=== PATIENT | male | born 1960 | race Caucasian/White ===

== ENCOUNTER 2016-05-09 17:58 | Inpatient (IN) | payer OTHER ==
[~2016-05-09] VITALS: Ht 172.7 cm; Wt 122.4 kg
[~2016-05-09 17:58] MED LIST: FIORIC PO
[2016-05-09 18:05] VITALS: BP 194/116; PULSE 105; RESP 16; TEMP 98.5; O2SAT 96
[2016-05-09 18:20] VITALS: BP 154/96; PULSE 106; RESP 18; O2SAT 96
--- NOTE | 2016-05-09 18:42 | PD ---
HPI Chief Complaint: Chest Pain Time Seen by Provider: 18:27 Travel History International Travel<30 days: No Contact w/Intl Traveler<30days: No Traveled to known affect area: No History of Present Illness HPI This 55-year-old male has multiple complaints. He says that recently he has been falling 3 or 4 times a day. He thinks he is passing out and then falling. He wakes up and is somewhat confused. He has no history of seizures. He has no history of heart disease. He does have a history of migraine headaches and tension headaches. He says the last couple of months he has had periods where he seems like he is confused. He will forget what he is doing. Concerned that he is losing his mind. he had some chest pain last night. He is not having pain now. He stopped smoking 3 weeks ago. He believes he has a history of sleep apnea. He says he been urinating every hour. The patient does have a laceration of his tongue which he said occurred during one of these episodes a few weeks ago PFSH Past Medical History Arthritis: Yes Blood Disorders: No Cancer: No Cardiac Catheterization: No Cardiovascular Problems: Yes High Cholesterol: Yes Congestive Heart Failure: No Diabetes: No Endocrine: No Genitourinary: No Hypertension: Yes Immune Disorder: No Musculoskeletal: Yes Neurologic: Yes Psychiatric: No Reproductive: No Respiratory: No Migraines: Yes (WITH TMJ) Influenza Vaccination: Yes Past Surgical History Abdominal Surgery: Yes AICD: No Appendectomy: Yes (UNKNOWN YEAR) Arteriovenous Shunt: No Cardiac Surgery: No Coronary Artery Bypass Graft: No Ear Surgery: No Endocrine Surgery: No Eye Surgery: No Genitourinary Surgery: No Gynecologic Surgery: No Insulin Pump: No Joint Replacement: No Oral Surgery: Yes Pacemaker: No Thoracic Surgery: No Tonsillectomy: Yes ( CHILD) Social History Alcohol Use: No Tobacco Use: Yes (QUIT 06/2013) Substance Use: No Allergies-Medications (Allergen,Severity, Reaction): Coded Allergies: No Known Allergies (Verified , 05/09/16) Reported Meds & Prescriptions Reported Meds & Active Scripts Active No Active Prescriptions or Reported Medications Review of Systems General / Constitutional: No: Fever, Chills Eyes: Positive: Blurred Vision, No: Diploplia HENT: Positive: Headaches, No: Vertigo, Lightheadedness Cardiovascular: Positive: Chest Pain or Discomfort, Syncope, No: Palpitations Respiratory: No: Cough, Shortness of Breath Gastrointestinal: No: Nausea, Vomiting Genitourinary: Positive: Frequency, No: Urgency Musculoskeletal: No: Myalgias, Arthralgias Skin: No Rash Neurologic: No: Weakness, Dizziness Psychiatric: No: Anxiety Endocrine: No: Heat Intolerance Hematologic/Lymphatic: No: Easy Bruising Physical Exam Narrative GENERAL: Well-developed male SKIN: Warm and dry. HEAD: Atraumatic. Normocephalic. EYES: Pupils equal and round. No scleral icterus. No injection or drainage. ENT: No nasal bleeding or discharge. Mucous membranes pink and moist. There is a healing laceration on the right side of the tongue NECK: Trachea midline. No JVD. CARDIOVASCULAR: Regular rate and rhythm. No murmur appreciated. RESPIRATORY: No accessory muscle use. Clear to auscultation. Breath sounds equal bilaterally. GASTROINTESTINAL: Abdomen soft, non-tender, nondistended. Hepatic and splenic margins not palpable. MUSCULOSKELETAL: No obvious deformities. No clubbing. No cyanosis. No edema. NEUROLOGICAL: Awake and alert. No obvious cranial nerve deficits. Motor grossly within normal limits. Normal speech. PSYCHIATRIC: Appropriate mood and affect; insight and judgment normal. He is oriented Data Data Last Documented VS Vital Signs Date Time Temp Pulse Resp B/P Pulse Ox O2 Delivery O2 Flow Rate FiO2 05/09/16 18:20 106 18 154/96 96 Room Air 05/09/16 18:05 98.5 Orders Electrocardiogram (05/09/16 18:39) Complete Blood Count With Diff (05/09/16 18:39) Comprehensive Metabolic Panel (05/09/16 18:39) Troponin I (05/09/16 18:39) Urinalysis - C+S If Indicated (05/09/16 18:39) Magnesium (Mg) (05/09/16 18:39) Thyroid Stimulating Hormone (05/09/16 18:39) Ct Brain W/O Iv Contrast(Rout) (05/09/16 18:39) Labs Laboratory Tests Test 05/09/16 05/09/16 18:55 19:10 White Blood Count 15.8 TH/MM3 Red Blood Count 5.64 MIL/MM3 Hemoglobin 15.9 GM/DL Hematocrit 49.2 % Mean Corpuscular Volume 87.2 FL Mean Corpuscular Hemoglobin 28.2 PG Mean Corpuscular Hemoglobin 32.3 % Concent Red Cell Distribution Width 17.5 % Platelet Count 366 TH/MM3 Mean Platelet Volume 8.1 FL Neutrophils (%) (Auto) 76.4 % Lymphocytes (%) (Auto) 15.5 % Monocytes (%) (Auto) 4.7 % Eosinophils (%) (Auto) 3.0 % Basophils (%) (Auto) 0.4 % Neutrophils # (Auto) 12.1 TH/MM3 Lymphocytes # (Auto) 2.4 TH/MM3 Monocytes # (Auto) 0.7 TH/MM3 Eosinophils # (Auto) 0.5 TH/MM3 Basophils # (Auto) 0.1 TH/MM3 CBC Comment AUTO DIFF Differential Comment AUTO DIFF CONFIRMED Platelet Estimate NORMAL Platelet Morphology Comment NORMAL Sodium Level 140 MEQ/L Potassium Level 3.7 MEQ/L Chloride Level 102 MEQ/L Carbon Dioxide Level 31.6 MEQ/L Anion Gap 6 MEQ/L Blood Urea Nitrogen 18 MG/DL Creatinine 0.83 MG/DL Estimat Glomerular Filtration 97 ML/MIN Rate Random Glucose 129 MG/DL Calcium Level 8.4 MG/DL Magnesium Level 2.0 MG/DL Total Bilirubin 0.1 MG/DL Aspartate Amino Transf 12 U/L (AST/SGOT) Alanine Aminotransferase 23 U/L (ALT/SGPT) Alkaline Phosphatase 91 U/L Troponin I LESS THAN 0.02 NG/ML Total Protein 6.7 GM/DL Albumin 3.2 GM/DL Thyroid Stimulating Hormone 1.840 uIU/ML 3rd Gen Urine Collection Type VOIDED Urine Color STRAW Urine Turbidity CLEAR Urine pH 6.0 Urine Specific [place] 1.019 Urine Protein 30 mg/dL Urine Glucose (UA) NEG mg/dL Urine Ketones NEG mg/dL Urine Occult Blood LARGE Urine Nitrite NEG Urine Bilirubin NEG Urine Leukocyte Esterase NEG Urine RBC 4-9 /hpf Urine WBC 0-2 /hpf Microscopic Urinalysis Comment CULT NOT INDICATED MDM Medical Decision Making Medical Screen Exam Complete: Yes Emergency Medical Condition: Yes Medical Record Reviewed: Yes Differential Diagnosis Differential includes syncope, seizure disorder, fainting Narrative Course EKG shows normal sinus rhythm. CT scan has been read as negative. History is concerning for either syncope or seizure. The laceration of the tongue is concerning for seizures though it is only happen on one occasion. Diagnosis Primary Impression: Syncopal episodes Qualified Code: R55 - Syncope, unspecified syncope type Admitting Information Admitting Physician Requests: Admit Scripts No Active Prescriptions or Reported Meds Lenny Coker MD May 09, 2016 18:42
[2016-05-09 19:04] LABS: AUTOMATED NEUTROPHIL # 12.1 TH/MM3 (1.8-7.7); BASOPHIL # 0.1 TH/MM3 (0-0.2); BASOPHIL % 0.4 % (0.0-2.0); EOSINOPHIL # 0.5 TH/MM3 (0-0.4); HEMATOCRIT 49.2 % (39.0-51.0); LYMPH % 15.5 % (9.0-44.0); LYMPHOCYTE # 2.4 TH/MM3 (1.0-4.8); MEAN CELL VOLUME 87.2 FL (80.0-100.0); MEAN CORPUSCULAR HEMOGLOBIN 28.2 PG (27.0-34.0); MEAN CORPUSCULAR HGB CONC 32.3 % (32.0-36.0); MONO % 4.7 % (0.0-8.0); NEUT % 76.4 % (16.0-70.0); PLATELET COUNT 366 TH/MM3 (150-450); RED BLOOD COUNT 5.64 MIL/MM3 (4.50-5.90); RED CELL DISTRIBUTION WIDTH 17.5 % (11.6-17.2); WHITE BLOOD COUNT 15.8 TH/MM3 (4.0-11.0)
[2016-05-09 19:07] LABS: HEMO FLAGS AUTO DIFF
[2016-05-09 19:13] LABS: CHLORIDE 102 MEQ/L (98-107); POTASSIUM 3.7 MEQ/L (3.5-5.1); SODIUM (NA) 140 MEQ/L (136-145)
[2016-05-09 19:15] VITALS: BP 140/89; PULSE 97; RESP 20; O2SAT 96
[2016-05-09 19:17] LABS: ANION GAP 6 MEQ/L (5-15); BICARBONATE 31.6 MEQ/L (21.0-32.0); BLOOD UREA NITROGEN 18 MG/DL (7-18)
[2016-05-09 19:20] LABS: ALT (GPT) 23 U/L (12-78); AST (GOT) 12 U/L (15-37); GLOMERULAR FILTRATION RATE 97 ML/MIN (>89)
[2016-05-09 19:22] LABS: TOTAL BILIRUBIN ADULT 0.1 MG/DL (0.2-1.0)
[2016-05-09 19:23] LABS: ALKALINE PHOSPHATASE 91 U/L (45-117)
[2016-05-09 19:35] LABS: BLOOD, URINE LARGE (NEG); GLUCOSE,URINE NEG (NEG); KETONE, URINE NEG (NEG); NITRITE,URINE NEG (NEG)
[2016-05-09 19:37] LABS: PLATELET ESTIMATE SMEAR NORMAL (NORMAL); PLATELET MORPHOLOGY NORMAL (NORMAL); SCAN/DIFF AUTO DIFF CONFIRMED
[2016-05-09 19:46] LABS: METHOD OF COLLECTION VOIDED; URINE COLOR STRAW (YELLW/STRAW)
[2016-05-09 19:47] LABS: COMMENT (UR) CULT NOT INDICATED; CULTURE IF INDICATED CULT NOT INDICATED; WBC, URINE 0-2 /hpf (0-5)
--- NOTE | 2016-05-09 20:04 | RADHPO ---
EXAM DATE/TIME: 05/09/2016 19:01 [facility] COMPARISON: CT BRAIN W/O CONTRAST, September 27, 2012, 20:03. INDICATIONS : Cephalgia RADIATION DOSE: 64.75 CTDIvol (mGy) MEDICAL HISTORY : Hypertension. SURGICAL HISTORY : None. ENCOUNTER: Initial ACUITY: 1 day PAIN SCALE: 5/10 LOCATION: cranial TECHNIQUE: Multiple contiguous axial images were obtained of the head. Using automated exposure control and adj ustment of the mA and/or kV according to patient size, radiation dose was kept as low as reasonably a chievable to obtain optimal diagnostic quality images. FINDINGS: CEREBRUM: The ventricles are normal for age. No evidence of midline shift, mass lesion, hemorrhage or acute in farction. No extra-axial fluid collections are seen. POSTERIOR FOSSA: The cerebellum and brainstem are intact. The 4th ventricle is midline. The cerebellopontine angle i s unremarkable. EXTRACRANIAL: The visualized portion of the orbits is intact. SKULL: The calvaria is intact. No evidence of skull fracture. CONCLUSION: Normal examination for a patient of this age. No significant change has occurred. Luiz Magana MD on May 09, 2016 at 20:02 Board Certified Radiologist. This report was verified electronically.
[2016-05-09] MEDS ORDERED: SODIUM CHLORIDE 0.9% FLUSH 5 ML FLUSH FLUSH PRN (20:30)
[2016-05-09] MEDS ORDERED: NALOXONE HCL 0.4 MG/ML AMP IV PRN (20:30)
[2016-05-09 21:00] VITALS: BP 176/93; PULSE 93; RESP 18; O2SAT 95
[2016-05-09] MEDS ORDERED: ACETAMINOPHEN 500 MG CPLT PO ONE (21:30)
[2016-05-09] MEDS: SODIUM CHLORIDE 0.9% FLUSH 5 ML FLUSH FLUSH SCH (22:43)
[2016-05-09 23:59] VITALS: BP 160/92; PULSE 103; RESP 18; O2SAT 99
[2016-05-10] VITALS (10 sets, daily range): BP systolic 133–197; BP diastolic 79–116; PULSE 81–98; RESP 17–20; TEMP 96.1–98.8; O2SAT 95–98
[2016-05-10] MEDS ORDERED: ACETAMIN 325 MG/BUTALBITAL 50 MG/CAFFEINE 40 MG TAB PO ONE (06:00)
[2016-05-10 06:59] LABS: AUTOMATED NEUTROPHIL # 11.8 TH/MM3 (1.8-7.7); BASOPHIL # 0.1 TH/MM3 (0-0.2); BASOPHIL % 0.4 % (0.0-2.0); EOSINOPHIL # 0.3 TH/MM3 (0-0.4); EOSINOPHIL % 1.8 % (0.0-4.0); HEMATOCRIT 50.6 % (39.0-51.0); HEMO FLAGS DIFF FINAL; LYMPH % 15.7 % (9.0-44.0); LYMPHOCYTE # 2.5 TH/MM3 (1.0-4.8); MEAN CELL VOLUME 88.8 FL (80.0-100.0); MEAN CORPUSCULAR HEMOGLOBIN 28.4 PG (27.0-34.0); MONO % 6.6 % (0.0-8.0); NEUT % 75.5 % (16.0-70.0); PLATELET COUNT 358 TH/MM3 (150-450); RED BLOOD COUNT 5.71 MIL/MM3 (4.50-5.90); WHITE BLOOD COUNT 15.7 TH/MM3 (4.0-11.0)
[2016-05-10 07:10] LABS: POTASSIUM 4.1 MEQ/L (3.5-5.1)
[2016-05-10 07:16] LABS: BICARBONATE 33.4 MEQ/L (21.0-32.0)
[2016-05-10] MEDS ORDERED: ENALAPRILAT 1.25 MG/ML VIAL IV PUSH PRN (07:45)
[2016-05-10] MEDS: cloNIDine HCL 0.1 MG TAB PO PRN ×2 (08:34→20:44)
[2016-05-10] MEDS: ENOXAPARIN SODIUM 40 MG/0.4 ML SYRINGE SQ SCH (08:35)
[2016-05-10] MEDS: SODIUM CHLORIDE 0.9% FLUSH 5 ML FLUSH FLUSH SCH ×2 (08:45→20:45)
[2016-05-10] MEDS ORDERED: LORazepam 2 MG/ML VIAL IV PUSH PRN (09:30)
[2016-05-10 10:28] LABS: BARBITURATES, URINE NEG (NEG)
[2016-05-10 10:29] LABS: AMPHETAMINE, URINE NEG (NEG); COCAINE, URINE NEG (NEG)
--- NOTE | 2016-05-10 16:35 | HHI.HP ---
[facility] No Primary Care Physician Admission Diagnosis SYNCOPE VS SEIZURES Diagnoses: (1) Transient loss of consciousness Travel History International Travel<30 Days: No Contact w/Intl Traveler <30 Da: No Traveled to Known Affected Are: No History of Present Illness This is a 55-year-old male with past medical history of hypertension and tension headaches/migraines who presents with a history of of what he calls "falling." The patient is somewhat of a poor historian. He is quite anxious and tearful at first. At first she tells me that he's had episodes of falling where he blacks out. He states this happened at the kitchen in front of the refrigerator several days ago he fell and hit his forehead and was bleeding. Several weeks ago he had an episode where he fell and almost bit his tongue off he says. He does have a healing tongue laceration that he shows me. When further questioned the patient denies any prodromal symptoms. However he then states that "sometimes I can tell when I'm about to pass out when I stop myself from falling." The patient states that these episodes started about 6 or 7 months ago. However upon further questioning he states that he has had these episodes going back as far as 4 years ago. He states at that time he saw Dr. Rivero and had many tests including what sounds like an nerve conduction study. The patient states that Dr. Rivero put him on furosemide at that time for the headaches and another medication which helped with these episodes but he cannot remember the name of the medicine. The patient denies any loss of bowel or bladder continence. He does admit to feeling somewhat confused when he wakes up. He does have a family history of seizures and his mother and maternal aunts. He denies ever being diagnosed with a seizure disorder. The patient does not drink alcohol or use any illegal substances. His urine drug screen is negative. The patient takes only a baby aspirin a day and over-the- counter ibuprofen and Tylenol. The patient does get swelling in his legs was elevated today. He denies any chest pain, chest pressure or history of cardiac conditions. Other than high blood pressure. The patient also states that he has been getting some floaters in his right eye recently. Review of Systems ROS Limitations: Poor Historian Constitutional: DENIES: Fever, Chills Eyes: DENIES: Blurred vision, Diplopia Ears, nose, mouth, throat: DENIES: Throat pain, Running Nose Respiratory: DENIES: Cough, Shortness of breath Cardiovascular: DENIES: Chest pain, Palpitations Gastrointestinal: DENIES: Nausea, Vomiting Genitourinary: DENIES: Hematuria, Dysuria Musculoskeletal: COMPLAINS OF: Back pain, DENIES: Neck pain Integumentary: DENIES: Pruritus, Rash Hematologic/lymphatic: DENIES: Lymphadenopathy Neurologic: COMPLAINS OF: Headache, DENIES: Abnormal gait, Localized weakness , Paresthesias Psychiatric: COMPLAINS OF: Anxiety, DENIES: Confusion Past Family Social History Past Medical History Hypertension History of episodes of loss of consciousness going back for years apparently Tension versus migraine headaches Reported Medications Allergies Coded Allergies Type Severity Reaction Last Updated Verified No Known Allergies 05/09/16 Yes Active Scripts Medications Dose Route/Sig Days Date Category No Active Prescriptions or Reported Medications Rx Allergies: Coded Allergies: No Known Allergies (Verified , 05/09/16) Family History Seizures in his mother Social History The patient has achieved a 10th grade education. He was fired from [employer] 3 weeks ago for mixing up the spicy and regular chicken and is quite upset about that. He quit smoking tobacco about 3 weeks ago. No alcohol or drug use. Physical Exam Vital Signs Vital Signs Date Time Temp Pulse Resp B/P Pulse Ox O2 Delivery O2 Flow Rate FiO2 05/10/16 11:47 142/81 05/10/16 11:46 97.4 95 17 142/79 98 133/79 05/10/16 09:21 96.9 98 17 197/114 96 05/10/16 04:00 96.1 89 20 141/94 95 05/10/16 03:30 90 18 156/90 95 Room Air 05/09/16 23:59 103 18 160/92 99 Nasal Cannula 2 05/09/16 23:43 18 05/09/16 21:00 93 18 176/93 95 Room Air 05/09/16 19:15 97 20 140/89 96 Room Air 05/09/16 19:15 97 20 05/09/16 18:20 106 18 154/96 96 Room Air 05/09/16 18:05 98.5 105 16 194/116 96 Physical Exam GENERAL: Well-nourished, well-developed obese middle-age male patient who is somewhat anxious and tearful. SKIN: Warm and dry. HEAD: Normocephalic. EYES: No scleral icterus. No injection or drainage. NECK: Supple, trachea midline. No JVD or lymphadenopathy. CARDIOVASCULAR: Regular rate and rhythm without murmurs, gallops, or rubs. RESPIRATORY: Breath sounds equal bilaterally. No accessory muscle use. GASTROINTESTINAL: Abdomen soft, non-tender, nondistended. EXTREMITIES: Trace pedal edema. NEUROLOGICAL: Awake, alert, and oriented x 3. Cranial nerves II through XII intact. 5 out of 5 muscle strength all 4 extremities. Normal speech. Non- focal. Laboratory Laboratory Tests Test 05/09/16 05/09/16 05/10/16 18:55 19:10 05:45 White Blood Count 15.8 15.7 Red Blood Count 5.64 5.71 Hemoglobin 15.9 16.2 Hematocrit 49.2 50.6 Mean Corpuscular Volume 87.2 88.8 Mean Corpuscular Hemoglobin 28.2 28.4 Mean Corpuscular Hemoglobin 32.3 32.0 Concent Red Cell Distribution Width 17.5 18.0 Platelet Count 366 358 Mean Platelet Volume 8.1 8.7 Neutrophils (%) (Auto) 76.4 75.5 Lymphocytes (%) (Auto) 15.5 15.7 Monocytes (%) (Auto) 4.7 6.6 Eosinophils (%) (Auto) 3.0 1.8 Basophils (%) (Auto) 0.4 0.4 Neutrophils # (Auto) 12.1 11.8 Lymphocytes # (Auto) 2.4 2.5 Monocytes # (Auto) 0.7 1.0 Eosinophils # (Auto) 0.5 0.3 Basophils # (Auto) 0.1 0.1 CBC Comment AUTO DIFF DIFF FINAL Differential Comment AUTO DIFF CONFIRMED Platelet Estimate NORMAL Platelet Morphology Comment NORMAL Sodium Level 140 141 Potassium Level 3.7 4.1 Chloride Level 102 101 Carbon Dioxide Level 31.6 33.4 Anion Gap 6 7 Blood Urea Nitrogen 18 18 Creatinine 0.83 0.72 Estimat Glomerular Filtration 97 114 Rate Random Glucose 129 100 Calcium Level 8.4 8.0 Magnesium Level 2.0 Total Bilirubin 0.1 Aspartate Amino Transf 12 (AST/SGOT) Alanine Aminotransferase 23 (ALT/SGPT) Alkaline Phosphatase 91 Troponin I LESS THAN 0.02 Total Protein 6.7 Albumin 3.2 Thyroid Stimulating Hormone 1.840 3rd Gen Urine Collection Type VOIDED Urine Color STRAW Urine Turbidity CLEAR Urine pH 6.0 Urine Specific [place] 1.019 Urine Protein 30 Urine Glucose (UA) NEG Urine Ketones NEG Urine Occult Blood LARGE Urine Nitrite NEG Urine Bilirubin NEG Urine Leukocyte Esterase NEG Urine RBC 4-9 Urine WBC 0-2 Microscopic Urinalysis Comment CULT NOT INDICATED Urine Opiates Screen NEG Urine Barbiturates Screen NEG Urine Amphetamines Screen NEG Urine Benzodiazepines Screen NEG Urine Cocaine Screen NEG Urine Cannabinoids Screen NEG Result Diagram: 05/10/16 0545 05/10/16 0545 Imaging Last Impressions Head CT 05/09/16 1839 Signed Impressions: Service Date/Time: Monday, May 09, 2016 19:01 - CONCLUSION: Normal examination for a patient of this age. No significant change has occurred. Luiz Magana MD Assessment and Plan Assessment and Plan -Episodes of loss of consciousness. Syncope versus seizures versus sleep disorder? It is difficult to get an accurate history of the patient. He states that he had these episodes dating back as far as 4 years ago and was prescribed something from Dr. Rivero which helped but he is unable to tell me the medication. Lately these episodes of it happening more and more and he is having loss of consciousness where he falls and has suffered a tongue laceration and hitting his forehead. We'll continue with workup. Head CT is negative. Will continue on telemetry, obtain a 2-D echocardiogram, get a brain MRI, Doppler carotid ultrasound and an EEG. Use Ativan when necessary. Orthostatics are negative and we will continue those twice a day. I will request neurology to come and see him and opine on whether these could be seizures. I will order a Holter monitor as well. He likely needs a sleep study test as an outpatient as his CO2 is elevated. I would likely benefit from a cardiac event monitor. -Tension-type migraines. Request neurology opinion. Tylenol when necessary. -Hypertension. Uncontrolled and untreated. We'll start him on HCTZ daily. Will use clonidine when necessary. -DVT prophylaxis with SCDs. Jami Pederson MD May 10, 2016 16:35
--- NOTE | 2016-05-10 17:44 | EKG ---
Date Performed: 05/09/2016 Time Performed: 18:16:08 PTAGE: 55 years EKG: Sinus rhythm Indeterminate axis Since previous tracing, no significant change noted Borderline ECG PREVIOUS TRACING : 09/28/2012 01.23 DOCTOR: Anatoliy Robledo Interpretating Date/Time 05/10/2016 17:43:54
[2016-05-10] MEDS ORDERED: ATROPINE SULFATE 0.4 MG/ML VIAL IV PUSH PRN (18:45)
[2016-05-10] MEDS ORDERED: ATROPINE SULFATE 1 MG/ML VIAL IV PUSH PRN (18:46)
--- NOTE | 2016-05-10 22:38 | RADHPO ---
EXAM DATE/TIME: 05/10/2016 21:03 [facility] COMPARISON: No previous studies available for comparison. INDICATIONS : Transient ischemic attack. MEDICAL HISTORY : Hypercholesterolemia. Hypertension. Migraines. Arthritis. Anxiety. SURGICAL HISTORY : Tonsillectomy. Appendectomy. ENCOUNTER: Initial ACUITY: 1 day PAIN SCORE: 0/10 LOCATION: Bilateral neck PEAK SYSTOLIC VELOCITIES (cm/sec): ICA/CCA RATIO: Right: 2.3 Left: 1.3 ICA: Right: 208 Left: 122 CCA: Right: 90 Left: 94 ECA: Right: 91 Left: 95 VERTEBRAL: Right: 76 antegrade Left: 74 antegrade Elevated flow velocities and ICA/CCA ratios have been found to correlate with increased degrees of vessel stenosis, calculated as percentage of diameter relative to a normal segment of distal ICA/CCA FINDINGS: There is moderate to severe noncalcified plaque at the right carotid bifurcation. Mild noncalcified p laque seen in both common carotid and internal carotid arteries. PSV ratio of the right is elevated t o 2.3. Exam technically difficult due to patient's size. CONCLUSION: 1. Sonographic findings are most characteristic of at least a moderate stenosis of the right carotid bifurcation. This would be better evaluated with CTA carotids. Luiz Magana MD on May 10, 2016 at 22:34 Board Certified Radiologist. This report was verified electronically.
[2016-05-11] VITALS (28 sets, daily range): BP systolic 135–169; BP diastolic 79–96; PULSE 80–97; RESP 14–24; TEMP 97.6–98.4; O2SAT 93–99
[2016-05-11] MEDS ORDERED: ACETAMIN 325 MG/BUTALBITAL 50 MG/CAFFEINE 40 MG TAB PO ONE (04:30)
--- NOTE | 2016-05-11 08:23 | MG ---
cc: ALANIS MARCANO Lab No: [id number] Date: Age: Sex: M Hyperventilation not performed. Falling several times. Migraines. Catapres. Tylenol. DESCRIPTION An 8 Hz, 40 microvolt symmetric posterior rhythm is seen. The recording generally has a bit of a lower amplitude but synchronous and symmetric and within normal. No hemisphere asymmetries are noted. Some mild diffuse theta slowing is seen in the middle of the recording. Photic stimulation was performed without significant posterior driving. The patient is noted to be snoring but does not reach stage II sleep. A lot of heavy snoring is noted. Hyperventilation is not performed. IMPRESSION Normal awake and sleep EEG. There is a lot of snoring going on and investigation for sleep apnea could be considered if clinically indicated. MD SAMY DelgadoM/BOO 7:57 AM 8:11 AM
[2016-05-11] MEDS: ENOXAPARIN SODIUM 40 MG/0.4 ML SYRINGE SQ SCH (08:24)
[2016-05-11] MEDS: SODIUM CHLORIDE 0.9% FLUSH 5 ML FLUSH FLUSH SCH ×2 (08:24→22:10)
[2016-05-11] MEDS: HYDROCHLOROTHIAZIDE 25 MG TAB PO SCH (09:00)
--- NOTE | 2016-05-11 11:30 | MB ---
cc: LUIS DEJESUS DATE OF CONSULTATION 05/11/2016 DATE OF 1960 REASON FOR CONSULTATION Syncope, sinus arrest HISTORY OF PRESENT ILLNESS 55-year-old male with past medical history significant for hypertension, obesity , migraines and untreated obstructive sleep apnea who presented to [facility] emergency department for evaluation of falling episodes and blackouts. He reports that for the last couple of weeks, he has been having these blackouts that can happen anywhere without any pre or postdrome symptoms. The patient was admitted to telemetry and he was admitted for observation. Telemetry monitoring was observed and the patient had a 3-second pause. The patient does not remember the pause or remember any symptoms from that episode. The patient was then transferred to [facility] for further management and evaluation. REVIEW OF SYSTEMS Negative except for what is mentioned in the HPI. PAST MEDICAL HISTORY 1. Hypertension 2. Obesity 3. Untreated obstructive sleep apnea 4. Migraine headaches Home Medications: NONE ALLERGIES NO KNOWN DRUG ALLERGIES. FAMILY HISTORY Seizures SOCIAL HISTORY He is a former smoker, quit three weeks ago. He denies alcohol or illicit drug use. PHYSICAL EXAM VITAL SIGNS: Temperature 98, pulse 93, respiratory rate 18, blood pressure 152/ 82, O2 sat 95% on room air. GENERAL: He is awake, alert, and oriented x3 in no acute distress seated in the bed, at bedside. NECK: No JVD, no carotid bruits. HEART: Regular rate and rhythm. No murmurs, rubs or gallops appreciated. LUNGS: Clear to auscultation bilaterally. No wheezes, rhonchi or rales. ABDOMEN: Obese. Positive bowel sounds, soft, nontender, nondistended. EXTREMITIES: No cyanosis or edema. Pulses throughout. DATA CBC white count 15.7, hemoglobin of 16, hematocrit of 50, white count of 358. Chemistries, sodium 141, potassium 4.1 and BUN 18, creatinine of 0.72, calcium of 8. His magnesium 2, troponin less than 0.02. TSH 1.8. Urinalysis shows large amount of occult blood, as well as protein. IMAGING STUDIES Head CT, normal examination for the patient's age. Carotid artery ultrasound shows a moderate stenosis of the right carotid bifurcation. EKG shows sinus rhythm, otherwise normal. In the chart, there is a strip with 3 -second pause ASSESSMENT/PLAN This is a 55-year-old male admitted with syncope, found to have a sinus arrest, 3-second pause on the telemetry monitoring. He remains fairly hemodynamically stable and had no episode of syncope since admission. Cardiac risk factors include hypertension, smoking, and obesity. He already had a stress test on records, however, that was unremarkable in 2012. He denies home medications or AV blocking agents at home. At this point, I think it would be reasonable to evaluate the patient for coronary artery disease with a Lexiscan stress test. I will consult Dr. Jaxson Tripp for permanent pacemaker placement after ischemic evaluation is complete. Consider a Head and Neck CTA to better evaluate the right carotid stenosis and a sleep study/C-PAP trial for obstructive sleep apnea. Thank you for the opportunity to take part in the care of this patient. We will follow with you. MD MIGUEL Fragoso/CARLINE /10:52 AM /11:09 AM ANN
[2016-05-11] MEDS ORDERED: REGADENOSON INJ 0.4 MG/5 ML SYR ONE (13:00)
--- NOTE | 2016-05-11 13:00 | MB ---
cc: BRITNEY PRADHAN DATE OF CONSULTATION 05/11/2016 REASON FOR CONSULTATION Permanent pacemaker implantation. HISTORY OF PRESENT ILLNESS The patient is a 55-year-old white male with a history of migraine headaches, hypertension, sleep apnea, obesity who presented to the emergency department with complaints of recurrent syncope. The patient states he has had at least a several year history of intermittent syncope, the last time about a week ago. The patient believes he is never unconscious for more than a few seconds. When he regained consciousness, there is no disorientation. He also denies any history of bowel or urinary incontinence, seizure activity. For the most part, he has minimal to no warning before syncopal episodes. Here in the hospital, monitoring revealed a prolonged pause, and he is now referred for permanent pacemaker implantation. He denies chest pain, palpitations, pedal edema, paroxysmal nocturnal dyspnea, change in chronic dyspnea on exertion. PAST MEDICAL HISTORY 1. Hypertension 2. Migraine headaches 3. Obesity 4. Sleep apnea CARDIAC MEDICATIONS AT HOME None ALLERGIES NO KNOWN DRUG ALLERGIES. FAMILY HISTORY The patient's father from myocardial infarction or possibly a stroke at age 65. SOCIAL HISTORY The patient quit smoking three weeks ago. He denies drug or alcohol abuse. REVIEW OF SYSTEMS As in the history of present illness otherwise negative or noncontributory. He denies visual changes, unilateral weakness or numbness, abdominal pain, melena, dyspepsia, bright red blood per rectum. Often he does experience mild to moderate headaches. PHYSICAL EXAM On physical examination, his blood pressure is 144/92 with a pulse of 89, respirations 18. GENERAL: He is a well-developed, well-nourished white male in no acute distress HEENT: On examination, jugular venous pressure is normal. Carotid pulses are 2+ bilaterally and without bruits. CHEST: Examination of the chest reveals clear lung camacho. CARDIAC: On cardiac examination, he has a regular rhythm and rate without S3, S4 or murmur. ABDOMEN: On abdominal examination, he has a soft, obese, nontender abdomen. Bowel sounds are present. There is no definite hepatosplenomegaly. EXTREMITIES: Examination of extremities reveals no clubbing, cyanosis or edema. LABORATORY DATA Includes WBC 15.7, hemoglobin 16.2, platelets 358, potassium 4.1, BUN 18, creatinine 0.72, troponin less in 0.02. EKG shows normal sinus rhythm, poor R-wave progression, indeterminate axis. IMPRESSION Chronic recurrent syncopal episodes, sick sinus syndrome with prolonged pauses seen on monitoring here in the hospital in this 55-year-old white male with a history of hypertension, obesity, sleep apnea, migraine headaches. I have been asked to see the patient for permanent pacemaker implantation. I do suspect overall that his recurrent syncopal episode are due to sick sinus syndrome/asystole. Monitoring here in the hospital has demonstrated a long pause. The patient is on no A-V zhen suppressing agents. At this point, there is probably at least a class II indication for pacemaker implantation. The nature of this operation, potential risks including but not limited to pneumothorax, cardiac perforation, bleeding, infection have been outlined to the patient. He agrees to proceed. RECOMMENDATIONS 1. Permanent pacemaker implantation tomorrow. 2. Strongly recommend a formal sleep study and treatment of his sleep apnea. MD TRISTEN Omalley/CARLINE /12:29 PM /12:49 PM ANN
--- NOTE | 2016-05-11 13:59 | HHI.PR ---
Subjective Remarks No further dizziness. No complaints of active chest pain or palpitations at this time. Reports he would like to pursue with the procedure tomorrow. Objective Vitals Vital Signs Date Time Temp Pulse Resp B/P Pulse Ox O2 Delivery O2 Flow Rate FiO2 05/11/16 13:00 84 05/11/16 12:00 89 05/11/16 11:00 89 05/11/16 11:00 98.1 87 18 144/92 98 05/11/16 10:00 93 05/11/16 09:00 88 05/11/16 08:00 92 05/11/16 07:59 95 05/11/16 07:00 98.4 81 18 152/82 97 05/11/16 07:00 97 05/11/16 07:00 93 05/11/16 06:00 97 05/11/16 05:00 91 05/11/16 04:00 84 05/11/16 03:44 94 5.00 05/11/16 03:00 84 20 150/79 95 05/11/16 03:00 82 05/11/16 02:00 95 5.00 05/11/16 02:00 90 05/11/16 01:50 94 5.00 05/11/16 01:00 84 05/11/16 00:00 85 05/10/16 23:00 97 Nasal Cannula 2.00 05/10/16 23:00 97 Nasal Cannula 2.00 05/10/16 23:00 98.8 81 18 153/95 97 05/10/16 23:00 91 05/10/16 21:54 86 163/109 05/10/16 21:00 93 05/10/16 20:00 96 164/113 05/10/16 20:00 97.4 93 20 174/108 98 05/10/16 20:00 97 178/116 05/10/16 16:40 97.9 95 17 149/80 98 I/O 05/10/16 05/10/16 05/10/16 05/11/16 05/11/16 05/11/16 07:00 15:00 23:00 07:00 15:00 23:00 Intake Total 180 ml 520 ml 240 ml 120 ml Output Total 825 ml 250 ml Balance 180 ml 520 ml -585 ml -130 ml Intake Oral 180 ml 520 ml 240 ml 120 ml Output Urine Total 825 ml 250 ml # Voids 0 3 4 # Bowel Movements 0 1 0 0 Result Diagram: 05/10/1645 05/10/1645 Objective Remarks GENERAL: This is a well-nourished, obese, well-developed patient, in no apparent distress. CARDIOVASCULAR: Regular rate and rhythm RESPIRATORY: Clear to auscultation. Breath sounds equal bilaterally. No wheezes , rales, or rhonchi. GASTROINTESTINAL: Abdomen soft, non-tender, nondistended. Normal active bowel sounds MUSCULOSKELETAL: Extremities without clubbing, cyanosis, trace edema NEURO: Alert & Oriented x4 to person, place, time, situation. Moves all ext x4 A/P Problem List: (1) Syncopal episodes ICD Code: R55 Status: Acute (2) Sick sinus syndrome ICD Code: I49.5 Status: Acute Assessment and Plan Acute with recurrent syncope episode with findings of sick sinus syndrome with significant pausespatient has had cardiac evaluation and recommendations are for a pacemaker placement. Continue to monitor closely on telemetry, patient is not any AV zhen richard, atropine as needed. Cardiology also recommended nuclear thallium stress test prior to pacemaker. Carotid ultrasound showed moderate stenosis on the right outpatient CTA for further follow-up and workup. -Hypertension. Uncontrolled and untreated. Started on HCTZ daily. IV Vasotec when necessary for any uncontrolled blood pressure. -DVT prophylaxis with SCDs. Discharge Planning Home when cleared by cardiology and completion of pacemaker placement Problem Qualifiers (1) Syncopal episodes: Qualified Code: R55 - Syncope, unspecified syncope type Prachi Winston MD May 11, 2016 13:59
--- NOTE | 2016-05-11 15:25 | EC ---
Study Study Date:05/11/2016 STUDY CONCLUSIONS SUMMARY LEFT VENTRICLE: The cavity size was normal. Wall thickness was normal. Systolic function was normal. The estimated ejection fraction was in the range of 55% to 60%. Wall motion was normal; there were no regional wall motion abnormalities. If LV function is below 40, please consider prescribing an ACEI or ARB or document rationale for non-use. PROCEDURE DATA STUDY STATUS: Elective. Procedure: Transthoracic echocardiography. Image quality was poor. Scanning was performed from the parasternal, apical, and subcostal acoustic windows. Study completion: The patient tolerated the procedure well. Transthoracic echocardiography. M-mode, complete 2D, complete spectral Doppler, and color Doppler. Patient status: Inpatient. CARDIAC ANATOMY LEFT VENTRICLE: The cavity size was normal. Wall thickness was normal. Systolic function was normal. The estimated ejection fraction was in the range of 55% to 60%. Wall motion was normal; there were no regional wall motion abnormalities. AORTIC VALVE: Trileaflet; normal thickness leaflets. Doppler: Transvalvular velocity was within the normal range. There was no stenosis. No regurgitation. Mean gradient: 6mm Hg (S). Peak gradient: 11mm Hg (S). AORTA: Aortic root: The aortic root was normal in size. MITRAL VALVE: Structurally normal valve. Doppler: Transvalvular velocity was within the normal range. There was no evidence for stenosis. No regurgitation. Peak gradient: 2mm Hg (D). LEFT ATRIUM: The atrium was normal in size. RIGHT VENTRICLE: The cavity size was normal. Wall thickness was normal. PULMONIC VALVE: Doppler: Transvalvular velocity was within the normal range. There was no evidence for stenosis. No regurgitation. TRICUSPID VALVE: Structurally normal valve. Doppler: Transvalvular velocity was within the normal range. No regurgitation. PULMONARY ARTERY: The main pulmonary artery was normal-sized. Systolic pressure was within the normal range. RIGHT ATRIUM: The atrium was normal in size. PERICARDIUM: There was no pericardial effusion. SYSTEMIC VEINS: Inferior vena cava: The vessel was normal in size. BASIC MEASUREMENTS ADULT Normal Left ventricle LV internal dimension, ED, chordal level, 47.1 mm 43-52 PLAX LV internal dimension, ES, chordal level, *38.4 mm 23-38 PLAX Fractional shortening, chordal level, PLAX *18 % >29 LV posterior wall thickness, ED 7.79 mm IVS/LVPW ratio, ED *1.49 <1.3 Ventricular septum Septal thickness, ED 11.6 mm Aortic valve Leaflet separation 18 mm 15-26 Left atrium Anterior-posterior dimension 38 mm Right ventricle RV internal dimension, ED, PLAX 20.6 mm 19-38 BASIC MEASUREMENTS ADULT Normal Aortic valve Leaflet separation 18 mm 15-26 Aorta Root diameter, ED 33 mm 20-37 DOPPLER MEASUREMENTS ADULT Normal Main pulmonary artery Pressure, S 30 mm Hg =30 Aortic valve Peak velocity, S 165 cm/s Mean velocity, S 116 cm/s VTI, S 33.4 cm Mean gradient, S 6 mm Hg Peak gradient, S 11 mm Hg Mitral valve Peak E-wave velocity 73.1 cm/s Peak A-wave velocity 79 cm/s Peak gradient, D 2 mm Hg Peak E/A ratio 0.9 Tricuspid valve Regurgitant peak velocity 220 cm/s Peak RV-RA gradient, S 19 mm Hg Maximal regurgitant velocity 220 cm/s Systemic veins Estimated CVP 10 mm Hg Right ventricle RV pressure, S *30 mm Hg <30 LEGEND: Mean values are shown as u=mean value. Asterisk (*) martinez values outside specified normal range. Prepared and signed by Terry Maguire [id number]
[2016-05-11] MEDS: CHLORHEXIDINE GLUCONATE 2 % 1 PACK (2 CLOTHS) TOPICAL SCH (21:00)
[2016-05-11] MEDS: POVIDONE IODINE 5% (ANTISEPSIS KIT) 4 APPLICATIONS TOPICAL SCH (21:00)
[2016-05-11] MEDS: MUPIROCIN 2% OINT 1 APPLIC/GM SYR EACH NARE SCH (22:10)
[2016-05-12] VITALS (28 sets, daily range): BP systolic 119–166; BP diastolic 62–97; PULSE 78–98; RESP 16–18; TEMP 97.9–98.6; O2SAT 92–99
[2016-05-12] MEDS ORDERED: ACETAMINOPHEN 325 MG TAB PO ONE (03:15)
[2016-05-12] MEDS ORDERED: SUMAtriptan INJ 6 MG/0.5 ML VIAL SQ ONE (05:15)
[2016-05-12] MEDS ORDERED: SODIUM CHLORID 0.9% 500 ML INJ 500 ML IV ONE ×2 (05:15→08:30)
[2016-05-12] MEDS ORDERED: MORPHINE SULFATE 4 MG/ML INJ IV PUSH ONE (05:15)
[2016-05-12] MEDS: SODIUM CHLORIDE 0.9% FLUSH 5 ML FLUSH FLUSH SCH ×2 (07:16→20:50)
[2016-05-12] MEDS: ENOXAPARIN SODIUM 40 MG/0.4 ML SYRINGE SQ SCH (08:19)
[2016-05-12] MEDS: HYDROCHLOROTHIAZIDE 25 MG TAB PO SCH (08:19)
--- NOTE | 2016-05-12 10:55 | RADRPT ---
EXAM DATE/TIME: 05/11/2016 13:05 [facility] COMPARISON: CHEST SINGLE AP, September 27, 2012, 19:28. INDICATIONS : Chest tightness and shortness of breath for one day. Coronary atherosclerosis. DOSE: 30.2 mCi Tc99m Myoview at stress. 30.1 mCi Tc99m Myoview at rest. 0.4 mg Lexiscan STRESS SYMPTOMS: Asymptomatic. EJECTION FRACTION: 63% MEDICAL HISTORY : Hypertension. Smoking history. SURGICAL HISTORY : Appendectomy. ENCOUNTER: Initial ACUITY: 1 day PAIN SCALE: 4/10 LOCATION: Midsternal chest TECHNIQUE: The patient underwent pharmacologic stress with infusion of prescribed dose. Continuous ECG tracing was monitored during stress. Gated SPECT imaging was performed after stress and conventional SPECT i maging was performed at rest. The examination was performed on a SPECT/CT scanner, both attenuation and non-corrected datasets were reviewed. FINDINGS: DISTRIBUTION: The maximum perfused segment at stress is in the anterior wall. PERFUSION STUDY: The pattern of perfusion at stress is within normal limits. GATED STUDY: There is intact wall motion and thickening without hypokinetic or dyskinetic segments. CONCLUSION: 1. No fixed or reversible defects to suggest ischemia or infarction. 2. Normal wall motion and calculated ejection fraction. RISK CATEGORY: Low (<1% Annual Mortality Rate) Martín Lyons MD on May 12, 2016 at 10:50 Board Certified Radiologist. This report was verified electronically.
--- NOTE | 2016-05-12 13:03 | PD.CARD.PN ---
Subjective Subjective Remarks no overnight events no complaints MPI results noted; no signs of ischemia Objective Medications Current Medications Medications (Trade) Dose Ordered Sig/Lashae Route Start Time Stop Time Status Last Admin (NS Flush) 2 ml UNSCH PRN FLUSH 05/09/16 20:30 (NS Flush) 2 ml BID FLUSH 05/09/16 21:00 05/11/16 22:10 (Lovenox Inj) 40 mg Q24H SQ 05/10/16 09:00 05/11/16 08:24 (Narcan Inj) 0.4 mg UNSCH PRN IV 05/09/16 20:30 (Vasotec Inj) 1.25 mg Q6H PRN IV PUSH 05/10/16 07:45 (Ativan Inj) 1 mg Q15M PRN IV PUSH 05/10/16 09:30 (Hydrodiuril) 25 mg DAILY PO 05/11/16 09:00 05/12/16 08:19 Atropine Sulfate 0.5 mg 0.5 mg Q6H PRN IV PUSH 05/10/16 18:46 Cefazolin Sodium 1000 mg/Sodium Chloride 100 ml @ 0 mls/hr ONCE IV 05/12/16 13:30 05/12/16 13:31 (Vancomycin Inj/ NS 250 ml Inj) 250 ml @ 0 mls/hr ONCE IV 05/12/16 13:30 05/12/16 13:31 (Betadine 5% Antisepsis Kit) 1 applic HS TOPICAL 05/11/16 21:00 05/11/16 21:00 Vital Signs / I&O Vital Signs Date Time Temp Pulse Resp B/P Pulse Ox O2 Delivery O2 Flow Rate FiO2 05/12/16 12:00 86 05/12/16 11:00 81 05/12/16 11:00 98.3 86 16 153/97 98 05/12/16 10:00 87 05/12/16 09:00 86 05/12/16 08:00 88 05/12/16 07:00 98.0 88 18 151/79 99 05/12/16 07:00 85 05/12/16 07:00 94 Room Air 05/12/16 06:00 89 05/12/16 05:00 83 05/12/16 04:14 Full Face Mask 05/12/16 04:00 87 05/12/16 03:00 98.6 84 17 163/94 92 05/12/16 03:00 86 05/12/16 02:00 91 05/12/16 01:05 Full Face Mask 05/12/16 01:00 96 05/12/16 00:00 78 05/11/16 23:00 90 05/11/16 23:00 98.2 93 24 169/96 99 05/11/16 22:31 94 BiPAP 2.00 05/11/16 22:31 Full Face Mask 05/11/16 22:00 81 05/11/16 21:00 88 05/11/16 20:00 96 05/11/16 19:00 93 Room Air 05/11/16 19:00 85 05/11/16 19:00 97.6 93 14 168/93 93 05/11/16 18:00 89 05/11/16 17:00 80 05/11/16 16:00 82 05/11/16 15:00 98.0 82 16 135/94 95 05/11/16 15:00 82 05/11/16 14:00 81 I/O 05/11/16 05/11/16 05/11/16 05/12/16 05/12/16 05/12/16 07:00 15:00 23:00 07:00 15:00 23:00 Intake Total 120 ml 240 ml 240 ml Output Total 250 ml 1400 ml 950 ml Balance -130 ml -1160 ml -710 ml Intake Oral 120 ml 240 ml 240 ml Output Urine Total 250 ml 1400 ml 950 ml # Bowel Movements 0 0 Physical Exam GENERAL: Well-nourished, well-developed patient. SKIN: Warm and dry. HEAD: Normocephalic. EYES: No scleral icterus. No injection or drainage. NECK: Supple, trachea midline. No JVD or lymphadenopathy. CARDIOVASCULAR: Regular rate and rhythm without murmurs, gallops, or rubs. RESPIRATORY: Breath sounds equal bilaterally. No accessory muscle use. GASTROINTESTINAL: Abdomen soft, non-tender, nondistended. EXTREMITIES: No cyanosis, or edema. NEUROLOGICAL: Awake, alert, and oriented x 3. Non-focal. Assessment and Plan Problem List: (1) Sick sinus syndrome Assessment and Plan: Negative MPI Schedule for PPM with Dr. Tripp today Sign off (2) Essential hypertension (3) Obesity Terry Maguire MD May 12, 2016 13:03
[2016-05-12] MEDS ORDERED: VANCOMYCIN INJ 1,000 MG in SODIUM CHLOR 0.9% 250 ML INJ 250 ML IV SCH (13:30)
[2016-05-12] MEDS ORDERED: LIDOCAINE HCL 2% 50 ML VIAL ONE ×2 (14:03→14:38)
[2016-05-12] MEDS ORDERED: fentaNYL CITRATE 250 MCG/5 ML AMP ONE (14:08)
[2016-05-12] MEDS ORDERED: MIDAZOLAM HCL 5 MG/5 ML VIAL ONE (14:08)
[2016-05-12] MEDS ORDERED: ONDANSETRON HCL 4 MG/2 ML VIAL IV PUSH ONE (15:23)
[2016-05-12] MEDS ORDERED: PROPOFOL 200 MG/20 ML AMP IV ONE (15:23)
[2016-05-12] MEDS ORDERED: ZOLPIDEM TARTRATE 5 MG TAB PO PRN (15:30)
--- NOTE | 2016-05-12 16:25 | RADRPT ---
EXAM DATE/TIME: 05/12/2016 16:00 CORRECTION Corrected on: May 12, 2016; [facility] COMPARISON: CHEST SINGLE AP, September 27, 2012, 19:28. INDICATIONS : Evaluate for pneumonia post pacemaker insertion MEDICAL HISTORY : None. SURGICAL HISTORY : None. ENCOUNTER: Initial ACUITY: 1 day PAIN SCORE: 3/10 LOCATION: Bilateral chest FINDINGS: A single view of the chest demonstrates the lungs to be symmetrically aerated without evidence of mas s, infiltrate or effusion. There has been interval placement of a left subclavian AV sequential trans venous pacer. There are multiple overlying electrocardiogram leads. The heart size is mildly prominen t. The superior mediastinum is mildly prominent as well. Osseous structures are intact. There is no p neumothorax.CONCLUSION: 1. Interval placement of left subclavian AV sequential transvenous pacer . There is no evidence of pn eumothorax. 2. Apparent mild cardiomegaly. Martín Lyons MD on May 12, 2016 at 16:22 Board Certified Radiologist. This report was verified electronically. Martín Lyons MD on May 12, 2016 at 16:26 Board Certified Radiologist. This report was verified electronically.
--- NOTE | 2016-05-12 16:57 | HHI.PR ---
Subjective Remarks Patient states that he is doing okay with no problems. Pain control. Objective Vitals Vital Signs Date Time Temp Pulse Resp B/P Pulse Ox O2 Delivery O2 Flow Rate FiO2 05/12/16 16:00 86 05/12/16 16:00 98.0 90 18 166/97 98 05/12/16 15:00 80 05/12/16 14:00 84 05/12/16 13:00 90 05/12/16 12:00 86 05/12/16 11:00 81 05/12/16 11:00 98.3 86 16 153/97 98 05/12/16 10:00 87 05/12/16 09:00 86 05/12/16 08:00 88 05/12/16 07:00 98.0 88 18 151/79 99 05/12/16 07:00 85 05/12/16 07:00 94 Room Air 05/12/16 06:00 89 05/12/16 05:00 83 05/12/16 04:14 Full Face Mask 05/12/16 04:00 87 05/12/16 03:00 98.6 84 17 163/94 92 05/12/16 03:00 86 05/12/16 02:00 91 05/12/16 01:05 Full Face Mask 05/12/16 01:00 96 05/12/16 00:00 78 05/11/16 23:00 90 05/11/16 23:00 98.2 93 24 169/96 99 05/11/16 22:31 94 BiPAP 2.00 05/11/16 22:31 Full Face Mask 05/11/16 22:00 81 05/11/16 21:00 88 05/11/16 20:00 96 05/11/16 19:00 93 Room Air 05/11/16 19:00 85 05/11/16 19:00 97.6 93 14 168/93 93 05/11/16 18:00 89 05/11/16 17:00 80 I/O 05/11/16 05/11/16 05/11/16 05/12/16 05/12/16 05/12/16 07:00 15:00 23:00 07:00 15:00 23:00 Intake Total 120 ml 240 ml 240 ml Output Total 250 ml 1400 ml 950 ml Balance -130 ml -1160 ml -710 ml Intake Oral 120 ml 240 ml 240 ml Output Urine Total 250 ml 1400 ml 950 ml # Bowel Movements 0 0 Result Diagram: 05/10/16 0545 05/10/16 0545 Imaging Last 48 hours Impressions Chest X-Ray 05/12/16 0000 Signed Impressions: Service Date/Time: May 16:00 - CONCLUSION: 1. Interval placement of left subclavian AV sequential transvenous pacer . There is no evidence of pneumothorax. 2. Apparent mild cardiomegaly. Martín Lyons MD Myocardial Perfusion Scan Nuc Med 05/11/16 0000 Signed Impressions: Service Date/Time: Wednesday, May 11, 2016 13:05 - CONCLUSION: 1. No fixed or reversible defects to suggest ischemia or infarction. 2. Normal wall motion and calculated ejection fraction. RISK CATEGORY: Low (<1%% Annual Mortality Rate) Martín Lyons MD Objective Remarks GENERAL: This is a well-nourished, obese, well-developed patient, in no apparent distress. CARDIOVASCULAR: Regular rate and rhythm Chest wall- bandage clean dry intact, left arm sling in place RESPIRATORY: Clear to auscultation. Breath sounds equal bilaterally. No wheezes , rales, or rhonchi. GASTROINTESTINAL: Abdomen soft, non-tender, nondistended. Normal active bowel sounds MUSCULOSKELETAL: Extremities without clubbing, cyanosis, trace edema NEURO: Alert & Oriented x4 to person, place, time, situation. Moves all ext x4 Procedures 05/12 pacemaker placement A/P Problem List: (1) Syncopal episodes ICD Code: R55 Status: Acute (2) Sick sinus syndrome ICD Code: I49.5 Status: Acute Assessment and Plan Acute with recurrent syncope episode with findings of sick sinus syndrome with significant pauses now status post pacemaker placement. Continue postprocedure care. His nuclear thallium stress test was negative for any ischemia. Appreciate cardiology recommendations. Carotid ultrasound showed moderate stenosis on the right outpatient CTA for further follow-up and workup. -Hypertension, essential. Uncontrolled and untreated. Started on HCTZ daily. Add lisinopril today for better blood pressure control. IV Vasotec when necessary for any uncontrolled blood pressure. -DVT prophylaxis with SCDs. Discharge Planning Likely discharge to home in the morning Home when cleared by cardiology Problem Qualifiers (1) Syncopal episodes: Qualified Code: R55 - Syncope, unspecified syncope type Prachi Winston MD May 12, 2016 16:57
[2016-05-12] MEDS: traMADol HCL 50 MG TAB PO PRN ×2 (17:57→20:50)
[2016-05-12] MEDS ORDERED: LISINOPRIL 10 MG TAB PO ONE (18:00)
[2016-05-12] MEDS: MUPIROCIN 2% OINT 1 APPLIC/GM SYR EACH NARE SCH (20:51)
[2016-05-12] MEDS: POVIDONE IODINE 5% (ANTISEPSIS KIT) 4 APPLICATIONS TOPICAL SCH (20:51)
[2016-05-12] MEDS: CHLORHEXIDINE GLUCONATE 2 % 1 PACK (2 CLOTHS) TOPICAL SCH (20:51)
[2016-05-13] VITALS (20 sets, daily range): BP systolic 112–155; BP diastolic 55–78; PULSE 76–101; RESP 19–22; TEMP 97.3–97.8; O2SAT 91–98
[2016-05-13 02:58] LABS: BICARBONATE 32.6 MEQ/L (21.0-32.0); POTASSIUM 4.2 MEQ/L (3.5-5.1)
[2016-05-13] MEDS ORDERED: VANCOMYCIN INJ 1,000 MG in SODIUM CHLOR 0.9% 250 ML INJ 250 ML IV ONE (03:00)
[2016-05-13] MEDS: traMADol HCL 50 MG TAB PO PRN ×2 (03:11→09:34)
[2016-05-13] MEDS ORDERED: LISINOPRIL 10 MG TAB PO SCH (09:00)
[2016-05-13] MEDS: HYDROCHLOROTHIAZIDE 25 MG TAB PO SCH (09:34)
[2016-05-13] MEDS: SODIUM CHLORIDE 0.9% FLUSH 5 ML FLUSH FLUSH SCH (09:34)
[2016-05-13] MEDS: ENOXAPARIN SODIUM 40 MG/0.4 ML SYRINGE SQ SCH (09:34)
[2016-05-13] MEDS ORDERED: PILL SPLITTER OTHER PRN (11:30)
[2016-05-13] MEDS ORDERED: METOPROLOL TARTRATE 25 MG TAB PO SCH (12:00)
[2016-05-13] MEDS ORDERED: ULTR50TA5 PO (15:16)
[2016-05-13] MEDS ORDERED: METO25TA3 PO (15:16)
[2016-05-13] MEDS ORDERED: LISI10TA3 PO (15:16)
[2016-05-13] MEDS ORDERED: HYDR25TA5 PO (15:16)
--- NOTE | 2016-05-13 15:16 | HHI.DCPOC ---
Discharge Care Plan Diagnosis: (1) Syncopal episodes (2) Sick sinus syndrome Your Health Problems Are: Difficulty with ADL Exercise Tolerance Goals to Promote Your Health * To prevent worsening of your condition and complications * To maintain your health at the optimal level Directions to Meet Your Goals Take your medications as prescribed Follow your dietary instruction Follow activity as directed Keep your appointments as scheduled Take your immunizations and boosters as scheduled If your symptoms worsen call your PCP, if no PCP go to Urgent Care Center or Emergency Room Smoking is Dangerous to Your Health. Avoid second hand smoke Call the 24-hour hour crisis hotline for domestic abuse at Maged Murray MD May 13, 2016 15:16
--- NOTE | 2016-05-13 15:21 | HHI.DS ---
Discharge Summary Admission Date May 10, 2016 at 18:35 Discharge Date: May 13, 2016 Admitting Diagnosis SYNCOPE VS SEIZURES (1) Syncopal episodes ICD Code: R55 (2) Sick sinus syndrome ICD Code: I49.5 Diagnosis: Principal Procedures 2 pacemaker placement Brief History - From Admission This is a 55-year-old male with past medical history of hypertension and tension headaches/migraines who presents with a history of of what he calls "falling." The patient is somewhat of a poor historian. He is quite anxious and tearful at first. At first she tells me that he's had episodes of falling where he blacks out. He states this happened at the kitchen in front of the refrigerator several days ago he fell and hit his forehead and was bleeding. Several weeks ago he had an episode where he fell and almost bit his tongue off he says. He does have a healing tongue laceration that he shows me. When further questioned the patient denies any prodromal symptoms. However he then states that "sometimes I can tell when I'm about to pass out when I stop myself from falling." The patient states that these episodes started about 6 or 7 months ago. However upon further questioning he states that he has had these episodes going back as far as 4 years ago. He states at that time he saw Dr. Rivero and had many tests including what sounds like an nerve conduction study. The patient states that Dr. Rivero put him on furosemide at that time for the headaches and another medication which helped with these episodes but he cannot remember the name of the medicine. The patient denies any loss of bowel or bladder continence. He does admit to feeling somewhat confused when he wakes up. He does have a family history of seizures and his mother and maternal aunts. He denies ever being diagnosed with a seizure disorder. The patient does not drink alcohol or use any illegal substances. His urine drug screen is negative. The patient takes only a baby aspirin a day and over-the- counter ibuprofen and Tylenol. The patient does get swelling in his legs was elevated today. He denies any chest pain, chest pressure or history of cardiac conditions. Other than high blood pressure. The patient also states that he has been getting some floaters in his right eye recently. CBC/BMP: 05/10/16 0545 05/13/16 0206 Significant Findings Laboratory Tests Test 05/13/16 02:06 Carbon Dioxide Level 32.6 MEQ/L (21.0-32.0) Blood Urea Nitrogen 25 MG/DL (7-18) Estimat Glomerular Filtration 70 ML/MIN (>89) Rate Random Glucose 115 MG/DL (74-106) Calcium Level 8.3 MG/DL (8.5-10.1) Phosphorus Level 5.5 MG/DL (2.5-4.9) Imaging Last Impressions Chest X-Ray 05/12/16 0000 Signed Impressions: Service Date/Time: May 16:00 - CONCLUSION: 1. Interval placement of left subclavian AV sequential transvenous pacer . There is no evidence of pneumothorax. 2. Apparent mild cardiomegaly. Martín Lyons MD Myocardial Perfusion Scan Nuc Med 05/11/16 0000 Signed Impressions: Service Date/Time: Wednesday, May 11, 2016 13:05 - CONCLUSION: 1. No fixed or reversible defects to suggest ischemia or infarction. 2. Normal wall motion and calculated ejection fraction. RISK CATEGORY: Low (<1%% Annual Mortality Rate) Martín Lyons MD Carotid Artery Ultrasound 05/10/16 0000 Signed Impressions: Service Date/Time: Tuesday, May 10, 2016 21:03 - CONCLUSION: 1. Sonographic findings are most characteristic of at least a moderate stenosis of the right carotid bifurcation. This would be better evaluated with CTA carotids. Luiz Magana MD Head CT 05/09/16 0529 Signed Impressions: Service Date/Time: Monday, May 09, 2016 19:01 - CONCLUSION: Normal examination for a patient of this age. No significant change has occurred. Luiz Magana MD PE at Discharge GENERAL: This is a well-nourished, obese, well-developed patient, in no apparent distress. CARDIOVASCULAR: Regular rate and rhythm Chest wall- bandage clean dry intact, left arm sling in place RESPIRATORY: Clear to auscultation. Breath sounds equal bilaterally. No wheezes , rales, or rhonchi. GASTROINTESTINAL: Abdomen soft, non-tender, nondistended. Normal active bowel sounds MUSCULOSKELETAL: Extremities without clubbing, cyanosis, trace edema NEURO: Alert & Oriented x4 to person, place, time, situation. Moves all ext x4 Hospital Course Acute with recurrent syncope episode with findings of sick sinus syndrome with significant pauses now status post pacemaker placement. Stable. Continue postprocedure care. His nuclear thallium stress test was negative for any ischemia. Appreciate cardiology recommendations. Carotid ultrasound showed moderate stenosis on the right outpatient CTA for further follow-up and workup. -Hypertension, essential. Uncontrolled and untreated. Started on HCTZ daily. Added lisinopril. Today metoprolol was added. IV Vasotec when necessary for any uncontrolled blood pressure. -Possible sleep apnea. Patient advised to follow-up for sleep studies. No driving -Leukocytosis likely reactive. Outpatient follow-up -Hyperglycemia. Outpatient follow-up -DVT prophylaxis with SCDs. Pt Condition on Discharge: Stable Discharge Disposition: Discharge Home Discharge Time: <= 30 minutes Discharge Instructions DIET: Follow Instructions for: Heart Healthy Diet Activities you can perform: Regular-No Restrictions Activities to Avoid: Driving Other Activity Instructions: DINORA MUNOZ Follow up Referrals: Cardiology - 1 Week PCP Follow-up - 1 Week Pulmonology - 1 Week New Orders: BASIC METABOLIC PROF - 1 Week New Medications: Hydrochlorothiazide (Hydrochlorothiazide) 25 Mg Tab 25 MG PO DAILY Blood Pressure Management #30 TAB Lisinopril (Lisinopril) 10 Mg Tab 10 MG PO DAILY Blood Pressure Management #30 TAB Metoprolol Tartrate (Metoprolol Tartrate) 25 Mg Tab 12.5 MG PO BID Blood Pressure Management #60 TAB Tramadol (Ultram) 50 Mg Tab 50 MG PO Q6H PRN PAIN SCALE 1 TO 10 #28 TAB Maged uMrray MD May 13, 2016 15:21
--- NOTE | 2016-05-13 15:21 | HHI.PR ---
Subjective Remarks Follow-up Hypertension. Improved blood pressure after having a bowel movement. He has no complaints. Aware of precautions secondary to pacemaker placement. Discussed with RN Objective Vitals Vital Signs Date Time Temp Pulse Resp B/P Pulse Ox O2 Delivery O2 Flow Rate FiO2 05/13/16 14:00 76 05/13/16 13:49 155/78 05/13/16 13:00 87 05/13/16 12:00 90 05/13/16 11:00 87 05/13/16 11:00 97.8 96 19 117/56 91 05/13/16 10:00 89 05/13/16 09:00 84 05/13/16 08:05 96 Nasal Cannula 2.00 05/13/16 08:00 98 Room Air 05/13/16 08:00 84 05/13/16 07:30 97.8 80 19 121/59 98 05/13/16 07:00 80 05/13/16 06:00 85 05/13/16 05:00 83 05/13/16 04:00 87 05/13/16 03:00 97.3 84 22 112/55 96 05/13/16 03:00 84 05/13/16 02:00 79 05/13/16 01:00 82 05/13/16 00:33 101 05/13/16 00:00 81 05/12/16 23:28 98 7.00 05/12/16 23:00 78 05/12/16 23:00 98.3 98 18 123/62 98 05/12/16 22:00 88 05/12/16 21:50 94 Nasal Cannula 2.00 05/12/16 21:00 96 05/12/16 20:00 96 05/12/16 19:00 97.9 96 17 119/74 95 05/12/16 19:00 95 05/12/16 19:00 95 Nasal Cannula 3.00 05/12/16 18:00 98 05/12/16 17:00 92 05/12/16 16:00 86 05/12/16 16:00 98.0 90 18 166/97 98 I/O 05/12/16 05/12/16 05/12/16 05/13/16 05/13/16 05/13/16 07:00 15:00 23:00 07:00 15:00 23:00 Intake Total 240 ml 500 ml 1392 ml Output Total 950 ml 850 ml 650 ml Balance -710 ml -350 ml 742 ml Intake Oral 240 ml 500 ml 1142 ml IV Total 250 ml Output Urine Total 950 ml 850 ml 650 ml # Voids 3 # Bowel Movements 0 0 Result Diagram: 05/10/16 0545 05/13/16 0206 Imaging Last Impressions Chest X-Ray 05/12/16 0000 Signed Impressions: Service Date/Time: May 16:00 - CONCLUSION: 1. Interval placement of left subclavian AV sequential transvenous pacer . There is no evidence of pneumothorax. 2. Apparent mild cardiomegaly. Martín Lyons MD Myocardial Perfusion Scan Nuc Med 05/11/16 0000 Signed Impressions: Service Date/Time: Wednesday, May 11, 2016 13:05 - CONCLUSION: 1. No fixed or reversible defects to suggest ischemia or infarction. 2. Normal wall motion and calculated ejection fraction. RISK CATEGORY: Low (<1%% Annual Mortality Rate) Martín Lyons MD Carotid Artery Ultrasound 05/10/16 0000 Signed Impressions: Service Date/Time: Tuesday, May 10, 2016 21:03 - CONCLUSION: 1. Sonographic findings are most characteristic of at least a moderate stenosis of the right carotid bifurcation. This would be better evaluated with CTA carotids. Luiz Magana MD Head CT 05/09/16 5449 Signed Impressions: Service Date/Time: Monday, May 09, 2016 19:01 - CONCLUSION: Normal examination for a patient of this age. No significant change has occurred. Luiz Magana MD Objective Remarks GENERAL: This is a well-nourished, obese, well-developed patient, in no apparent distress. CARDIOVASCULAR: Regular rate and rhythm Chest wall- bandage clean dry intact, left arm sling in place RESPIRATORY: Clear to auscultation. Breath sounds equal bilaterally. No wheezes , rales, or rhonchi. GASTROINTESTINAL: Abdomen soft, non-tender, nondistended. Normal active bowel sounds MUSCULOSKELETAL: Extremities without clubbing, cyanosis, trace edema NEURO: Alert & Oriented x4 to person, place, time, situation. Moves all ext x4 Procedures 05/12 pacemaker placement A/P Problem List: (1) Syncopal episodes ICD Code: R55 Status: Acute (2) Sick sinus syndrome ICD Code: I49.5 Status: Acute Assessment and Plan Acute with recurrent syncope episode with findings of sick sinus syndrome with significant pauses now status post pacemaker placement. Stable. Continue postprocedure care. His nuclear thallium stress test was negative for any ischemia. Appreciate cardiology recommendations. Carotid ultrasound showed moderate stenosis on the right outpatient CTA for further follow-up and workup. -Hypertension, essential. Uncontrolled and untreated. Started on HCTZ daily. Added lisinopril. Today metoprolol was added. IV Vasotec when necessary for any uncontrolled blood pressure. -Possible sleep apnea. Patient advised to follow-up for sleep studies. No driving -Leukocytosis likely reactive. Outpatient follow-up -Hyperglycemia. Outpatient follow-up -DVT prophylaxis with SCDs. Discharge Planning Stable for discharge Problem Qualifiers (1) Syncopal episodes: Qualified Code: R55 - Syncope, unspecified syncope type Maged Murray MD May 13, 2016 15:21
--- NOTE | 2016-05-13 18:13 | EKG ---
Date Performed: 05/13/2016 Time Performed: 01:57:12 PTAGE: 55 years EKG: Sinus rhythm Indeterminate axis When compared to previous tracing, no significant change. Borderline ECG PREVIOUS TRACING : 05/09/2016 18.16 DOCTOR: Iftikhar German Interpretating Date/Time 05/13/2016 18:11:46
--- NOTE | 2016-05-13 20:37 | MP ---
cc: LUIS DEJESUS GLENN H. M.D. DATE OF SURGERY: 05/13/2016. PROCEDURE: Dual-chamber permanent pacemaker implantation via the left subclavian vein. INDICATIONS: Symptomatic sick sinus sick sinus syndrome. DESCRIPTION OF THE PROCEDURE IN DETAIL: The patient was brought to the operating suite in a fasting state after having signed informed consent. The left upper chest was prepped and draped as per policy and anesthetized with 1% lidocaine. Central venous access was obtained via the left subclavian vein twice using modified Seldinger technique after administration of IV contrast through a left arm peripheral IV. A transverse incision was made inferior to the left clavicle and using blunt dissection a subcutaneous pocket was formed down to the pectoralis fascia. Over the more lateral guidewire, a 7-Egyptian sheath was placed. As the pocket was deep, the tip of the sheath was barely in the vein so it was exchanged for a long sheath. Through this sheath, a ventricular active fixation lead was introduced and its tip positioned in the right ventricular apex where good current of injury, stimulation threshold (0.6 volts) and sensitivity (10.3 mV) were verified. This lead was secured into place using 2-0 silk ties down to the pectoralis fascia. Over the remaining guidewire, another 7-Egyptian long sheath was placed and through this sheath an atrial active fixation lead was introduced and its tip positioned in the right atrial appendage where good current of injury, stimulation threshold (1.0 volts) and sensitivity (3.0 mV) were verified. This lead was secured into place using 2-0 silk ties down to the pectoralis fascia. The leads were then connected to the pacemaker generator which is a Biotronik Eluna device. The leads and the generator were placed back into the subcutaneous pocket which was closed using 3-0 Vicryl interrupted stitches in two to three layers to close the subcutaneous tissue and then 4-0 Monocryl running stitch to close the subcuticular tissue. Overlapping Steri-Strips and a dressing were applied. There were no apparent immediate complications. CONCLUSIONS: Successful dual-chamber permanent pacemaker implantation via the left subclavian vein using a Biotronik Eluna pacemaker generator. MD TRISTEN Omalley/MYNOR /3:28 PM /8:34 PM MTDDary
== END 2016-05-13 16:58 | disposition home or self-care (01) | DRG 243 ==
LOC: PHED 17:58 → PHEDA 20:25 → PHEDH 05-10 00:25 → PH3A 05-10 04:35 → OBSVTOIN 05-10 18:35 → HCPC 05-10 22:50
PROVIDERS: ADMIT Internal Medicine; ATTEND Internal Medicine
PROC: 02H63JZ Insertion of Pacemaker Lead into Right Atrium, Percutaneous Approach (ICD-10-PCS; 2016-05-12)
PROC: 02HK3JZ Insertion of Pacemaker Lead into Right Ventricle, Percutaneous Approach (ICD-10-PCS; 2016-05-12)
PROC: 0JH606Z Insertion of Pacemaker, Dual Chamber into Chest Subcutaneous Tissue and Fascia, Open Approach (ICD-10-PCS; principal; 2016-05-12 14:00)
DX: I49.5 Sick sinus syndrome (principal); Z68.41 Body mass index [BMI] 40.0-44.9, adult; I10 Essential (primary) hypertension; I65.21 Occlusion and stenosis of right carotid artery; R55 Syncope and collapse; R73.9 Hyperglycemia, unspecified; D72.829 Elevated white blood cell count, unspecified; G47.33 Obstructive sleep apnea (adult) (pediatric); E66.9 Obesity, unspecified; G43.909 Migraine, unspecified, not intractable, without status migrainosus; G44.209 Tension-type headache, unspecified, not intractable; Z87.891 Personal history of nicotine dependence
CPT/HCPCS: 33208; 70450; 71010; 78452; 80048; 80053; 80307; 81001; 83735; 84100; 84443; 84484; 85025; 93005; 93017; 93306; 93880; 94002; 95819; A9502; C1785; C1898; G0378; J0690; J1650; J2250; J2270; J2405; J2785; J3010; J3370; J7040; J7050

== ENCOUNTER 2016-05-18 03:38 | Emergency (ER) | payer OTHER ==
[~2016-05-18] VITALS: Ht 172.7 cm; Wt 122.8 kg
[~2016-05-18 03:38] MED LIST changes: -FIORIC PO; +HYDR25TA5 PO; +LISI10TA3 PO; +METO25TA3 PO; +ULTR50TA5 PO
[2016-05-18 03:42] VITALS: BP 151/96; PULSE 95; RESP 28; TEMP 98.5; O2SAT 93
[2016-05-18] MEDS ORDERED: ASPI1TAB69 PO (03:48)
--- NOTE | 2016-05-18 04:48 | PD ---
HPI Chief Complaint: Cardiac Complaint Time Seen by Provider: 03:44 Travel History International Travel<30 days: No Contact w/Intl Traveler<30days: No Traveled to known affect area: No History of Present Illness HPI The patient is 55 years old. He has a past medical history including sick sinus syndrome, migraine headaches and asthma, hypertension, hyperlipidemia and he had a pacemaker placed within the last week sinus syndrome. He arrives today because he, after falling asleep, evidently walked into the kitchen and then fell to the ground. He woke up on the ground unclothed. He had no recollection of how he got there. He notes these events have been occurring for several years at least. Apparently the patient has a history of recurrent syncope episodes as well. These occur during the daytime. He was admitted to the [facility] about a week ago for recurrent syncopal episodes. Sick sinus syndrome was diagnosed that time the patient had a pacing device placed by Dr. Tripp. The ER now he has no specific complaints of pain or shortness of breath dizziness. He states he is quite scared. In fact he states "only reason here is because scares me." The patient continues to explain how he might require CPAP at night secondary to sleep apnea and he goes on to explain how he cannot afford outpatient testing. Additionally he complains that patient assistance program did not prescribe medications of his preference including analgesics of choice. Evidently he is loud snorer as reported to him by his family. PFSH Past Medical History Hx Anticoagulant Therapy: Yes (81mg aspirin ) Arthritis: Yes Blood Disorders: No Cancer: No Cardiac Catheterization: No Cardiovascular Problems: Yes (pacemaker placed last week , htn ) High Cholesterol: Yes Congestive Heart Failure: No Diabetes: No Endocrine: No Genitourinary: No Hypertension: Yes Immune Disorder: No Musculoskeletal: Yes Neurologic: Yes Psychiatric: No Reproductive: No Respiratory: Yes (asthma ) Migraines: Yes (WITH TMJ) Tetanus Vaccination: Unknown Influenza Vaccination: Yes Past Surgical History Abdominal Surgery: Yes AICD: No Appendectomy: Yes (UNKNOWN YEAR) Arteriovenous Shunt: No Cardiac Surgery: Yes (pacemaker last week ) Coronary Artery Bypass Graft: No Ear Surgery: No Endocrine Surgery: No Eye Surgery: No Genitourinary Surgery: No Gynecologic Surgery: No Insulin Pump: No Joint Replacement: No Oral Surgery: Yes Pacemaker: No Thoracic Surgery: No Tonsillectomy: Yes ( CHILD) Social History Alcohol Use: No Tobacco Use: No (QUIT 06/2013) Substance Use: No Allergies-Medications (Allergen,Severity, Reaction): Coded Allergies: No Known Allergies (Verified , 05/18/16) Reported Meds & Prescriptions Reported Meds & Active Scripts Active Ultram (Tramadol HCl) 50 Mg Tab 50 Mg PO Q6H PRN Metoprolol Tartrate 25 Mg Tab 12.5 Mg PO BID Lisinopril 10 Mg Tab 10 Mg PO DAILY Hydrochlorothiazide 25 Mg Tab 25 Mg PO DAILY Reported Aspirin 81 Mg Tabdr 81 Mg PO DAILY Review of Systems Except as stated in HPI: all other systems reviewed are Neg Physical Exam Narrative GENERAL: 55 yo male no acute distress SKIN: Warm and dry. HEAD: Atraumatic. Normocephalic. EYES: Pupils equal and round. No scleral icterus. No injection or drainage. ENT: No nasal bleeding or discharge. Mucous membranes pink and moist. Large neck habitus present. NECK: Trachea midline. No JVD. CARDIOVASCULAR: Regular rate and rhythm. No murmur appreciated. Left anterior chest wall with a recently placed pacing device no area of ecchymosis or sign of cellulitis. Steri-Strips overlying the surgical incision site and appear clean and intact. RESPIRATORY: No accessory muscle use. Clear to auscultation. Breath sounds equal bilaterally. GASTROINTESTINAL: Abdomen soft, non-tender, nondistended. Hepatic and splenic margins not palpable. MUSCULOSKELETAL: No obvious deformities. No clubbing. No cyanosis. No edema. NEUROLOGICAL: Awake and alert. No obvious cranial nerve deficits. Motor grossly within normal limits. Normal speech. PSYCHIATRIC: Appropriate mood and affect; insight and judgment normal. Data Data Last Documented VS Vital Signs Date Time Temp Pulse Resp B/P Pulse Ox O2 Delivery O2 Flow Rate FiO2 05/18/16 03:42 98.5 95 28 151/96 93 Orders Mandatory Outpatient Referral (05/18/16 04:58) MDM Medical Decision Making Medical Screen Exam Complete: Yes Emergency Medical Condition: Yes Medical Record Reviewed: Yes Differential Diagnosis Sleep walking, night terrors, fall syncope Narrative Course This morning the patient arrives to the ER due to fall he had a while sleep walking. He has been sleep walking and has had falls for years. He also has a syncopal type episodes in the day time for which a pacing device was placed last week. It's unlikely that arrhythmogenic events, especially asystole, prompt the patient to get out of bed and walk around at night while asleep and typically into the kitchen. In this scenario it is unlikely that given her resources in the ER we can uncover this chronic condition and treated. While the patient may benefit from sleep apnea study this will be done as an outpatient. Patient reassured. Spent a fair amount of time discussing the role of the pacing device. He seems to demonstrate insight at this point. We discussed return precautions as well as follow-up with pulmonology. Mandatory outpatient referral provided. Patient ready for discharge. The patient weighs 270 pounds and has a BMI of 41. Diet and lifestyle modification discussed with patient. EKG: Sinus rate 94, normal axis/intervals Diagnosis Primary Impression: Sleep walking disorder Additional Impressions: Anxiety Obese Qualified Code: E66.01 - Morbid obesity, unspecified obesity type Referrals: Tom Almaguer MD call for appointment Eating Disorder Psychologist call for appointment Additional Instructions: You have a choice when it comes to health care, and we are glad that you chose [facility]. Hopefully, we have met your expectations on today's visit. You are welcome to return to [facility] at any time, as we are committed to meeting the health care needs of our community. Med/Other Pt SpecificInfo: No Change to Meds Disposition: 01 DISCHARGE HOME Condition: Basilio Hylton MD May 18, 2016 04:48
--- NOTE | 2016-05-18 22:50 | EKG ---
Date Performed: 05/18/2016 Time Performed: 03:44:37 PTAGE: 55 years EKG: Sinus rhythm INDETERMINATE AXIS ATYPICAL ECG PREVIOUS TRACING : 05/13/2016 01.57 DOCTOR: Donovan Moss Interpretating Date/Time 05/18/2016 22:50:20
== END 2016-05-18 05:01 | disposition home or self-care (01) ==
LOC: NEPC 03:38
DX: F51.3 Sleepwalking [somnambulism] (principal); F41.9 Anxiety disorder, unspecified; E66.01 Morbid (severe) obesity due to excess calories; I49.5 Sick sinus syndrome; E78.5 Hyperlipidemia, unspecified; G47.30 Sleep apnea, unspecified; I10 Essential (primary) hypertension; E78.00 Pure hypercholesterolemia, unspecified; Z79.82 Long term (current) use of aspirin; Z95.0 Presence of cardiac pacemaker
CPT/HCPCS: 93005

== ENCOUNTER 2016-09-18 22:54 | Emergency (ER) | payer SELFPAY ==
[~2016-09-18] VITALS: Ht 172.7 cm; Wt 123.0 kg
[~2016-09-18 22:54] MED LIST changes: +ASPI1TAB69 PO
[2016-09-18 23:01] VITALS: BP 103/70; PULSE 81; RESP 12; TEMP 98; O2SAT 95
[2016-09-18 23:26] VITALS: BP 131/84; PULSE 85
[2016-09-18] MEDS ORDERED: SODIUM CHLORIDE 0.9% FLUSH 10 ML FLUSH IVF PRN (23:45)
--- NOTE | 2016-09-18 23:49 | PD ---
HPI Chief Complaint: Respiratory Symptoms Time Seen by Provider: 23:33 Travel History International Travel<30 days: No Contact w/Intl Traveler<30days: No Traveled to known affect area: No History of Present Illness HPI 55-year-old male presents to the emergency department for complaint of 3 weeks of upper respiratory infection type symptoms after exposure to family member with similar symptoms. Patient complains of nonproductive cough congestion and sinus drainage earache and has noted some painful lesions to the tongue and mucous membrane of the mouth. Patient reportedly one of several family members with similar symptoms of various intensity. Patient does not report fever or chills. Patient has used [id number] cough medicine and NyQuil without symptom relief. Patient is been seen by his photographic aide Dr. Tripp within the past 2 weeks. Patient has pacemaker placed due to sick sinus syndrome diagnosed this past May 2016. Patient also has history of hypertension, sleep apnea, morbid obesity, dyslipidemia and prior tobacco use. Patient states that his symptoms of fact his sinuses his ear cyst throat is mouth his tongue his chest and his abdomen. Patient states that symptoms make him feel very weak. Patient reports that his grandchild eventually had to be treated with antibiotic for resolution of all of his similar symptoms. No report of vomiting or diarrhea. No report of urinary symptoms. Patient has experienced some nausea but denies any weight loss or change in appetite. PFSH Past Medical History Narrative Medical Arthritis hypertension dyslipidemia and morbid obesity sleep apnea TMJ migraine appendectomy pacemaker insertion prior tobacco use nursing notes reviewed Hx Anticoagulant Therapy: Yes (81mg aspirin ) Arthritis: Yes Blood Disorders: No Cancer: No Cardiac Catheterization: No Cardiovascular Problems: Yes High Cholesterol: Yes Congestive Heart Failure: No Diabetes: No Endocrine: No Genitourinary: No Hypertension: Yes Immune Disorder: No Musculoskeletal: Yes Neurologic: Yes Psychiatric: No Reproductive: No Respiratory: Yes (asthma ) Migraines: Yes (WITH TMJ) Tetanus Vaccination: < 5 Years Influenza Vaccination: Yes Past Surgical History Abdominal Surgery: Yes AICD: No Appendectomy: Yes (UNKNOWN YEAR) Arteriovenous Shunt: No Cardiac Surgery: Yes (PACEMAKER INSERTED: 05/12/16) Coronary Artery Bypass Graft: No Ear Surgery: No Endocrine Surgery: No Eye Surgery: No Genitourinary Surgery: No Gynecologic Surgery: No Insulin Pump: No Joint Replacement: No Oral Surgery: Yes Pacemaker: No Thoracic Surgery: No Tonsillectomy: Yes ( CHILD) Social History Alcohol Use: No Tobacco Use: No (QUIT 06/2013) Substance Use: No Allergies-Medications (Allergen,Severity, Reaction): Coded Allergies: No Known Allergies (Verified , 09/18/16) Reported Meds & Prescriptions Reported Meds & Active Scripts Active E-Z Spacer-Aerosol Holding Chamber 1 Mis Mis 1 Ea .ROUTE DIRECTED Zithromax Z-Rl (Azithromycin) 250 Mg Dspk 250 Mg PO DIRECTED 500 MG (2 tabs) day 1, then 1 tab days 2-5. Proair Hfa 8.5 GM Inh (Albuterol Sulfate) 90 Mcg/Act Aer 2 Puff INH Q4-6H PRN 108 mcg/actuation Metoprolol Tartrate 25 Mg Tab 12.5 Mg PO BID Lisinopril 10 Mg Tab 10 Mg PO DAILY Hydrochlorothiazide 25 Mg Tab 25 Mg PO DAILY Reported Aspirin Children's (Aspirin) 81 Mg Chew 81 Mg CHEW DAILY Review of Systems Except as stated in HPI: all other systems reviewed are Neg General / Constitutional: No: Fever, Chills HENT: Positive: Rhinitis, Congestion, Earache Cardiovascular: No: Chest Pain or Discomfort, Diaphoresis, Edema Respiratory: Positive: Cough, Shortness of Breath, No: Orthopnea, Hemoptysis, Pleuritic Pain Gastrointestinal: Positive: Nausea, Abdominal Pain, No: Vomiting, Diarrhea Genitourinary: No: Dysuria, Flank Pain Musculoskeletal: Positive: Myalgias, Arthralgias Skin: No Rash Neurologic: Positive: Weakness Psychiatric: Positive: Anxiety Hematologic/Lymphatic: No: Easy Bruising Physical Exam Narrative GENERAL: Well-developed well-nourished morbidly obese male in no acute distress no respiratory distress SKIN: Warm and dry. HEAD: Normocephalic. EYES: No scleral icterus. No injection or drainage. ENT: Mucous membranes moist airway is patent lateral aspect of left-sided tongue reveals an oval ulceration half centimeter by quarter centimeter; no mass or gross is identified. NECK: Supple, trachea midline. No JVD or lymphadenopathy. CARDIOVASCULAR: Regular rate and rhythm without murmurs, gallops, or rubs. RESPIRATORY: Breath sounds equal bilaterally. No accessory muscle use. GASTROINTESTINAL: Abdomen soft, non-tender, nondistended. MUSCULOSKELETAL: No cyanosis, or edema. BACK: Nontender without obvious deformity. No CVA tenderness. Data Data Last Documented VS Vital Signs Date Time Temp Pulse Resp B/P Pulse Ox O2 Delivery O2 Flow Rate FiO2 09/19/16 01:04 80 121/67 97 Room Air 09/18/16 23:01 98.0 12 Orders Complete Blood Count With Diff (09/18/16 23:34) Comprehensive Metabolic Panel (09/18/16 23:34) Magnesium (Mg) (09/18/16 23:34) Ckmb (Isoenzyme) Profile (09/18/16 23:34) Troponin I (09/18/16 23:34) Iv Access Insert/Monitor (09/18/16 23:34) Electrocardiogram (09/18/16 23:34) Ecg Monitoring (09/18/16 23:34) Oximetry (09/18/16 23:34) Oxygen Administration (09/18/16 23:34) Chest, Single Ap (09/18/16 23:34) Sodium Chloride 0.9% Flush (Ns Flush) (09/18/16 23:45) Urinalysis - C+S If Indicated (09/19/16 00:24) Blood Culture (09/19/16 00:24) Ceftriaxone Inj (Rocephin Inj) (09/19/16 00:30) Azithromycin Inj (Zithromax Inj) (09/19/16 00:30) Labs Laboratory Tests Test 09/18/16 09/19/16 23:35 00:40 White Blood Count 19.1 TH/MM3 Red Blood Count 5.21 MIL/MM3 Hemoglobin 15.8 GM/DL Hematocrit 47.0 % Mean Corpuscular Volume 90.1 FL Mean Corpuscular Hemoglobin 30.4 PG Mean Corpuscular Hemoglobin 33.7 % Concent Red Cell Distribution Width 14.5 % Platelet Count 491 TH/MM3 Mean Platelet Volume 7.7 FL Neutrophils (%) (Auto) 61.8 % Lymphocytes (%) (Auto) 24.6 % Monocytes (%) (Auto) 7.2 % Eosinophils (%) (Auto) 3.1 % Basophils (%) (Auto) 3.3 % Neutrophils # (Auto) 11.8 TH/MM3 Lymphocytes # (Auto) 4.7 TH/MM3 Monocytes # (Auto) 1.4 TH/MM3 Eosinophils # (Auto) 0.6 TH/MM3 Basophils # (Auto) 0.6 TH/MM3 CBC Comment DIFF FINAL Differential Comment Sodium Level 138 MEQ/L Potassium Level 4.0 MEQ/L Chloride Level 101 MEQ/L Carbon Dioxide Level 28.9 MEQ/L Anion Gap 8 MEQ/L Blood Urea Nitrogen 23 MG/DL Creatinine 0.87 MG/DL Estimat Glomerular Filtration 91 ML/MIN Rate Random Glucose 100 MG/DL Calcium Level 8.3 MG/DL Magnesium Level 2.0 MG/DL Total Bilirubin 0.3 MG/DL Aspartate Amino Transf 14 U/L (AST/SGOT) Alanine Aminotransferase 23 U/L (ALT/SGPT) Alkaline Phosphatase 92 U/L Total Creatine Kinase 47 U/L Troponin I LESS THAN 0.02 NG/ML Total Protein 7.1 GM/DL Albumin 3.3 GM/DL Urine Color AGUSTIN Urine Turbidity SLIGHT Urine pH 5.0 Urine Specific [place] 1.033 Urine Protein 30 mg/dL Urine Glucose (UA) NEG mg/dL Urine Ketones NEG mg/dL Urine Occult Blood TRACE Urine Nitrite NEG Urine Bilirubin NEG Urine Leukocyte Esterase NEG Urine RBC 0-3 /hpf Urine WBC 0-2 /hpf Urine Squamous Epithelial 0-5 /hpf Cells Urine Hyaline Casts 15-19 /lpf Urine Mucus MOD /lpf Microscopic Urinalysis Comment CULT NOT INDICATED MDM Medical Decision Making Medical Screen Exam Complete: Yes Emergency Medical Condition: Yes Medical Record Reviewed: Yes Interpretation(s) EKG: Normal sinus rhythm rate [address] elevation or injury pattern or ectopy noted CBC & BMP Diagram 09/18/16 23:35 Vital Signs Date Time Temp Pulse Resp B/P Pulse Ox O2 Delivery O2 Flow Rate FiO2 09/18/16 23:30 94 Room Air 09/18/16 23:26 85 131/84 Room Air 09/18/16 23:01 98.0 81 12 103/70 95 ck: 47, not elevated; troponin I: less than 0.02, not elevated Last Impressions Chest X-Ray 09/18/16 [id number] Signed Impressions: Service Date/Time: Sunday, September 18, 2016 23:49 - CONCLUSION: No evidence of acute cardiopulmonary disease. Elmer Camargo MD UA: small amount of protein o/w grossly wnl Differential Diagnosis Viral syndrome, sinusitis, bronchitis, pneumonia, CHF, ACS, stomatitis/ gingivostomatitis Narrative Course Patient placed on business strategist IV access obtained specimens questions for resulting EKG performed which reveals no acute injury pattern CBC with automated differential leukocytosis of 19,000 with elevated neutrophil number; patient does not meet SIRS criteria no fever, no increased heart rate, no increased respiratory rate. Sepsis Criteria SIRS Criteria (2 or more): WBC > 56327, < 4000 or > 10% bands Diagnosis Primary Impression: Bronchitis Referrals: [facility] call for appointment [facility] as needed Patient Instructions: General Instructions Additional Instructions: Continue current medications as per the prescribed Follow-up with your primary care provider/his [facility] or [facility] Return to the emergency department for any concerns or change in condition Complete course of antibiotic as prescribed Use albuterol inhaler for wheezing or shortness of breath with use of spacer as often as every 4-6 hours as needed Take acetaminophen/Tylenol as needed for fever 100.4 use Fahrenheit or greater Med/Other Pt SpecificInfo: Prescription(s) given Scripts Promethazine (Phenergan)25 Mg [id number] Mg PO Q6H PRN (NAUSEA OR VOMITING) #7 TAB Ref 0 Prov:Vicki Sierra MD 09/19/16 E-Z Spacer-Aerosol Holding Chamber 1 Mis Mis #1 EA .ROUTE DIRECTED Ref 0 Prov:Vicki Sierra MD 09/19/16 Azithromycin (Zithromax Z-Rl)250 Mg [id number] Mg PO DIRECTED #1 DSPK Ref 0 500 MG (2 tabs) day 1, then 1 tab days 2-5. Prov:Vicki Sierra MD 09/19/16 Albuterol 8.5 GM Inh (Proair Hfa 8.5 GM Inh)90 Mcg/Act Aer2 Puff INH Q4-6H PRN ( SHORTNESS OF BREATH) #1 INHALER Ref 0 108 mcg/actuation Prov:Vicki Sierra MD 09/19/16 Disposition: 01 DISCHARGE HOME Condition: Stable Vicki Sierra MD Sep 18, 2016 23:49
[2016-09-18 23:54] LABS: AUTOMATED NEUTROPHIL # 11.8 TH/MM3 (1.8-7.7); BASOPHIL # 0.6 TH/MM3 (0-0.2); BASOPHIL % 3.3 % (0.0-2.0); EOSINOPHIL # 0.6 TH/MM3 (0-0.4); EOSINOPHIL % 3.1 % (0.0-4.0); LYMPH % 24.6 % (9.0-44.0); LYMPHOCYTE # 4.7 TH/MM3 (1.0-4.8); MEAN CELL VOLUME 90.1 FL (80.0-100.0); MEAN CORPUSCULAR HEMOGLOBIN 30.4 PG (27.0-34.0); MEAN CORPUSCULAR HGB CONC 33.7 % (32.0-36.0); MONO % 7.2 % (0.0-8.0); NEUT % 61.8 % (16.0-70.0); PLATELET COUNT 491 TH/MM3 (150-450); RED BLOOD COUNT 5.21 MIL/MM3 (4.50-5.90); RED CELL DISTRIBUTION WIDTH 14.5 % (11.6-17.2); WHITE BLOOD COUNT 19.1 TH/MM3 (4.0-11.0)
[2016-09-19 00:12] LABS: HEMO FLAGS DIFF FINAL
[2016-09-19] MEDS ORDERED: ASPI81CH7 CHEW (00:18)
[2016-09-19 00:19] LABS: CHLORIDE 101 MEQ/L (98-107); SODIUM (NA) 138 MEQ/L (136-145)
[2016-09-19 00:22] LABS: ANION GAP 8 MEQ/L (5-15); BICARBONATE 28.9 MEQ/L (21.0-32.0); BLOOD UREA NITROGEN 23 MG/DL (7-18)
--- NOTE | 2016-09-19 00:23 | RADHPO ---
EXAM DATE/TIME: 09/18/2016 23:49 [facility] COMPARISON: CHEST SINGLE AP, May 12, 2016, 16:00. INDICATIONS : Short of breath. MEDICAL HISTORY : Chronic obstructive pulmonary disease. SURGICAL HISTORY : Pacemaker. ENCOUNTER: Initial ACUITY: 1 week PAIN SCORE: 7/10 LOCATION: Bilateral chest FINDINGS: No infiltrate, effusion or pneumothorax demonstrated. Heart size stable, upper limits of normal. Cardiac pacer again noted. CONCLUSION: No evidence of acute cardiopulmonary disease. Elmer Camargo MD on September 19, 2016 at 0:21 Board Certified Radiologist. This report was verified electronically.
[2016-09-19 00:25] LABS: ALT (GPT) 23 U/L (12-78); AST (GOT) 14 U/L (15-37); GLOMERULAR FILTRATION RATE 91 ML/MIN (>89)
[2016-09-19 00:27] LABS: TOTAL BILIRUBIN ADULT 0.3 MG/DL (0.2-1.0)
[2016-09-19 00:28] LABS: ALKALINE PHOSPHATASE 92 U/L (45-117)
[2016-09-19] MEDS ORDERED: AZITHROMYCIN INJ 500 MG in SODIUM CHLOR 0.9% 250 ML INJ 250 ML IV ONE (00:30)
[2016-09-19] MEDS ORDERED: cefTRIAXone INJ 1,000 MG in SODIUM CHLORIDE 0.9% INJ 100 ML IV ONE (00:30)
[2016-09-19 00:35] VITALS: BP 114/68; PULSE 81; O2SAT 96
[2016-09-19 00:44] LABS: CREATINE KINASE 47 U/L (39-308)
[2016-09-19 00:52] LABS: BLOOD, URINE TRACE (NEG); GLUCOSE,URINE NEG (NEG); KETONE, URINE NEG (NEG); NITRITE,URINE NEG (NEG)
[2016-09-19 01:04] VITALS: BP 121/67; PULSE 80; O2SAT 97
[2016-09-19 01:05] LABS: URINE COLOR AMBER (YELLW/STRAW)
[2016-09-19 01:06] LABS: HYALINE CAST, URINE 15-19 /lpf (RARE); MUCUS URINE MOD /lpf (OCC)
[2016-09-19 01:07] LABS: COMMENT (UR) CULT NOT INDICATED; CULTURE IF INDICATED CULT NOT INDICATED; RBC, URINE 0-3 /hpf (0-3); SQUAMOUS EPITHELIAL CELL URINE 0-5 /hpf (0-5); WBC, URINE 0-2 /hpf (0-5)
[2016-09-19] MEDS ORDERED: ZITHTAB PO (01:12)
[2016-09-19] MEDS ORDERED: E-ZMIS3 (01:12)
[2016-09-19] MEDS ORDERED: ALBUAER3 INH (01:12)
[2016-09-19] MEDS ORDERED: PROM25TA10 PO (01:30)
[2016-09-19] MEDS ORDERED: METOCLOPRAMIDE HCL 10 MG/2 ML VIAL IV PUSH ONE (02:00)
[2016-09-19 02:07] VITALS: BP 115/66; PULSE 80; RESP 20; O2SAT 96
--- NOTE | 2016-09-19 14:24 | EKG ---
Date Performed: 09/18/2016 Time Performed: 23:45:06 PTAGE: 55 years EKG: Sinus rhythm MARKED LEFT AXIS DEVIATION Since previous tracing, no significant change noted ABNORMAL ECG PREVIOUS TRACING : 05/18/2016 03.44 DOCTOR: Evaristo Christie Interpretating Date/Time 09/19/2016 14:20:10
== END 2016-09-19 02:36 | disposition home or self-care (01) ==
LOC: PHED 22:54
DX: J40 Bronchitis, not specified as acute or chronic (principal); I10 Essential (primary) hypertension; R94.31 Abnormal electrocardiogram [ECG] [EKG]; Z79.899 Other long term (current) drug therapy; Z87.891 Personal history of nicotine dependence
CPT/HCPCS: 71010; 80053; 81001; 82550; 83735; 84484; 85025; 87040; 93005; 96365; 96366; 96375; 99285; J0456; J0696; J2765; J7050

== ENCOUNTER 2016-10-30 22:49 | Emergency (ER) | payer SELFPAY ==
[~2016-10-30] VITALS: Ht 172.7 cm; Wt 119.5 kg
[~2016-10-30 22:49] MED LIST changes: +ALBUAER3 INH; -ASPI1TAB69 PO; +ASPI81CH7 CHEW; +E-ZMIS3; +PROM25TA10 PO; -ULTR50TA5 PO; +ZITHTAB PO
[2016-10-30 22:55] VITALS: BP 106/70; PULSE 93; RESP 18; TEMP 98.4; O2SAT 97
[2016-10-30 23:03] VITALS: BP 108/65; PULSE 92; RESP 20; O2SAT 98
[2016-10-30] MEDS ORDERED: SODIUM CHLORIDE 0.9% FLUSH 10 ML FLUSH IV FLUSH PRN (23:15)
[2016-10-30 23:19] VITALS: O2SAT 97
--- NOTE | 2016-10-30 23:25 | PD ---
HPI Chief Complaint: Abdominal Pain Time Seen by Provider: 23:20 Travel History International Travel<30 days: No Contact w/Intl Traveler<30days: No Traveled to known affect area: No History of Present Illness HPI 55-year-old male with history of migraine headaches, bronchitis, presents to the ER today because of ongoing problems with cough for several months, and over last few weeks he has noticed abdominal pains with intermittent nausea and vomiting although he has not vomited in the past few days. He denies any diarrhea, fevers, or any other symptoms. He states that there is something going on with his guts. He currently is complaining of 8 out of 10 pains. Modifying Factors: None Associated Signs & Symptoms: Nausea, abdominal pain Risk Factors: None PFSH Past Medical History Hx Anticoagulant Therapy: Yes (81mg aspirin ) Arthritis: Yes Blood Disorders: No Cancer: No Cardiac Catheterization: No Cardiovascular Problems: Yes High Cholesterol: Yes Congestive Heart Failure: No Diabetes: No Endocrine: No Genitourinary: No Hypertension: Yes Immune Disorder: No Musculoskeletal: Yes Neurologic: Yes Psychiatric: No Reproductive: No Respiratory: Yes (asthma ) Migraines: Yes (WITH TMJ) Tetanus Vaccination: < 5 Years Past Surgical History Abdominal Surgery: Yes AICD: No Appendectomy: Yes (UNKNOWN YEAR) Arteriovenous Shunt: No Cardiac Surgery: Yes (PACEMAKER INSERTED: 05/12/16) Coronary Artery Bypass Graft: No Ear Surgery: No Endocrine Surgery: No Eye Surgery: No Genitourinary Surgery: No Gynecologic Surgery: No Insulin Pump: No Joint Replacement: No Oral Surgery: Yes Pacemaker: No Thoracic Surgery: No Tonsillectomy: Yes ( CHILD) Social History Alcohol Use: No Tobacco Use: No (QUIT 06/2013) Substance Use: No Allergies-Medications (Allergen,Severity, Reaction): Coded Allergies: No Known Allergies (Verified , 10/30/16) Reported Meds & Prescriptions Reported Meds & Active Scripts Active E-Z Spacer-Aerosol Holding Chamber 1 Mis Mis 1 Ea .ROUTE DIRECTED Proair Hfa 8.5 GM Inh (Albuterol Sulfate) 90 Mcg/Act Aer 2 Puff INH Q4-6H PRN 108 mcg/actuation Metoprolol Tartrate 25 Mg Tab 12.5 Mg PO BID Lisinopril 10 Mg Tab 10 Mg PO DAILY Hydrochlorothiazide 25 Mg Tab 25 Mg PO DAILY Reported Aspirin Children's (Aspirin) 81 Mg Chew 81 Mg CHEW DAILY Review of Systems Except as stated in HPI: all other systems reviewed are Neg Physical Exam Narrative GENERAL: Well-developed obese middle age white male patient and moderate distress. Awake and oriented 3. SKIN: Focused skin assessment warm/dry. HEAD: Atraumatic. Normocephalic. EYES: Pupils equal and round. No scleral icterus. No injection or drainage. ENT: No nasal bleeding or discharge. Mucous membranes pink and moist. NECK: Trachea midline. No JVD. CARDIOVASCULAR: Regular rate and rhythm. No murmur appreciated. RESPIRATORY: No accessory muscle use. Clear to auscultation. Breath sounds equal bilaterally. GASTROINTESTINAL: Abdomen soft, diffuse abdominal tenderness more pronounced in the periumbilical region and left lower quadrant without guarding or rebound, nondistended. Hepatic and splenic margins not palpable. MUSCULOSKELETAL: No obvious deformities. No clubbing. No cyanosis. No edema. NEUROLOGICAL: Awake and alert. No obvious cranial nerve deficits. Motor grossly within normal limits. Normal speech. PSYCHIATRIC: Appropriate mood and affect; insight and judgment normal. Data Data Last Documented VS Vital Signs Date Time Temp Pulse Resp B/P Pulse Ox O2 Delivery O2 Flow Rate FiO2 10/31/16 00:43 79 15 101/61 96 10/30/16 23:19 Room Air 10/30/16 22:55 98.4 Orders Complete Blood Count With Diff (10/30/16 23:15) Comprehensive Metabolic Panel (10/30/16 23:15) Lipase (10/30/16 23:15) Iv Access Insert/Monitor (10/30/16 23:15) Ecg Monitoring (10/30/16 23:15) Oximetry (10/30/16 23:15) Sodium Chloride 0.9% Flush (Ns Flush) (10/30/16 23:15) Ondansetron Inj (Zofran Inj) (10/30/16 23:30) Chest, Single Ap (10/30/16 23:20) Hydromorphone Pf Inj (Dilaudid Pf Inj) (10/30/16 23:30) Ct Abd/Pel W Iv Contrast(Rout) (10/31/16 00:01) Iohexol 350 Inj (Omnipaque 350 Inj) (10/31/16 00:40) Labs Laboratory Tests Test 10/30/16 23:28 White Blood Count 15.1 TH/MM3 Red Blood Count 5.44 MIL/MM3 Hemoglobin 16.6 GM/DL Hematocrit 49.1 % Mean Corpuscular Volume 90.3 FL Mean Corpuscular Hemoglobin 30.6 PG Mean Corpuscular Hemoglobin 33.9 % Concent Red Cell Distribution Width 13.7 % Platelet Count 354 TH/MM3 Mean Platelet Volume 8.1 FL Neutrophils (%) (Auto) 54.6 % Lymphocytes (%) (Auto) 32.4 % Monocytes (%) (Auto) 8.1 % Eosinophils (%) (Auto) 4.1 % Basophils (%) (Auto) 0.8 % Neutrophils # (Auto) 8.3 TH/MM3 Lymphocytes # (Auto) 4.9 TH/MM3 Monocytes # (Auto) 1.2 TH/MM3 Eosinophils # (Auto) 0.6 TH/MM3 Basophils # (Auto) 0.1 TH/MM3 CBC Comment DIFF FINAL Differential Comment Sodium Level 136 MEQ/L Potassium Level 3.9 MEQ/L Chloride Level 98 MEQ/L Carbon Dioxide Level 28.7 MEQ/L Anion Gap 9 MEQ/L Blood Urea Nitrogen 24 MG/DL Creatinine 1.00 MG/DL Estimat Glomerular Filtration 78 ML/MIN Rate Random Glucose 102 MG/DL Calcium Level 9.6 MG/DL Total Bilirubin 0.2 MG/DL Aspartate Amino Transf 18 U/L (AST/SGOT) Alanine Aminotransferase 28 U/L (ALT/SGPT) Alkaline Phosphatase 94 U/L Total Protein 7.3 GM/DL Albumin 3.6 GM/DL Lipase 426 U/L MDM Medical Decision Making Medical Screen Exam Complete: Yes Emergency Medical Condition: Yes Medical Record Reviewed: Yes Interpretation(s) Laboratory Tests Test 10/30/16 23:28 White Blood Count 15.1 TH/MM3 (4.0-11.0) Monocytes (%) (Auto) 8.1 % (0.0-8.0) Eosinophils (%) (Auto) 4.1 % (0.0-4.0) Neutrophils # (Auto) 8.3 TH/MM3 (1.8-7.7) Lymphocytes # (Auto) 4.9 TH/MM3 (1.0-4.8) Monocytes # (Auto) 1.2 TH/MM3 (0-0.9) Eosinophils # (Auto) 0.6 TH/MM3 (0-0.4) Blood Urea Nitrogen 24 MG/DL (7-18) Estimat Glomerular Filtration 78 ML/MIN (>89) Rate Lipase 426 U/L (73-393) Last 24 hours Impressions Chest X-Ray 10/30/16 [id number] Signed Impressions: Service Date/Time: Sunday, October 30, 2016 23:57 - CONCLUSION: Midinspiratory study with crowding of the lung vasculature. There is no definite acute cardiopulmonary disease. Martín Lyons MD Differential Diagnosis Nausea, abdominal pain, coughingabdominal wall strain versus gastroenteritis versus diverticulitis versus acute intra-abdominal processes Narrative Course Lab work shows mild pancreatitis. Chest x-ray did not show any signs of acute pulmonary processes. CAT scan was done and was unremarkable. At this point, I do not see any signs of other acute processes and vital signs are stable in the ER. My plan would be to release him with symptomatic relief or pain and nausea and have him follow-up with primary care physician. Return for any worsening in symptoms as needed. The plan has been discussed with him and he states understanding. Diagnosis Primary Impression: Abdominal pain Additional Impression: Pancreatitis Med/Other Pt SpecificInfo: Prescription(s) given Scripts Ondansetron Odt (Zofran Odt)4 Mg Tab4 Mg SL Q6HR PRN (Nausea/Vomiting) #7 TAB Ref 0 Prov:Rosaura Cisneros MD 10/31/16 Hydrocodone-Acetaminophen (Lortab)5-325 Mg Tab1 Tab PO Q6H PRN (PAIN) #15 TAB Ref 0 Prov:Rosaura Cisneros MD 10/31/16 Disposition: 01 DISCHARGE HOME Condition: Stable Rosaura Cisneros MD Oct 30, 2016 23:25
[2016-10-30] MEDS ORDERED: HYDROmorphone HCL PF 1 MG/ML VIAL IVS ONE (23:30)
[2016-10-30] MEDS ORDERED: ONDANSETRON HCL 4 MG/2 ML VIAL IVP ONE (23:30)
[2016-10-30 23:34] LABS: AUTOMATED NEUTROPHIL # 8.3 TH/MM3 (1.8-7.7); BASOPHIL # 0.1 TH/MM3 (0-0.2); BASOPHIL % 0.8 % (0.0-2.0); EOSINOPHIL # 0.6 TH/MM3 (0-0.4); EOSINOPHIL % 4.1 % (0.0-4.0); HEMATOCRIT 49.1 % (39.0-51.0); HEMO FLAGS DIFF FINAL; LYMPH % 32.4 % (9.0-44.0); LYMPHOCYTE # 4.9 TH/MM3 (1.0-4.8); MEAN CELL VOLUME 90.3 FL (80.0-100.0); MEAN CORPUSCULAR HEMOGLOBIN 30.6 PG (27.0-34.0); MEAN CORPUSCULAR HGB CONC 33.9 % (32.0-36.0); MONO % 8.1 % (0.0-8.0); NEUT % 54.6 % (16.0-70.0); PLATELET COUNT 354 TH/MM3 (150-450); RED BLOOD COUNT 5.44 MIL/MM3 (4.50-5.90); RED CELL DISTRIBUTION WIDTH 13.7 % (11.6-17.2); WHITE BLOOD COUNT 15.1 TH/MM3 (4.0-11.0)
[2016-10-31 00:04] LABS: CHLORIDE 98 MEQ/L (98-107); POTASSIUM 3.9 MEQ/L (3.5-5.1); SODIUM (NA) 136 MEQ/L (136-145)
[2016-10-31 00:08] LABS: ANION GAP 9 MEQ/L (5-15); BICARBONATE 28.7 MEQ/L (21.0-32.0); BLOOD UREA NITROGEN 24 MG/DL (7-18)
--- NOTE | 2016-10-31 00:09 | RADRPT ---
EXAM DATE/TIME: 10/30/2016 23:57 [facility] COMPARISON: CHEST SINGLE AP, September 18, 2016, 23:49. INDICATIONS : Lower chest pain. MEDICAL HISTORY : None. SURGICAL HISTORY : Pacemaker. ENCOUNTER: Initial ACUITY: 1 day PAIN SCORE: 7/10 LOCATION: Bilateral chest FINDINGS: A single AP erect portable view of the chest was obtained. The study is more Midinspiratory with pilot point ding of the lung vasculature. There are no definite infiltrates or effusions. The heart size appears more prominent. A left subclavian transvenous pacer remains in place. There are multiple overlying el ectrocardiogram leads. The bony thorax is intact. CONCLUSION: Midinspiratory study with crowding of the lung vasculature. There is no definite acut e cardiopulmonary disease. Martín Lyons MD on October 31, 2016 at 0:07 Board Certified Radiologist. This report was verified electronically.
[2016-10-31 00:11] LABS: ALT (GPT) 28 U/L (12-78); AST (GOT) 18 U/L (15-37); GLOMERULAR FILTRATION RATE 78 ML/MIN (>89)
[2016-10-31 00:12] LABS: TOTAL BILIRUBIN ADULT 0.2 MG/DL (0.2-1.0)
[2016-10-31 00:13] LABS: ALKALINE PHOSPHATASE 94 U/L (45-117)
[2016-10-31] MEDS ORDERED: IOHEXOL 350 MG/ML 10 ML VIAL (for RAD DIAG) IV ONE (00:40)
[2016-10-31 00:43] VITALS: BP 101/61; PULSE 79; RESP 15; O2SAT 96
--- NOTE | 2016-10-31 01:09 | RADRPT ---
EXAM DATE/TIME: 10/31/2016 00:18 [facility] COMPARISON: No previous studies available for comparison. INDICATIONS : Abdominal pain. IV CONTRAST: 100 cc Omnipaque 350 (iohexol) IV ORAL CONTRAST: No oral contrast ingested. RADIATION DOSE: 22.34 CTDIvol (mGy) MEDICAL HISTORY : Hypertension. SURGICAL HISTORY : Appendectomy. Pacemaker. ENCOUNTER: Initial ACUITY: 2 months PAIN SCALE: 8/10 LOCATION: Bilateral upper quadrant lower quadrant TECHNIQUE: Volumetric scanning of the abdomen and pelvis was performed. Using automated exposure control and ad justment of the mA and/or kV according to patient size, radiation dose was kept as low as reasonably achievable to obtain optimal diagnostic quality images. DICOM format image data is available electro nically for review and comparison. FINDINGS: LOWER LUNGS: The visualized lower lungs are clear. LIVER: Homogeneous density without lesion. There is no dilation of the biliary tree. No calcified gallston es. There is mild hepatic steatosis. SPLEEN: Normal size without lesion. PANCREAS: Within normal limits. KIDNEYS: Normal in size and shape. There is no solid mass, stone or hydronephrosis. There are simple cysts in the left kidney. ADRENAL GLANDS: Within normal limits. VASCULAR: There is no aortic aneurysm. BOWEL/MESENTERY: The stomach, small bowel, and colon demonstrate no acute abnormality. There is no free intraperitone al air or fluid. ABDOMINAL WALL: Within normal limits. RETROPERITONEUM: There is no lymphadenopathy. BLADDER: No wall thickening or mass. REPRODUCTIVE: Within normal limits. INGUINAL: There is no lymphadenopathy or hernia. MUSCULOSKELETAL: Within normal limits for patient age. CONCLUSION: 1. Mild hepatic steatosis. 2. Unremarkable bowel gas pattern. 3. The gallbladder is within normal limits. 4. Simple cysts in the left kidney. Martín Lyons MD on October 31, 2016 at 1:05 Board Certified Radiologist. This report was verified electronically.
[2016-10-31] MEDS ORDERED: HYDR-3533 PO (01:24)
[2016-10-31] MEDS ORDERED: ZOFR4TAB3 SL (01:24)
[2016-10-31 01:30] VITALS: BP 105/75
== END 2016-10-31 01:44 | disposition home or self-care (01) ==
LOC: PHED 22:49
DX: K85.90 Acute pancreatitis without necrosis or infection, unspecified (principal); I10 Essential (primary) hypertension; Z87.891 Personal history of nicotine dependence
CPT/HCPCS: 71010; 74177; 80053; 83690; 85025; 96374; 96375; 99285; J1170; J2405; Q9967

== ENCOUNTER 2016-12-20 15:37 | Emergency (ER) | payer MEDICAID ==
[2016-12-20] VITALS (10 sets, daily range): BP systolic 72–125; BP diastolic 53–74; PULSE 74–102; RESP 16–18; TEMP 97.2; O2SAT 96–100
[~2016-12-20] VITALS: Ht 172.7 cm; Wt 116.6 kg
[~2016-12-20 15:37] MED LIST changes: +HYDR-3533 PO; -PROM25TA10 PO; -ZITHTAB PO; +ZOFR4TAB3 SL
[2016-12-20] MEDS ORDERED: ONDANSETRON HCL 4 MG/2 ML VIAL ONE (16:07)
[2016-12-20] MEDS ORDERED: SODIUM CHLOR 0.9% 1000 ML INJ 1,000 ML IV STA (16:13)
[2016-12-20] MEDS ORDERED: ONDANSETRON HCL 4 MG/2 ML VIAL IVP ONE (16:15)
[2016-12-20] MEDS ORDERED: HYDROmorphone HCL PF 2 MG/ML VIAL IVS ONE (16:15)
[2016-12-20] MEDS ORDERED: SODIUM CHLORIDE 0.9% FLUSH 10 ML FLUSH IV FLUSH PRN (16:15)
--- NOTE | 2016-12-20 16:19 | PD ---
HPI Chief Complaint: Abdominal Pain Time Seen by Provider: 16:06 Travel History International Travel<30 days: No Contact w/Intl Traveler<30days: No Traveled to known affect area: No History of Present Illness HPI This 56-year-old male is complaining of abdominal pain. He says he been having abdominal pain since October. The pain is located in the right side the left side on the back. He has had some vomiting and diarrhea. He believes he has lost 10 pounds. He was told that he had some mild pancreatitis. He was seen here. His lipase was 426. His white count was 15,000. He had a CT scan of the abdomen and pelvis which showed mild hepatic steatosis, normal bowel gas pattern normal gallbladder and some simple cysts on the left kidney. He has intermittent vomiting and diarrhea PFSH Past Medical History Hx Anticoagulant Therapy: Yes (81mg aspirin ) Arthritis: Yes Blood Disorders: No Cancer: No Cardiac Catheterization: No Cardiovascular Problems: Yes High Cholesterol: Yes Congestive Heart Failure: No Diabetes: No Diminished Hearing: No Endocrine: No Gastrointestinal Disorders: No Genitourinary: No Hypertension: Yes Immune Disorder: No Musculoskeletal: Yes Neurologic: Yes Psychiatric: No Reproductive: No Respiratory: Yes (asthma ) Migraines: Yes (WITH TMJ) Pancreatitis: Yes Tetanus Vaccination: < 5 Years Influenza Vaccination: Yes Past Surgical History Abdominal Surgery: Yes AICD: No Appendectomy: Yes (UNKNOWN YEAR) Arteriovenous Shunt: No Cardiac Surgery: Yes (PACEMAKER INSERTED: 05/12/16) Coronary Artery Bypass Graft: No Ear Surgery: No Endocrine Surgery: No Eye Surgery: No Genitourinary Surgery: No Gynecologic Surgery: No Insulin Pump: No Joint Replacement: No Oral Surgery: Yes Pacemaker: No Thoracic Surgery: No Tonsillectomy: Yes ( CHILD) Social History Alcohol Use: No Tobacco Use: No (QUIT 06/2013) Substance Use: No Allergies-Medications (Allergen,Severity, Reaction): Coded Allergies: No Known Allergies (Verified , 12/20/16) Reported Meds & Prescriptions Reported Meds & Active Scripts Active Metoprolol Tartrate 25 Mg Tab 12.5 Mg PO BID Lisinopril 10 Mg Tab 10 Mg PO DAILY Hydrochlorothiazide 25 Mg Tab 25 Mg PO DAILY Reported Aspirin Children's (Aspirin) 81 Mg Chew 81 Mg CHEW DAILY Review of Systems General / Constitutional: No: Fever, Chills Eyes: No: Diploplia, Blurred Vision HENT: No: Headaches, Vertigo Cardiovascular: No: Chest Pain or Discomfort, Palpitations Respiratory: No: Cough Gastrointestinal: Positive: Nausea, Vomiting, Diarrhea, Abdominal Pain Genitourinary: No: Dysuria Musculoskeletal: No: Myalgias Skin: No Rash, No Itching Physical Exam Narrative GENERAL: Well-developed male SKIN: Focused skin assessment warm/dry. HEAD: Atraumatic. Normocephalic. EYES: Pupils equal and round. No scleral icterus. No injection or drainage. ENT: No nasal bleeding or discharge. Mucous membranes pink and moist. NECK: Trachea midline. No JVD. CARDIOVASCULAR: Regular rate and rhythm. No murmur appreciated. RESPIRATORY: No accessory muscle use. Clear to auscultation. Breath sounds equal bilaterally. GASTROINTESTINAL: Abdomen obese, non-tender, no guarding or rigidity. Hepatic and splenic margins not palpable. MUSCULOSKELETAL: No obvious deformities. No clubbing. No cyanosis. No edema. NEUROLOGICAL: Awake and alert. No obvious cranial nerve deficits. Motor grossly within normal limits. Normal speech. PSYCHIATRIC: Appropriate mood and affect; insight and judgment normal. Data Data Last Documented VS Vital Signs Date Time Temp Pulse Resp B/P (MAP) Pulse Ox O2 Delivery O2 Flow Rate FiO2 12/20/16 18:11 85 16 107/65 (79) 98 Room Air 12/20/16 15:54 97.2 Orders Orders Ondansetron Inj (Zofran Inj) (12/20/16 16:07) Complete Blood Count With Diff (12/20/16 16:13) Comprehensive Metabolic Panel (12/20/16 16:13) Lipase (12/20/16 16:13) Urinalysis - C+S If Indicated (12/20/16 16:13) Ct Abd/Pel W Iv Contrast(Rout) (12/20/16 16:13) Iv Access Insert/Monitor (12/20/16 16:13) Ecg Monitoring (12/20/16 16:13) Oximetry (12/20/16 16:13) Hydromorphone Pf Inj (Dilaudid Pf Inj) (12/20/16 16:15) Ondansetron Inj (Zofran Inj) (12/20/16 16:15) Sodium Chlor 0.9% 1000 Ml Inj (Ns 1000 M (12/20/16 16:13) Sodium Chloride 0.9% Flush (Ns Flush) (12/20/16 16:15) Diatrizoate Liq (Md Fink Liq) (12/20/16 16:23) Sodium Chlor 0.9% 1000 Ml Inj (Ns 1000 M (12/20/16 16:30) Oral Contrast - Adult (12/20/16 16:37) Iohexol 350 Inj (Omnipaque 350 Inj) (12/20/16 17:47) Mandatory Outpatient Referral (12/20/16 18:33) Labs Laboratory Tests Test 12/20/16 16:15 White Blood Count 17.0 TH/MM3 Red Blood Count 5.65 MIL/MM3 Hemoglobin 17.3 GM/DL Hematocrit 50.4 % Mean Corpuscular Volume 89.2 FL Mean Corpuscular Hemoglobin 30.6 PG Mean Corpuscular Hemoglobin Concent 34.3 % Red Cell Distribution Width 13.7 % Platelet Count 470 TH/MM3 Mean Platelet Volume 7.8 FL Neutrophils (%) (Auto) 66.1 % Lymphocytes (%) (Auto) 21.8 % Monocytes (%) (Auto) 8.6 % Eosinophils (%) (Auto) 2.5 % Basophils (%) (Auto) 1.0 % Neutrophils # (Auto) 11.2 TH/MM3 Lymphocytes # (Auto) 3.7 TH/MM3 Monocytes # (Auto) 1.5 TH/MM3 Eosinophils # (Auto) 0.4 TH/MM3 Basophils # (Auto) 0.2 TH/MM3 CBC Comment DIFF FINAL Differential Comment Blood Urea Nitrogen 27 MG/DL Creatinine 1.30 MG/DL Random Glucose 93 MG/DL Total Protein 7.6 GM/DL Albumin 3.6 GM/DL Calcium Level 9.3 MG/DL Alkaline Phosphatase 101 U/L Aspartate Amino Transf (AST/SGOT) 15 U/L Alanine Aminotransferase (ALT/SGPT) 22 U/L Total Bilirubin 0.3 MG/DL Sodium Level 132 MEQ/L Potassium Level 3.5 MEQ/L Chloride Level 96 MEQ/L Carbon Dioxide Level 26.9 MEQ/L Anion Gap 9 MEQ/L Estimat Glomerular Filtration Rate 57 ML/MIN Lipase 281 U/L MDM Medical Decision Making Medical Screen Exam Complete: Yes Emergency Medical Condition: Yes Medical Record Reviewed: Yes Differential Diagnosis Differential includes cholelithiasis, pancreatitis, gastritis Narrative Course White count is elevated at 17,000. Review of previous chart shows that she tends to run a white count about this level. CT scan was ordered and does not reveal an etiology for the pain. He will be given a trial of Prilosec and Bentyl. I have requested GI follow-up Diagnosis Primary Impression: Abdominal pain Scripts Dicyclomine (Dicyclomine) 20 Mg Tab 20 MG PO QID for Pain, #30 TAB 0 Refills Prov: Lenny Coker MD 12/20/16 Omeprazole Magnesium (Prilosec) 20 Mg Tab 1 TAB PO DAILY for 30 Days Prov: Lenny Coker MD 12/20/16 Disposition: 01 DISCHARGE HOME Condition: Stable Lenny Coker MD Dec 20, 2016 16:19
[2016-12-20] MEDS ORDERED: DIATRIZOATE MEGLUM/DIATRIZOATE SOD 9 ML CUP ONE (16:23)
[2016-12-20 16:25] LABS: AUTOMATED NEUTROPHIL # 11.2 TH/MM3 (1.8-7.7); BASOPHIL # 0.2 TH/MM3 (0-0.2); EOSINOPHIL # 0.4 TH/MM3 (0-0.4); EOSINOPHIL % 2.5 % (0.0-4.0); HEMATOCRIT 50.4 % (39.0-51.0); HEMO FLAGS DIFF FINAL; LYMPH % 21.8 % (9.0-44.0); LYMPHOCYTE # 3.7 TH/MM3 (1.0-4.8); MEAN CELL VOLUME 89.2 FL (80.0-100.0); MEAN CORPUSCULAR HEMOGLOBIN 30.6 PG (27.0-34.0); MEAN CORPUSCULAR HGB CONC 34.3 % (32.0-36.0); MONO % 8.6 % (0.0-8.0); NEUT % 66.1 % (16.0-70.0); PLATELET COUNT 470 TH/MM3 (150-450); RED BLOOD COUNT 5.65 MIL/MM3 (4.50-5.90); RED CELL DISTRIBUTION WIDTH 13.7 % (11.6-17.2)
[2016-12-20] MEDS ORDERED: SODIUM CHLOR 0.9% 1000 ML INJ 1,000 ML IV ONE (16:30)
[2016-12-20 16:35] LABS: CHLORIDE 96 MEQ/L (98-107); POTASSIUM 3.5 MEQ/L (3.5-5.1); SODIUM (NA) 132 MEQ/L (136-145)
[2016-12-20 16:39] LABS: ANION GAP 9 MEQ/L (5-15); BICARBONATE 26.9 MEQ/L (21.0-32.0); BLOOD UREA NITROGEN 27 MG/DL (7-18)
[2016-12-20 16:42] LABS: ALT (GPT) 22 U/L (12-78); AST (GOT) 15 U/L (15-37); GLOMERULAR FILTRATION RATE 57 ML/MIN (>89)
[2016-12-20 16:44] LABS: TOTAL BILIRUBIN ADULT 0.3 MG/DL (0.2-1.0)
[2016-12-20 16:45] LABS: ALKALINE PHOSPHATASE 101 U/L (45-117)
[2016-12-20] MEDS ORDERED: IOHEXOL 350 MG/ML 10 ML VIAL (for RAD DIAG) IVCONTRAST ONE (17:47)
--- NOTE | 2016-12-20 17:59 | RADRPT ---
EXAM DATE/TIME: 12/20/2016 17:42 [facility] COMPARISON: CT ABDOMEN & PELVIS W CONTRAST, October 31, 2016, 0:18. INDICATIONS : Diffuse abdominal pain. IV CONTRAST: 95 cc Omnipaque 350 (iohexol) IV ORAL CONTRAST: Prescribed oral contrast ingested. RADIATION DOSE: 26.63 CTDIvol (mGy) ; Patient body habitus MEDICAL HISTORY : Cardiovascular disease. Pancreatitis. Hypertension. SURGICAL HISTORY : Pacemaker. Appendectomy. ENCOUNTER: Initial ACUITY: 2 months PAIN SCALE: 4/10 LOCATION: Bilateral abdomen TECHNIQUE: Volumetric scanning of the abdomen and pelvis was performed. Using automated exposure control and ad justment of the mA and/or kV according to patient size, radiation dose was kept as low as reasonably achievable to obtain optimal diagnostic quality images. DICOM format image data is available electro nically for review and comparison. FINDINGS: Lung bases are clear. Pacer leads overlie right atrium and right ventricle. Mild fatty liver. Spleen, adrenals and pancreas unremarkable. Small left renal cyst. Right kidney unr emarkable. No free fluid. No bowel obstruction. No adenopathy. No acute bony abnormalities. CONCLUSION: 1. No acute findings. Mild fatty liver. No significant change from October 31. Luiz Magana MD on December 20, 2016 at 17:53 Board Certified Radiologist. This report was verified electronically.
[2016-12-20] MEDS ORDERED: PRIL20TA2 PO (18:41)
[2016-12-20] MEDS ORDERED: DICY20TA10 PO (18:41)
[2016-12-20 18:47] LABS: BLOOD, URINE SMALL (NEG); GLUCOSE,URINE NEG (NEG); KETONE, URINE TRACE mg/dL (NEG); NITRITE,URINE NEG (NEG)
[2016-12-20 18:55] LABS: URINE COLOR YELLOW (YELLW/STRAW)
[2016-12-20 18:57] LABS: RBC, URINE 0-3 /hpf (0-3); WBC, URINE 0-2 /hpf (0-5)
[2016-12-20 18:58] LABS: COMMENT (UR) CULT NOT INDICATED; CULTURE IF INDICATED CULT NOT INDICATED
--- NOTE | 2016-12-21 20:59 | EKG ---
Date Performed: 12/20/2016 Time Performed: 16:04:36 PTAGE: 56 years EKG: Sinus rhythm INDETERMINATE AXIS POSSIBLE RIGHT VENTRICULAR HYPERTROPHY ABNORMAL ECG PREVIOUS TRACING : 09/18/2016 23.45 Compared to prior tracing no significant change DOCTOR: Bc Gay Interpretating Date/Time 12/21/2016 20:50:48
== END 2016-12-20 18:55 | disposition home or self-care (01) ==
LOC: PHED 15:37
DX: R10.9 Unspecified abdominal pain (principal); E78.00 Pure hypercholesterolemia, unspecified; J45.909 Unspecified asthma, uncomplicated; I10 Essential (primary) hypertension; Z79.82 Long term (current) use of aspirin; Z95.0 Presence of cardiac pacemaker; Z87.891 Personal history of nicotine dependence
CPT/HCPCS: 74177; 80053; 81001; 83690; 85025; 93005; 96361; 96374; 99285; J1170; J2405; J7030; Q9963; Q9967

== ENCOUNTER 2017-01-02 17:23 | Emergency (ER) | payer SELFPAY ==
[~2017-01-02] VITALS: Ht 172.7 cm; Wt 117.6 kg
[~2017-01-02 17:23] MED LIST changes: -ALBUAER3 INH; +DICY20TA10 PO; -E-ZMIS3; -HYDR-3533 PO; +PRIL20TA2 PO; -ZOFR4TAB3 SL
[2017-01-02 17:51] VITALS: BP 125/58; PULSE 94; RESP 16; TEMP 98.9; O2SAT 97
[2017-01-02] MEDS ORDERED: SODIUM CHLOR 0.9% 1000 ML INJ 1,000 ML IV SCH (19:13)
[2017-01-02] MEDS ORDERED: ALUMINUM/MAGNESIUM/SIMETH 30 ML CUP PO ONE (19:15)
[2017-01-02] MEDS ORDERED: SODIUM CHLORIDE 0.9% FLUSH 10 ML FLUSH IV FLUSH PRN (19:15)
[2017-01-02] MEDS ORDERED: ONDANSETRON HCL 4 MG/2 ML VIAL IVP ONE (19:15)
[2017-01-02] MEDS ORDERED: LIDOCAINE VISCOUS 2% SOLN 15 ML UDC PO ONE (19:15)
--- NOTE | 2017-01-02 19:20 | PD ---
HPI Chief Complaint: Abdominal Pain Time Seen by Provider: 19:04 Travel History International Travel<30 days: No Contact w/Intl Traveler<30days: No Traveled to known affect area: No History of Present Illness HPI Patient 56-year-old male with multiple presentations emergency department for similar complaints presents emergency department for evaluation of epigastric pain nausea vomiting. Patient states she's been evaluated multiple times and was told "nothing was wrong with him". He's been taking his PPI, states it is almost run out of it, he states she's not been able to follow up with nozzle and sleeve worker because he does not have any insurance. States the pain is sharp, nonradiating, states severe. States been going on for greater than 6 months. No diarrhea no blood in the stool, no hematemesis, no chest pain or shortness of breath. PFSH Past Medical History Hx Anticoagulant Therapy: Yes (81mg aspirin ) Arthritis: Yes Blood Disorders: No Cancer: No Cardiac Catheterization: No Cardiovascular Problems: Yes High Cholesterol: Yes Congestive Heart Failure: No Diabetes: No Diminished Hearing: No Endocrine: No Gastrointestinal Disorders: No Genitourinary: No Hypertension: Yes Immune Disorder: No Musculoskeletal: Yes Neurologic: Yes Psychiatric: No Reproductive: No Respiratory: Yes (asthma ) Migraines: Yes (WITH TMJ) Pancreatitis: Yes Past Surgical History Abdominal Surgery: Yes AICD: No Appendectomy: Yes (UNKNOWN YEAR) Arteriovenous Shunt: No Cardiac Surgery: Yes (PACEMAKER INSERTED: 05/12/16) Coronary Artery Bypass Graft: No Ear Surgery: No Endocrine Surgery: No Eye Surgery: No Genitourinary Surgery: No Gynecologic Surgery: No Insulin Pump: No Joint Replacement: No Oral Surgery: Yes Pacemaker: No Thoracic Surgery: No Tonsillectomy: Yes ( CHILD) Social History Alcohol Use: No Tobacco Use: No (QUIT 06/2013) Substance Use: No Allergies-Medications (Allergen,Severity, Reaction): Coded Allergies: No Known Allergies (Verified , 01/02/17) Reported Meds & Prescriptions Reported Meds & Active Scripts Active Zofran (Ondansetron HCl) 4 Mg Tab 4 Mg PO Q6HR PRN Prilosec (Omeprazole Magnesium) 20 Mg Tab 1 Tab PO DAILY 30 Days Metoprolol Tartrate 25 Mg Tab 12.5 Mg PO BID Lisinopril 10 Mg Tab 10 Mg PO DAILY Reported Aspirin Children's (Aspirin) 81 Mg Chew 81 Mg CHEW DAILY Review of Systems Except as stated in HPI: all other systems reviewed are Neg Physical Exam Narrative GENERAL: Well-developed, well-nourished, dry heaving, obese. SKIN: Focused skin assessment warm/dry. HEAD: Atraumatic. Normocephalic. EYES: Pupils equal and round. No scleral icterus. No injection or drainage. ENT: No nasal bleeding or discharge. Mucous membranes pink and moist. NECK: Trachea midline. No JVD. CARDIOVASCULAR: Regular rate and rhythm. No murmur appreciated. RESPIRATORY: No accessory muscle use. Clear to auscultation. Breath sounds equal bilaterally. GASTROINTESTINAL: Abdomen soft, non-tender, nondistended. Hepatic and splenic margins not palpable. MUSCULOSKELETAL: No obvious deformities. No clubbing. No cyanosis. No edema. NEUROLOGICAL: Awake and alert. No obvious cranial nerve deficits. Motor grossly within normal limits. Normal speech. PSYCHIATRIC: Appropriate mood and affect; insight and judgment normal. Data Data Last Documented VS Vital Signs Date Time Temp Pulse Resp B/P (MAP) Pulse Ox O2 Delivery O2 Flow Rate FiO2 01/02/17 21:01 97.5 82 20 138/67 (90) 94 Room Air Orders Orders Complete Blood Count With Diff (01/02/17 19:13) Comprehensive Metabolic Panel (01/02/17 19:13) Lipase (01/02/17 19:13) Urinalysis - C+S If Indicated (01/02/17 19:13) Iv Access Insert/Monitor (01/02/17 19:13) Ecg Monitoring (01/02/17 19:13) Oximetry (01/02/17 19:13) Ondansetron Inj (Zofran Inj) (01/02/17 19:15) Sodium Chlor 0.9% 1000 Ml Inj (Ns 1000 M (01/02/17 19:13) Sodium Chloride 0.9% Flush (Ns Flush) (01/02/17 19:15) Electrocardiogram (01/02/17 19:13) Al-Mag Hy-Si 40-40-4 Mg/Ml Liq (Mag-Al P (01/02/17 19:15) Lidocaine 2% Viscous (Xylocaine 2% Visco (01/02/17 19:15) Troponin I (01/02/17 19:13) Mandatory Outpatient Referral (01/02/17 20:35) Labs Laboratory Tests Test 01/02/17 19:20 White Blood Count 17.0 TH/MM3 Red Blood Count 5.31 MIL/MM3 Hemoglobin 16.0 GM/DL Hematocrit 47.7 % Mean Corpuscular Volume 89.7 FL Mean Corpuscular Hemoglobin 30.0 PG Mean Corpuscular Hemoglobin Concent 33.5 % Red Cell Distribution Width 13.8 % Platelet Count 432 TH/MM3 Mean Platelet Volume 7.8 FL Neutrophils (%) (Auto) 70.1 % Lymphocytes (%) (Auto) 20.8 % Monocytes (%) (Auto) 6.1 % Eosinophils (%) (Auto) 2.0 % Basophils (%) (Auto) 1.0 % Neutrophils # (Auto) 12.0 TH/MM3 Lymphocytes # (Auto) 3.5 TH/MM3 Monocytes # (Auto) 1.0 TH/MM3 Eosinophils # (Auto) 0.3 TH/MM3 Basophils # (Auto) 0.2 TH/MM3 CBC Comment DIFF FINAL Differential Comment Urine Color YELLOW Urine Turbidity CLEAR Urine pH 6.0 Urine Specific [place] 1.025 Urine Protein NEG mg/dL Urine Glucose (UA) NEG mg/dL Urine Ketones NEG mg/dL Urine Occult Blood SMALL Urine Nitrite NEG Urine Bilirubin NEG Urine Leukocyte Esterase NEG Urine RBC 4-9 /hpf Urine WBC 0-2 /hpf Urine Squamous Epithelial Cells 0-5 /hpf Urine Mucus MOD /lpf Microscopic Urinalysis Comment CULT NOT INDICATED Blood Urea Nitrogen 16 MG/DL Creatinine 0.93 MG/DL Random Glucose 110 MG/DL Total Protein 7.2 GM/DL Albumin 3.5 GM/DL Calcium Level 8.9 MG/DL Alkaline Phosphatase 91 U/L Aspartate Amino Transf (AST/SGOT) 12 U/L Alanine Aminotransferase (ALT/SGPT) 23 U/L Total Bilirubin 0.2 MG/DL Sodium Level 135 MEQ/L Potassium Level 3.7 MEQ/L Chloride Level 98 MEQ/L Carbon Dioxide Level 30.9 MEQ/L Anion Gap 6 MEQ/L Estimat Glomerular Filtration Rate 84 ML/MIN Troponin I LESS THAN 0.02 NG/ML Lipase 260 U/L MDM Medical Decision Making Medical Screen Exam Complete: Yes Emergency Medical Condition: Yes Differential Diagnosis Gastritis, peptic ulcer disease, pancreatitis, cholecystitis. Narrative Course Patient 56-year-old male with nausea and vomiting with a benign abdominal exam currently. Was given GI cocktail, Zofran, fluids. Sleeping soundly on reassessment. States he feels much better. Blood work shows reassuring CMP, white blood cell count elevated to 17,000 which appears to be where he has been running this past few visits. He has had a CAT scan this summer, was completely within normal limits. With a benign abdomen today think the risks of radiation exposure outweigh in a pretest probability. Discussed with the patient that he needs to avoid acidic foods including tomato sauce, when I discussed tomato sauce he was actually taken aback. Discussed he needs to follow-up with a nozzle and sleeve worker for consideration of endoscopy and I placed mandatory referral for him. At this point he is stable for discharge. Diagnosis Primary Impression: Epigastric abdominal pain Referrals: Arelis Phillips MD [facility] Patient Assistance Program Med/Other Pt SpecificInfo: Prescription(s) given Scripts Ondansetron (Zofran) 4 Mg Tab 4 MG PO Q6HR Y for NAUSEA OR VOMITING, #20 TAB 0 Refills Prov: Rio Barber MD 01/02/17 Omeprazole Magnesium (Prilosec) 20 Mg Tab 1 TAB PO DAILY for 30 Days Prov: iRo Barber MD 01/02/17 Disposition: 01 DISCHARGE HOME Condition: Stable Rio Barber MD Jan 02, 2017 19:20
[2017-01-02 19:28] LABS: BASOPHIL # 0.2 TH/MM3 (0-0.2); EOSINOPHIL # 0.3 TH/MM3 (0-0.4); HEMATOCRIT 47.7 % (39.0-51.0); LYMPH % 20.8 % (9.0-44.0); LYMPHOCYTE # 3.5 TH/MM3 (1.0-4.8); MEAN CELL VOLUME 89.7 FL (80.0-100.0); MEAN CORPUSCULAR HGB CONC 33.5 % (32.0-36.0); MONO % 6.1 % (0.0-8.0); NEUT % 70.1 % (16.0-70.0); PLATELET COUNT 432 TH/MM3 (150-450); RED BLOOD COUNT 5.31 MIL/MM3 (4.50-5.90); RED CELL DISTRIBUTION WIDTH 13.8 % (11.6-17.2)
[2017-01-02 19:30] VITALS: O2SAT 94
[2017-01-02 19:33] LABS: BLOOD, URINE SMALL (NEG); GLUCOSE,URINE NEG (NEG); KETONE, URINE NEG (NEG); NITRITE,URINE NEG (NEG)
[2017-01-02 19:40] LABS: HEMO FLAGS DIFF FINAL
[2017-01-02 19:45] LABS: CHLORIDE 98 MEQ/L (98-107); POTASSIUM 3.7 MEQ/L (3.5-5.1); SODIUM (NA) 135 MEQ/L (136-145)
[2017-01-02 19:49] LABS: ANION GAP 6 MEQ/L (5-15); BICARBONATE 30.9 MEQ/L (21.0-32.0); BLOOD UREA NITROGEN 16 MG/DL (7-18)
[2017-01-02 19:52] LABS: ALT (GPT) 23 U/L (12-78); AST (GOT) 12 U/L (15-37); GLOMERULAR FILTRATION RATE 84 ML/MIN (>89); MUCUS URINE MOD /lpf (OCC); URINE COLOR YELLOW (YELLW/STRAW)
[2017-01-02 19:53] LABS: COMMENT (UR) CULT NOT INDICATED; CULTURE IF INDICATED CULT NOT INDICATED; SQUAMOUS EPITHELIAL CELL URINE 0-5 /hpf (0-5); WBC, URINE 0-2 /hpf (0-5)
[2017-01-02 19:54] LABS: TOTAL BILIRUBIN ADULT 0.2 MG/DL (0.2-1.0)
[2017-01-02 19:55] LABS: ALKALINE PHOSPHATASE 91 U/L (45-117)
[2017-01-02] MEDS ORDERED: PRIL20TA2 PO (20:35)
[2017-01-02] MEDS ORDERED: ZOFR4TAB PO (20:35)
[2017-01-02 21:01] VITALS: BP 138/67; PULSE 82; RESP 20; TEMP 97.5; O2SAT 94
--- NOTE | 2017-01-03 08:14 | EKG ---
Date Performed: 01/02/2017 Time Performed: 19:21:14 PTAGE: 56 years EKG: Sinus rhythm INDETERMINATE AXIS ABNORMAL ECG Compared to prior tracing no significant change PREVIOUS TRACING : 12/20/2016 16.04 DOCTOR: Julia Jay Interpretating Date/Time 01/03/2017 08:11:50
== END 2017-01-02 21:15 | disposition home or self-care (01) ==
LOC: PHED 17:23
DX: R10.13 Epigastric pain (principal); I10 Essential (primary) hypertension; E78.00 Pure hypercholesterolemia, unspecified; Z95.0 Presence of cardiac pacemaker; Z87.891 Personal history of nicotine dependence
CPT/HCPCS: 80053; 81001; 83690; 84484; 85025; 93005; 96361; 96374; 99284; J2405; J7030

== ENCOUNTER 2017-01-07 19:15 | Emergency (ER) | payer SELFPAY ==
[~2017-01-07] VITALS: Ht 172.7 cm; Wt 72.0 kg
[~2017-01-07 19:15] MED LIST changes: -DICY20TA10 PO; -HYDR25TA5 PO; +ZOFR4TAB PO
[2017-01-07 19:16] VITALS: BP 105/59; PULSE 96; RESP 18; TEMP 98.6; O2SAT 95
[2017-01-07] MEDS ORDERED: SODIUM CHLOR 0.9% 1000 ML INJ 1,000 ML IV SCH (20:43)
[2017-01-07] MEDS ORDERED: PANTOPRAZOLE SODIUM 40 MG VIAL IVP ONE (20:45)
[2017-01-07] MEDS ORDERED: ONDANSETRON HCL 4 MG/2 ML VIAL IVP ONE (20:45)
[2017-01-07] MEDS ORDERED: SODIUM CHLORIDE 0.9% FLUSH 10 ML FLUSH IV FLUSH PRN (20:45)
[2017-01-07] MEDS ORDERED: DICYCLOMINE HCL 20 MG/2 ML VIAL IM ONE (20:45)
[2017-01-07 20:50] VITALS: O2SAT 99
--- NOTE | 2017-01-07 21:24 | RADRPT ---
EXAM DATE/TIME: 01/07/2017 20:44 [facility] COMPARISON: CT ABDOMEN & PELVIS W CONTRAST, December 20, 2016, 17:42. INDICATIONS : Right upper quadrant pain. MEDICAL HISTORY : Hypercholesterolemia. Hypertension. Glasses. Migraine. Anticoagulant therapy. Asthma. Pancreatitis. Arthritis. SURGICAL HISTORY : Tonsillectomy. Pacemaker. Appendectomy. Tooth extraction. ENCOUNTER: Initial ACUITY: 3 months PAIN SCORE: 8/10 LOCATION: Right upper quadrant MEASUREMENTS: LIVER: 17.9 cm length COMMON DUCT: 6 mm RIGHT KIDNEY: 10.0 x 4.4 x 5.7 cm FINDINGS: LIVER: Increased echotexture without focal lesion or ductal dilatation. COMMON DUCT: No intraluminal mass or stone visualized. GALLBLADDER: Cholelithiasis. Mild gallbladder wall thickening up to 4.1 mm. Negative sonographic Harris's sign. PANCREAS: The visualized portions are within normal limits. RIGHT KIDNEY: No evidence of hydronephrosis, stone, or mass. CONCLUSION: 1. 5 mm gallstone at the neck of the gallbladder and a few additional tiny stone seen. 2. There is mild gallbladder wall thickening. In the appropriate clinical setting cholecystitis can h ave this appearance. 3. Hepatomegaly and hepatic steatosis. Boo Carrera MD on January 07, 2017 at 21:20 Board Certified Radiologist. This report was verified electronically.
[2017-01-07 21:27] LABS: AUTOMATED NEUTROPHIL # 9.7 TH/MM3 (1.8-7.7); BASOPHIL # 0.1 TH/MM3 (0-0.2); BASOPHIL % 0.5 % (0.0-2.0); EOSINOPHIL # 0.3 TH/MM3 (0-0.4); EOSINOPHIL % 1.9 % (0.0-4.0); HEMATOCRIT 48.5 % (39.0-51.0); HEMO FLAGS DIFF FINAL; LYMPH % 23.2 % (9.0-44.0); LYMPHOCYTE # 3.5 TH/MM3 (1.0-4.8); MEAN CELL VOLUME 92.3 FL (80.0-100.0); MEAN CORPUSCULAR HEMOGLOBIN 30.3 PG (27.0-34.0); MEAN CORPUSCULAR HGB CONC 32.8 % (32.0-36.0); NEUT % 65.4 % (16.0-70.0); PLATELET COUNT 398 TH/MM3 (150-450); RED BLOOD COUNT 5.26 MIL/MM3 (4.50-5.90); RED CELL DISTRIBUTION WIDTH 14.7 % (11.6-17.2); WHITE BLOOD COUNT 14.9 TH/MM3 (4.0-11.0)
[2017-01-07 21:35] LABS: ALT (GPT) 21 U/L (12-78)
[2017-01-07 21:37] LABS: ALKALINE PHOSPHATASE 92 U/L (45-117); ANION GAP 6 MEQ/L (5-15); AST (GOT) 20 U/L (15-37); BICARBONATE 30.5 MEQ/L (21.0-32.0); BLOOD UREA NITROGEN 17 MG/DL (7-18); CHLORIDE 99 MEQ/L (98-107); GLOMERULAR FILTRATION RATE 69 ML/MIN (>89); SODIUM (NA) 135 MEQ/L (136-145); TOTAL BILIRUBIN ADULT 0.4 MG/DL (0.2-1.0)
[2017-01-07 21:38] LABS: POTASSIUM 4.4 MEQ/L (3.5-5.1)
--- NOTE | 2017-01-07 21:53 | PD ---
Physical Exam Date Seen by Provider: Jan 07, 2017 Narrative Patient presents for abdominal pain. He has been seen here numerous times for same. Data Data Last Documented VS Vital Signs Date Time Temp Pulse Resp B/P (MAP) Pulse Ox O2 Delivery O2 Flow Rate FiO2 01/07/17 20:50 99 Room Air 01/07/17 19:16 98.6 96 18 Orders Orders Complete Blood Count With Diff (01/07/17 20:43) Comprehensive Metabolic Panel (01/07/17 20:43) Lipase (01/07/17 20:43) Us Abdomen Gallbladder (01/07/17 ) Iv Access Insert/Monitor (01/07/17 20:43) Ecg Monitoring (01/07/17 20:43) Oximetry (01/07/17 20:43) Ondansetron Inj (Zofran Inj) (01/07/17 20:45) Pantoprazole Inj (Protonix Inj) (01/07/17 20:45) Sodium Chlor 0.9% 1000 Ml Inj (Ns 1000 M (01/07/17 20:43) Sodium Chloride 0.9% Flush (Ns Flush) (01/07/17 20:45) Dicyclomine Inj (Bentyl Inj) (01/07/17 20:45) Labs Laboratory Tests Test 01/07/17 20:50 White Blood Count 14.9 TH/MM3 Red Blood Count 5.26 MIL/MM3 Hemoglobin 15.9 GM/DL Hematocrit 48.5 % Mean Corpuscular Volume 92.3 FL Mean Corpuscular Hemoglobin 30.3 PG Mean Corpuscular Hemoglobin Concent 32.8 % Red Cell Distribution Width 14.7 % Platelet Count 398 TH/MM3 Mean Platelet Volume 7.6 FL Neutrophils (%) (Auto) 65.4 % Lymphocytes (%) (Auto) 23.2 % Monocytes (%) (Auto) 9.0 % Eosinophils (%) (Auto) 1.9 % Basophils (%) (Auto) 0.5 % Neutrophils # (Auto) 9.7 TH/MM3 Lymphocytes # (Auto) 3.5 TH/MM3 Monocytes # (Auto) 1.3 TH/MM3 Eosinophils # (Auto) 0.3 TH/MM3 Basophils # (Auto) 0.1 TH/MM3 CBC Comment DIFF FINAL Differential Comment Blood Urea Nitrogen 17 MG/DL Creatinine 1.11 MG/DL Random Glucose 86 MG/DL Total Protein 7.1 GM/DL Albumin 3.5 GM/DL Calcium Level 8.9 MG/DL Alkaline Phosphatase 92 U/L Aspartate Amino Transf (AST/SGOT) 20 U/L Alanine Aminotransferase (ALT/SGPT) 21 U/L Total Bilirubin 0.4 MG/DL Sodium Level 135 MEQ/L Potassium Level 4.4 MEQ/L Chloride Level 99 MEQ/L Carbon Dioxide Level 30.5 MEQ/L Anion Gap 6 MEQ/L Estimat Glomerular Filtration Rate 69 ML/MIN Lipase 148 U/L MDM Supervised Visit with [facility]: Yes Narrative Course I, Dr. Quan, have reviewed the advance practice practitioner's documentation and am in agreement, met with the patient face to face, made the diagnosis, and the medical decision making was done by me. *My assessment and Findings: The patient's abdomen is soft throughout. He complains of diffuse tenderness but there is no guarding or rebound. Please see Candy Vanegas NP's note for results of laboratory and radiographic evaluation, ED course, final diagnosis and disposition , Catherine Quan MD Jan 07, 2017 21:53
--- NOTE | 2017-01-07 22:12 | PD ---
HPI Chief Complaint: Abdominal Pain Time Seen by Provider: 20:44 Travel History International Travel<30 days: No Contact w/Intl Traveler<30days: No Traveled to known affect area: No History of Present Illness HPI Patient is a 56-year-old male that presented to emergency department evaluation of abdominal pain. Patient states it's been ongoing for several months. Patient states the pain in his abdomen hurts his back. He states it's hard to describe the pain but it's all over. He reports Light colored stools, he states when he eats it exacerbates the pain. He states she's felt nauseated and vomited. He went to the [facility] yesterday and was told to maintain a liquid diet. He reports compliance with previously prescribed medications but states they're not working. Patient did not quantify how bad his pain was but he states it just hurts. PFSH Past Medical History Hx Anticoagulant Therapy: Yes (81mg aspirin ) Arthritis: Yes Asthma: Yes Blood Disorders: No Cancer: Yes (POSSIBLE PANCREATIC CANCER) Cardiac Catheterization: No Cardiovascular Problems: Yes High Cholesterol: Yes Congestive Heart Failure: No Diabetes: No Diminished Hearing: No Endocrine: No Gastrointestinal Disorders: No Genitourinary: No Hypertension: Yes Immune Disorder: No Musculoskeletal: Yes Neurologic: Yes Psychiatric: No Reproductive: No Respiratory: Yes (asthma ) Migraines: Yes (WITH TMJ) Pancreatitis: Yes Past Surgical History Abdominal Surgery: Yes AICD: No Appendectomy: Yes (UNKNOWN YEAR) Arteriovenous Shunt: No Cardiac Surgery: Yes (PACEMAKER INSERTED: 05/12/16) Coronary Artery Bypass Graft: No Ear Surgery: No Endocrine Surgery: No Eye Surgery: No Genitourinary Surgery: No Gynecologic Surgery: No Insulin Pump: No Joint Replacement: No Oral Surgery: Yes (TOOTH REMOVED) Pacemaker: Yes Thoracic Surgery: No Tonsillectomy: Yes ( CHILD) Social History Alcohol Use: No Tobacco Use: No (QUIT 06/2013) Substance Use: No Allergies-Medications (Allergen,Severity, Reaction): Coded Allergies: No Known Allergies (Verified , 01/07/17) Reported Meds & Prescriptions Reported Meds & Active Scripts Active Zofran (Ondansetron HCl) 4 Mg Tab 4 Mg PO Q6HR PRN Prilosec (Omeprazole Magnesium) 20 Mg Tab 1 Tab PO DAILY 30 Days Metoprolol Tartrate 25 Mg Tab 12.5 Mg PO BID Lisinopril 10 Mg Tab 10 Mg PO DAILY Reported Aspirin Children's (Aspirin) 81 Mg Chew 81 Mg CHEW DAILY Review of Systems Except as stated in HPI: all other systems reviewed are Neg Gastrointestinal: Positive: Nausea, Vomiting, Abdominal Pain, Other Physical Exam Narrative GENERAL: Obese, well-developed, alert male. Appears uncomfortable, no acute distress. SKIN: Warm and dry. HEAD: Atraumatic. Normocephalic. EYES: Pupils equal and round. No scleral icterus. No injection or drainage. ENT: No nasal bleeding or discharge. Mucous membranes pink and moist. NECK: Trachea midline. No JVD. CARDIOVASCULAR: Regular rate and rhythm. RESPIRATORY: No accessory muscle use. Clear to auscultation. Breath sounds equal bilaterally. GASTROINTESTINAL: Abdomen soft, mildly tender in RUQ, nondistended. Hepatic and splenic margins not palpable. Positive bowel sounds, no rebound, no guarding. MUSCULOSKELETAL: Extremities without clubbing, cyanosis, or edema. No obvious deformities. NEUROLOGICAL: Awake and alert. No obvious cranial nerve deficits. Motor grossly within normal limits. Five out of 5 muscle strength in the arms and legs. Normal speech. PSYCHIATRIC: Appropriate mood and affect; insight and judgment normal. Data Data Last Documented VS Vital Signs Date Time Temp Pulse Resp B/P (MAP) Pulse Ox O2 Delivery O2 Flow Rate FiO2 01/07/17 20:50 99 Room Air 01/07/17 19:16 98.6 96 18 Orders Orders Complete Blood Count With Diff (01/07/17 20:43) Comprehensive Metabolic Panel (01/07/17 20:43) Lipase (01/07/17 20:43) Us Abdomen Gallbladder (01/07/17 ) Iv Access Insert/Monitor (01/07/17 20:43) Ecg Monitoring (01/07/17 20:43) Oximetry (01/07/17 20:43) Ondansetron Inj (Zofran Inj) (01/07/17 20:45) Pantoprazole Inj (Protonix Inj) (01/07/17 20:45) Sodium Chlor 0.9% 1000 Ml Inj (Ns 1000 M (01/07/17 20:43) Sodium Chloride 0.9% Flush (Ns Flush) (01/07/17 20:45) Dicyclomine Inj (Bentyl Inj) (01/07/17 20:45) Mandatory Outpatient Referral (01/07/17 21:56) Labs Laboratory Tests Test 01/07/17 20:50 White Blood Count 14.9 TH/MM3 Red Blood Count 5.26 MIL/MM3 Hemoglobin 15.9 GM/DL Hematocrit 48.5 % Mean Corpuscular Volume 92.3 FL Mean Corpuscular Hemoglobin 30.3 PG Mean Corpuscular Hemoglobin Concent 32.8 % Red Cell Distribution Width 14.7 % Platelet Count 398 TH/MM3 Mean Platelet Volume 7.6 FL Neutrophils (%) (Auto) 65.4 % Lymphocytes (%) (Auto) 23.2 % Monocytes (%) (Auto) 9.0 % Eosinophils (%) (Auto) 1.9 % Basophils (%) (Auto) 0.5 % Neutrophils # (Auto) 9.7 TH/MM3 Lymphocytes # (Auto) 3.5 TH/MM3 Monocytes # (Auto) 1.3 TH/MM3 Eosinophils # (Auto) 0.3 TH/MM3 Basophils # (Auto) 0.1 TH/MM3 CBC Comment DIFF FINAL Differential Comment Blood Urea Nitrogen 17 MG/DL Creatinine 1.11 MG/DL Random Glucose 86 MG/DL Total Protein 7.1 GM/DL Albumin 3.5 GM/DL Calcium Level 8.9 MG/DL Alkaline Phosphatase 92 U/L Aspartate Amino Transf (AST/SGOT) 20 U/L Alanine Aminotransferase (ALT/SGPT) 21 U/L Total Bilirubin 0.4 MG/DL Sodium Level 135 MEQ/L Potassium Level 4.4 MEQ/L Chloride Level 99 MEQ/L Carbon Dioxide Level 30.5 MEQ/L Anion Gap 6 MEQ/L Estimat Glomerular Filtration Rate 69 ML/MIN Lipase 148 U/L [facility] Medical Decision Making Medical Screen Exam Complete: Yes Emergency Medical Condition: Yes Medical Record Reviewed: Yes Interpretation(s) Last Impressions Gall Bladder Ultrasound 01/07/17 0000 Signed Impressions: Service Date/Time: Saturday, January 07, 2017 20:44 - CONCLUSION: 1. 5 mm gallstone at the neck of the gallbladder and a few additional tiny stone seen. 2. There is mild gallbladder wall thickening. In the appropriate clinical setting cholecystitis can have this appearance. 3. Hepatomegaly and hepatic steatosis. Boo Carrera MD Laboratory Tests Test 01/07/17 20:50 White Blood Count 14.9 TH/MM3 Red Blood Count 5.26 MIL/MM3 Hemoglobin 15.9 GM/DL Hematocrit 48.5 % Mean Corpuscular Volume 92.3 FL Mean Corpuscular Hemoglobin 30.3 PG Mean Corpuscular Hemoglobin Concent 32.8 % Red Cell Distribution Width 14.7 % Platelet Count 398 TH/MM3 Mean Platelet Volume 7.6 FL Neutrophils (%) (Auto) 65.4 % Lymphocytes (%) (Auto) 23.2 % Monocytes (%) (Auto) 9.0 % Eosinophils (%) (Auto) 1.9 % Basophils (%) (Auto) 0.5 % Neutrophils # (Auto) 9.7 TH/MM3 Lymphocytes # (Auto) 3.5 TH/MM3 Monocytes # (Auto) 1.3 TH/MM3 Eosinophils # (Auto) 0.3 TH/MM3 Basophils # (Auto) 0.1 TH/MM3 CBC Comment DIFF FINAL Differential Comment Blood Urea Nitrogen 17 MG/DL Creatinine 1.11 MG/DL Random Glucose 86 MG/DL Total Protein 7.1 GM/DL Albumin 3.5 GM/DL Calcium Level 8.9 MG/DL Alkaline Phosphatase 92 U/L Aspartate Amino Transf (AST/SGOT) 20 U/L Alanine Aminotransferase (ALT/SGPT) 21 U/L Total Bilirubin 0.4 MG/DL Sodium Level 135 MEQ/L Potassium Level 4.4 MEQ/L Chloride Level 99 MEQ/L Carbon Dioxide Level 30.5 MEQ/L Anion Gap 6 MEQ/L Estimat Glomerular Filtration Rate 69 ML/MIN Lipase 148 U/L Vital Signs Date Time Temp Pulse Resp B/P (MAP) Pulse Ox O2 Delivery O2 Flow Rate FiO2 01/07/17 20:50 99 Room Air 01/07/17 19:16 98.6 96 18 105/59 (74) 95 Room Air Differential Diagnosis Cholecystitis vs pancreatitis vs gerd vs gastritis vs other Narrative Course Patient is a 56-year-old male that presented to emergency evaluation of abdominal pain. Patient seen and evaluated in the emergency department several times same complaint. He [facility] and was in the process of being referred to a GI doctor. He has not been able to see a specialist due to insurance issues. Patient is mildly tender in the right upper quadrant, and when he reportedly color stools an ultrasound of gallbladder was ordered. We'll recheck labs although patient was here 5 days ago with an essentially negative workup. CBC shows a white count of 14.9 however this is improved from the prior result which was 17. Chemistry with no acute abnormalities noted Lipase is normal Ultrasound of the gallbladder which was read by the radiologist shows a 5 mm gallstone at the neck of the gallbladder and a few additional tiny stones. There is mild gallbladder wall thickening. In the appropriate clinical setting cholecystitis can have the same appearance. Hepatomegaly and hepatic steatosis noted as well. Mandatory referral to general surgery was made. Patient is encouraged to continue to follow up with [facility]. Encouraged to maintain a bland, low residue diet. He was encouraged return to emergency department for any new or worsening symptoms. Patient verbalized understanding of instructions. Patient is stable for discharge. Diagnosis Primary Impression: Cholelithiases Qualified Codes: K80.70 - Calculus of gallbladder and bile duct without cholecystitis without obstruction Referrals: General Surgeon 1 week Patient Instructions: Gallstones (ED), General Instructions Additional Instructions: Follow-up with a general surgeon, a mandatory referral has been made for you Follow-up with your primary doctor at the [facility] Medications as directed Return to emergency department for any new or worsening symptoms a bland, low residue diet. Maintain a bland low residue diet Med/Other Pt SpecificInfo: No Change to Meds Disposition: 01 DISCHARGE HOME Condition: Stable Cadny Handy Jan 07, 2017 22:12
== END 2017-01-07 22:58 | disposition home or self-care (01) ==
LOC: NEPD 19:15
DX: K80.70 Calculus of gallbladder and bile duct without cholecystitis without obstruction (principal); R16.0 Hepatomegaly, not elsewhere classified; K76.0 Fatty (change of) liver, not elsewhere classified; I10 Essential (primary) hypertension; Z87.891 Personal history of nicotine dependence
CPT/HCPCS: 76705; 80053; 83690; 85025; 96372; 96374; 96375; 99285; C9113; J0500; J2405; J7030

== ENCOUNTER 2017-01-22 18:46 | Emergency (ER) | payer SELFPAY ==
[~2017-01-22] VITALS: Ht 172.7 cm; Wt 114.0 kg
[2017-01-22 18:48] VITALS: BP 104/70; PULSE 92; RESP 18; TEMP 97.7; O2SAT 97
--- NOTE | 2017-01-22 19:40 | PD ---
HPI Chief Complaint: Abdominal Pain Time Seen by Provider: 19:29 Travel History International Travel<30 days: No Contact w/Intl Traveler<30days: No Traveled to known affect area: No History of Present Illness HPI This 56-year-old male is complaining of abdominal pain. He says he been having abdominal pain off and on for 3 months. The pain is having bilateral. The sometimes avid throughout the day he had a sonogram which showed that he did have gallstones and some gallbladder thickening. This has not been eating. He has no history of diabetes. He is having is not related to eating. It is somewhat intermittent. It can be on the right side on the left side. He has had a seat [address] scans which were essentially unremarkable. He has a history of bradycardia and syncope PFSH Past Medical History Hx Anticoagulant Therapy: Yes (81mg aspirin ) Arthritis: Yes Asthma: Yes Blood Disorders: No Anxiety: Yes Depression: Yes Cancer: Yes (POSSIBLE PANCREATIC CANCER) Cardiac Catheterization: No Cardiovascular Problems: Yes High Cholesterol: Yes Congestive Heart Failure: No Diabetes: No Diminished Hearing: No Endocrine: No Gastrointestinal Disorders: No GERD: Yes Genitourinary: No Hypertension: Yes Immune Disorder: No Musculoskeletal: Yes Neurologic: Yes Psychiatric: No Reproductive: No Respiratory: Yes (asthma ) Migraines: Yes (WITH TMJ) Pancreatitis: Yes Sleep Apnea: Yes (WEARS CPAP) Tetanus Vaccination: < 5 Years Influenza Vaccination: Yes Past Surgical History Abdominal Surgery: Yes AICD: No Appendectomy: Yes (UNKNOWN YEAR) Arteriovenous Shunt: No Cardiac Surgery: Yes (PACEMAKER INSERTED: 05/12/16) Coronary Artery Bypass Graft: No Ear Surgery: No Endocrine Surgery: No Eye Surgery: No Genitourinary Surgery: No Gynecologic Surgery: No Insulin Pump: No Joint Replacement: No Oral Surgery: Yes (TOOTH REMOVED) Pacemaker: Yes Thoracic Surgery: No Tonsillectomy: Yes ( CHILD) Social History Alcohol Use: No Tobacco Use: No (QUIT 06/2013) Substance Use: No Allergies-Medications (Allergen,Severity, Reaction): Coded Allergies: No Known Allergies (Verified , 01/22/17) Reported Meds & Prescriptions Reported Meds & Active Scripts Active Zofran (Ondansetron HCl) 4 Mg Tab 4 Mg PO Q6HR PRN Prilosec (Omeprazole Magnesium) 20 Mg Tab 1 Tab PO DAILY 30 Days Metoprolol Tartrate 25 Mg Tab 12.5 Mg PO BID Lisinopril 10 Mg Tab 10 Mg PO DAILY Reported Aspirin Children's (Aspirin) 81 Mg Chew 81 Mg CHEW DAILY Review of Systems General / Constitutional: No: Fever, Chills Eyes: No: Diploplia HENT: No: Headaches, Vertigo Cardiovascular: No: Chest Pain or Discomfort Gastrointestinal: Positive: Abdominal Pain, No: Nausea, Vomiting, Constipation , Dysphagia Genitourinary: No: Urgency, Frequency Musculoskeletal: No: Myalgias, Arthralgias Skin: No Rash Neurologic: No: Weakness Physical Exam Narrative GENERAL: Well-developed male SKIN: Focused skin assessment warm/dry. HEAD: Atraumatic. Normocephalic. EYES: Pupils equal and round. No scleral icterus. No injection or drainage. ENT: No nasal bleeding or discharge. Mucous membranes pink and moist. NECK: Trachea midline. No JVD. CARDIOVASCULAR: Regular rate and rhythm. No murmur appreciated. RESPIRATORY: No accessory muscle use. Clear to auscultation. Breath sounds equal bilaterally. GASTROINTESTINAL: Abdomen soft, non-tender, nondistended. Hepatic and splenic margins not palpable. He is somewhat diffuse tenderness without guarding or an lower quadrants both the right and left side MUSCULOSKELETAL: No obvious deformities. No clubbing. No cyanosis. No edema. NEUROLOGICAL: Awake and alert. No obvious cranial nerve deficits. Motor grossly within normal limits. Normal speech. PSYCHIATRIC: Appropriate mood and affect; insight and judgment normal. Data Data Last Documented VS Vital Signs Date Time Temp Pulse Resp B/P (MAP) Pulse Ox O2 Delivery O2 Flow Rate FiO2 01/22/17 20:43 83 16 133/80 (97) 97 Nasal Cannula 2.00 01/22/17 18:48 97.7 Orders Orders Complete Blood Count With Diff (01/22/17 19:33) Comprehensive Metabolic Panel (01/22/17 19:33) Lipase (01/22/17 19:33) Urinalysis - C+S If Indicated (01/22/17 19:33) Sodium Chlor 0.9% 1000 Ml Inj (Ns 1000 M (01/22/17 19:45) Ondansetron Inj (Zofran Inj) (01/22/17 19:45) Hydromorphone Pf Inj (Dilaudid Pf Inj) (01/22/17 19:45) Labs Laboratory Tests Test 01/22/17 19:50 01/22/17 19:55 White Blood Count 13.1 TH/MM3 Red Blood Count 5.31 MIL/MM3 Hemoglobin 16.1 GM/DL Hematocrit 48.7 % Mean Corpuscular Volume 91.8 FL Mean Corpuscular Hemoglobin 30.4 PG Mean Corpuscular Hemoglobin Concent 33.1 % Red Cell Distribution Width 14.5 % Platelet Count 380 TH/MM3 Mean Platelet Volume 8.1 FL Neutrophils (%) (Auto) 66.6 % Lymphocytes (%) (Auto) 23.8 % Monocytes (%) (Auto) 5.5 % Eosinophils (%) (Auto) 3.6 % Basophils (%) (Auto) 0.5 % Neutrophils # (Auto) 8.7 TH/MM3 Lymphocytes # (Auto) 3.1 TH/MM3 Monocytes # (Auto) 0.7 TH/MM3 Eosinophils # (Auto) 0.5 TH/MM3 Basophils # (Auto) 0.1 TH/MM3 CBC Comment DIFF FINAL Differential Comment Blood Urea Nitrogen 21 MG/DL Creatinine 0.99 MG/DL Random Glucose 115 MG/DL Total Protein 7.2 GM/DL Albumin 3.5 GM/DL Calcium Level 8.6 MG/DL Alkaline Phosphatase 86 U/L Aspartate Amino Transf (AST/SGOT) 15 U/L Alanine Aminotransferase (ALT/SGPT) 21 U/L Total Bilirubin 0.3 MG/DL Sodium Level 134 MEQ/L Potassium Level 3.5 MEQ/L Chloride Level 100 MEQ/L Carbon Dioxide Level 26.9 MEQ/L Anion Gap 7 MEQ/L Estimat Glomerular Filtration Rate 78 ML/MIN Lipase 262 U/L Urine Color YELLOW Urine Turbidity SLIGHT Urine pH 6.5 Urine Specific [place] 1.028 Urine Protein 30 mg/dL Urine Glucose (UA) NEG mg/dL Urine Ketones NEG mg/dL Urine Occult Blood SMALL Urine Nitrite NEG Urine Bilirubin NEG Urine Leukocyte Esterase NEG Urine RBC 4-9 /hpf Urine WBC 0-2 /hpf Urine Squamous Epithelial Cells 0-5 /hpf Urine Hyaline Casts 10-14 /lpf Urine Mucus FEW /lpf Microscopic Urinalysis Comment CULT NOT INDICATED MDM Medical Decision Making Medical Screen Exam Complete: Yes Emergency Medical Condition: Yes Medical Record Reviewed: Yes Differential Diagnosis His white count is 13,000. His liver function tests are normal. Etiology for the pain has not been determined I don't think an additional CT is warranted at this time. I don't believe the symptoms are due to biliary disease as the pain has bilateral upper and lower I will request a gastroenterology evaluation Narrative Course Patient has been given some IV fluids and pain meds. He reports improvement in his pain. He is stable for discharge and I will request a mandatory follow-up with GI Diagnosis Primary Impression: Abdominal pain Qualified Codes: R10.84 - Generalized abdominal pain Disposition: 01 DISCHARGE HOME Condition: Stable Lenny Coker MD Jan 22, 2017 19:40
[2017-01-22] MEDS ORDERED: ONDANSETRON HCL 4 MG/2 ML VIAL IV PUSH ONE (19:45)
[2017-01-22] MEDS ORDERED: SODIUM CHLOR 0.9% 1000 ML INJ 1,000 ML IV ONE (19:45)
[2017-01-22] MEDS ORDERED: HYDROmorphone HCL PF 1 MG/ML VIAL IV PUSH ONE (19:45)
[2017-01-22 20:05] LABS: AUTOMATED NEUTROPHIL # 8.7 TH/MM3 (1.8-7.7); BASOPHIL # 0.1 TH/MM3 (0-0.2); BASOPHIL % 0.5 % (0.0-2.0); EOSINOPHIL # 0.5 TH/MM3 (0-0.4); EOSINOPHIL % 3.6 % (0.0-4.0); HEMATOCRIT 48.7 % (39.0-51.0); LYMPH % 23.8 % (9.0-44.0); LYMPHOCYTE # 3.1 TH/MM3 (1.0-4.8); MEAN CELL VOLUME 91.8 FL (80.0-100.0); MEAN CORPUSCULAR HEMOGLOBIN 30.4 PG (27.0-34.0); MEAN CORPUSCULAR HGB CONC 33.1 % (32.0-36.0); MONO % 5.5 % (0.0-8.0); NEUT % 66.6 % (16.0-70.0); PLATELET COUNT 380 TH/MM3 (150-450); RED BLOOD COUNT 5.31 MIL/MM3 (4.50-5.90); RED CELL DISTRIBUTION WIDTH 14.5 % (11.6-17.2); WHITE BLOOD COUNT 13.1 TH/MM3 (4.0-11.0)
[2017-01-22 20:13] LABS: CHLORIDE 100 MEQ/L (98-107); POTASSIUM 3.5 MEQ/L (3.5-5.1); SODIUM (NA) 134 MEQ/L (136-145)
[2017-01-22 20:18] LABS: ANION GAP 7 MEQ/L (5-15); BICARBONATE 26.9 MEQ/L (21.0-32.0); BLOOD UREA NITROGEN 21 MG/DL (7-18); HEMO FLAGS DIFF FINAL
[2017-01-22 20:21] LABS: ALT (GPT) 21 U/L (12-78); AST (GOT) 15 U/L (15-37); GLOMERULAR FILTRATION RATE 78 ML/MIN (>89)
[2017-01-22 20:22] LABS: TOTAL BILIRUBIN ADULT 0.3 MG/DL (0.2-1.0)
[2017-01-22 20:23] VITALS: PULSE 89; O2SAT 94
[2017-01-22 20:24] LABS: ALKALINE PHOSPHATASE 86 U/L (45-117)
[2017-01-22 20:29] LABS: BLOOD, URINE SMALL (NEG); GLUCOSE,URINE NEG (NEG); KETONE, URINE NEG (NEG); NITRITE,URINE NEG (NEG); PH, URINE 6.5 (5.0-8.5)
[2017-01-22 20:43] VITALS: BP 133/80; PULSE 83; RESP 16; O2SAT 97
[2017-01-22 20:51] LABS: URINE COLOR YELLOW (YELLW/STRAW)
[2017-01-22 20:52] LABS: MUCUS URINE FEW /lpf (OCC)
[2017-01-22 20:53] LABS: COMMENT (UR) CULT NOT INDICATED; CULTURE IF INDICATED CULT NOT INDICATED; SQUAMOUS EPITHELIAL CELL URINE 0-5 /hpf (0-5); WBC, URINE 0-2 /hpf (0-5)
[2017-01-22 21:53] VITALS: BP 121/74; PULSE 76; RESP 16; O2SAT 96
[2017-01-22] MEDS ORDERED: DICY20TA10 PO (22:02)
[2017-01-22] MEDS ORDERED: HYDR-3533 PO (22:02)
== END 2017-01-22 22:09 | disposition home or self-care (01) ==
LOC: PHED 18:46
DX: R10.84 Generalized abdominal pain (principal)
CPT/HCPCS: 80053; 81001; 83690; 85025; 96361; 96374; 96375; 99284; J1170; J2405; J7030

== ENCOUNTER 2017-02-15 17:26 | Emergency (ER) | payer SELFPAY ==
[~2017-02-15] VITALS: Ht 172.7 cm; Wt 113.0 kg
[~2017-02-15 17:26] MED LIST changes: +DICY20TA10 PO; +HYDR-3533 PO
[2017-02-15 17:32] VITALS: BP 141/78; PULSE 92; RESP 16; TEMP 97.9; O2SAT 97
[2017-02-15] MEDS ORDERED: MORPHINE SULFATE 4 MG/ML INJ IV PUSH ONE (17:45)
[2017-02-15] MEDS ORDERED: SODIUM CHLOR 0.9% 1000 ML INJ 1,000 ML IV SCH (17:45)
[2017-02-15] MEDS ORDERED: SODIUM CHLORIDE 0.9% FLUSH 10 ML FLUSH IV FLUSH PRN (17:45)
[2017-02-15] MEDS ORDERED: FAMOTIDINE 20 MG/2 ML VIAL IV PUSH ONE (17:45)
[2017-02-15] MEDS ORDERED: ONDANSETRON HCL 4 MG/2 ML VIAL IVP ONE (17:45)
[2017-02-15 17:50] VITALS: O2SAT 97
--- NOTE | 2017-02-15 17:53 | PD ---
HPI Chief Complaint: GI Complaint Time Seen by Provider: 17:38 Travel History International Travel<30 days: No Contact w/Intl Traveler<30days: No Traveled to known affect area: No History of Present Illness HPI Patient 66-year-old male who presents to emergency room with complaints of acute on chronic abdominal pain. Patient reports that he has had right upper quadrant abdominal pain for years, reports that he knows that he has gallstones but cannot find a surgeon to operate on him due to lack of insurance. Patient reports that he is currently being treated with lortab for his chronic abdominal pain, patient reports that he only has a few pills left and needs a refill on his script. Patient also reports that there is another symptomatic medications that he has run out of, patient cannot remember the name of this medication. Patient reports that he did follow-up with the [facility] clinic and he was sent for follow up but reports that "no one can help me." Patient reports that his abdominal pain is a little worse than baseline and he would like his gallbladder re-evaluated. Patient with no fever or chills, reports nausea with no vomiting. Denies constipation or diarrhea. PFSH Past Medical History Hx Anticoagulant Therapy: Yes (81mg aspirin ) Arthritis: Yes Asthma: Yes Blood Disorders: No Anxiety: Yes Depression: Yes Cancer: Yes (POSSIBLE PANCREATIC CANCER) Cardiac Catheterization: No Cardiovascular Problems: Yes High Cholesterol: Yes Congestive Heart Failure: No Diabetes: No Diminished Hearing: No Endocrine: No Gastrointestinal Disorders: No GERD: Yes Genitourinary: No Hypertension: Yes Immune Disorder: No Musculoskeletal: Yes Neurologic: Yes Psychiatric: No Reproductive: No Respiratory: Yes (asthma ) Migraines: Yes (WITH TMJ) Pancreatitis: Yes Sleep Apnea: Yes (WEARS CPAP) Past Surgical History Abdominal Surgery: Yes AICD: No Appendectomy: Yes (UNKNOWN YEAR) Arteriovenous Shunt: No Cardiac Surgery: Yes (PACEMAKER INSERTED: 05/12/16) Coronary Artery Bypass Graft: No Ear Surgery: No Endocrine Surgery: No Eye Surgery: No Genitourinary Surgery: No Gynecologic Surgery: No Insulin Pump: No Joint Replacement: No Oral Surgery: Yes (TOOTH REMOVED) Pacemaker: Yes Thoracic Surgery: No Tonsillectomy: Yes ( CHILD) Social History Alcohol Use: No Tobacco Use: No (QUIT 06/2013) Substance Use: No Allergies-Medications (Allergen,Severity, Reaction): Coded Allergies: No Known Allergies (Verified Adverse Reaction, Unknown, 02/15/17) Reported Meds & Prescriptions Reported Meds & Active Scripts Active Lortab (Hydrocodone-Acetaminophen) 5-325 Mg Tab 1 Tab PO Q4H PRN 20 Days Prilosec (Omeprazole Magnesium) 20 Mg Tab 1 Tab PO DAILY 30 Days Metoprolol Tartrate 25 Mg Tab 12.5 Mg PO BID Lisinopril 10 Mg Tab 10 Mg PO DAILY Reported Aspirin Children's (Aspirin) 81 Mg Chew 81 Mg CHEW DAILY Review of Systems Gastrointestinal: Positive: Nausea, Vomiting, Abdominal Pain, No: Constipation Physical Exam Narrative GENERAL: Mild distress SKIN: Focused skin assessment warm/dry. HEAD: Atraumatic. Normocephalic. EYES: Pupils equal and round. No scleral icterus. No injection or drainage. ENT: No nasal bleeding or discharge. Mucous membranes pink and moist. NECK: Trachea midline. No JVD. CARDIOVASCULAR: Regular rate and rhythm. No murmur appreciated. RESPIRATORY: No accessory muscle use. Clear to auscultation. Breath sounds equal bilaterally. GASTROINTESTINAL: Abdomen soft, increased tenderness to right upper quadrant, nondistended. Hepatic and splenic margins not palpable. MUSCULOSKELETAL: No obvious deformities. No clubbing. No cyanosis. No edema. NEUROLOGICAL: Awake and alert. No obvious cranial nerve deficits. Motor grossly within normal limits. Normal speech. PSYCHIATRIC: Appropriate mood and affect; insight and judgment normal. Data Data Last Documented VS Vital Signs Date Time Temp Pulse Resp B/P (MAP) Pulse Ox O2 Delivery O2 Flow Rate FiO2 02/15/17 20:01 69 16 102/68 (79) 93 Room Air 02/15/17 17:32 97.9 Orders Orders Complete Blood Count With Diff (02/15/17 17:45) Comprehensive Metabolic Panel (02/15/17 17:45) Lipase (02/15/17 17:45) Prothrombin Time / Inr (Pt) (02/15/17 17:45) Act Partial Throm Time (Ptt) (02/15/17 17:45) Us Abdomen Gallbladder (02/15/17 ) Iv Access Insert/Monitor (02/15/17 17:45) Ecg Monitoring (02/15/17 17:45) Oximetry (02/15/17 17:45) NPO (02/15/17 17:45) Morphine Inj (Morphine Inj) (02/15/17 17:45) Ondansetron Inj (Zofran Inj) (02/15/17 17:45) Sodium Chlor 0.9% 1000 Ml Inj (Ns 1000 M (02/15/17 17:45) Sodium Chloride 0.9% Flush (Ns Flush) (02/15/17 17:45) Electrocardiogram (02/15/17 17:45) Famotidine Inj (Pepcid Inj) (02/15/17 17:45) Labs Laboratory Tests Test 02/15/17 18:05 White Blood Count 13.4 TH/MM3 Red Blood Count 5.22 MIL/MM3 Hemoglobin 15.5 GM/DL Hematocrit 47.0 % Mean Corpuscular Volume 90.0 FL Mean Corpuscular Hemoglobin 29.8 PG Mean Corpuscular Hemoglobin Concent 33.1 % Red Cell Distribution Width 14.3 % Platelet Count 416 TH/MM3 Mean Platelet Volume 8.3 FL Neutrophils (%) (Auto) 61.6 % Lymphocytes (%) (Auto) 24.9 % Monocytes (%) (Auto) 9.5 % Eosinophils (%) (Auto) 3.9 % Basophils (%) (Auto) 0.1 % Neutrophils # (Auto) 8.3 TH/MM3 Lymphocytes # (Auto) 3.3 TH/MM3 Monocytes # (Auto) 1.3 TH/MM3 Eosinophils # (Auto) 0.5 TH/MM3 Basophils # (Auto) 0.0 TH/MM3 CBC Comment DIFF FINAL Differential Comment Prothrombin Time 10.7 SEC Prothromb Time International Ratio 1.0 RATIO Activated Partial Thromboplast Time 31.7 SEC Blood Urea Nitrogen 14 MG/DL Creatinine 0.77 MG/DL Random Glucose 111 MG/DL Total Protein 7.1 GM/DL Albumin 3.4 GM/DL Calcium Level 8.8 MG/DL Alkaline Phosphatase 93 U/L Aspartate Amino Transf (AST/SGOT) 9 U/L Alanine Aminotransferase (ALT/SGPT) 20 U/L Total Bilirubin 0.2 MG/DL Sodium Level 136 MEQ/L Potassium Level 3.6 MEQ/L Chloride Level 98 MEQ/L Carbon Dioxide Level 29.6 MEQ/L Anion Gap 8 MEQ/L Estimat Glomerular Filtration Rate 105 ML/MIN Lipase 91 U/L MDM Medical Decision Making Medical Screen Exam Complete: Yes Emergency Medical Condition: Yes Medical Record Reviewed: Yes Interpretation(s) EKG at 1749: paced at 80bpm Vital Signs Date Time Temp Pulse Resp B/P (MAP) Pulse Ox O2 Delivery O2 Flow Rate FiO2 02/15/17 17:32 97.9 92 16 141/78 (99) 97 Differential Diagnosis Acute cholecystitis, cholelithiasis, hepatitis, acute pancreatitis, opiate dependency Narrative Course 56-year-old male who presents to emergency room with complaints of acute on chronic right upper quadrant abdominal pain which has been going ongoing for the past year. During the course of the patients emergency department visit, the patients history, examination, and differential diagnosis were reviewed with the patient. The patient was placed on a cardiac technician with oximetry and frequent blood pressure monitoring. The patient had [-] IV access obtained and blood work sent for analysis. The patient was initially provided IV fluids, IV Pepcid as well as IV morphine The patients laboratory studies were reviewed and remarkable for Laboratory Tests Test 02/15/17 18:05 White Blood Count 13.4 TH/MM3 (4.0-11.0) Red Blood Count 5.22 MIL/MM3 (4.50-5.90) Hemoglobin 15.5 GM/DL (13.0-17.0) Hematocrit 47.0 % (39.0-51.0) Mean Corpuscular Volume 90.0 FL (80.0-100.0) Mean Corpuscular Hemoglobin 29.8 PG (27.0-34.0) Mean Corpuscular Hemoglobin Concent 33.1 % (32.0-36.0) Red Cell Distribution Width 14.3 % (11.6-17.2) Platelet Count 416 TH/MM3 (150-450) Mean Platelet Volume 8.3 FL (7.0-11.0) Neutrophils (%) (Auto) 61.6 % (16.0-70.0) Lymphocytes (%) (Auto) 24.9 % (9.0-44.0) Monocytes (%) (Auto) 9.5 % (0.0-8.0) Eosinophils (%) (Auto) 3.9 % (0.0-4.0) Basophils (%) (Auto) 0.1 % (0.0-2.0) Neutrophils # (Auto) 8.3 TH/MM3 (1.8-7.7) Lymphocytes # (Auto) 3.3 TH/MM3 (1.0-4.8) Monocytes # (Auto) 1.3 TH/MM3 (0-0.9) Eosinophils # (Auto) 0.5 TH/MM3 (0-0.4) Basophils # (Auto) 0.0 TH/MM3 (0-0.2) CBC Comment DIFF FINAL Differential Comment Prothrombin Time 10.7 SEC (9.8-11.6) Prothromb Time International Ratio 1.0 RATIO Activated Partial Thromboplast Time 31.7 SEC (24.3-30.1) Blood Urea Nitrogen 14 MG/DL (7-18) Creatinine 0.77 MG/DL (0.60-1.30) Random Glucose 111 MG/DL (74-106) Total Protein 7.1 GM/DL (6.4-8.2) Albumin 3.4 GM/DL (3.4-5.0) Calcium Level 8.8 MG/DL (8.5-10.1) Alkaline Phosphatase 93 U/L (45-117) Aspartate Amino Transf (AST/SGOT) 9 U/L (15-37) Alanine Aminotransferase (ALT/SGPT) 20 U/L (12-78) Total Bilirubin 0.2 MG/DL (0.2-1.0) Sodium Level 136 MEQ/L (136-145) Potassium Level 3.6 MEQ/L (3.5-5.1) Chloride Level 98 MEQ/L (98-107) Carbon Dioxide Level 29.6 MEQ/L (21.0-32.0) Anion Gap 8 MEQ/L (5-15) Estimat Glomerular Filtration Rate 105 ML/MIN (>89) Lipase 91 U/L (73-393) Radiology studies were reviewed and remarkable for: Last Impressions Gall Bladder Ultrasound 02/15/17 0000 Signed Impressions: Service Date/Time: Wednesday, February 15, 2017 18:26 - CONCLUSION: 1. Heterogeneous echogenic liver likely related to hepatic steatosis. 2. Small gallstone. Elmer Gambino MD LFTs within normal limits, US with small gallstones and gallbladder, no cholecystitis. Discussed need for him to follow-up with his primary care doctor as well as general surgery for elective cholecystectomy. Patient will return to the emergency room as needed. Diagnosis Primary Impression: Abdominal pain Additional Impression: Cholelithiasis Patient Instructions: Narcotic given in the ED, General Instructions Additional Instructions: Please provide patient with a copy of their lab work and studies at discharge* * Please follow up with your primary care doctor in 2-3 days Return to the ER if symptoms worsen or progress Return to the ER as needed Please follow up with a general surgeon for elective cholecystomy Med/Other Pt SpecificInfo: Prescription(s) given Scripts Ondansetron (Zofran) 4 Mg Tab 4 MG PO Q6HR Y for NAUSEA OR VOMITING, #30 TAB 0 Refills Prov: Rama Larkin DO 02/15/17 Dicyclomine (Bentyl) 10 Mg Cap 10 MG PO TID Y for Bowel Management, #30 CAP 0 Refills Prov: Rama Larkin DO 02/15/17 Disposition: 01 DISCHARGE HOME Condition: Stable Rama Larkin DO Feb 15, 2017 17:53
[2017-02-15 18:20] VITALS: BP 105/61; PULSE 80; RESP 20; O2SAT 94
[2017-02-15 18:43] LABS: CHLORIDE 98 MEQ/L (98-107); POTASSIUM 3.6 MEQ/L (3.5-5.1); SODIUM (NA) 136 MEQ/L (136-145)
[2017-02-15 18:48] LABS: ANION GAP 8 MEQ/L (5-15); BICARBONATE 29.6 MEQ/L (21.0-32.0); BLOOD UREA NITROGEN 14 MG/DL (7-18)
[2017-02-15 18:49] LABS: APTT (PATIENT) 31.7 SEC (24.3-30.1); PROTHROMBIN TIME - PATIENT 10.7 SEC (9.8-11.6)
[2017-02-15 18:51] LABS: ALT (GPT) 20 U/L (12-78); AST (GOT) 9 U/L (15-37); GLOMERULAR FILTRATION RATE 105 ML/MIN (>89)
[2017-02-15 18:52] LABS: TOTAL BILIRUBIN ADULT 0.2 MG/DL (0.2-1.0)
[2017-02-15 18:54] LABS: ALKALINE PHOSPHATASE 93 U/L (45-117)
[2017-02-15 18:59] LABS: AUTOMATED NEUTROPHIL # 8.3 TH/MM3 (1.8-7.7); BASOPHIL % 0.1 % (0.0-2.0); EOSINOPHIL # 0.5 TH/MM3 (0-0.4); EOSINOPHIL % 3.9 % (0.0-4.0); HEMO FLAGS DIFF FINAL; LYMPH % 24.9 % (9.0-44.0); LYMPHOCYTE # 3.3 TH/MM3 (1.0-4.8); MEAN CORPUSCULAR HEMOGLOBIN 29.8 PG (27.0-34.0); MEAN CORPUSCULAR HGB CONC 33.1 % (32.0-36.0); MONO % 9.5 % (0.0-8.0); NEUT % 61.6 % (16.0-70.0); PLATELET COUNT 416 TH/MM3 (150-450); RED BLOOD COUNT 5.22 MIL/MM3 (4.50-5.90); RED CELL DISTRIBUTION WIDTH 14.3 % (11.6-17.2); WHITE BLOOD COUNT 13.4 TH/MM3 (4.0-11.0)
[2017-02-15 20:01] VITALS: BP 102/68; PULSE 69; RESP 16; O2SAT 93
--- NOTE | 2017-02-15 20:15 | RADRPT ---
EXAM DATE/TIME: 02/15/2017 18:26 [facility] COMPARISON: CT ABDOMEN & PELVIS W CONTRAST, December 20, 2016, 17:42. US ABDOMEN - GALLBLADDER, January 07 7, 20:44. INDICATIONS : Right upper quadrant pain. MEDICAL HISTORY : Hypercholesterolemia. Arthritis. Pancreatitis. Migraines. Asthma. Sleep apnea. HTN. Depression. Anxie ty. Tobacco use. Possible pancreatic cancer. Anticoagulant therapy, Aspirin 81mg. SURGICAL HISTORY : Tonsillectomy. Pacemaker. Appendectomy. ENCOUNTER: Subsequent ACUITY: 1 month PAIN SCORE: 10/10 LOCATION: Right upper quadrant MEASUREMENTS: LIVER: 18.9 cm length COMMON DUCT: 6 mm RIGHT KIDNEY: 10.2 x 5.0 x 6.2 cm FINDINGS: LIVER: The liver is heterogeneous and mildly echogenic. Definite focal hepatic masses are not fully seen. COMMON DUCT: No intraluminal mass or stone visualized. GALLBLADDER: There is a 4 mm gallstone seen the gallbladder neck. The gallbladder is only mildly distended. The ga llbladder wall is upper limits of normal for thickness. The technologist reports a negative sonograph ic Harris's. PANCREAS: The visualized portions are within normal limits. RIGHT KIDNEY: No evidence of hydronephrosis, stone, or mass. CONCLUSION: 1. Heterogeneous echogenic liver likely related to hepatic steatosis. 2. Small gallstone. Elmer Gambino MD on February 15, 2017 at 20:11 Board Certified Radiologist. This report was verified electronically.
[2017-02-15] MEDS ORDERED: DICY10 PO (20:30)
[2017-02-15] MEDS ORDERED: ZOFR4TAB PO (20:30)
--- NOTE | 2017-02-16 17:52 | EKG ---
Date Performed: 02/15/2017 Time Performed: 17:49:44 PTAGE: 56 years EKG: ELECTRONIC ATRIAL PACEMAKER INDETERMINATE AXIS ABNORMAL RHYTHM ECG PREVIOUS TRACING : 01/02/2017 19.21 Since the prior tracing, the atrial rhythm is now paced, bu t there is otherwise no significant serial change. DOCTOR: Joanna Carrillo Interpretating Date/Time 02/16/2017 17:50:50
== END 2017-02-15 20:52 | disposition home or self-care (01) ==
LOC: PHED 17:26
DX: K80.20 Calculus of gallbladder without cholecystitis without obstruction (principal); K21.9 Gastro-esophageal reflux disease without esophagitis; G89.29 Other chronic pain; I10 Essential (primary) hypertension; Z87.891 Personal history of nicotine dependence
CPT/HCPCS: 76705; 80053; 83690; 85025; 85610; 85730; 93005; 96361; 96374; 96375; 99285; J2270; J2405; J7030

== ENCOUNTER 2017-02-23 16:23 | Inpatient (IN) | payer SELFPAY ==
[~2017-02-23] VITALS: Ht 172.7 cm; Wt 110.5 kg
[~2017-02-23 16:23] MED LIST changes: +DICY10 PO
[2017-02-23 16:29] VITALS: BP 148/62; PULSE 99; RESP 16; TEMP 99; O2SAT 99
[2017-02-23] MEDS ORDERED: SODIUM CHLOR 0.9% 1000 ML INJ 1,000 ML IV SCH (16:35)
--- NOTE | 2017-02-23 16:42 | PD ---
HPI Chief Complaint: Abdominal Pain Time Seen by Provider: 16:32 Travel History International Travel<30 days: No Contact w/Intl Traveler<30days: No Traveled to known affect area: No History of Present Illness HPI patient was very short with his responses stating "is all in the computer" ....networking specialist tried to get patient to calm down...per pt ruq pain, sharp, intermittent since 3 months ago, this is his 7th visit and he states that we are not doing anything about it.....denies n/v/d/fever/cp/gabriel/back pain.....per patient and networking specialist, ruq pain returned today since about noon and not improving at all even with pain medications prescribed, some nausea but without vomiting, 8/10, nonradiating, starts hours after eating. all:none pmhx: pacemaker recently for sick sinus syndrome, gallstone, pancreatitis PFSH Past Medical History Hx Anticoagulant Therapy: Yes (81mg aspirin ) Arthritis: Yes Asthma: Yes Blood Disorders: No Anxiety: Yes Depression: Yes Cancer: Yes (POSSIBLE PANCREATIC CANCER) Cardiac Catheterization: No Cardiovascular Problems: Yes High Cholesterol: Yes Congestive Heart Failure: No Diabetes: No Diminished Hearing: No Endocrine: No Gastrointestinal Disorders: No GERD: Yes Genitourinary: No Hypertension: Yes Immune Disorder: No Musculoskeletal: Yes Neurologic: Yes Psychiatric: No Reproductive: No Respiratory: Yes (asthma ) Migraines: Yes (WITH TMJ) Pancreatitis: Yes Sleep Apnea: Yes (WEARS CPAP) Past Surgical History Abdominal Surgery: Yes AICD: No Appendectomy: Yes (UNKNOWN YEAR) Arteriovenous Shunt: No Cardiac Surgery: Yes (PACEMAKER INSERTED: 05/12/16) Coronary Artery Bypass Graft: No Ear Surgery: No Endocrine Surgery: No Eye Surgery: No Genitourinary Surgery: No Gynecologic Surgery: No Insulin Pump: No Joint Replacement: No Oral Surgery: Yes (TOOTH REMOVED) Pacemaker: Yes Thoracic Surgery: No Tonsillectomy: Yes ( CHILD) Social History Alcohol Use: No Tobacco Use: Yes Substance Use: No Allergies-Medications (Allergen,Severity, Reaction): Coded Allergies: No Known Allergies (Verified Adverse Reaction, Unknown, 02/23/17) Reported Meds & Prescriptions Reported Meds & Active Scripts Active Zofran (Ondansetron HCl) 4 Mg Tab 4 Mg PO Q6HR PRN Prilosec (Omeprazole Magnesium) 20 Mg Tab 1 Tab PO DAILY 30 Days Lisinopril 10 Mg Tab 10 Mg PO DAILY Reported Hydrochlorothiazide 25 Mg Tab 25 Mg PO DAILY Aspirin Children's (Aspirin) 81 Mg Chew 81 Mg CHEW DAILY Review of Systems Except as stated in HPI: all other systems reviewed are Neg General / Constitutional: No: Fever Eyes: No: Visual changes HENT: No: Headaches Cardiovascular: No: Chest Pain or Discomfort Respiratory: No: Shortness of Breath Gastrointestinal: Positive: Abdominal Pain Genitourinary: No: Dysuria Musculoskeletal: No: Pain Skin: No Rash Neurologic: No: Weakness Psychiatric: No: Depression Endocrine: No: Polydipsia Hematologic/Lymphatic: No: Easy Bruising Physical Exam Narrative GENERAL: SKIN: Warm and dry. HEAD: Atraumatic. Normocephalic. EYES: Pupils equal and round. No scleral icterus. No injection or drainage. ENT: No nasal bleeding or discharge. Mucous membranes pink and moist. NECK: Trachea midline. No JVD. CARDIOVASCULAR: Regular rate and rhythm. RESPIRATORY: No accessory muscle use. Clear to auscultation. Breath sounds equal bilaterally. GASTROINTESTINAL: Abdomen soft, non-tender, nondistended. ruq tt percussion, no rebound/guarding/rigidity MUSCULOSKELETAL: Extremities without clubbing, cyanosis, or edema. No obvious deformities. NEUROLOGICAL: Awake and alert. No obvious cranial nerve deficits. Motor grossly within normal limits. Five out of 5 muscle strength in the arms and legs. Normal speech. PSYCHIATRIC: Appropriate mood and affect; insight and judgment normal. Data Data Last Documented VS Vital Signs Date Time Temp Pulse Resp B/P (MAP) Pulse Ox O2 Delivery O2 Flow Rate FiO2 02/23/17 17:02 96 18 114/73 (87) 98 Room Air 02/23/17 16:29 99.0 Orders Orders Basic Metabolic Panel (Bmp) (02/23/17 16:35) Complete Blood Count With Diff (02/23/17 16:35) Lipase (02/23/17 16:35) Iv Access Insert/Monitor (02/23/17 16:35) Ecg Monitoring (02/23/17 16:35) Oximetry (02/23/17 16:35) NPO (02/23/17 16:35) Morphine Inj (Morphine Inj) (02/23/17 16:45) Ondansetron Inj (Zofran Inj) (02/23/17 16:45) Sodium Chlor 0.9% 1000 Ml Inj (Ns 1000 M (02/23/17 16:35) Us Abdomen Gallbladder (02/23/17 17:28) Morphine Inj (Morphine Inj) (02/23/17 17:30) Ondansetron Inj (Zofran Inj) (02/23/17 17:30) Levofloxacin 500 Mg Premix Inj (Levaquin (02/23/17 17:30) Admit Order (Ed Use Only) (02/23/17 17:58) Consult General Surgery (02/23/17 ) Labs Laboratory Tests Test 02/23/17 16:20 02/23/17 16:50 Total Bilirubin 0.2 MG/DL Direct Bilirubin 0.1 MG/DL Aspartate Amino Transf (AST/SGOT) 15 U/L Alanine Aminotransferase (ALT/SGPT) 25 U/L Alkaline Phosphatase 96 U/L White Blood Count 16.9 TH/MM3 Red Blood Count 5.61 MIL/MM3 Hemoglobin 16.8 GM/DL Hematocrit 50.8 % Mean Corpuscular Volume 90.7 FL Mean Corpuscular Hemoglobin 29.9 PG Mean Corpuscular Hemoglobin Concent 33.0 % Red Cell Distribution Width 14.3 % Platelet Count 424 TH/MM3 Mean Platelet Volume 8.0 FL Neutrophils (%) (Auto) 63.2 % Lymphocytes (%) (Auto) 22.8 % Monocytes (%) (Auto) 8.6 % Eosinophils (%) (Auto) 2.1 % Basophils (%) (Auto) 3.3 % Neutrophils # (Auto) 10.5 TH/MM3 Lymphocytes # (Auto) 3.9 TH/MM3 Monocytes # (Auto) 1.5 TH/MM3 Eosinophils # (Auto) 0.4 TH/MM3 Basophils # (Auto) 0.6 TH/MM3 CBC Comment DIFF FINAL Differential Comment Blood Urea Nitrogen 20 MG/DL Creatinine 1.10 MG/DL Random Glucose 140 MG/DL Calcium Level 9.2 MG/DL Sodium Level 134 MEQ/L Potassium Level 3.5 MEQ/L Chloride Level 97 MEQ/L Carbon Dioxide Level 28.6 MEQ/L Anion Gap 8 MEQ/L Estimat Glomerular Filtration Rate 69 ML/MIN Lipase 92 U/L MDM Medical Decision Making Medical Screen Exam Complete: Yes Emergency Medical Condition: Yes Medical Record Reviewed: Yes Differential Diagnosis cholecystitis v pancreatitis v biliary colic Narrative Course patient c/o ruq pain, had positive rodriguez's sign, white count elevation of nearly 17k, and bedside ultrasound showing thickened gb wall all these findings c/w acute cholecystitis Procedures Procedure Narrative ruq poc ultrasound: performed by me at bedside, revealiing thickened gb wall circumferentially, gallstones noted within gb but not on cystic duct, no pericholecystic fluid noted. sludge within gb noted as well. Physician Communication Physician Communication D/W DR BEYER WHO WILL SEE PATIENT PERSONALLY AND ADVISE AT THIS TIME OK TO STAY IN [place]. Diagnosis Primary Impression: Acute cholecystitis Admitting Information Admitting Physician Requests: Admit Patient Instructions: General Instructions Pawel Borja MD Feb 23, 2017 16:41
[2017-02-23] MEDS ORDERED: HYDR25TA5 PO ×2 (16:44)
[2017-02-23] MEDS ORDERED: MORPHINE SULFATE 4 MG/ML INJ IV PUSH ONE ×2 (16:45→17:30)
[2017-02-23] MEDS ORDERED: ONDANSETRON HCL 4 MG/2 ML VIAL IVP ONE ×2 (16:45→17:30)
[2017-02-23 16:59] LABS: AUTOMATED NEUTROPHIL # 10.5 TH/MM3 (1.8-7.7); BASOPHIL # 0.6 TH/MM3 (0-0.2); BASOPHIL % 3.3 % (0.0-2.0); EOSINOPHIL # 0.4 TH/MM3 (0-0.4); EOSINOPHIL % 2.1 % (0.0-4.0); HEMATOCRIT 50.8 % (39.0-51.0); LYMPH % 22.8 % (9.0-44.0); LYMPHOCYTE # 3.9 TH/MM3 (1.0-4.8); MEAN CELL VOLUME 90.7 FL (80.0-100.0); MEAN CORPUSCULAR HEMOGLOBIN 29.9 PG (27.0-34.0); MONO % 8.6 % (0.0-8.0); NEUT % 63.2 % (16.0-70.0); PLATELET COUNT 424 TH/MM3 (150-450); RED BLOOD COUNT 5.61 MIL/MM3 (4.50-5.90); RED CELL DISTRIBUTION WIDTH 14.3 % (11.6-17.2); WHITE BLOOD COUNT 16.9 TH/MM3 (4.0-11.0)
[2017-02-23 17:02] VITALS: BP 114/73; PULSE 96; RESP 18; O2SAT 98
[2017-02-23 17:04] LABS: HEMO FLAGS DIFF FINAL
[2017-02-23 17:07] LABS: POTASSIUM 3.5 MEQ/L (3.5-5.1)
[2017-02-23 17:10] LABS: BICARBONATE 28.6 MEQ/L (21.0-32.0)
[2017-02-23] MEDS ORDERED: LEVOFLOXACIN 500 MG PREMIX INJ 100 ML IV ONE (17:30)
[2017-02-23 18:04] VITALS: BP 129/67; PULSE 82; RESP 18; O2SAT 95
[2017-02-23] MEDS ORDERED: SODIUM CHLORIDE 0.9% FLUSH 10 ML FLUSH IV FLUSH PRN (18:30)
[2017-02-23] MEDS ORDERED: MAGNESIUM HYDROXIDE SUSP 30 ML CUP PO PRN (18:30)
[2017-02-23] MEDS ORDERED: TEMAZEPAM 15 MG CAP PO PRN (18:30)
[2017-02-23] MEDS ORDERED: ACETAMINOPHEN/HYDROcodone 325 MG/7.5 MG TAB PO PRN (18:30)
[2017-02-23] MEDS ORDERED: ACETAMINOPHEN/HYDROcodone 325 MG/5 MG TAB PO PRN (18:30)
[2017-02-23] MEDS ORDERED: SENNOSIDES 8.6 MG TAB PO PRN (18:30)
[2017-02-23] MEDS ORDERED: RESP: ALBUTEROL 2.5 MG/IPRATROPIUM 0.5 MG NEB (PRN) NEB (18:30)
[2017-02-23] MEDS ORDERED: LACTULOSE SYRUP 20 GM/30 ML CUP PO PRN (18:30)
[2017-02-23] MEDS ORDERED: MORPHINE SULFATE 4 MG/ML INJ IV PUSH PRN (18:30)
[2017-02-23] MEDS ORDERED: ACETAMINOPHEN 325 MG TAB PO PRN ×2 (18:30)
[2017-02-23] MEDS ORDERED: BISACODYL 10 MG SUPP RECTAL PRN (18:30)
[2017-02-23] MEDS ORDERED: NALOXONE HCL 0.4 MG/ML AMP IV PUSH PRN (18:30)
[2017-02-23] MEDS ORDERED: BUPIVACAINE/EPINEPHRINE 0.5% PF 30 ML VIAL ONE (19:09)
[2017-02-23 19:19] LABS: TOTAL BILIRUBIN ADULT 0.2 MG/DL (0.2-1.0)
--- NOTE | 2017-02-23 19:55 | RADRPT ---
EXAM DATE/TIME: 02/23/2017 19:10 [facility] COMPARISON: No previous studies available for comparison. INDICATIONS : Right upper quadrant pain. MEDICAL HISTORY : Gastroesophageal reflux disease. Chronic obstructive pulmonary disease. Hypercholesterolemia. Migrain es. Anticoagulant therapy. Hypertension. Sleep apnea. Pancreatitis. Arthritis. TMJ. Depression. Anxie ty. SURGICAL HISTORY : Tonsillectomy. Pacemaker. Appendectomy. ENCOUNTER: [facility] ACUITY: 3 months PAIN SCORE: 6/10 LOCATION: Right upper quadrant MEASUREMENTS: LIVER: 17.3 cm length COMMON DUCT: 4 mm RIGHT KIDNEY: 10.7 x 5.4 x 5.4 cm FINDINGS: LIVER: Increased echotexture without focal lesion or ductal dilatation. COMMON DUCT: No intraluminal mass or stone visualized. GALLBLADDER: Multiple gallstones trace sludge. PANCREAS: The visualized portions are within normal limits. RIGHT KIDNEY: No evidence of hydronephrosis, stone, or mass. CONCLUSION: 1. Multiple gallstones with small amount gallbladder sludge. No biliary ductal dilatation. 2. Fatty infiltration of the liver. Luiz Magana MD on February 23, 2017 at 19:53 Board Certified Radiologist. This report was verified electronically.
[2017-02-23 20:00] VITALS: BP 111/55; PULSE 82; RESP 16; TEMP 98.7; O2SAT 95
[2017-02-23] MEDS: DOCUSATE SODIUM 50 MG/SENNA 8.6 MG TAB PO SCH (21:19)
[2017-02-23] MEDS: SODIUM CHLORIDE 0.9% FLUSH 10 ML FLUSH IV FLUSH SCH (21:20)
[2017-02-23] MEDS: metroNIDAZOLE 500 MG INJ 100 ML IV SCH (21:20)
--- NOTE | 2017-02-24 01:44 | RADRPT ---
EXAM DATE/TIME: 02/22/2017 12:14 [facility] COMPARISON: US ABDOMEN - GALLBLADDER, February 23, 2017, 19:10. INDICATIONS : Right upper quadrant pain for 3 months. Abnormal ultrasound with known gallstones.. DOSE: 4.3 mCi Tc99m Mebrofenin IV MEDICAL HISTORY : Sleep apnea. Cardiovascular disease Smoker. SURGICAL HISTORY : Pacemaker. Appendectomy. ENCOUNTER: [facility] ACUITY: 3 months PAIN SCALE: 5/10 LOCATION: Right upper quadrant TECHNIQUE: Following the intravenous administration of radiotracer, dynamic sequential images were performed wit h continuous acquisition. FINDINGS: HEPATIC KINETICS: There is prompt uptake of radiotracer in the liver. No focal defects are seen. There is normal rate of washout from the hepatic parenchyma. BILIARY CLEARANCE: Activity is first seen in the extrahepatic biliary system at 5 minutes. There is normal excretion in to the small bowel. GALLBLADDER: Activity is first seen in the gallbladder at 5 minutes. Common bile duct kinetics are normal and the re is no evidence of biliary obstruction. BILIARY ENTRIC REFLUX: None observed. CONCLUSION: Unremarkable exam. Normal gallbladder visualization and no evidence of biliary obstru ction. Martín Lyons MD on February 24, 2017 at 1:41 Board Certified Radiologist. This report was verified electronically.
[2017-02-24] MEDS: metroNIDAZOLE 500 MG INJ 100 ML IV SCH ×3 (03:10→20:01)
[2017-02-24 04:00] VITALS: BP 103/58; PULSE 75; RESP 16; TEMP 97.9; O2SAT 95
--- NOTE | 2017-02-24 06:45 | MB ---
cc: MARIPOSA BEYER MD DATE OF CONSULTATION 02/24/2017 REASON FOR CONSULTATION Rule out acute cholecystitis. HISTORY OF PRESENT ILLNESS The patient is a 56-year-old male with several medical issues who presents with acute on chronic onset of abdominal pain. The patient states the pain has been going on for somewhat of a long time now. It increased in the left three months. It is intermittent and sharp. The patient states pain is in the right upper quadrant and right lower quadrant, and sometimes on the left. He notes it comes and goes. It is 8/10 at its worse and 2/10 when it improves. He does note some response to pain medication and says it is better with lying still worse with movement. He has had several workups including CT scans and gallbladder ultrasounds which showed small gallstones. The patient looks like he had some issue with pancreatitis in the past as well, but labs had been well relatively normal. The patient does have leukocytosis currently of 16,000. He denies any fevers or chills, but states the pain is then pretty significant and severe. He was recommended to be worked up by gastroenterology but states he was unable to do so due to insurance issues. He also had some recommendations to undergo evaluation by a surgical team, but again has failed to do so due to insurance issues. The patient states within the last 24 hours, his pain became unbearable prompted him to come to the emergency department. PAST MEDICAL HISTORY 1. Arthritis 2. Asthma 3. Anxiety 4. Questionable pancreatic cancer 5. Sick sinus syndrome status post pacer 6. Hypercholesteremia 7. Reflux 8. TMJ 9. Obstructive sleep apnea 10. Pancreatitis PAST SURGICAL HISTORY 1. Appendectomy 2. Pacer 05/12/2016 3. Tooth extraction 4. Tonsillectomy SOCIAL HISTORY Denies ETOH, positive for smoking. Denies IVDA. ALLERGIES The patient has no known drug allergies. MEDICATIONS See EMR. FAMILY HISTORY Denies diabetes or coronary artery disease. REVIEW OF SYSTEMS GENERAL: Denies fevers and chills. HEENT: Denies vision changes or headaches. NECK: Denies swelling or pain. RESPIRATORY: Denies cough or wheeze. CARDIAC: Pacer, sick sinus syndrome denies palpitations. ABDOMEN: Complained of abdominal pain. Denies vomiting. : Denies dysuria or hematuria. MUSCULOSKELETAL: Denies arthralgia, myalgias. SKIN: Denies rashes or lesions. NEUROLOGIC: Denies numbness or tingling. PSYCHIATRIC: Denies depression or change in mood. PHYSICAL EXAMINATION GENERAL: The patient is in no acute distress. VITAL SIGNS: Temperature 99, pulse 96, respiratory rate 18, blood pressure 114/73, saturation 98%. HEENT: Pupils equal round reactive. NECK: Supple. Trachea midline. LUNGS: Bilateral expansion. Clear. HEART: S1-S2 regular. Pacer in place. ABDOMEN: Obese, soft, positive tenderness to palpation right upper quadrant, right lower quadrant, left quadrant. No rebound. No guarding. EXTREMITIES: Warm, well-perfused. NEUROLOGIC: 5/5 motor all extremities. GCS 15. SKIN: No obvious masses or lesions. LABORATORY AND DIAGNOSTIC DATA WBC 16.9, hemoglobin 16.8, hematocrit 50.8, platelets 242. Sodium 134, potassium 3.5, CO2 97, BUN 28, creatinine 1.1, calcium 9.2, bilirubin 0.2, AST 15, ALT 25, alkaline phos was 96, lipase 92. Ultrasound reviewed by myself showing several gallstones, small sludge. No gallbladder wall thickening. No common bile duct dilatation. Mild fatty liver infiltration. HIDA scan obtained by me and reviewed showing a normal gallbladder filling, normal visualization of the gallbladder. No evidence of biliary obstruction. ASSESSMENT The patient is a 56-year-old male with abdominal pain chronic and acute in nature. Rule out cholecystitis, currently a low suspicion of acute cholecystitis. PLAN After a full clinical radiologic and laboratory workup, the patient with above named issues including abdominal pain. The patient does have leukocytosis. I am not sure exactly what the etiology of this. However, given the somewhat normal ultrasound, HIDA that is unremarkable and LFTs and T-bili and alk phos are all within normal range, my suspicion for acute cholecystitis is relatively low. Currently I recommend pain control. Could attempt to try a clear liquid diet. Further workup for leukocytosis and abdominal pain. The patient has had CT scans in the past that are not very remarkable and may benefit from a GI consultation for possible EGD or colonoscopy. Thank you for this consultation. MD ZOE Arrieta/CARLINE /6:04 AM /6:34 AM
[2017-02-24 07:00] LABS: AUTOMATED NEUTROPHIL # 5.8 TH/MM3 (1.8-7.7); BASOPHIL % 0.3 % (0.0-2.0); EOSINOPHIL # 0.3 TH/MM3 (0-0.4); EOSINOPHIL % 3.5 % (0.0-4.0); HEMO FLAGS DIFF FINAL; LYMPH % 32.6 % (9.0-44.0); LYMPHOCYTE # 3.1 TH/MM3 (1.0-4.8); MEAN CELL VOLUME 92.1 FL (80.0-100.0); MEAN CORPUSCULAR HEMOGLOBIN 29.8 PG (27.0-34.0); MEAN CORPUSCULAR HGB CONC 32.4 % (32.0-36.0); MONO % 3.7 % (0.0-8.0); NEUT % 59.9 % (16.0-70.0); PLATELET COUNT 367 TH/MM3 (150-450); RED BLOOD COUNT 5.21 MIL/MM3 (4.50-5.90); RED CELL DISTRIBUTION WIDTH 14.3 % (11.6-17.2); WHITE BLOOD COUNT 9.6 TH/MM3 (4.0-11.0)
[2017-02-24 07:20] LABS: BICARBONATE 31.9 MEQ/L (21.0-32.0)
[2017-02-24 08:00] VITALS: BP 117/66; PULSE 83; RESP 16; TEMP 96.5; O2SAT 98
[2017-02-24] MEDS: HYDROCHLOROTHIAZIDE 25 MG TAB PO SCH (08:17)
[2017-02-24] MEDS: PANTOPRAZOLE SODIUM 40 MG VIAL IV PUSH SCH (08:18)
[2017-02-24] MEDS: DOCUSATE SODIUM 50 MG/SENNA 8.6 MG TAB PO SCH ×2 (08:18→19:55)
[2017-02-24] MEDS: LISINOPRIL 10 MG TAB PO SCH (08:18)
[2017-02-24] MEDS: SODIUM CHLORIDE 0.9% FLUSH 10 ML FLUSH IV FLUSH SCH ×2 (08:19→19:56)
--- NOTE | 2017-02-24 08:58 | HHI.HP ---
[facility] Unknown Admission Diagnosis ACUTE CHOLECYSTITIS Diagnoses: (1) Abdominal pain Diagnosis: Principal Chief Complaint: Abdominal pain Travel History International Travel<30 Days: No Contact w/Intl Traveler <30 Da: No Traveled to Known Affected Are: No Sepsis Criteria SIRS Criteria (2 or more): Heart rate over 90, WBC > 05814, < 4000 or > 10% bands Criteria Outcome: Meets SIRS criteria History of Present Illness Written by Oli Soares, acting as scribe for Dr. Bernardo on 02/24/17 at 08 :57. 56-year-old male with known history of sick sinus syndrome status post pacemaker placement who presented to hospital again because of abdominal pain. This is his seventh visit to the emergency department since October for same symptoms. She indicates that his condition started approximately 6 months ago when he started developing right back pain that has remained gradually persistent. Then 3 months ago he started developing right upper quadrant abdominal pain in which she has been to the ER multiple times for evaluation. He has had multiple ultrasounds of the gallbladder that had varied interpretations of gallstone in the neck of the bladder. Mild gallbladder wall thickening which was on January 07, 2017. He has had 2 follow-up ultrasounds of the gallbladder on 02/15/17 and 02/23/17 which indicated multiple gallstones, small amount of sludge without any biliary dilatation. Patient has had multiple CT scans of the abdomen which indicates some steatohepatitis without any acute abnormalities. Patient had HIDA scan performed which was unremarkable. Showed normal bladder visualization with no evidence of biliary obstruction. All laboratory studies have remained normal without any indication of any obstructive process. After speaking with the patient and reviewing medical records it would appear as if the patient is quite disgruntled about his current clinical condition. He states that he is in significant pain that is why resolved with pain medication. He states that his pain is 10/10 on a pain scale. Patient indicates that he has persistent pain in his abdomen. He does have an appetite, however when he goes to eat he can only eat 2 bites and then he has worsened pain with nausea. He does get episodic vomiting. Over the last 6 months it would appear as if the patient has lost approximately 18 pounds per weights taking in the emergency department. Patient indicates that he has had normal bowel movements, however he noticed some blood in his stool yesterday. He states that he was told that he needs to have his gallbladder taken out. ER physician did discuss the case with general surgery who recommended admission with surgical consultation. Review of Systems Gastrointestinal: COMPLAINS OF: Abdominal pain, Bloody stools Except as stated in HPI: all other systems reviewed are Neg Past Family Social History Past Medical History Sick sinus syndrome status post pacemaker placement Past Surgical History Pacemaker placement Appendectomy Tonsillectomy Reported Medications Reported Meds & Active Scripts Active Zofran (Ondansetron HCl) 4 Mg Tab 4 Mg PO Q6HR PRN Prilosec (Omeprazole Magnesium) 20 Mg Tab 1 Tab PO DAILY 30 Days Lisinopril 10 Mg Tab 10 Mg PO DAILY Reported Hydrochlorothiazide 25 Mg Tab 25 Mg PO DAILY Aspirin Children's (Aspirin) 81 Mg Chew 81 Mg CHEW DAILY Allergies: Coded Allergies: No Known Allergies (Verified Adverse Reaction, Unknown, 02/23/17) Family History Reviewed and significant for family history with heart disease, diabetes, seizures Social History Patient continues to smoke cigarettes, he is down to 1 cigarette every other day. He denies any alcohol or illicit drugs Physical Exam Vital Signs Vital Signs Date Time Temp Pulse Resp B/P (MAP) Pulse Ox O2 Delivery O2 Flow Rate FiO2 02/24/17 08:00 96.5 83 16 117/66 (83) 98 02/24/17 04:00 97.9 75 16 103/58 (73) 95 02/24/17 03:26 18 02/24/17 00:00 02/23/17 20:00 98.7 82 16 111/55 (73) 95 02/23/17 18:44 02/23/17 18:04 82 18 129/67 (87) 95 Room Air 02/23/17 17:02 96 18 114/73 (87) 98 Room Air 02/23/17 17:02 98 Room Air 02/23/17 16:29 99.0 99 16 148/62 (90) 99 Physical Exam GENERAL: Well-developed, well-nourished, in no acute distress. alert and orientated HEENT: Head is normocephalic without any lesions or masses noted. Facial features are symmetric. Eyes: Pupils equal round reactive to light. Extraocular muscles are intact. Conjunctivae were clear. Oropharyngeal: Pharynx without any erythema edema. Tongue is midline without deviation. Buccal mucosa is moist without any masses or lesions NECK: Supple without any masses. Trachea midline no deviation. No JVD, no bruits are appreciated CARDIAC: Regular rhythm, regular rate. S1/S2 are heard. No murmurs gallops or rubs. LUNGS: Clear to auscultation bilaterally. No wheeze, rhonchi or rales. No use of accessory muscles on inspiration or expiration. ABDOMEN: Soft, patient indicates that there is tenderness on palpation throughout entire abdomen. Nondistended. Bowel sounds heard in all 4 quadrants. No organomegaly or masses. Negative rebound, negative guarding EXTREMITIES: No edema, pulses are equal bilaterally. No cyanosis or clubbing NEUROLOGY: Mood and affect appear appropriate. Cranial nerves II through XII grossly intact. Muscle strength 5/5 in upper and lower extremities bilaterally. Deep tendon reflexes are 2+ in upper and lower extremities bilaterally. Laboratory Laboratory Tests Test 02/23/17 16:20 02/23/17 16:50 02/24/17 06:53 Total Bilirubin 0.2 Direct Bilirubin 0.1 Aspartate Amino Transf (AST/SGOT) 15 Alanine Aminotransferase (ALT/SGPT) 25 Alkaline Phosphatase 96 White Blood Count 16.9 9.6 Red Blood Count 5.61 5.21 Hemoglobin 16.8 15.6 Hematocrit 50.8 48.0 Mean Corpuscular Volume 90.7 92.1 Mean Corpuscular Hemoglobin 29.9 29.8 Mean Corpuscular Hemoglobin Concent 33.0 32.4 Red Cell Distribution Width 14.3 14.3 Platelet Count 424 367 Mean Platelet Volume 8.0 7.6 Neutrophils (%) (Auto) 63.2 59.9 Lymphocytes (%) (Auto) 22.8 32.6 Monocytes (%) (Auto) 8.6 3.7 Eosinophils (%) (Auto) 2.1 3.5 Basophils (%) (Auto) 3.3 0.3 Neutrophils # (Auto) 10.5 5.8 Lymphocytes # (Auto) 3.9 3.1 Monocytes # (Auto) 1.5 0.4 Eosinophils # (Auto) 0.4 0.3 Basophils # (Auto) 0.6 0.0 CBC Comment DIFF FINAL DIFF FINAL Differential Comment Blood Urea Nitrogen 20 17 Creatinine 1.10 0.87 Random Glucose 140 103 Calcium Level 9.2 8.5 Sodium Level 134 137 Potassium Level 3.5 4.0 Chloride Level 97 101 Carbon Dioxide Level 28.6 31.9 Anion Gap 8 4 Estimat Glomerular Filtration Rate 69 91 Lipase 92 Result Diagram: 02/24/17 0653 02/24/17 0653 Imaging Last Impressions Gall Bladder Ultrasound 02/23/17 1728 Signed Impressions: Service Date/Time: February 19:10 - CONCLUSION: 1. Multiple gallstones with small amount gallbladder sludge. No biliary ductal dilatation. 2. Fatty infiltration of the liver. Luiz Magana MD Hepatobiliary Scan Nuclear Medicine 02/23/17 0000 Signed Impressions: Service Date/Time: Wednesday, February 22, 2017 12:14 - CONCLUSION: Unremarkable exam. Normal gallbladder visualization and no evidence of biliary obstruction. MD Haroon Rivera VTE Risk Assessment Caprini VTE Risk Assessment: Mod/High Risk (score >= 2) Caprini Risk Assessment Model Point Value = 1 Point Value = 2 Point Value = 3 Point Value = 5 Age 41-60 Minor surgery BMI > 25 kg/m2 Swollen legs Varicose veins or History of unexplained or recurrent spontaneous Oral contraceptives or hormone replacement Sepsis (< 1 month) Serious lung disease, including pneumonia (< 1 month) Abnormal pulmonary function Acute myocardial infarction Congestive heart failure (< 1 month) History of inflammatory bowel disease Medical patient at bed rest Age 61-74 Arthroscopic surgery Major open surgery (> 45 min) Laparoscopic surgery (> 45 min) Malignancy Confined to bed (> 72 hours) Immobilizing plaster cast Central venous access Age >= 75 History of VTE Family history of VTE Factor V Leiden Prothrombin [id number] Lupus anticoagulant Anticardiolipin antibodies Elevated serum homocysteine Heparin-induced thrombocytopenia Other congenital or acquired thrombophilia Stroke (< 1 month) Elective arthroplasty Hip, pelvis, or leg fracture Acute spinal cord injury (< 1 month) Prophylaxis Regimen Total Risk Factor Score Risk Level Prophylaxis Regimen 0-1 Low Early ambulation 2 Moderate Order ONE of the following: *Sequential Compression Device (SCD) *Heparin 5000 units SQ BID 3-4 Higher Order ONE of the following medications: *Heparin 5000 units SQ TID *Enoxaparin/Lovenox 40 mg SQ daily (WT < 150 kg, CrCl > 30 mL/min) *Enoxaparin/Lovenox 30 mg SQ daily (WT < 150 kg, CrCl > 10-29 mL/min) *Enoxaparin/Lovenox 30 mg SQ BID (WT < 150 kg, CrCl > 30 mL/min) AND/OR *Sequential Compression Device (SCD) 5 or more Highest Order ONE of the following medications: *Heparin 5000 units SQ TID (Preferred with Epidurals) *Enoxaparin/Lovenox 40 mg SQ daily (WT < 150 kg, CrCl > 30 mL/min) *Enoxaparin/Lovenox 30 mg SQ daily (WT < 150 kg, CrCl > 10-29 mL/min) *Enoxaparin/Lovenox 30 mg SQ BID (WT < 150 kg, CrCl > 30 mL/min) AND *Sequential Compression Device (SCD) Assessment and Plan Problem List: (1) Abdominal pain ICD Code: R10.9 - Unspecified abdominal pain Status: Acute Assessment and Plan Abdominal pain, unknown etiology Patient presented with 6 month history of abdominal pain, 18 pound weight loss, blood in his stool Surgical consultation has been performed which it was indicated that patient is not a surgical candidate at this time Gallbladder ultrasound was unremarkable, HIDA scan shows multiple stones without any obstruction Laboratory studies are unremarkable GI consultation has been requested, will likely need EGD/colonoscopy Continue IV fluids, pain control Start clear liquid diet Leukocytosis, resolved Could be secondary to concentration, no signs of infection Hyperglycemia Obtain hemoglobin A1c start Accu-Cheks with sliding scale insulin if needed DVT prevention Sequential compression devices This note was transcribed by sabrina Soares. I, Dr. Fidel Bernardo personally performed the history, physical exam, and medical decision making; and confirmed the accuracy of the information in the transcribed note. Authenticated by Dr. Fidel Bernardo on 02/24/17 at 08:57. Code Status Full code Discussed Condition With Patient, ED physician Physician Certification 2 Midnight Certification Type: Admission for Inpatient Services Order for Inpatient Services The services are ordered in accordance with Medicare regulations or non- Medicare payer requirements, as applicable. In the case of services not specified as inpatient-only, they are appropriately provided as inpatient services in accordance with the 2-midnight benchmark. Estimated LOS (days): 2 days is the estimated time the patient will need to remain in the hospital, assuming treatment plan goals are met and no additional complications. Post-Hospital Plan: Not yet determined Oli Soares Feb 24, 2017 08:57 Fidel Bernardo MD Feb 24, 2017 08:58
[2017-02-24 12:00] VITALS: BP 117/90; PULSE 79; RESP 18; TEMP 97; O2SAT 96
[2017-02-24] MEDS: ONDANSETRON HCL 4 MG/2 ML VIAL IVP PRN (13:05)
[2017-02-24] MEDS ORDERED: PEG (High)/E-LYTE SOLN 4000 ML BTL PO ONE (15:15)
[2017-02-24 15:52] VITALS: BP 122/79; PULSE 77; RESP 16; TEMP 97.2; O2SAT 98
--- NOTE | 2017-02-24 17:03 | MB ---
cc: NIKHIL ESPINOZA M.D. DATE OF CONSULTATION: 02/24/2017 REASON FOR CONSULTATION: Abdominal pain and rectal bleeding and diarrhea with weight loss. HISTORY OF PRESENT ILLNESS: Mr. Kay is a 56-year-old gentleman apparently having problems with his bowels for some time, he says that due to lack of insurance he has been unable to get any assistance or workup done. On this admission ultrasound showed some gallstones, but the HIDA scan was normal. He was evaluated by general surgery and was recommended to have a esophagogastroduodenoscopy and colonoscopy done with GI. This has prompted GI consultation. He says he has never previously had the endoscopies done. REVIEW OF SYSTEMS Abdominal pain, bloody stools aching, weight loss PAST MEDICAL HISTORY Sick sinus syndrome. PAST SURGICAL HISTORY Pacemaker placement Appendectomy tonsillectomy. MEDICATIONS 1. Zofran. 2. Prilosec. 3. Lisinopril. 4. Hydrochlorothiazide. 5. Aspirin. ALLERGIES None documented FAMILY HISTORY: family history is noncontributory. SOCIAL HISTORY The patient is a smoker. No alcohol reported physical examination reveals a well-nourished patient in no apparent distress. VITAL SIGNS: Stable. HEAD, EYES, EARS, NOSE, AND THROAT: Head and neck examination anicteric sclerae. CHEST: Bilateral air entry with rales. ABDOMEN: Abdomen is soft, some tenderness in the right upper quadrant. MANUFACTURING ASSOCIATE: Exam is nonfocal. Rectal: Exam deferred at this time. LABORATORY FINDINGS: The labs reveal normal liver function tests, hemoglobin 15.6, a gallbladder ultrasound shows multiple gallstones with small amount of gallbladder sludge no ductal dilatation, HIDA scan is unremarkable. The patient has had previous CT scans which are also normal. IMPRESSION Abdominal pain, diarrhea, weight loss and rectal bleeding. RECOMMENDATIONS 1. Esophagogastroduodenoscopy, colonoscopy planned for tomorrow. 2. Golytely prep will be used 3. n.p.o. after midnight this has been discussed with Dr. Bernardo. 4. Further recommendations will follow. 5. Thank you for this referral. Nikhil Espinoza MD /uyen /3:16 PM /5:02 PM
[2017-02-24] MEDS ORDERED: LEVOFLOXACIN 250 MG PREMIX INJ 50 ML IV SCH (18:00)
[2017-02-24 20:00] VITALS: BP 132/57; PULSE 80; RESP 20; TEMP 97.9; O2SAT 94
[2017-02-24 21:48] LABS: HEMOGLOBIN A1a 1.3 %; HEMOGLOBIN A1b 1.1 %; HEMOGLOBIN Ao 83.1 %; HEMOGLOBIN F 1.1 %; HEMOGLOBIN LA1C 2.2 %; HEMOGLOBIN P3 4.4 %
[2017-02-25] MEDS: metroNIDAZOLE 500 MG INJ 100 ML IV SCH ×2 (03:57→11:51)
[2017-02-25 04:00] VITALS: BP 122/82; PULSE 94; RESP 20; TEMP 97.8; O2SAT 96
[2017-02-25] MEDS: ONDANSETRON HCL 4 MG/2 ML VIAL IVP PRN ×2 (06:34→13:48)
[2017-02-25] MEDS: PANTOPRAZOLE SODIUM 40 MG VIAL IV PUSH SCH (08:28)
[2017-02-25] MEDS: HYDROCHLOROTHIAZIDE 25 MG TAB PO SCH (08:29)
[2017-02-25] MEDS: LISINOPRIL 10 MG TAB PO SCH (08:29)
[2017-02-25] MEDS: SODIUM CHLORIDE 0.9% FLUSH 10 ML FLUSH IV FLUSH SCH (08:29)
[2017-02-25] MEDS: DOCUSATE SODIUM 50 MG/SENNA 8.6 MG TAB PO SCH (08:31)
[2017-02-25 08:55] VITALS: BP 124/82; PULSE 101; RESP 18; TEMP 98.3; O2SAT 97
--- NOTE | 2017-02-25 11:08 | HHI.PR ---
Subjective Remarks Follow-up abdominal pain-RUQ 02/25/17-patient seen and examined, reports some improvement of right upper quadrant abdominal pain now. Did had some component early this morning. Currently nothing by mouth pending panendoscopy Objective Vitals Vital Signs Date Time Temp Pulse Resp B/P (MAP) Pulse Ox O2 Delivery O2 Flow Rate FiO2 02/25/17 08:55 98.3 101 18 124/82 (96) 97 02/25/17 04:00 97.8 94 20 122/82 (95) 96 02/24/17 20:00 97.9 80 20 132/57 (82) 94 02/24/17 15:52 97.2 77 16 122/79 (93) 98 02/24/17 12:00 97.0 79 18 117/90 (99) 96 I/O 02/24/17 02/24/17 02/24/17 02/25/17 02/25/17 02/25/17 07:00 15:00 23:00 07:00 15:00 23:00 Intake Total 100 ml 850 ml Output Total 1100 ml 300 ml Balance -1000 ml 550 ml Intake Oral 600 ml IV Total 100 ml 250 ml Output Urine Total 1100 ml 300 ml # Voids 1 6 # Bowel Movements 2 5 Result Diagram: 02/24/17 0653 02/24/17 0653 Imaging Last Impressions Gall Bladder Ultrasound 02/23/17 1728 Signed Impressions: Service Date/Time: February 19:10 - CONCLUSION: 1. Multiple gallstones with small amount gallbladder sludge. No biliary ductal dilatation. 2. Fatty infiltration of the liver. Luiz Magana MD Hepatobiliary Scan Nuclear Medicine 02/23/17 0000 Signed Impressions: Service Date/Time: Wednesday, February 22, 2017 12:14 - CONCLUSION: Unremarkable exam. Normal gallbladder visualization and no evidence of biliary obstruction. Martín Lyons MD Objective Remarks GENERAL: NAD SKIN: Warm and dry. HEAD: Normocephalic. EYES: No scleral icterus. No injection or drainage. NECK: Supple, trachea midline. No JVD or lymphadenopathy. CARDIOVASCULAR: Regular rate and rhythm without murmurs, gallops, or rubs. RESPIRATORY: Breath sounds equal bilaterally. No accessory muscle use. GASTROINTESTINAL: Abdomen soft, non-tender, nondistended. MUSCULOSKELETAL: No cyanosis, or edema. BACK: Nontender without obvious deformity. No CVA tenderness. A/P Problem List: (1) Abdominal pain ICD Code: R10.9 - Unspecified abdominal pain Status: Acute Assessment and Plan 56-year-old man with Abdominal pain, unknown etiology Patient presented with 6 month history of abdominal pain, 18 pound weight loss, blood in his stool Surgical consultation has been performed which it was indicated that patient is not a surgical candidate at this time Gallbladder ultrasound was unremarkable, HIDA scan shows multiple stones without any obstruction Laboratory studies are unremarkable Appreciate input from GI who plan for EGD/colonoscopy today 02/25/17 Continue IV fluids, pain control Leukocytosis, resolved Could be secondary to concentration, no signs of infection Hyperglycemia Hemoglobin A1c of 6.2-Will advise on lifestyle modification and repeat A1c in 3 months Currently on Accu-Cheks with sliding scale insulin if needed DVT prevention Sequential compression devices Discharge Planning Discharge patient to home Condition on discharge: Improved Regular Diet as tolerated Ad Janelle activity Rx written: see EMR Follow-up with primary care physician 1 week Follow with gastroenterology Fidel Bernardo MD Feb 25, 2017 11:08
[2017-02-25] MEDS ORDERED: PROPOFOL 200 MG/20 ML AMP ONE (12:13)
[2017-02-25] MEDS ORDERED: LIDOCAINE HCL 1% PF 5 ML AMPULE ONE (12:13)
[2017-02-25 12:14] VITALS: BP 123/77; PULSE 92; RESP 18; TEMP 97.8; O2SAT 99
--- NOTE | 2017-02-25 13:34 | GIPROC ---
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 TOPICAL ANESTHETIC: CONSENT: The patient understands the risks and benefits of the procedure and understands that these risks include, but are not limited to: sedation, allergic reaction, infection, perforation and/or bleeding. Alternative means of evaluation and treatment include, among others: physical exam, x-rays, and/or surgical intervention. The patient elects to proceed with this endoscopic procedure. medical equipment was checked for proper function. Hand hygiene and appropriate measures for infection prevention was taken. After the risks, benefits and alternatives of the procedure were thoroughly explained, Informed consent was verified, confirmed and timeout was successfully executed by the treatment team. The patient was anesthetized with topical anesthesia and the [id number] (Pedi C) endoscope was introduced through the mouth and advanced to the second portion of the duodenum. Retroflexed views revealed no abnormalities The gastroscope was then slowly withdrawn and removed. ESOPHAGUS: There was LA Class A esophagitis noted. STOMACH: There was erythematous moderate gastritis in the gastric antrum. DUODENUM: The duodenal mucosa appeared normal in the bulb and second portion of the duodenum. ADVERSE EVENTS: There were no complications. IMPRESSIONS: 1. There was LA Class A esophagitis noted 2. There was erythematous gastritis in the gastric antrum 3. Normal duodenal mucosa in the bulb and second portion of the duodenum 4. Retroflexed views revealed no abnormalities RECOMMENDATIONS: 1. Await biopsy results. Biopsy results will not be ready for 7-10 days. If you don't hear from us in two weeks, call our office for biopsy results. 2. Anti-reflux regimen 3. Continue PPI PATIENT CONDITION: stable DISPOSITION: Inpatient REPEAT EXAM: Return 1 year EGD pending biopsy results Cecilio Espinoza MD eSigned: Cecilio Espinoza MD 02/25/2017 1:33 PM cc: PATIENT NAME: Jose Manuel Kay MR#: [id number]
--- NOTE | 2017-02-25 13:36 | GIPROC ---
[facility] [address] [place] [address], [id number] COLONOSCOPY PROCEDURE REPORT EXAM DATE: 02/25/2017 PATIENT NAME: Jose Manuel Kay MR #: [id number] BIRTHDATE: 1960 ENDOSCOPIST: Cecilio Espinoza MD ORDER #: [id number] SPARE FIXER: Adelita Castañeda STATUS: inpatient INDICATIONS: The patient is a 56 yr old male here for a colonoscopy due to abdominal pain PROCEDURE PERFORMED: Colonoscopy, diagnostic MEDICATIONS: None and Per Anesthesia. PREP QUALITY: poor PREP TYPE:GoLytely ESTIMATED BLOOD LOSS: None CONSENT: The patient understands the risks and benefits of the procedure and understands that these risks include, but are not limited to: sedation, allergic reaction, infection, perforation and/or bleeding. Alternative means of evaluation and treatment include, among others: physical exam, x-rays, and/or surgical intervention. The patient elects to proceed with this endoscopic procedure. medical equipment was checked for proper function. Hand hygiene and appropriate measures for infection prevention was taken. After the risks, benefits and alternatives of the procedure were thoroughly explained, Informed consent was verified, confirmed and timeout was successfully executed by the treatment team. A digital exam revealed external hemorrhoids The Pentax [id number] endoscope was introduced through the anus and advanced to the cecum, which was identified by both the appendix and ileocecal valve. The instrument was then slowly withdrawn as the colon was fully examined. COLON FINDINGS: The colonic mucosa appeared normal. Retroflexed views revealed internal hemorrhoids and Retroflexed views revealed medium internal hemorrhoids The scope was then completely withdrawn from the patient and the procedure terminated. PROCEDURE WITHDRAWAL TIME:6minutes ADVERSE EVENTS: There were no complications. IMPRESSIONS: 1. The colonic mucosa appeared normal 2. Retroflexed views revealed internal hemorrhoids 3. Retroflexed views revealed medium internal hemorrhoids 4. Revealed external hemorrhoids RECOMMENDATIONS: 1. Continue surveillance 2. Yearly hemoccult RECALL: Return 1 year Colonoscopy Cecilio Espinoza MD eSigned: Cecilio Espinoza MD 02/25/2017 1:35 PM cc: PATIENT NAME: Jose Manuel Kay MR#: [id number]
[2017-02-25] MEDS ORDERED: HYDR25TA5 PO (13:49)
[2017-02-25] MEDS ORDERED: PRIL20TA2 PO (13:49)
[2017-02-25] MEDS ORDERED: ASPI81TA23 PO (13:49)
[2017-02-25] MEDS ORDERED: LISI10TA3 PO (13:49)
[2017-02-25] MEDS ORDERED: HYDR-3516 PO (13:49)
[2017-02-25] MEDS ORDERED: LACTATED RINGER'S 1000 ML INJ 1,000 ML ONE (13:54)
[2017-02-25 14:30] VITALS: BP 106/67; PULSE 76; RESP 16; TEMP 98.3; O2SAT 96
[2017-02-25] MEDS ORDERED: DO NOT ADM ANY ANTICOAGULANT DRUGS PRN (14:45)
== END 2017-02-25 16:11 | disposition home or self-care (01) | DRG 391 ==
LOC: PHED 16:23 → PHEDA 17:59 → PH3B 18:50
PROVIDERS: ADMIT Hospitalist; ATTEND Hospitalist
PROC: 0DB68ZX Excision of Stomach, Via Natural or Artificial Opening Endoscopic, Diagnostic (ICD-10-PCS; principal; 2017-02-25 13:06)
PROC: 0DJD8ZZ Inspection of Lower Intestinal Tract, Via Natural or Artificial Opening Endoscopic (ICD-10-PCS; 2017-02-25 13:06)
DX: R10.11 Right upper quadrant pain (principal); K29.71 Gastritis, unspecified, with bleeding; K75.81 Nonalcoholic steatohepatitis (NASH); I10 Essential (primary) hypertension; M19.90 Unspecified osteoarthritis, unspecified site; E78.00 Pure hypercholesterolemia, unspecified; G47.33 Obstructive sleep apnea (adult) (pediatric); R63.4 Abnormal weight loss; R73.9 Hyperglycemia, unspecified; R19.7 Diarrhea, unspecified; K21.0 Gastro-esophageal reflux disease with esophagitis; K64.8 Other hemorrhoids; K64.4 Residual hemorrhoidal skin tags; K80.20 Calculus of gallbladder without cholecystitis without obstruction; F17.210 Nicotine dependence, cigarettes, uncomplicated; F32.9 Major depressive disorder, single episode, unspecified; F41.9 Anxiety disorder, unspecified; Z68.37 Body mass index [BMI] 37.0-37.9, adult; Z95.0 Presence of cardiac pacemaker
CPT/HCPCS: 76705; 78226; 80048; 82247; 82248; 82272; 83036; 83690; 84075; 84450; 84460; 85025; 88305; 88312; 96361; 96374; 96375; 96376; A9537; C9113; J1956; J2270; J2405; J7030; J7120

== ENCOUNTER 2017-04-06 20:12 | Observation (INO) | payer SELFPAY ==
[~2017-04-06] VITALS: Ht 172.7 cm; Wt 105.4 kg
[~2017-04-06 20:12] MED LIST changes: -ASPI81CH7 CHEW; +ASPI81TA23 PO; -DICY10 PO; -DICY20TA10 PO; +HYDR-3516 PO; -HYDR-3533 PO; +HYDR25TA5 PO; -METO25TA3 PO
[2017-04-06 20:31] VITALS: BP 112/63; PULSE 92; RESP 20; TEMP 98.9; O2SAT 96
--- NOTE | 2017-04-06 21:27 | PD ---
HPI Chief Complaint: Abdominal Pain Time Seen by Provider: 21:13 Travel History International Travel<30 days: No Contact w/Intl Traveler<30days: No Traveled to known affect area: No History of Present Illness HPI The patient is a 56-year-old male that has had abdominal pain for 6 months. He states he has a history of gallstones. He does not have enough money to have a cholecystectomy. He has no insurance and does not work. He was admitted in February and they found a gastritis. He is taking the Prilosec. He denies any fever. He states he does not smoke and does not drink alcohol. He states he ran out of his [employer] and [employer]. PFSH Past Medical History Hx Anticoagulant Therapy: Yes (81mg aspirin ) Arthritis: Yes Asthma: Yes Blood Disorders: No Anxiety: Yes Depression: Yes Cancer: Yes (POSSIBLE PANCREATIC CANCER) Cardiac Catheterization: No Cardiovascular Problems: Yes High Cholesterol: Yes Congestive Heart Failure: No COPD: Yes Diabetes: No Diminished Hearing: No Endocrine: No Gastrointestinal Disorders: No GERD: Yes Genitourinary: No Hypertension: Yes Immune Disorder: No Musculoskeletal: Yes Neurologic: Yes Psychiatric: Yes Reproductive: No Respiratory: Yes (asthma ) Immunizations Current: Yes Migraines: Yes (WITH TMJ) Pancreatitis: Yes Sleep Apnea: Yes (WEARS CPAP) Past Surgical History Abdominal Surgery: Yes AICD: No Appendectomy: Yes (UNKNOWN YEAR) Arteriovenous Shunt: No Cardiac Surgery: Yes (PACEMAKER INSERTED: 05/12/16) Coronary Artery Bypass Graft: No Ear Surgery: No Endocrine Surgery: No Eye Surgery: No Genitourinary Surgery: No Gynecologic Surgery: No Insulin Pump: No Joint Replacement: No Oral Surgery: Yes (TOOTH REMOVED) Pacemaker: Yes Thoracic Surgery: No Tonsillectomy: Yes ( CHILD) Social History Alcohol Use: No Tobacco Use: Yes (1 pk month) Substance Use: No Allergies-Medications (Allergen,Severity, Reaction): Coded Allergies: No Known Allergies (Verified Adverse Reaction, Unknown, 04/06/17) Reported Meds & Prescriptions Reported Meds & Active Scripts Active Aspirin EC (Aspirin) 81 Mg Tabdr 81 Mg PO DAILY Hydrochlorothiazide 25 Mg Tab 25 Mg PO DAILY Hydrocodone-Acetamin 5-325 mg (Hydrocodone/Acetaminophen) 5 Mg-325 Mg Tablet 1 Tab PO Q4H PRN Lisinopril 10 Mg Tab 10 Mg PO DAILY Prilosec (Omeprazole Magnesium) 20 Mg Tab 1 Tab PO DAILY 30 Days Zofran (Ondansetron HCl) 4 Mg Tab 4 Mg PO Q6HR PRN Review of Systems Except as stated in HPI: all other systems reviewed are Neg Physical Exam Narrative GENERAL: The patient is obese, alert, oriented 3 and slight apparent distress with his abdominal discomfort. SKIN: Focused skin assessment warm/dry. HEAD: Atraumatic. Normocephalic. EYES: Pupils equal and round. No scleral icterus. No injection or drainage. ENT: No nasal bleeding or discharge. Mucous membranes pink and moist. NECK: Trachea midline. No JVD. CARDIOVASCULAR: Regular rate and rhythm. No murmur appreciated. RESPIRATORY: No accessory muscle use. Clear to auscultation. Breath sounds equal bilaterally. GASTROINTESTINAL: Abdomen soft, with tenderness diffusely but mostly in the right upper quadrant. The abdomen is nondistended. Hepatic and splenic margins not palpable. No guarding or rebound is present and Harris's sign is negative. MUSCULOSKELETAL: No obvious deformities. No clubbing. No cyanosis. No edema. NEUROLOGICAL: Awake and alert. No obvious cranial nerve deficits. Motor grossly within normal limits. Normal speech. PSYCHIATRIC: Appropriate mood and affect; insight and judgment normal. Data Data Last Documented VS Vital Signs Date Time Temp Pulse Resp B/P (MAP) Pulse Ox O2 Delivery O2 Flow Rate FiO2 04/06/17 23:59 77 20 113/76 (88) 96 04/06/17 20:31 98.9 Orders Orders Complete Blood Count With Diff (04/06/17 21:27) Comprehensive Metabolic Panel (04/06/17 21:27) Lipase (04/06/17 21:27) Urinalysis - C+S If Indicated (04/06/17 21:27) Iv Access Insert/Monitor (04/06/17 21:27) Ecg Monitoring (04/06/17 21:27) Oximetry (04/06/17 21:27) Hydromorphone Pf Inj (Dilaudid Pf Inj) (04/06/17 21:30) Ondansetron Inj (Zofran Inj) (04/06/17 21:30) Sodium Chloride 0.9% Flush (Ns Flush) (04/06/17 21:30) Ct Abd/Pel W Iv Contrast(Rout) (04/06/17 22:22) Ondansetron Inj (Zofran Inj) (04/06/17 22:30) Sodium Chlor 0.9% 1000 Ml Inj (Ns 1000 M (04/06/17 22:22) Iohexol 350 Inj (Omnipaque 350 Inj) (04/06/17 23:20) Sodium Chlor 0.9% 1000 Ml Inj (Ns 1000 M (04/07/17 00:30) Chest, Pa & Lat (04/07/17 00:52) Admit Order (Ed Use Only) (04/07/17 00:53) Labs Laboratory Tests Test 04/06/17 21:45 White Blood Count 19.6 TH/MM3 Red Blood Count 5.21 MIL/MM3 Hemoglobin 15.4 GM/DL Hematocrit 46.8 % Mean Corpuscular Volume 89.9 FL Mean Corpuscular Hemoglobin 29.5 PG Mean Corpuscular Hemoglobin Concent 32.8 % Red Cell Distribution Width 14.6 % Platelet Count 408 TH/MM3 Mean Platelet Volume 8.3 FL Neutrophils (%) (Auto) 75.0 % Lymphocytes (%) (Auto) 16.4 % Monocytes (%) (Auto) 6.6 % Eosinophils (%) (Auto) 1.3 % Basophils (%) (Auto) 0.7 % Neutrophils # (Auto) 14.7 TH/MM3 Lymphocytes # (Auto) 3.2 TH/MM3 Monocytes # (Auto) 1.3 TH/MM3 Eosinophils # (Auto) 0.3 TH/MM3 Basophils # (Auto) 0.1 TH/MM3 CBC Comment DIFF FINAL Differential Comment Blood Urea Nitrogen 27 MG/DL Creatinine 1.30 MG/DL Random Glucose 101 MG/DL Total Protein 7.1 GM/DL Albumin 3.5 GM/DL Calcium Level 9.1 MG/DL Alkaline Phosphatase 99 U/L Aspartate Amino Transf (AST/SGOT) 17 U/L Alanine Aminotransferase (ALT/SGPT) 18 U/L Total Bilirubin 0.5 MG/DL Sodium Level 137 MEQ/L Potassium Level 3.9 MEQ/L Chloride Level 103 MEQ/L Carbon Dioxide Level 26.2 MEQ/L Anion Gap 8 MEQ/L Estimat Glomerular Filtration Rate 57 ML/MIN Lipase 206 U/L MDM Medical Decision Making Medical Screen Exam Complete: Yes Emergency Medical Condition: Yes Medical Record Reviewed: Yes Interpretation(s) The CBC shows a white count of 19,600 but is otherwise unremarkable. The complete metabolic profile shows a BUN of 27, GFR 57 but is otherwise normal. The lipase is normal. The CT scan shows a 2.5 cm ill-defined hypodensity in the pancreatic tail suspicious for pancreatic mass, specifically pancreatic adenocarcinoma. There is mild pancreatic ductal prominence more distally in the tail. This finding is a change from prior studies. Minimal chronic stranding opacity in the adjacent fat. No acute. Pancreatic inflammatory changes identified. Also noted is a small calcified gallstone in the gallbladder, no pericholecystic inflammatory changes. Differential Diagnosis Gastritis, cholelithiasis with colic, cholecystitis, pancreatitis, dehydration Narrative Course It is now 10:15 PM and the patient is sleeping. After he woke up he said he has pain all over his abdomen. His abdomen remained soft with diffuse tenderness. Harris's sign continues to be negative. It is now 00 19 in the morning and the patient still has primarily upper quadrant bilateral pain. The CT abdomen/pelvis is suspicious for pancreatic carcinoma. The patient has no primary care physician and no insurance and it is unlikely he will follow-up in a timely fashion for this possible pancreatic cancer. Moreover, he has intractable pain Diagnosis Primary Impression: Intractable nausea and vomiting Additional Impressions: Intractable abdominal pain Pancreatic cancer Admitting Information Admitting Physician Requests: Johan Cheatham MD Apr 06, 2017 21:27
[2017-04-06] MEDS ORDERED: HYDROmorphone HCL PF 2 MG/ML VIAL IVS ONE (21:30)
[2017-04-06] MEDS ORDERED: ONDANSETRON HCL 4 MG/2 ML VIAL IVP ONE ×2 (21:30→22:30)
[2017-04-06] MEDS ORDERED: SODIUM CHLORIDE 0.9% FLUSH 10 ML FLUSH IV FLUSH PRN (21:30)
[2017-04-06 21:51] LABS: AUTOMATED NEUTROPHIL # 14.7 TH/MM3 (1.8-7.7); BASOPHIL # 0.1 TH/MM3 (0-0.2); BASOPHIL % 0.7 % (0.0-2.0); EOSINOPHIL # 0.3 TH/MM3 (0-0.4); EOSINOPHIL % 1.3 % (0.0-4.0); HEMATOCRIT 46.8 % (39.0-51.0); HEMOGLOBIN 15.4 GM/DL (13.0-17.0); LYMPH % 16.4 % (9.0-44.0); LYMPHOCYTE # 3.2 TH/MM3 (1.0-4.8); MEAN CELL VOLUME 89.9 FL (80.0-100.0); MEAN CORPUSCULAR HEMOGLOBIN 29.5 PG (27.0-34.0); MEAN CORPUSCULAR HGB CONC 32.8 % (32.0-36.0); MEAN PLATELET VOLUME 8.3 FL (7.0-11.0); MONO % 6.6 % (0.0-8.0); MONOCYTE # 1.3 TH/MM3 (0-0.9); PLATELET COUNT 408 TH/MM3 (150-450); RED BLOOD COUNT 5.21 MIL/MM3 (4.50-5.90); RED CELL DISTRIBUTION WIDTH 14.6 % (11.6-17.2); WHITE BLOOD COUNT 19.6 TH/MM3 (4.0-11.0)
[2017-04-06 21:58] LABS: CHLORIDE 103 MEQ/L (98-107); SODIUM (NA) 137 MEQ/L (136-145)
[2017-04-06 22:02] LABS: CALCIUM 9.1 MG/DL (8.5-10.1)
[2017-04-06 22:03] LABS: ALBUMIN 3.5 GM/DL (3.4-5.0); BICARBONATE 26.2 MEQ/L (21.0-32.0); BLOOD UREA NITROGEN 27 MG/DL (7-18); GLUCOSE,RANDOM 101 MG/DL (74-106); LIPASE 206 U/L (73-393)
[2017-04-06 22:05] LABS: ALT (GPT) 18 U/L (12-78); AST (GOT) 17 U/L (15-37)
[2017-04-06 22:06] LABS: GLOMERULAR FILTRATION RATE 57 ML/MIN (>89)
[2017-04-06 22:07] LABS: TOTAL BILIRUBIN ADULT 0.5 MG/DL (0.2-1.0); TOTAL PROTEIN 7.1 GM/DL (6.4-8.2)
[2017-04-06 22:08] LABS: ALKALINE PHOSPHATASE 99 U/L (45-117)
[2017-04-06] MEDS ORDERED: SODIUM CHLOR 0.9% 1000 ML INJ 1,000 ML IV SCH (22:22)
[2017-04-06 22:36] VITALS: BP 147/71; PULSE 81; RESP 20; O2SAT 94
[2017-04-06 22:41] VITALS: BP 147/71; PULSE 76; RESP 20; O2SAT 77
[2017-04-06 22:44] VITALS: BP 124/69; PULSE 76; RESP 20; O2SAT 98
[2017-04-06] MEDS ORDERED: IOHEXOL 350 MG/ML 10 ML VIAL (for RAD DIAG) IVCONTRAST ONE (23:20)
[2017-04-06 23:59] VITALS: BP 113/76; PULSE 77; RESP 20; O2SAT 96
[2017-04-07] VITALS (8 sets, daily range): BP systolic 94–131; BP diastolic 60–89; PULSE 66–86; RESP 15–20; TEMP 95.7–97.3; O2SAT 94–98
--- NOTE | 2017-04-07 00:12 | RADRPT ---
EXAM DATE/TIME: 04/06/2017 23:04 [facility] COMPARISON: CT ABDOMEN & PELVIS W CONTRAST, October 31, 2016, 0:18. CT ABDOMEN & PELVIS W CONTRAST, December 20 017, 17:42. INDICATIONS : RUQ pain for 6 months , worse today. IV CONTRAST: 96 cc Omnipaque 350 (iohexol) IV ORAL CONTRAST: No oral contrast ingested. RADIATION DOSE: 20.92 CTDIvol (mGy) MEDICAL HISTORY : Hypertension. Chronic obstructive pulmonary disease. Cerebrovascular disease. SURGICAL HISTORY : Appendectomy. Pacemaker. ENCOUNTER: Initial ACUITY: 4 - 6 months PAIN SCALE: 10/10 LOCATION: Right upper quadrant TECHNIQUE: Volumetric scanning of the abdomen and pelvis was performed. Using automated exposure control and ad justment of the mA and/or kV according to patient size, radiation dose was kept as low as reasonably achievable to obtain optimal diagnostic quality images. DICOM format image data is available electro nically for review and comparison. FINDINGS: LOWER LUNGS: The visualized lower lungs are clear. LIVER: Punctate calcified gallstone in the dependent portion of gallbladder. No pericholecystic inflammatory changes seen. Liver within normal limits. SPLEEN: Normal size without lesion. PANCREAS: 2.5 x 2.1 cm ill-defined hypodensity in the pancreatic tail. This is a change from prior examinations . Finding is suspicious for pancreatic mass. Mild prominence of the pancreatic duct more distally in the tail measuring up to 3 mm on the coronal images. Mild adjacent stranding opacity in the mesenteri c fat is similar to prior studies but no acute inflammatory change identified. A KIDNEYS: Left-sided lower pole renal cysts measuring up to 2.3 cm in diameter. Kidneys are otherwise within no rmal limits. No evidence of hydronephrosis. ADRENAL GLANDS: Within normal limits. VASCULAR: There is no aortic aneurysm. BOWEL/MESENTERY: No evidence of bowel dilatation. No free air or free fluid. Appendix not identified. ABDOMINAL WALL: Within normal limits. RETROPERITONEUM: There is no lymphadenopathy. BLADDER: No wall thickening or mass. REPRODUCTIVE: Calcification in the prostate. INGUINAL: There is no lymphadenopathy or hernia. MUSCULOSKELETAL: Within normal limits for patient age. CONCLUSION: 1. 2.5 cm ill-defined hypodensity in the pancreatic tail suspicious for pancreatic mass, specifically pancreatic adenocarcinoma. There is mild pancreatic ductal prominence more distally in the tail. Thi s finding is a changed from prior studies. Minimal chronic stranding opacity in the adjacent fat. No acute peripancreatic inflammatory changes identified. Recommend correlation with laboratory values fo r any evidence of acute pancreatitis. 2. Small calcified gallstone in the gallbladder. No pericholecystic inflammatory changes. Murali Perez MD on April 06, 2017 at 23:55 Board Certified Radiologist. This report was verified electronically.
[2017-04-07] MEDS ORDERED: SODIUM CHLOR 0.9% 1000 ML INJ 1,000 ML IV SCH (00:30)
[2017-04-07 01:12] LABS: BILIRUBIN, URINE NEG (NEG); BLOOD, URINE TRACE (NEG); GLUCOSE,URINE NEG (NEG); KETONE, URINE TRACE mg/dL (NEG); NITRITE,URINE NEG (NEG); PH, URINE 5.5 (5.0-8.5); URINE LEUKOCYTE ESTERASE NEG (NEG)
[2017-04-07] MEDS ORDERED: BISACODYL 10 MG SUPP RECTAL PRN (01:15)
[2017-04-07] MEDS ORDERED: SODIUM CHLORIDE 0.9% FLUSH 10 ML FLUSH IV FLUSH PRN (01:15)
[2017-04-07] MEDS ORDERED: SENNOSIDES 8.6 MG TAB PO PRN (01:15)
[2017-04-07] MEDS ORDERED: LACTULOSE SYRUP 20 GM/30 ML CUP PO PRN (01:15)
[2017-04-07] MEDS ORDERED: MORPHINE SULFATE 2 MG/ML INJ IV PUSH PRN (01:15)
[2017-04-07] MEDS ORDERED: ACETAMINOPHEN 325 MG TAB PO PRN (01:15)
[2017-04-07] MEDS ORDERED: NALOXONE HCL 0.4 MG/ML AMP IV PUSH PRN (01:15)
[2017-04-07] MEDS ORDERED: MAGNESIUM HYDROXIDE SUSP 30 ML CUP PO PRN (01:15)
--- NOTE | 2017-04-07 01:26 | RADRPT ---
EXAM DATE/TIME: 04/07/2017 01:07 [facility] COMPARISON: No previous studies available for comparison. INDICATIONS : Chest discomfort, abdominal pain for 3 days MEDICAL HISTORY : None. SURGICAL HISTORY : Pacemaker. ENCOUNTER: Initial ACUITY: 3 days PAIN SCORE: 0/10 LOCATION: Bilateral chest FINDINGS: PA and lateral views of the chest. Dual-lead cardiac pacemaker in place. The lungs are clear. Cardiom ediastinal silhouette within normal limits. No evidence of pleural effusion or pneumothorax. CONCLUSION: No acute cardiopulmonary disease identified. Murali Perez MD on April 07, 2017 at 1:24 Board Certified Radiologist. This report was verified electronically.
[2017-04-07 01:32] LABS: URINE COLOR YELLOW (YELLW/STRAW)
[2017-04-07 01:33] LABS: RBC, URINE 0-3 /hpf (0-3); SQUAMOUS EPITHELIAL CELL URINE 0-5 /hpf (0-5); WBC, URINE 0-2 /hpf (0-5)
[2017-04-07] MEDS: LISINOPRIL 10 MG TAB PO SCH (09:01)
[2017-04-07] MEDS: HYDROCHLOROTHIAZIDE 25 MG TAB PO SCH (09:01)
[2017-04-07] MEDS: DOCUSATE SODIUM 50 MG/SENNA 8.6 MG TAB PO SCH ×2 (09:01→20:14)
[2017-04-07] MEDS: SODIUM CHLORIDE 0.9% FLUSH 10 ML FLUSH IV FLUSH SCH ×2 (09:02→20:14)
[2017-04-07 09:10] LABS: AUTOMATED NEUTROPHIL # 9.4 TH/MM3 (1.8-7.7); BASOPHIL % 0.3 % (0.0-2.0); EOSINOPHIL # 0.3 TH/MM3 (0-0.4); EOSINOPHIL % 2.5 % (0.0-4.0); HEMATOCRIT 47.3 % (39.0-51.0); HEMOGLOBIN 15.5 GM/DL (13.0-17.0); LYMPH % 22.2 % (9.0-44.0); LYMPHOCYTE # 3.1 TH/MM3 (1.0-4.8); MEAN CORPUSCULAR HEMOGLOBIN 29.4 PG (27.0-34.0); MEAN CORPUSCULAR HGB CONC 32.7 % (32.0-36.0); MEAN PLATELET VOLUME 8.3 FL (7.0-11.0); MONO % 7.9 % (0.0-8.0); MONOCYTE # 1.1 TH/MM3 (0-0.9); NEUT % 67.1 % (16.0-70.0); PLATELET COUNT 391 TH/MM3 (150-450); RED BLOOD COUNT 5.26 MIL/MM3 (4.50-5.90); RED CELL DISTRIBUTION WIDTH 14.6 % (11.6-17.2); WHITE BLOOD COUNT 13.9 TH/MM3 (4.0-11.0)
--- NOTE | 2017-04-07 12:30 | HHI.HP ---
[facility] Physician Unknown Admission Diagnosis intractable nausea/abdominal pain, pancreatic cancer Diagnoses: (1) Abdominal pain Diagnosis: Principal (2) Intractable nausea and vomiting Diagnosis: Principal (3) Pancreatic mass Diagnosis: Principal Chief Complaint: Abdominal pain with nausea vomiting Travel History International Travel<30 Days: No Contact w/Intl Traveler <30 Da: No Traveled to Known Affected Are: No History of Present Illness Written by Oli Soares, acting as scribe for Dr. Dangelo on 04/07/17 at 12: 23. This is a 56-year-old male with rather extensive history of abdominal pain, nausea vomiting. Patient has been a minimal times in the hospital for workup and was previously found to have gallstones without any acute cholecystitis. Patient was just recently admitted on February 24, 2017 for same scenario. At that time patient did undergo ultrasound and HIDA scan without any obstructive process of the gallbladder and was discharged home with outpatient follow-up. Patient was able to be seen at the [facility] clinic and was given a renewal of his medications Zofran and Lortab. She states that he usually does well when he continues to take the medications as prescribed. When he wakes up the morning there is about a 4 hour period where he has finished amount of pain until the medication kicks in that he is able to function relatively well. However the patient ran out of his medications yesterday so he came to the hospital today because of the continued pain. He has had persistent nausea and vomiting over the last year where he states that he can only eat a little bit and vomits back up. He has had a 17 kg weight loss since May 2016. Patient came back to the ER yesterday in order to get evaluated and had workup performed with CT scan of the abdomen which does show a new finding of a 2.5 x 2.1 pancreatic mass which is suspicious for malignancy. A CA-19-9 was performed and was 654. Is recommended by ER physician the patient being in the hospital with oncology consultation. Review of medical records it does appear as if the patient had previous studies performed to include gallbladder ultrasound in January and February both which do not indicate any abnormality with the pancreas. Patient also had CT scans of the abdomen back and October and December which did not indicate any acute abnormality of the pancreas. This appears be a new mass, highly suspicious for a pancreatic cancer. Patient states that is also been experiencing low back pain mainly whenever he is driving for prolonged period of time. The pain is located in the left lower area. Review of Systems Constitutional: COMPLAINS OF: Weight loss Gastrointestinal: COMPLAINS OF: Abdominal pain, Nausea, Vomiting Musculoskeletal: COMPLAINS OF: Back pain Except as stated in HPI: all other systems reviewed are Neg Past Family Social History Past Medical History Sick sinus syndrome status post pacemaker placement Past Surgical History Pacemaker placement Appendectomy Tonsillectomy EGD/colonoscopy Reported Medications Reported Meds & Active Scripts Active Aspirin EC (Aspirin) 81 Mg Tabdr 81 Mg PO DAILY Hydrochlorothiazide 25 Mg Tab 25 Mg PO DAILY Hydrocodone-Acetamin 5-325 mg (Hydrocodone/Acetaminophen) 5 Mg-325 Mg Tablet 1 Tab PO Q4H PRN Lisinopril 10 Mg Tab 10 Mg PO DAILY Prilosec (Omeprazole Magnesium) 20 Mg Tab 1 Tab PO DAILY 30 Days Zofran (Ondansetron HCl) 4 Mg Tab 4 Mg PO Q6HR PRN Allergies: Coded Allergies: No Known Allergies (Verified Adverse Reaction, Unknown, 04/06/17) Family History Reviewed and significant for family history with heart disease, diabetes, seizures Social History Patient continues to smoke cigarettes, he is down to 1 cigarette every other day. He denies any alcohol or illicit drugs Physical Exam Vital Signs Vital Signs Date Time Temp Pulse Resp B/P (MAP) Pulse Ox O2 Delivery O2 Flow Rate FiO2 04/07/17 08:00 96.5 83 15 128/79 (95) 95 04/07/17 04:45 96.4 78 18 114/77 (89) 94 04/07/17 02:32 66 20 115/72 (86) 96 04/07/17 02:00 66 20 117/77 (90) 98 04/07/17 01:00 74 20 118/65 (82) 95 04/06/17 23:59 77 20 113/76 (88) 96 04/06/17 22:44 76 20 124/69 (87) 98 04/06/17 22:41 76 20 147/71 (96) 77 04/06/17 22:36 81 20 147/71 (96) 94 04/06/17 20:31 98.9 92 20 112/63 (79) 96 Physical Exam GENERAL: Well-developed, well-nourished, in no acute distress. alert and orientated HEENT: Head is normocephalic without any lesions or masses noted. Facial features are symmetric. Eyes: Pupils equal round reactive to light. Extraocular muscles are intact. Conjunctivae were clear. Oropharyngeal: Pharynx without any erythema edema. Tongue is midline without deviation. Buccal mucosa is moist without any masses or lesions NECK: Supple without any masses. Trachea midline no deviation. No JVD, no bruits are appreciated CARDIAC: Regular rhythm, regular rate. S1/S2 are heard. No murmurs gallops or rubs. LUNGS: Clear to auscultation bilaterally. No wheeze, rhonchi or rales. No use of accessory muscles on inspiration or expiration. ABDOMEN: Soft, nontender. Nondistended. Bowel sounds heard in all 4 quadrants. No organomegaly or masses. Negative rebound, negative guarding EXTREMITIES: No edema, pulses are equal bilaterally. No cyanosis or clubbing NEUROLOGY: Mood and affect appear appropriate. Cranial nerves II through XII grossly intact. Muscle strength 5/5 in upper and lower extremities bilaterally. Deep tendon reflexes are 2+ in upper and lower extremities bilaterally. Laboratory Laboratory Tests Test 04/06/17 21:45 04/07/17 01:00 04/07/17 01:15 04/07/17 08:45 White Blood Count 19.6 13.9 Red Blood Count 5.21 5.26 Hemoglobin 15.4 15.5 Hematocrit 46.8 47.3 Mean Corpuscular Volume 89.9 90.0 Mean Corpuscular Hemoglobin 29.5 29.4 Mean Corpuscular Hemoglobin Concent 32.8 32.7 Red Cell Distribution Width 14.6 14.6 Platelet Count 408 391 Mean Platelet Volume 8.3 8.3 Neutrophils (%) (Auto) 75.0 67.1 Lymphocytes (%) (Auto) 16.4 22.2 Monocytes (%) (Auto) 6.6 7.9 Eosinophils (%) (Auto) 1.3 2.5 Basophils (%) (Auto) 0.7 0.3 Neutrophils # (Auto) 14.7 9.4 Lymphocytes # (Auto) 3.2 3.1 Monocytes # (Auto) 1.3 1.1 Eosinophils # (Auto) 0.3 0.3 Basophils # (Auto) 0.1 0.0 CBC Comment DIFF FINAL DIFF FINAL Differential Comment Blood Urea Nitrogen 27 Creatinine 1.30 Random Glucose 101 Total Protein 7.1 Albumin 3.5 Calcium Level 9.1 Alkaline Phosphatase 99 Aspartate Amino Transf (AST/SGOT) 17 Alanine Aminotransferase (ALT/SGPT) 18 Total Bilirubin 0.5 Sodium Level 137 Potassium Level 3.9 Chloride Level 103 Carbon Dioxide Level 26.2 Anion Gap 8 Estimat Glomerular Filtration Rate 57 Lipase 206 Urine Color YELLOW Urine Turbidity CLEAR Urine pH 5.5 Urine Specific [place] 1.034 Urine Protein NEG Urine Glucose (UA) NEG Urine Ketones TRACE Urine Occult Blood TRACE Urine Nitrite NEG Urine Bilirubin NEG Urine Leukocyte Esterase NEG Urine RBC 0-3 Urine WBC 0-2 Urine Squamous Epithelial Cells 0-5 Urine Bacteria NONE Microscopic Urinalysis Comment CULT NOT INDICATED CA 19-9 Antigen 654.7 Result Diagram: 04/07/17 0845 04/06/175 Imaging Last Impressions Chest X-Ray 04/07/17 0052 Signed Impressions: Service Date/Time: Friday, April 07, 2017 01:07 - CONCLUSION: No acute cardiopulmonary disease identified. Murali Perez MD Abdomen/Pelvis CT 04/06/17 2222 Signed Impressions: Service Date/Time: April 23:04 - CONCLUSION: 1. 2.5 cm ill-defined hypodensity in the pancreatic tail suspicious for pancreatic mass, specifically pancreatic adenocarcinoma. There is mild pancreatic ductal prominence more distally in the tail. This finding is a changed from prior studies. Minimal chronic stranding opacity in the adjacent fat. No acute peripancreatic inflammatory changes identified. Recommend correlation with laboratory values for any evidence of acute pancreatitis. 2. Small calcified gallstone in the gallbladder. No pericholecystic inflammatory changes. Murali Perez MD Caprini VTE Risk Assessment Caprini VTE Risk Assessment: Mod/High Risk (score >= 2) Caprini Risk Assessment Model Point Value = 1 Point Value = 2 Point Value = 3 Point Value = 5 Age 41-60 Minor surgery BMI > 25 kg/m2 Swollen legs Varicose veins or History of unexplained or recurrent spontaneous Oral contraceptives or hormone replacement Sepsis (< 1 month) Serious lung disease, including pneumonia (< 1 month) Abnormal pulmonary function Acute myocardial infarction Congestive heart failure (< 1 month) History of inflammatory bowel disease Medical patient at bed rest Age 61-74 Arthroscopic surgery Major open surgery (> 45 min) Laparoscopic surgery (> 45 min) Malignancy Confined to bed (> 72 hours) Immobilizing plaster cast Central venous access Age >= 75 History of VTE Family history of VTE Factor V Leiden Prothrombin [id number] Lupus anticoagulant Anticardiolipin antibodies Elevated serum homocysteine Heparin-induced thrombocytopenia Other congenital or acquired thrombophilia Stroke (< 1 month) Elective arthroplasty Hip, pelvis, or leg fracture Acute spinal cord injury (< 1 month) Prophylaxis Regimen Total Risk Factor Score Risk Level Prophylaxis Regimen 0-1 Low Early ambulation 2 Moderate Order ONE of the following: *Sequential Compression Device (SCD) *Heparin 5000 units SQ BID 3-4 Higher Order ONE of the following medications: *Heparin 5000 units SQ TID *Enoxaparin/Lovenox 40 mg SQ daily (WT < 150 kg, CrCl > 30 mL/min) *Enoxaparin/Lovenox 30 mg SQ daily (WT < 150 kg, CrCl > 10-29 mL/min) *Enoxaparin/Lovenox 30 mg SQ BID (WT < 150 kg, CrCl > 30 mL/min) AND/OR *Sequential Compression Device (SCD) 5 or more Highest Order ONE of the following medications: *Heparin 5000 units SQ TID (Preferred with Epidurals) *Enoxaparin/Lovenox 40 mg SQ daily (WT < 150 kg, CrCl > 30 mL/min) *Enoxaparin/Lovenox 30 mg SQ daily (WT < 150 kg, CrCl > 10-29 mL/min) *Enoxaparin/Lovenox 30 mg SQ BID (WT < 150 kg, CrCl > 30 mL/min) AND *Sequential Compression Device (SCD) Assessment and Plan Assessment and Plan Intractable abdominal pain with nausea vomiting Recent EGD does show class a esophagitis, gastritis Advance diet as tolerated Continue pain control and anti-emetic Continue proton pump inhibitor Pancreatic mass seen on CT This apparently is a new finding by radiology studies Ultrasound of the gallbladder in January/February does not indicate any abnormality, Previous CT scans done in October and December do not indicate any pancreatic mass CA-19-9 was 654 Oncology consulted for further recommendations Low back pain In light of the patient having possible pancreatic cancer will obtain x-ray of the lumbar spine, unable to get MRI due to pacemaker continue pain control, K thermia every 4 hours DVT prevention sequential compression devices Medical Decision Making Impression and Plan This note was transcribed by [email or web address] [[email or web address]]. I, Dr. Khadijah Dangelo personally performed the history, physical exam, and medical decision making; and confirmed the accuracy of the information in the transcribed note. As above Authenticated by Dr. Khadijah Dangelo on 04/07/17 at 12:35. Oli Soares Apr 07, 2017 12:30 Khadijah Dangelo MD Apr 07, 2017 12:36
--- NOTE | 2017-04-07 14:07 | RADRPT ---
EXAM DATE/TIME: 04/07/2017 13:39 [facility] COMPARISON: No previous studies available for comparison. INDICATIONS : Low back pain with no known injury MEDICAL HISTORY : Hypertension. Chronic obstructive pulmonary disease. Cerebrovascular disease. SURGICAL HISTORY : Appendectomy. Pacemaker. ENCOUNTER: Initial ACUITY: 7 - 11 months PAIN SCORE: 3/10 LOCATION: Lumbar spine FINDINGS: There are five non-rib bearing vertebral bodies. Moderate vascular cavitations are noted. There is good preservation of vertebral and disc space heights. Compression fractures are appreciated. Minim al facet disease L5-S1.. CONCLUSION: Minimal facet disease L5-S1. Topher Kim MD FACR on April 07, 2017 at 14:05 Board Certified Radiologist. This report was verified electronically.
[2017-04-07] MEDS: PANTOPRAZOLE SOD 40 MG DELAYED RELEASE TAB PO SCH (15:02)
[2017-04-07] MEDS: ONDANSETRON HCL 4 MG/2 ML VIAL IVP PRN (16:40)
--- NOTE | 2017-04-07 19:35 | MB ---
cc: DARLING SIMMONS M.D. DATE OF CONSULTATION: 04/07/2017. REASON FOR CONSULTATION: Dr. Dangelo requested consultation for Mr. Kay regarding a newly diagnosed pancreatic mass. REFERRING PHYSICIAN: Dr. Dangelo. HISTORY OF PRESENT ILLNESS: Mr. Kay is a 56-year-old man with a several month history of abdominal pain worsening. He has lost 35 pounds. He has associated nausea and vomiting. He presented to the hospital with the above complaints. Imaging studies including a CT scan of the abdomen was performed that showed a 2.5 cm ill-defined hypodensity in the pancreatic body / tail of the pancreas. It is suspicious for a pancreatic adenocarcinoma. There is mild pancreatic duct prominence in the tail. This was a change from prior. There are small calcified gallstones in the gallbladder. No pericholecystic inflammatory changes. Hematology/Oncology is consulted because of the pancreatic mass. The case was discussed with interventional radiology who reports that the lesion is difficult to biopsy percutaneously. There are no clear windows to the mass. He is known to Dr. Espinoza of gastroenterology. He has had a GI procedure February 25 with similar complaints. He had esophagitis, erythematous gastritis, normal duodenal bulb mucosa. Imaging study at the time from December and October did not show any pancreatic mass. He denies any previous chills or night sweats. The abdominal pain and nausea are persisting. He denies any changes in bowel habits. No urinary complaints. The rest of his review of systems is negative. PAST MEDICAL HISTORY: 1. Sick sinus syndrome. 2. Unintentional weight loss. 3. Obesity. 4. Gastritis. 5. Duodenitis. 6. Nausea and vomiting. 7. Pancreatic mass. PAST SURGICAL HISTORY: 1. Pacemaker placement. 2. Appendectomy. 3. Tonsillectomy. 4. Endoscopy. 5. Colonoscopy. FAMILY HISTORY: Father of cancer and of heart disease in his 50s. The mother is alive and well. SOCIAL HISTORY: He is to his second who has neurofibromatosis. Interestingly, his first has neurofibromatosis. He is an active smoker down to one cigarette per day. He denies any alcohol or illicit drug use. 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 He is currently unemployed. PHYSICAL EXAMINATION: VITAL SIGNS: Temperature is 97.3, heart rate 86, respiratory rate 18, blood pressure 118/63, saturation 96%. GENERAL: Mr. Kay is a 56-year-old man who looks his stated age. He is heavyset. HEAD, EYES, EARS, NOSE, THROAT: His pupils are round and reactive to light and accommodation. Oropharynx is clear. NECK: The neck is supple with no adenopathy. LUNGS: Clear. CARDIOVASCULAR: Normal rate and rhythm. ABDOMEN: Large and benign. LOWER EXTREMITIES: No edema. CHEST: Left upper chest wall pacemaker in place. Mild keloid scar. LABS: White blood cell count 13.9, hemoglobin and hematocrit and platelet count are normal. BUN at 27, creatinine 1.3. CA 19-9 is 654. Lipase is normal. Albumin is normal. ASSESSMENT AND PLAN: Mr. Kay is a 56-year-old man with several month history of worsening abdominal pain associated with nausea and vomiting and unintentional weight loss. He was found to have a body pancreatic mass measuring 2.5 cm that was not present on previous CT scan. We discussed primary body pancreatic cancer is potentially resectable. We will obtain completion of his staging evaluation and CT scan of the chest. If there is no evidence of metastatic disease, he may proceed with definitive surgery. The case was discussed with interventional radiology and gastroenterology. The lesion may be amenable to biopsy; however, if deemed potentially resectable, he should undergo resection by an oncologic surgeon. The case was discussed with Dr. Juarez. When discharged, we will refer him to a mandatory referral to Dr. Juarez and gastroenterology for further workup. We discussed the concern suspicious for pancreatic cancer in light of his symptoms. His CA 19-9 is also elevated. Definitive surgery or biopsy will confirm a diagnosis of pancreatic cancer. He is referred to our patient assistance to assist with coordination of his needed workup and care. In light of his sick sinus syndrome and potential surgery for pancreatic resection, I will consult Dr. Tripp for cardiac clearance. Darling Simmons MD RAD/JCC /5:35 PM /6:52 PM [facility]
--- NOTE | 2017-04-07 21:43 | RADRPT ---
EXAM DATE/TIME: 04/07/2017 21:14 [facility] COMPARISON: No previous studies available for comparison. INDICATIONS : Pancreatic mass, weight loss, and smoker. Evaluate for METS. RADIATION DOSE: 21.17 CTDIvol (mGy) ; Patient body habitus MEDICAL HISTORY : Chronic obstructive pulmonary disease. Pancreatitis. Gastroesophageal reflux disease. Hypertension. SURGICAL HISTORY : Pacemaker. Appendectomy. ENCOUNTER: Initial ACUITY: 1 day PAIN SCALE: 0/10 LOCATION: chest TECHNIQUE: Volumetric scanning of the chest was performed. Using automated exposure control and adjustment of t he mA and/or kV according to patient size, radiation dose was kept as low as reasonably achievable to obtain optimal diagnostic quality images. DICOM format image data is available electronically for r eview and comparison. Follow-up recommendations for detected pulmonary nodules are based at a minimum on nodule size and pa tient risk factors according to Fleischner Society Guidelines. FINDINGS: No lung consolidation. No suspicious lung nodules identified to suggest metastatic disease. There is no pleural or pericardial effusion. Patient is present in the right atrium and right ventric le. No hilar, mediastinal or axillary adenopathy. No acute bony abnormalities. CONCLUSION: 1. No acute findings. Negative for metastatic disease to the thorax. Luiz Magana MD on April 07, 2017 at 21:37 Board Certified Radiologist. This report was verified electronically.
[2017-04-08] VITALS: BP 113/66; PULSE 86; RESP 20; TEMP 95.8; O2SAT 99
[2017-04-08] MEDS: ONDANSETRON HCL 4 MG/2 ML VIAL IVP PRN (05:47)
[2017-04-08 06:43] LABS: BASOPHIL # 0.1 TH/MM3 (0-0.2); BASOPHIL % 0.4 % (0.0-2.0); EOSINOPHIL # 0.4 TH/MM3 (0-0.4); EOSINOPHIL % 2.6 % (0.0-4.0); HEMATOCRIT 48.2 % (39.0-51.0); HEMOGLOBIN 15.8 GM/DL (13.0-17.0); LYMPH % 18.8 % (9.0-44.0); LYMPHOCYTE # 2.7 TH/MM3 (1.0-4.8); MEAN CELL VOLUME 90.6 FL (80.0-100.0); MEAN CORPUSCULAR HEMOGLOBIN 29.8 PG (27.0-34.0); MEAN CORPUSCULAR HGB CONC 32.8 % (32.0-36.0); MEAN PLATELET VOLUME 8.1 FL (7.0-11.0); MONO % 7.3 % (0.0-8.0); NEUT % 70.9 % (16.0-70.0); PLATELET COUNT 372 TH/MM3 (150-450); RED BLOOD COUNT 5.32 MIL/MM3 (4.50-5.90); RED CELL DISTRIBUTION WIDTH 14.6 % (11.6-17.2); WHITE BLOOD COUNT 14.2 TH/MM3 (4.0-11.0)
[2017-04-08 06:52] LABS: CALCIUM 8.7 MG/DL (8.5-10.1)
[2017-04-08 06:56] LABS: CREATININE 0.68 MG/DL (0.60-1.30)
[2017-04-08 08:00] VITALS: BP 123/67; PULSE 96; RESP 20; TEMP 97.8; O2SAT 97
--- NOTE | 2017-04-08 08:58 | PD.CONS ---
HPI Consult Requested By Primary Care Physician Unknown History of Present Illness 56-year-old man with a several month history of abdominal pain worsening. He has lost 35 pounds. He has associated nausea and vomiting. He presented to the hospital with the above complaints. Imaging studies including a CT scan of the abdomen was performed that showed a 2.5 cm ill-defined hypodensity in the pancreatic body / tail of the pancreas. It is suspicious for a pancreatic adenocarcinoma. Cardiology consulted for Pre-Op evaluation. Review of Systems Consitutional: DENIES: Fatigue, Fever, Chills, Weight gain, Weight loss Eyes: DENIES: Amaurosis Fugax, Change in vision HEENT: DENIES: Lightheadedness, Change in hearing Respiratory: DENIES: See HPI, Cough, Snoring, Shortness of breath, Wheezing, Sputum production Cardiovascular: DENIES: See HPI, Chest pain, Palpitations, Syncope, Tachycardia Gastrointestinal: DENIES: Nausea, Vomiting, Change in bowel habits, Reflux, Bloody stools, Melena Genitourinary: DENIES: Urinary incontinence, Difficulty voiding Integumentary: DENIES: Rash Neurologic: DENIES: Tingling or numbness, Memory problems, Poor Balance, Stroke symptoms Musculoskeletal: DENIES: Joint pain, Muscle pain, Limited range of motion, Back pain Psychiatric: DENIES: Anxiety, Depression, Sleep disturbances Hematologic: DENIES: Bruising tendencies, Bleeding tendencies Endocrine: DENIES: Weight gain, Weight loss, Thyroid disease Past Family Social History Allergies: Coded Allergies: No Known Allergies (Verified Adverse Reaction, Unknown, 04/06/17) Past Medical History 1. Sick sinus syndrome. 2. Unintentional weight loss. 3. Obesity. 4. Gastritis. 5. Duodenitis. 6. Nausea and vomiting. 7. Pancreatic mass. Past Surgical History 1. Pacemaker placement. 2. Appendectomy. 3. Tonsillectomy. 4. Endoscopy. 5. Colonoscopy. Reported Medications Reported Meds & Active Scripts Active Aspirin EC (Aspirin) 81 Mg Tabdr 81 Mg PO DAILY Hydrochlorothiazide 25 Mg Tab 25 Mg PO DAILY Hydrocodone-Acetamin 5-325 mg (Hydrocodone/Acetaminophen) 5 Mg-325 Mg Tablet 1 Tab PO Q4H PRN Lisinopril 10 Mg Tab 10 Mg PO DAILY Prilosec (Omeprazole Magnesium) 20 Mg Tab 1 Tab PO DAILY 30 Days Zofran (Ondansetron HCl) 4 Mg Tab 4 Mg PO Q6HR PRN Active Ordered Medications Current Medications Medications (Trade) Dose Ordered Sig/Lashae Route Start Time Stop Time Status Last Admin (NS Flush) 2 ml UNSCH PRN IV FLUSH 04/07/17 01:15 04/08/17 05:47 (NS Flush) 2 ml BID IV FLUSH 04/07/17 09:00 04/07/17 20:14 (Tylenol) 650 mg Q4H PRN PO 04/07/17 01:15 (Zofran Inj) 4 mg Q6H PRN IVP 04/07/17 01:15 04/08/17 05:47 (Narcan Inj) 0.4 mg UNSCH PRN IV PUSH 04/07/17 01:15 (Jeannette-Colace) 1 tab BID PO 04/07/17 09:00 04/07/17 20:14 (Milk Of Magnesia Liq) 30 ml Q12H PRN PO 04/07/17 01:15 (Senokot) 17.2 mg Q12H PRN PO 04/07/17 01:15 (Dulcolax Supp) 10 mg DAILY PRN RECTAL 04/07/17 01:15 (Lactulose Liq) 30 ml DAILY PRN PO 04/07/17 01:15 (Morphine Inj) 4 mg Q3H PRN IV PUSH 04/07/17 01:15 04/07/17 20:15 (Hydrodiuril) 25 mg DAILY PO 04/07/17 09:00 04/07/17 09:01 (Prinivil) 10 mg DAILY PO 04/07/17 09:00 04/07/17 09:01 (Protonix) 40 mg DAILY PO 04/07/17 12:30 04/07/17 15:02 Family History Father of cancer and of heart disease in his 50s. The mother is alive and well. Social History He is to his second who has neurofibromatosis. Interestingly, his first has neurofibromatosis. He is an active smoker down to one cigarette per day. He denies any alcohol or illicit drug use. 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 He is currently unemployed. Physical Exam Vital Signs Vital Signs Date Time Temp Pulse Resp B/P (MAP) Pulse Ox O2 Delivery O2 Flow Rate FiO2 1/6/18 00:00 95.8 86 20 113/66 (82) 99 04/07/17 21:15 16 04/07/17 20:00 96.1 83 16 94/60 (71) 94 04/07/17 16:00 97.3 86 18 118/63 (81) 96 04/07/17 13:00 95.7 81 16 131/89 (103) 95 Physical Exam GENERAL: Well-nourished, well-developed patient. SKIN: Warm and dry. HEAD: Normocephalic. EYES: No scleral icterus. No injection or drainage. NECK: Supple, trachea midline. No JVD or lymphadenopathy. CARDIOVASCULAR: Regular rate and rhythm without murmurs, gallops, or rubs. RESPIRATORY: Breath sounds equal bilaterally. No accessory muscle use. GASTROINTESTINAL: Abdomen soft, non-tender, nondistended. EXTREMITIES: No cyanosis, or edema. NEUROLOGICAL: Awake, alert, and oriented x 3. Non-focal. Laboratory Laboratory Tests Test 04/08/17 06:14 White Blood Count 14.2 Red Blood Count 5.32 Hemoglobin 15.8 Hematocrit 48.2 Mean Corpuscular Volume 90.6 Mean Corpuscular Hemoglobin 29.8 Mean Corpuscular Hemoglobin Concent 32.8 Red Cell Distribution Width 14.6 Platelet Count 372 Mean Platelet Volume 8.1 Neutrophils (%) (Auto) 70.9 Lymphocytes (%) (Auto) 18.8 Monocytes (%) (Auto) 7.3 Eosinophils (%) (Auto) 2.6 Basophils (%) (Auto) 0.4 Neutrophils # (Auto) 10.0 Lymphocytes # (Auto) 2.7 Monocytes # (Auto) 1.0 Eosinophils # (Auto) 0.4 Basophils # (Auto) 0.1 CBC Comment DIFF FINAL Differential Comment Blood Urea Nitrogen 18 Creatinine 0.68 Random Glucose 98 Calcium Level 8.7 Sodium Level 138 Potassium Level 3.7 Chloride Level 101 Carbon Dioxide Level 30.0 Anion Gap 7 Estimat Glomerular Filtration Rate 121 Result Diagram: 04/08/17 0614 04/08/1714 Imaging Last Impressions Chest X-Ray 04/07/17 0052 Signed Impressions: Service Date/Time: Friday, April 07, 2017 01:07 - CONCLUSION: No acute cardiopulmonary disease identified. Murali Perez MD Lumbar Spine X-Ray 04/07/17 0000 Signed Impressions: Service Date/Time: Friday, April 07, 2017 13:39 - CONCLUSION: Minimal facet disease L5-S1. Topher Kim MD FACR Chest CT 04/07/17 0000 Signed Impressions: Service Date/Time: Friday, April 07, 2017 21:14 - CONCLUSION: 1. No acute findings. Negative for metastatic disease to the thorax. Luiz Magana MD Abdomen/Pelvis CT 04/06/17 2222 Signed Impressions: Service Date/Time: April 23:04 - CONCLUSION: 1. 2.5 cm ill-defined hypodensity in the pancreatic tail suspicious for pancreatic mass, specifically pancreatic adenocarcinoma. There is mild pancreatic ductal prominence more distally in the tail. This finding is a changed from prior studies. Minimal chronic stranding opacity in the adjacent fat. No acute peripancreatic inflammatory changes identified. Recommend correlation with laboratory values for any evidence of acute pancreatitis. 2. Small calcified gallstone in the gallbladder. No pericholecystic inflammatory changes. Murali Perez MD Assessment and Plan Problem List: (1) Pancreatic cancer ICD Codes: C25.9 - Malignant neoplasm of pancreas, unspecified Status: Acute Plan: 56 y/o M with Pancreatic Mass consulted for Preop Eval. No Cardiovascular complaints, undergoing intermediate risk surgery with functional capacity. PPM in the setting of SSS. No need for further cardiac work up prior surgery. Cont aggressive medical therapy for primary cardiac prevention. Thank yo for the opportunity to participate in the care of this patient Follow with Dr. Tripp as outpatient (2) Intractable abdominal pain ICD Codes: R10.9 - Unspecified abdominal pain Status: Acute (3) Intractable nausea and vomiting ICD Codes: R11.2 - Nausea with vomiting, unspecified Status: Acute (4) Pancreatic mass ICD Codes: K86.9 - Disease of pancreas, unspecified Terry Maguire MD Apr 08, 2017 08:58
[2017-04-08] MEDS: PANTOPRAZOLE SOD 40 MG DELAYED RELEASE TAB PO SCH (10:27)
[2017-04-08] MEDS: DOCUSATE SODIUM 50 MG/SENNA 8.6 MG TAB PO SCH (10:28)
[2017-04-08] MEDS: LISINOPRIL 10 MG TAB PO SCH (10:28)
[2017-04-08] MEDS: HYDROCHLOROTHIAZIDE 25 MG TAB PO SCH (10:28)
[2017-04-08] MEDS: SODIUM CHLORIDE 0.9% FLUSH 10 ML FLUSH IV FLUSH SCH (10:28)
--- NOTE | 2017-04-08 10:55 | HHI.DCPOC ---
Discharge Care Plan Diagnosis: (1) Abdominal pain (2) Pancreatic mass Goals to Promote Your Health * To prevent worsening of your condition and complications * To maintain your health at the optimal level Directions to Meet Your Goals Take your medications as prescribed Follow your dietary instruction Follow activity as directed Keep your appointments as scheduled Take your immunizations and boosters as scheduled If your symptoms worsen call your PCP, if no PCP go to Urgent Care Center or Emergency Room Smoking is Dangerous to Your Health. Avoid second hand smoke Call the 24-hour hour crisis hotline for domestic abuse at Oli Soares Apr 08, 2017 10:55
[2017-04-08] MEDS ORDERED: ZOFR4TAB PO (10:58)
[2017-04-08] MEDS ORDERED: HYDR-3516 PO (10:58)
[2017-04-08] MEDS ORDERED: HYDR-3516 OROPHARYNG (11:02)
--- NOTE | 2017-04-08 11:04 | HHI.PR ---
Subjective Remarks Nursing denies any deterioration since last night. Patient states he feels much better now that he is back to baseline with his pain. Says he tolerated breakfast this morning well without any vomiting. Feels very comfortable about going home. He states that he has received his pain medications mainly from the emergency room but not his primary care doctor. Objective Vital Signs Date Time Temp Pulse Resp B/P (MAP) Pulse Ox O2 Delivery O2 Flow Rate FiO2 04/08/17 08:00 97.8 96 20 123/67 (85) 97 04/08/17 00:00 95.8 86 20 113/66 (82) 99 04/07/17 21:15 16 04/07/17 20:00 96.1 83 16 94/60 (71) 94 04/07/17 16:00 97.3 86 18 118/63 (81) 96 04/07/17 13:00 95.7 81 16 131/89 (103) 95 I/O 04/07/17 04/07/17 04/07/17 04/08/17 04/08/17 04/08/17 06:59 14:59 22:59 06:59 14:59 22:59 Intake Total 2000 ml 570 ml 480 ml Balance 2000 ml 570 ml 480 ml Intake Oral 570 ml 480 ml IV Total 2000 ml # Voids 9 2 # Bowel Movements 0 0 Result Diagram: 04/08/17 0614 04/08/17 0614 Objective Remarks Ambulating out from the bathroom to the bed without any difficulty In no acute distress Abdomen is soft, no tenderness to soft palpation A/P Assessment and Plan Intractable abdominal pain with nausea vomiting - Pain is now controlled down to baseline. Patient comfortable going home on his home dose of Lortab. Nausea vomiting resolved Pancreatic mass seen on CT - Per oncology follow-up as an outpatient; may need biopsy. Clear for any surgical intervention if needed from cardiology standpoint. Patient has met maximal benefit from hospitalization and is clinically stable for discharge. Lul Mclaughlin MD Apr 08, 2017 11:04
== END 2017-04-08 13:00 | disposition home or self-care (01) ==
LOC: PHED 20:12 → PHEDA 04-07 00:55 → INTOOBSV 04-07 00:55 → PH3B 04-07 02:35
PROVIDERS: ADMIT Hospitalist; ATTEND Hospitalist
DX: R10.9 Unspecified abdominal pain (principal); K86.9 Disease of pancreas, unspecified; E78.00 Pure hypercholesterolemia, unspecified; J44.9 Chronic obstructive pulmonary disease, unspecified; K21.0 Gastro-esophageal reflux disease with esophagitis; I10 Essential (primary) hypertension; G47.30 Sleep apnea, unspecified; G43.909 Migraine, unspecified, not intractable, without status migrainosus; I49.5 Sick sinus syndrome; R63.4 Abnormal weight loss; E66.9 Obesity, unspecified; R11.2 Nausea with vomiting, unspecified; Z95.0 Presence of cardiac pacemaker
CPT/HCPCS: 71046; 71250; 72110; 74177; 80048; 80053; 81001; 83690; 85025; 86301; 96361; 96374; 96375; 96376; 99285; G0378; J1170; J2270; J2405; J7030; Q9967

== ENCOUNTER 2017-04-10 23:08 | Inpatient (IN) | payer SELFPAY ==
[~2017-04-10] VITALS: Ht 172.7 cm; Wt 106.9 kg
[~2017-04-10 23:08] MED LIST changes: +HYDR-3516 OROPHARYNG; -HYDR-3516 PO
[2017-04-10 23:14] VITALS: BP 93/50; PULSE 104; RESP 20; TEMP 98.9; O2SAT 94
[2017-04-10 23:26] VITALS: BP 93/50; PULSE 104; RESP 20; TEMP 98.9; O2SAT 95
[2017-04-10] MEDS ORDERED: MORPHINE SULFATE 2 MG/ML INJ IV PUSH ONE (23:45)
[2017-04-10] MEDS ORDERED: ONDANSETRON HCL 4 MG/2 ML VIAL IV PUSH ONE (23:45)
--- NOTE | 2017-04-10 23:58 | PD ---
HPI Chief Complaint: Abdominal Pain Time Seen by Provider: 23:21 Travel History International Travel<30 days: No Contact w/Intl Traveler<30days: No Traveled to known affect area: No History of Present Illness HPI 56-year-old male complains of abdominal pain, diarrhea, blood in the stool, and chest pain. Patient has history of recurrent abdominal pain for the past several months. Patient was admitted to [facility] April 07 and discharged April 08 with diagnoses abdominal pain, pancreatic mass. CA 19-9 was found to be elevated. Oncologist Dr. Grace was consulted. The case was discussed with interventional radiologist who reports that the lesion is difficult to biopsy percutaneously. Patient's case was discussed with chemist instrumentation and general surgeon Dr. Juarez. Patient was discharged with instruction to follow up with general surgeon and chemist instrumentation for outpatient workup. Mandatory referral was done. Patient also has history of sick sinus syndrome that needs to be cleared by Dr. Tripp for cardiac clearance. Patient states that he started having bloody diarrhea today and increasing abdominal pain. Patient contacted patient facility assistant program and was advised to go back to ED for evaluation. Patient denies any headache. Patient states that he has sharp substernal chest pain intermittently today. Patient states the chest pain is sharp pain usually last about 5 minutes and resolved completely. Patient states that he has intermittent nausea vomiting and dizziness today also. Patient denies any fever chills. Patient has history of sick sinus syndrome, unconventional weight loss, obesity, gastritis, duodenitis. Patient status post pacemaker placement, appendectomy, tonsillectomy, endoscopy and colonoscopy. PFSH Past Medical History Hx Anticoagulant Therapy: Yes (81mg aspirin ) Arthritis: Yes Asthma: Yes Autoimmune Disease: No Blood Disorders: No Anxiety: Yes Depression: Yes Heart Rhythm Problems: Yes Cancer: Yes (POSSIBLE PANCREATIC CANCER) Cardiac Catheterization: No Cardiovascular Problems: Yes High Cholesterol: Yes Chest Pain: Yes Congestive Heart Failure: No COPD: Yes Diabetes: No Patient Takes Glucophage: No Diminished Hearing: No Endocrine: No Gastrointestinal Disorders: No GERD: Yes Genitourinary: No Hypertension: Yes Immune Disorder: No Implanted Vascular Access Dvce: Yes Medical other: Yes (PANCREATIC MASS) Musculoskeletal: Yes Neurologic: Yes Psychiatric: Yes Reproductive: No Respiratory: Yes Immunizations Current: Yes Migraines: Yes (WITH TMJ) Pancreatitis: Yes Sleep Apnea: Yes (WEARS CPAP) Thyroid Disease: No Tetanus Vaccination: Unknown ?: Not Past Surgical History Abdominal Surgery: Yes AICD: No Appendectomy: Yes Arteriovenous Shunt: No Cardiac Surgery: Yes (PACEMAKER INSERTED: 05/12/16) Coronary Artery Bypass Graft: No Ear Surgery: No Endocrine Surgery: No Eye Surgery: No Genitourinary Surgery: No Gynecologic Surgery: No Insulin Pump: No Joint Replacement: No Oral Surgery: Yes (TOOTH REMOVED) Pacemaker: Yes Thoracic Surgery: No Tonsillectomy: Yes ( CHILD) Other Surgery: Yes Social History Alcohol Use: No Tobacco Use: No (2013) Substance Use: No Allergies-Medications (Allergen,Severity, Reaction): Coded Allergies: No Known Allergies (Verified Adverse Reaction, Unknown, 04/06/17) Reported Meds & Prescriptions Reported Meds & Active Scripts Active Hydrocodone-Acetamin 5-325 mg (Hydrocodone/Acetaminophen) 5 Mg-325 Mg Tablet 1 Tab OROPHARYNG Q6HR Zofran (Ondansetron HCl) 4 Mg Tab 4 Mg PO Q6HR PRN Aspirin EC (Aspirin) 81 Mg Tabdr 81 Mg PO DAILY Hydrochlorothiazide 25 Mg Tab 25 Mg PO DAILY Lisinopril 10 Mg Tab 10 Mg PO DAILY Prilosec (Omeprazole Magnesium) 20 Mg Tab 1 Tab PO DAILY 30 Days Review of Systems General / Constitutional: No: Fever Eyes: No: Visual changes HENT: No: Headaches Cardiovascular: Positive: Chest Pain or Discomfort Respiratory: No: Shortness of Breath Gastrointestinal: Positive: Nausea, Vomiting, Abdominal Pain, Hematochezia Genitourinary: No: Dysuria Musculoskeletal: No: Pain Skin: No Rash Neurologic: No: Weakness Psychiatric: No: Depression Endocrine: No: Polydipsia Hematologic/Lymphatic: No: Easy Bruising Physical Exam Narrative GENERAL: Well-nourished, well-developed patient. SKIN: Focused skin assessment warm/dry. HEAD: Normocephalic. EYES: No scleral icterus. No injection or drainage. NECK: Supple, trachea midline. No JVD or lymphadenopathy. CARDIOVASCULAR: Regular rate and rhythm without murmurs, gallops, or rubs. RESPIRATORY: Breath sounds equal bilaterally. No accessory muscle use. GASTROINTESTINAL: Abdomen soft, nondistended. Patient has mild diffuse tenderness over the abdomen. No rebound tenderness. No mass. MUSCULOSKELETAL: No cyanosis, or edema. BACK: Nontender without obvious deformity. No CVA tenderness. Neurologic exam normal. Data Data Last Documented VS Vital Signs Date Time Temp Pulse Resp B/P (MAP) Pulse Ox O2 Delivery O2 Flow Rate FiO2 04/10/17 23:26 98.9 104 20 93/50 (64) 95 Orders Orders Electrocardiogram (04/10/17 23:36) Complete Blood Count With Diff (04/10/17 23:36) Comprehensive Metabolic Panel (04/10/17 23:36) Creatine Kinase (Cpk) (04/10/17 23:36) Troponin I (04/10/17 23:36) Prothrombin Time / Inr (Pt) (04/10/17 23:36) Act Partial Throm Time (Ptt) (04/10/17 23:36) Lipase (04/10/17 23:36) Chest, Single Ap (04/10/17 23:36) Iv Access Insert/Monitor (04/10/17 23:36) Ecg Monitoring (04/10/17 23:36) Oximetry (04/10/17 23:36) Sodium Chlor 0.9% 1000 Ml Inj (Ns 1000 M (04/10/17 23:45) Morphine Inj (Morphine Inj) (04/10/17 23:45) Ondansetron Inj (Zofran Inj) (04/10/17 23:45) MDM Medical Decision Making Medical Screen Exam Complete: Yes Emergency Medical Condition: Yes Differential Diagnosis Differential diagnosis including acute exacerbation of abdominal pain, pancreatic mass, GI bleed, electrolyte abnormality. Narrative Course 56-year-old male with increased abdominal pain, reported bloody stool, diarrhea , nausea vomiting, chest pain. History of pancreatic mass. Patient's awaiting referral to see general surgeon for pancreatic mass resection and definitive diagnosis. Normal saline solution 1 25 cc an hour. Morphine 2 mg IV. Zofran 4 mg IV. Stanislaw Brenner MD Apr 10, 2017 23:58
--- NOTE | 2017-04-11 00:02 | RADRPT ---
EXAM DATE/TIME: 04/10/2017 23:45 [facility] COMPARISON: CHEST SINGLE AP, October 30, 2016, 23:57. INDICATIONS : Chest discomfort, abdominal pain for 1 week. MEDICAL HISTORY : None. SURGICAL HISTORY : Pacemaker. ENCOUNTER: Initial ACUITY: 1 week PAIN SCORE: 4/10 LOCATION: Bilateral chest FINDINGS: The cardiac silhouette is enlarged in transverse diameter. The lungs are free of acute parenchymal op acity. No effusions are identified. A bipolar pacemaker is in place via a left sided approach. CONCLUSION: 1. Cardiomegaly. No acute pulmonary disease. Aneudy Díaz MD on April 10, 2017 at 23:59 Board Certified Radiologist. This report was verified electronically.
[2017-04-11] MEDS: SODIUM CHLOR 0.9% 1000 ML INJ 1,000 ML IV SCH ×2 (00:09→07:45)
[2017-04-11 00:19] LABS: BASOPHIL # 0.2 TH/MM3 (0-0.2); BASOPHIL % 1.1 % (0.0-2.0); EOSINOPHIL # 0.4 TH/MM3 (0-0.4); EOSINOPHIL % 2.8 % (0.0-4.0); HEMATOCRIT 44.7 % (39.0-51.0); HEMOGLOBIN 14.4 GM/DL (13.0-17.0); LYMPH % 12.2 % (9.0-44.0); LYMPHOCYTE # 1.7 TH/MM3 (1.0-4.8); MEAN CELL VOLUME 91.1 FL (80.0-100.0); MEAN CORPUSCULAR HEMOGLOBIN 29.4 PG (27.0-34.0); MEAN CORPUSCULAR HGB CONC 32.3 % (32.0-36.0); MEAN PLATELET VOLUME 8.6 FL (7.0-11.0); MONO % 12.5 % (0.0-8.0); MONOCYTE # 1.8 TH/MM3 (0-0.9); NEUT % 71.4 % (16.0-70.0); PLATELET COUNT 352 TH/MM3 (150-450); WHITE BLOOD COUNT 14.1 TH/MM3 (4.0-11.0)
[2017-04-11 00:28] LABS: CHLORIDE 98 MEQ/L (98-107); SODIUM (NA) 134 MEQ/L (136-145)
[2017-04-11 00:32] LABS: ALBUMIN 3.6 GM/DL (3.4-5.0); BICARBONATE 26.8 MEQ/L (21.0-32.0); CALCIUM 8.9 MG/DL (8.5-10.1); GLUCOSE,RANDOM 121 MG/DL (74-106); LIPASE 227 U/L (73-393)
[2017-04-11 00:33] LABS: INTERNATIONAL NORMALIZED RATIO 1.1 RATIO; PROTHROMBIN TIME - PATIENT 11.1 SEC (9.8-11.6)
[2017-04-11 00:54] LABS: ALKALINE PHOSPHATASE 89 U/L (45-117); ALT (GPT) 17 U/L (12-78); AST (GOT) 20 U/L (15-37); BLOOD UREA NITROGEN 40 MG/DL (7-18); GLOMERULAR FILTRATION RATE 30 ML/MIN (>89); TOTAL BILIRUBIN ADULT 0.5 MG/DL (0.2-1.0); TROPONIN I LESS THAN 0.02 NG/ML (0.02-0.05)
--- NOTE | 2017-04-11 01:37 | PD ---
Physical Exam Narrative Patient signed out to me by Dr. Brenner. Please see his documentation for complete details. Briefly, Patient is a 56-year-old male who comes in complaining of worsening abdominal pain and seeing blood in his stool. Patient was just admitted and discharged 2 days ago where he was found to have a pancreatic mass. Per documentation, arrangements were made during that visit to have follow-up with a general surgeon, as well as oncology. Patient states that his pain has just been getting worse, so he came in. Occult blood test was negative. Patient is resting comfortably. Data Data Last Documented VS Vital Signs Date Time Temp Pulse Resp B/P (MAP) Pulse Ox O2 Delivery O2 Flow Rate FiO2 04/11/17 00:50 14 04/10/17 23:26 98.9 104 93/50 (64) 95 Orders Orders Electrocardiogram (04/10/17 23:36) Complete Blood Count With Diff (04/10/17 23:36) Comprehensive Metabolic Panel (04/10/17 23:36) Creatine Kinase (Cpk) (04/10/17 23:36) Troponin I (04/10/17 23:36) Prothrombin Time / Inr (Pt) (04/10/17 23:36) Act Partial Throm Time (Ptt) (04/10/17 23:36) Lipase (04/10/17 23:36) Chest, Single Ap (04/10/17 23:36) Iv Access Insert/Monitor (04/10/17 23:36) Ecg Monitoring (04/10/17 23:36) Oximetry (04/10/17 23:36) Sodium Chlor 0.9% 1000 Ml Inj (Ns 1000 M (04/10/17 23:45) Morphine Inj (Morphine Inj) (04/10/17 23:45) Ondansetron Inj (Zofran Inj) (04/10/17 23:45) Admit Order (Ed Use Only) (04/11/17 ) Labs Laboratory Tests Test 04/10/17 23:55 White Blood Count 14.1 TH/MM3 Red Blood Count 4.90 MIL/MM3 Hemoglobin 14.4 GM/DL Hematocrit 44.7 % Mean Corpuscular Volume 91.1 FL Mean Corpuscular Hemoglobin 29.4 PG Mean Corpuscular Hemoglobin Concent 32.3 % Red Cell Distribution Width 15.0 % Platelet Count 352 TH/MM3 Mean Platelet Volume 8.6 FL Neutrophils (%) (Auto) 71.4 % Lymphocytes (%) (Auto) 12.2 % Monocytes (%) (Auto) 12.5 % Eosinophils (%) (Auto) 2.8 % Basophils (%) (Auto) 1.1 % Neutrophils # (Auto) 10.0 TH/MM3 Lymphocytes # (Auto) 1.7 TH/MM3 Monocytes # (Auto) 1.8 TH/MM3 Eosinophils # (Auto) 0.4 TH/MM3 Basophils # (Auto) 0.2 TH/MM3 CBC Comment DIFF FINAL Differential Comment Prothrombin Time 11.1 SEC Prothromb Time International Ratio 1.1 RATIO Activated Partial Thromboplast Time 30.7 SEC Blood Urea Nitrogen 40 MG/DL Creatinine 2.30 MG/DL Random Glucose 121 MG/DL Total Protein 7.0 GM/DL Albumin 3.6 GM/DL Calcium Level 8.9 MG/DL Alkaline Phosphatase 89 U/L Aspartate Amino Transf (AST/SGOT) 20 U/L Alanine Aminotransferase (ALT/SGPT) 17 U/L Total Bilirubin 0.5 MG/DL Sodium Level 134 MEQ/L Potassium Level 3.7 MEQ/L Chloride Level 98 MEQ/L Carbon Dioxide Level 26.8 MEQ/L Anion Gap 9 MEQ/L Estimat Glomerular Filtration Rate 30 ML/MIN Total Creatine Kinase 139 U/L Troponin I LESS THAN 0.02 NG/ML Lipase 227 U/L MDM Supervised Visit with [facility]: No Narrative Course Labs show a creatinine of 2.3. This is up from 0.68 on April 08. Patient was given IV fluids. He was given pain medicine. He'll be admitted for further management. Diagnosis Primary Impression: Acute renal failure Qualified Codes: N17.9 - Acute kidney failure, unspecified Admitting Information Admitting Physician Requests: Admit Mikki Thapa MD Apr 11, 2017 01:37
[2017-04-11] MEDS ORDERED: NALOXONE HCL 0.4 MG/ML AMP IV PUSH PRN (01:45)
[2017-04-11] MEDS ORDERED: SODIUM CHLORIDE 0.9% FLUSH 10 ML FLUSH IV FLUSH PRN (01:45)
[2017-04-11 01:57] VITALS: BP 106/66; TEMP 98.6
[2017-04-11 02:21] VITALS: BP 106/66; TEMP 98.5
[2017-04-11 03:12] VITALS: BP 109/60; PULSE 78; RESP 20; TEMP 97.9; O2SAT 97
[2017-04-11 06:05] LABS: AUTOMATED NEUTROPHIL # 7.8 TH/MM3 (1.8-7.7); BASOPHIL # 0.2 TH/MM3 (0-0.2); BASOPHIL % 2.2 % (0.0-2.0); EOSINOPHIL # 0.4 TH/MM3 (0-0.4); EOSINOPHIL % 3.5 % (0.0-4.0); HEMATOCRIT 46.2 % (39.0-51.0); HEMOGLOBIN 14.9 GM/DL (13.0-17.0); LYMPH % 13.2 % (9.0-44.0); LYMPHOCYTE # 1.5 TH/MM3 (1.0-4.8); MEAN CELL VOLUME 90.9 FL (80.0-100.0); MEAN CORPUSCULAR HEMOGLOBIN 29.3 PG (27.0-34.0); MEAN CORPUSCULAR HGB CONC 32.3 % (32.0-36.0); MEAN PLATELET VOLUME 8.3 FL (7.0-11.0); MONO % 10.8 % (0.0-8.0); MONOCYTE # 1.2 TH/MM3 (0-0.9); NEUT % 70.3 % (16.0-70.0); PLATELET COUNT 338 TH/MM3 (150-450); RED BLOOD COUNT 5.08 MIL/MM3 (4.50-5.90); WHITE BLOOD COUNT 11.1 TH/MM3 (4.0-11.0)
[2017-04-11 06:16] LABS: BICARBONATE 30.3 MEQ/L (21.0-32.0); CALCIUM 8.8 MG/DL (8.5-10.1)
[2017-04-11 06:20] LABS: CREATININE 1.5 MG/DL (0.60-1.30)
[2017-04-11 08:00] VITALS: BP 110/72; PULSE 56; RESP 18; TEMP 97.4; O2SAT 94
[2017-04-11] MEDS ORDERED: SODIUM CHLORIDE 0.9% FLUSH 10 ML FLUSH IV FLUSH SCH (09:00)
--- NOTE | 2017-04-11 10:17 | HHI.HP ---
[facility] No Primary Care Physician Admission Diagnosis ARF Diagnoses: Chief Complaint: dizzy Travel History International Travel<30 Days: No Contact w/Intl Traveler <30 Da: No Traveled to Known Affected Are: No History of Present Illness 56-year-old white male being admitted for acute kidney injury. Patient was in his usual state of health until yesterday when he began feeling very lightheaded and dizzy and had difficulty walking as a result. He says he felt nauseated and sick to stomach; and thus decided to proceed to the emergency department. He says he had some mild's blood noted on wiping which he attributes to his hemorrhoids. In the emergency department he was known to be hypotensive with an acute kidney injury in the colon clinically responded well to fluids and admitted. Patient states he feels much improved since emergency room. Patient was just hospitalized and discharged a few days ago for pain control for his cancer. Review of Systems Except as stated in HPI: all other systems reviewed are Neg Past Family Social History Allergies: Coded Allergies: No Known Allergies (Verified Adverse Reaction, Unknown, 04/11/17) Physical Exam Vital Signs Vital Signs Date Time Temp Pulse Resp B/P (MAP) Pulse Ox O2 Delivery O2 Flow Rate FiO2 04/11/17 08:00 97.4 56 18 110/72 (85) 94 04/11/17 03:12 97.9 78 20 109/60 (76) 97 04/11/17 02:21 98.5 74 15 106/66 (79) 90 04/11/17 01:57 98.6 73 106/66 (79) 90 04/11/17 00:50 14 04/10/17 23:26 98.9 104 20 93/50 (64) 95 04/10/17 23:14 98.9 104 20 93/50 (64) 94 Physical Exam VS: afebrile GENERAL: Well-nourished, middle-aged, obese white male SKIN: Warm and dry. EYES: No scleral icterus. No injection or drainage. ENT: No nasal bleeding or discharge. Mucous membranes pink and moist. CARDIOVASCULAR: Regular rate and rhythm. no murmurs RESPIRATORY: No accessory muscle use. Clear to auscultation. Breath sounds equal bilaterally. GASTROINTESTINAL: Abdomen soft, nondistended; mild diffuse tenderness palpation Extremities: No clubbing, cyanosis, or edema. No obvious deformities. MUSCULOSKELETAL: grossly intact ROM with 5/5 strength in upper and lower extremities proximally; adequate muscle bulk and tone for age and habitus NEUROLOGICAL: Awake and alert. No obvious cranial nerve deficits. No facial droop nor slurred speech noted. PSYCHIATRIC: Appropriate mood and affect; insight and judgment normal. Laboratory Laboratory Tests Test 04/10/17 23:55 04/11/17 05:55 White Blood Count 14.1 11.1 Red Blood Count 4.90 5.08 Hemoglobin 14.4 14.9 Hematocrit 44.7 46.2 Mean Corpuscular Volume 91.1 90.9 Mean Corpuscular Hemoglobin 29.4 29.3 Mean Corpuscular Hemoglobin Concent 32.3 32.3 Red Cell Distribution Width 15.0 15.0 Platelet Count 352 338 Mean Platelet Volume 8.6 8.3 Neutrophils (%) (Auto) 71.4 70.3 Lymphocytes (%) (Auto) 12.2 13.2 Monocytes (%) (Auto) 12.5 10.8 Eosinophils (%) (Auto) 2.8 3.5 Basophils (%) (Auto) 1.1 2.2 Neutrophils # (Auto) 10.0 7.8 Lymphocytes # (Auto) 1.7 1.5 Monocytes # (Auto) 1.8 1.2 Eosinophils # (Auto) 0.4 0.4 Basophils # (Auto) 0.2 0.2 CBC Comment DIFF FINAL DIFF FINAL Differential Comment Prothrombin Time 11.1 Prothromb Time International Ratio 1.1 Activated Partial Thromboplast Time 30.7 Blood Urea Nitrogen 40 33 Creatinine 2.30 1.50 Random Glucose 121 98 Total Protein 7.0 Albumin 3.6 Calcium Level 8.9 8.8 Alkaline Phosphatase 89 Aspartate Amino Transf (AST/SGOT) 20 Alanine Aminotransferase (ALT/SGPT) 17 Total Bilirubin 0.5 Sodium Level 134 137 Potassium Level 3.7 3.6 Chloride Level 98 100 Carbon Dioxide Level 26.8 30.3 Anion Gap 9 7 Estimat Glomerular Filtration Rate 30 49 Total Creatine Kinase 139 Troponin I LESS THAN 0.02 Lipase 227 Result Diagram: 04/11/17 0555 04/11/17 0555 Caprini VTE Risk Assessment Caprini VTE Risk Assessment: Mod/High Risk (score >= 2) Caprini Risk Assessment Model Point Value = 1 Point Value = 2 Point Value = 3 Point Value = 5 Age 41-60 Minor surgery BMI > 25 kg/m2 Swollen legs Varicose veins or History of unexplained or recurrent spontaneous Oral contraceptives or hormone replacement Sepsis (< 1 month) Serious lung disease, including pneumonia (< 1 month) Abnormal pulmonary function Acute myocardial infarction Congestive heart failure (< 1 month) History of inflammatory bowel disease Medical patient at bed rest Age 61-74 Arthroscopic surgery Major open surgery (> 45 min) Laparoscopic surgery (> 45 min) Malignancy Confined to bed (> 72 hours) Immobilizing plaster cast Central venous access Age >= 75 History of VTE Family history of VTE Factor V Leiden Prothrombin [id number] Lupus anticoagulant Anticardiolipin antibodies Elevated serum homocysteine Heparin-induced thrombocytopenia Other congenital or acquired thrombophilia Stroke (< 1 month) Elective arthroplasty Hip, pelvis, or leg fracture Acute spinal cord injury (< 1 month) Prophylaxis Regimen Total Risk Factor Score Risk Level Prophylaxis Regimen 0-1 Low Early ambulation 2 Moderate Order ONE of the following: *Sequential Compression Device (SCD) *Heparin 5000 units SQ BID 3-4 Higher Order ONE of the following medications: *Heparin 5000 units SQ TID *Enoxaparin/Lovenox 40 mg SQ daily (WT < 150 kg, CrCl > 30 mL/min) *Enoxaparin/Lovenox 30 mg SQ daily (WT < 150 kg, CrCl > 10-29 mL/min) *Enoxaparin/Lovenox 30 mg SQ BID (WT < 150 kg, CrCl > 30 mL/min) AND/OR *Sequential Compression Device (SCD) 5 or more Highest Order ONE of the following medications: *Heparin 5000 units SQ TID (Preferred with Epidurals) *Enoxaparin/Lovenox 40 mg SQ daily (WT < 150 kg, CrCl > 30 mL/min) *Enoxaparin/Lovenox 30 mg SQ daily (WT < 150 kg, CrCl > 10-29 mL/min) *Enoxaparin/Lovenox 30 mg SQ BID (WT < 150 kg, CrCl > 30 mL/min) AND *Sequential Compression Device (SCD) Assessment and Plan Assessment and Plan 56-year-old white male being admitted for acute kidney injury secondary to dehydration likely from inadequate by mouth intake compounded with diuretic. Hypotension - Treating with IV fluids OMER - Improving with IV fluids, continue IV fluids -We'll hold home blood pressure medications for now Addendum: Patient clinically is asymptomatic now. He has had an unexpected rapid recovery of his condition. His renal function is likely even more improved than as measured this morning since he has continuously received IV fluids. We have agreed to discontinue his lisinopril and hydrochlorothiazide medicines as he might have gone hypotensive from them and also dehydrated from the diuretic. He was informed to avoid sodas and tea and to drink at least 8 glasses with a water daily if not more when he sweats. Patient verbalized understand. Patient has met maximal benefit from hospitalization and is clinically stable for discharge Physician Certification 2 Midnight Certification Type: Admission for Inpatient Services Order for Inpatient Services The services are ordered in accordance with Medicare regulations or non- Medicare payer requirements, as applicable. In the case of services not specified as inpatient-only, they are appropriately provided as inpatient services in accordance with the 2-midnight benchmark. Estimated LOS (days): 2 2 days is the estimated time the patient will need to remain in the hospital, assuming treatment plan goals are met and no additional complications. Post-Hospital Plan: Home Lul Mclaughlin MD Apr 11, 2017 10:17
[2017-04-11 12:00] VITALS: BP 126/75; PULSE 78; RESP 20; TEMP 98; O2SAT 94
--- NOTE | 2017-04-11 13:18 | HHI.DCPOC ---
Discharge Care Plan Diagnosis: (1) Pancreatic mass (2) Acute renal failure (3) Abdominal pain Additional Problems Drink at least 8 glasses of water a day. STOP taking your thiazide diuretic and refrain from sodas and coffee. Goals to Promote Your Health * To prevent worsening of your condition and complications * To maintain your health at the optimal level Directions to Meet Your Goals Take your medications as prescribed Follow your dietary instruction Follow activity as directed Keep your appointments as scheduled Take your immunizations and boosters as scheduled If your symptoms worsen call your PCP, if no PCP go to Urgent Care Center or Emergency Room Smoking is Dangerous to Your Health. Avoid second hand smoke Call the 24-hour hour crisis hotline for domestic abuse at Mikki Martin Apr 11, 2017 13:18 Lul Mclaughlin MD Apr 11, 2017 15:48
[2017-04-11] MEDS ORDERED: METO25TA3 PO (15:11)
--- NOTE | 2017-04-11 16:06 | EKG ---
Date Performed: 04/10/2017 Time Performed: 23:49:21 PTAGE: 56 years EKG: Sinus rhythm MARKED LEFT AXIS DEVIATION ABNORMAL ECG PREVIOUS TRACING : 02/15/2017 17.49 Sinus rhythm appears to have replaced paced rhythm, otherwi se unchanged. DOCTOR: Adan Seals Interpretating Date/Time 04/11/2017 16:04:24
== END 2017-04-11 16:40 | disposition home or self-care (01) | DRG 684 ==
LOC: PHED 23:08 → PHEDA 04-11 01:33 → PH3A 04-11 02:14
PROVIDERS: ADMIT Hospitalist; ATTEND Hospitalist
DX: N17.9 Acute kidney failure, unspecified (principal); I95.9 Hypotension, unspecified; E66.9 Obesity, unspecified; Z68.35 Body mass index [BMI] 35.0-35.9, adult; K86.9 Disease of pancreas, unspecified; G47.30 Sleep apnea, unspecified; Z95.0 Presence of cardiac pacemaker; I10 Essential (primary) hypertension; K21.9 Gastro-esophageal reflux disease without esophagitis; J44.9 Chronic obstructive pulmonary disease, unspecified
CPT/HCPCS: 71045; 80048; 80053; 82550; 83690; 84484; 85025; 85610; 85730; 93005; 99285; J2270; J2405; J7030

== ENCOUNTER 2017-05-23 22:08 | Emergency (ER) | payer OTHER ==
[~2017-05-23] VITALS: Ht 172.7 cm; Wt 107.9 kg
[~2017-05-23 22:08] MED LIST changes: -HYDR25TA5 PO; -LISI10TA3 PO; +METO25TA3 PO
[2017-05-23 22:16] VITALS: BP 129/76; PULSE 106; RESP 20; TEMP 97.9; O2SAT 96
--- NOTE | 2017-05-23 22:55 | PD ---
HPI Chief Complaint: Abdominal Pain Time Seen by Provider: 22:42 Travel History International Travel<30 days: No Contact w/Intl Traveler<30days: No Traveled to known affect area: No History of Present Illness HPI 56yo M with PMH of sick sinus syndrome s/p pacemaker, pancreatic mass here with c/o left upper abdominal pain since yesterday. Said he took this last hydrocodone this morning. Pt has also been nauseous and vomited today. Said he cant keep anything down. Pt had CT a/p in April 2017 and a 2.5cm mass was found in pancreas. Pt has seen Yarelis PRECIADO from oncology on 05/12/17 but has not seen Dr. Juarez for biopsy for definitive diagnosis. Pt has appointment with Dr. Juarez 05/25/17. Denies any fever, chest pain, sob, urinary complaints, focal weakness or numbness. PFSH Past Medical History Hx Anticoagulant Therapy: Yes (81mg aspirin ) Arthritis: Yes Asthma: Yes Autoimmune Disease: No Blood Disorders: No Anxiety: Yes Depression: Yes Heart Rhythm Problems: Yes Cancer: Yes (POSSIBLE PANCREATIC CANCER) Cardiac Catheterization: No Cardiovascular Problems: Yes High Cholesterol: Yes Chest Pain: Yes Congestive Heart Failure: No COPD: Yes Cerebrovascular Accident: No Diabetes: No Diminished Hearing: No Endocrine: No Gastrointestinal Disorders: Yes GERD: Yes Genitourinary: No Hiatal Hernia: No Hypertension: Yes Immune Disorder: No Implanted Vascular Access Dvce: Yes Musculoskeletal: Yes Neurologic: Yes Psychiatric: Yes Reproductive: No Respiratory: Yes Immunizations Current: Yes Migraines: Yes (WITH TMJ) Pancreatitis: Yes (TUMOR ON PANCREAS) Seizures: No Sleep Apnea: Yes (cpap at home) Thyroid Disease: No Ulcer: No Tetanus Vaccination: Unknown Influenza Vaccination: Yes Past Surgical History Abdominal Surgery: Yes (appendectomy) AICD: No Appendectomy: Yes Arteriovenous Shunt: No Cardiac Surgery: Yes (PACEMAKER INSERTED: 05/12/16) Coronary Artery Bypass Graft: No Ear Surgery: No Endocrine Surgery: No Eye Surgery: No Genitourinary Surgery: No Gynecologic Surgery: No Insulin Pump: No Joint Replacement: No Oral Surgery: Yes (TOOTH REMOVED, tonsillectomy) Pacemaker: Yes Thoracic Surgery: No Tonsillectomy: Yes ( CHILD) Other Surgery: Yes Social History Alcohol Use: No Tobacco Use: No (QUIT 2013) Substance Use: No Allergies-Medications (Allergen,Severity, Reaction): Coded Allergies: No Known Allergies (Verified Adverse Reaction, Unknown, 05/23/17) Reported Meds & Prescriptions Reported Meds & Active Scripts Active [place] (Hydrocodone-Acetaminophen) 10-325 Mg Tab 1 Tab PO Q6H PRN Hydrocodone-Acetamin 5-325 mg (Hydrocodone/Acetaminophen) 5 Mg-325 Mg Tablet 1 Tab OROPHARYNG Q6HR Zofran (Ondansetron HCl) 4 Mg Tab 4 Mg PO Q6HR PRN Aspirin EC (Aspirin) 81 Mg Tabdr 81 Mg PO DAILY Reported Lisinopril 10 Mg Tab 10 Mg PO DAILY Hydrochlorothiazide 25 Mg Tab 25 Mg PO DAILY Metoprolol Tartrate 25 Mg Tab 25 Mg PO DAILY Review of Systems Except as stated in HPI: all other systems reviewed are Neg Physical Exam Narrative GENERAL: 56yo M in moderate distress. SKIN: Focused skin assessment warm/dry. HEAD: Atraumatic. Normocephalic. CARDIOVASCULAR: Regular rate and rhythm. No murmur appreciated. RESPIRATORY: No accessory muscle use. Clear to auscultation. Breath sounds equal bilaterally. GASTROINTESTINAL: Abdomen soft, +TTP LUQ and LLQ. No rebound tenderness or guarding. MUSCULOSKELETAL: No obvious deformities. No clubbing. No cyanosis. No edema. NEUROLOGICAL: Awake and alert. No obvious cranial nerve deficits. Motor grossly within normal limits. Normal speech. PSYCHIATRIC: Appropriate mood and affect; insight and judgment normal. Data Data Last Documented VS Vital Signs Date Time Temp Pulse Resp B/P (MAP) Pulse Ox O2 Delivery O2 Flow Rate FiO2 05/24/17 00:15 78 16 120/78 (92) 93 Room Air 05/23/17 22:16 97.9 Orders Orders Complete Blood Count With Diff (05/23/17 22:51) Comprehensive Metabolic Panel (05/23/17 22:51) Lipase (05/23/17 22:51) Prothrombin Time / Inr (Pt) (05/23/17 22:51) Act Partial Throm Time (Ptt) (05/23/17 22:51) Urinalysis - C+S If Indicated (05/23/17 22:51) Ct Abd/Pel W Iv Contrast(Rout) (05/23/17 22:51) Morphine Inj (Morphine Inj) (05/23/17 23:00) Ondansetron Inj (Zofran Inj) (05/23/17 23:00) Iohexol 350 Inj (Omnipaque 350 Inj) (05/23/17 23:55) Ed Discharge Order (05/24/17 00:19) Labs Laboratory Tests Test 05/23/17 23:00 05/23/17 23:40 White Blood Count 14.6 TH/MM3 Red Blood Count 4.49 MIL/MM3 Hemoglobin 13.8 GM/DL Hematocrit 41.0 % Mean Corpuscular Volume 91.2 FL Mean Corpuscular Hemoglobin 30.7 PG Mean Corpuscular Hemoglobin Concent 33.7 % Red Cell Distribution Width 16.9 % Platelet Count 433 TH/MM3 Mean Platelet Volume 7.4 FL Neutrophils (%) (Auto) 65.2 % Lymphocytes (%) (Auto) 23.5 % Monocytes (%) (Auto) 6.6 % Eosinophils (%) (Auto) 4.3 % Basophils (%) (Auto) 0.4 % Neutrophils # (Auto) 9.5 TH/MM3 Lymphocytes # (Auto) 3.4 TH/MM3 Monocytes # (Auto) 1.0 TH/MM3 Eosinophils # (Auto) 0.6 TH/MM3 Basophils # (Auto) 0.1 TH/MM3 CBC Comment DIFF FINAL Differential Comment Prothrombin Time 11.0 SEC Prothromb Time International Ratio 1.1 RATIO Activated Partial Thromboplast Time 28.9 SEC Blood Urea Nitrogen 16 MG/DL Creatinine 0.71 MG/DL Random Glucose 111 MG/DL Total Protein 6.8 GM/DL Albumin 3.2 GM/DL Calcium Level 8.7 MG/DL Alkaline Phosphatase 82 U/L Aspartate Amino Transf (AST/SGOT) 13 U/L Alanine Aminotransferase (ALT/SGPT) 16 U/L Total Bilirubin 0.2 MG/DL Sodium Level 141 MEQ/L Potassium Level 3.9 MEQ/L Chloride Level 108 MEQ/L Carbon Dioxide Level 28.3 MEQ/L Anion Gap 5 MEQ/L Estimat Glomerular Filtration Rate 115 ML/MIN Lipase 76 U/L Urine pH 6.0 Urine Protein TRACE mg/dL Urine Glucose (UA) NEG mg/dL Urine Ketones TRACE mg/dL Urine Occult Blood NEG Urine Nitrite NEG Urine Bilirubin NEG Urine Leukocyte Esterase NEG MDM Medical Decision Making Medical Screen Exam Complete: Yes Emergency Medical Condition: Yes Differential Diagnosis Pancreatic cancer vs. peptic ulcer disease vs. pancreatitis vs. diverticulitis Narrative Course 56yo M with abdominal pain. Pt likely has pancreatic cancer and given zofran and morphine. Labs reviewed, leukocytosis at 14.6. Lipase normal. CMP unremarkable. CT a/p pending. Sign out to next team to follow and reevaluate. Diagnosis Primary Impression: Abdominal pain Qualified Codes: R10.12 - Left upper quadrant pain Scripts Hydrocodone-Acetaminophen ([place]) 10-325 Mg Tab 1 TAB PO Q6H Y for PAIN, #20 TAB 0 Refills Prov: Gil Hoffman MD 05/24/17 Hellen Tavares DO May 23, 2017 22:55
[2017-05-23] MEDS ORDERED: MORPHINE SULFATE 2 MG/ML INJ IV PUSH ONE (23:00)
[2017-05-23] MEDS ORDERED: ONDANSETRON HCL 4 MG/2 ML VIAL IV PUSH ONE (23:00)
[2017-05-23] MEDS ORDERED: METO25TA3 PO (23:10)
[2017-05-23] MEDS ORDERED: HYDR25TA5 PO (23:10)
[2017-05-23] MEDS ORDERED: LISI10TA3 PO (23:10)
[2017-05-23 23:12] LABS: AUTOMATED NEUTROPHIL # 9.5 TH/MM3 (1.8-7.7); BASOPHIL # 0.1 TH/MM3 (0-0.2); BASOPHIL % 0.4 % (0.0-2.0); EOSINOPHIL # 0.6 TH/MM3 (0-0.4); EOSINOPHIL % 4.3 % (0.0-4.0); HEMOGLOBIN 13.8 GM/DL (13.0-17.0); LYMPH % 23.5 % (9.0-44.0); LYMPHOCYTE # 3.4 TH/MM3 (1.0-4.8); MEAN CELL VOLUME 91.2 FL (80.0-100.0); MEAN CORPUSCULAR HEMOGLOBIN 30.7 PG (27.0-34.0); MEAN CORPUSCULAR HGB CONC 33.7 % (32.0-36.0); MEAN PLATELET VOLUME 7.4 FL (7.0-11.0); MONO % 6.6 % (0.0-8.0); NEUT % 65.2 % (16.0-70.0); PLATELET COUNT 433 TH/MM3 (150-450); RED BLOOD COUNT 4.49 MIL/MM3 (4.50-5.90); RED CELL DISTRIBUTION WIDTH 16.9 % (11.6-17.2); WHITE BLOOD COUNT 14.6 TH/MM3 (4.0-11.0)
[2017-05-23 23:20] LABS: CHLORIDE 108 MEQ/L (98-107); SODIUM (NA) 141 MEQ/L (136-145)
[2017-05-23 23:24] LABS: ALBUMIN 3.2 GM/DL (3.4-5.0); BICARBONATE 28.3 MEQ/L (21.0-32.0); CALCIUM 8.7 MG/DL (8.5-10.1); GLUCOSE,RANDOM 111 MG/DL (74-106)
[2017-05-23 23:25] LABS: BLOOD UREA NITROGEN 16 MG/DL (7-18)
[2017-05-23 23:26] LABS: INTERNATIONAL NORMALIZED RATIO 1.1 RATIO
[2017-05-23 23:27] LABS: ALT (GPT) 16 U/L (12-78); AST (GOT) 13 U/L (15-37); CREATININE 0.71 MG/DL (0.60-1.30); GLOMERULAR FILTRATION RATE 115 ML/MIN (>89)
[2017-05-23 23:29] LABS: TOTAL BILIRUBIN ADULT 0.2 MG/DL (0.2-1.0); TOTAL PROTEIN 6.8 GM/DL (6.4-8.2)
[2017-05-23 23:30] VITALS: BP 115/62; PULSE 79; RESP 16; O2SAT 94
[2017-05-23 23:30] LABS: ALKALINE PHOSPHATASE 82 U/L (45-117)
[2017-05-23] MEDS ORDERED: IOHEXOL 350 MG/ML 10 ML VIAL (for RAD DIAG) IVCONTRAST ONE (23:55)
--- NOTE | 2017-05-23 23:55 | PD ---
Physical Exam Date Seen by Provider: May 23, 2017 Time Seen by Provider: 23:54 Narrative The patient is a 56-year-old male who is initially evaluated by the previous physician. Please refer to the initial history, physical, diagnostic evaluation , treatment modality plan. The patient was signed out at midnight with CT the abdomen and pelvis pending. Data Data Last Documented VS Vital Signs Date Time Temp Pulse Resp B/P (MAP) Pulse Ox O2 Delivery O2 Flow Rate FiO2 05/23/17 22:29 18 05/23/17 22:16 97.9 106 129/76 (93) 96 Orders Orders Complete Blood Count With Diff (05/23/17 22:51) Comprehensive Metabolic Panel (05/23/17 22:51) Lipase (05/23/17 22:51) Prothrombin Time / Inr (Pt) (05/23/17 22:51) Act Partial Throm Time (Ptt) (05/23/17 22:51) Urinalysis - C+S If Indicated (05/23/17 22:51) Ct Abd/Pel W Iv Contrast(Rout) (05/23/17 22:51) Morphine Inj (Morphine Inj) (05/23/17 23:00) Ondansetron Inj (Zofran Inj) (05/23/17 23:00) Iohexol 350 Inj (Omnipaque 350 Inj) (05/23/17 23:55) Labs Laboratory Tests Test 05/23/17 23:00 White Blood Count 14.6 TH/MM3 Red Blood Count 4.49 MIL/MM3 Hemoglobin 13.8 GM/DL Hematocrit 41.0 % Mean Corpuscular Volume 91.2 FL Mean Corpuscular Hemoglobin 30.7 PG Mean Corpuscular Hemoglobin Concent 33.7 % Red Cell Distribution Width 16.9 % Platelet Count 433 TH/MM3 Mean Platelet Volume 7.4 FL Neutrophils (%) (Auto) 65.2 % Lymphocytes (%) (Auto) 23.5 % Monocytes (%) (Auto) 6.6 % Eosinophils (%) (Auto) 4.3 % Basophils (%) (Auto) 0.4 % Neutrophils # (Auto) 9.5 TH/MM3 Lymphocytes # (Auto) 3.4 TH/MM3 Monocytes # (Auto) 1.0 TH/MM3 Eosinophils # (Auto) 0.6 TH/MM3 Basophils # (Auto) 0.1 TH/MM3 CBC Comment DIFF FINAL Differential Comment Prothrombin Time 11.0 SEC Prothromb Time International Ratio 1.1 RATIO Activated Partial Thromboplast Time 28.9 SEC Blood Urea Nitrogen 16 MG/DL Creatinine 0.71 MG/DL Random Glucose 111 MG/DL Total Protein 6.8 GM/DL Albumin 3.2 GM/DL Calcium Level 8.7 MG/DL Alkaline Phosphatase 82 U/L Aspartate Amino Transf (AST/SGOT) 13 U/L Alanine Aminotransferase (ALT/SGPT) 16 U/L Total Bilirubin 0.2 MG/DL Sodium Level 141 MEQ/L Potassium Level 3.9 MEQ/L Chloride Level 108 MEQ/L Carbon Dioxide Level 28.3 MEQ/L Anion Gap 5 MEQ/L Estimat Glomerular Filtration Rate 115 ML/MIN Lipase 76 U/L MDM Medical Record Reviewed: Yes Supervised Visit with [place]: No Interpretation(s) Laboratory Tests Test 05/23/17 23:00 White Blood Count 14.6 TH/MM3 Red Blood Count 4.49 MIL/MM3 Hemoglobin 13.8 GM/DL Hematocrit 41.0 % Mean Corpuscular Volume 91.2 FL Mean Corpuscular Hemoglobin 30.7 PG Mean Corpuscular Hemoglobin Concent 33.7 % Red Cell Distribution Width 16.9 % Platelet Count 433 TH/MM3 Mean Platelet Volume 7.4 FL Neutrophils (%) (Auto) 65.2 % Lymphocytes (%) (Auto) 23.5 % Monocytes (%) (Auto) 6.6 % Eosinophils (%) (Auto) 4.3 % Basophils (%) (Auto) 0.4 % Neutrophils # (Auto) 9.5 TH/MM3 Lymphocytes # (Auto) 3.4 TH/MM3 Monocytes # (Auto) 1.0 TH/MM3 Eosinophils # (Auto) 0.6 TH/MM3 Basophils # (Auto) 0.1 TH/MM3 CBC Comment DIFF FINAL Differential Comment Prothrombin Time 11.0 SEC Prothromb Time International Ratio 1.1 RATIO Activated Partial Thromboplast Time 28.9 SEC Blood Urea Nitrogen 16 MG/DL Creatinine 0.71 MG/DL Random Glucose 111 MG/DL Total Protein 6.8 GM/DL Albumin 3.2 GM/DL Calcium Level 8.7 MG/DL Alkaline Phosphatase 82 U/L Aspartate Amino Transf (AST/SGOT) 13 U/L Alanine Aminotransferase (ALT/SGPT) 16 U/L Total Bilirubin 0.2 MG/DL Sodium Level 141 MEQ/L Potassium Level 3.9 MEQ/L Chloride Level 108 MEQ/L Carbon Dioxide Level 28.3 MEQ/L Anion Gap 5 MEQ/L Estimat Glomerular Filtration Rate 115 ML/MIN Lipase 76 U/L CT of the abdomen and pelvis reveals the pancreas remains abnormal in appearance with ill-defined hypoechoic masslike area in the canal. There is mild surrounding inflammatory change. This is not significantly changed from the recent study but remains of concern for possible pancreatic cancer. Tiny gallstones with no biliary obstruction or inflammatory change. Differential Diagnosis Differential diagnosis includes pancreatic cancer, pancreatic mass, partial small bowel obstruction, large bowel obstruction, pancreatitis, diverticulitis, abdominal metastasis. Narrative Course The patient was initially evaluated by the previous physician. Please refer to the initial history, physical, diagnostic evaluation, and treatment modality plan. The patient was signed out at midnight with CT of the abdomen and pelvis with IV contrast pending. Diagnosis Primary Impression: Pancreatic mass Patient Instructions: General Instructions Additional Instruction: Follow-up with your oncologist as scheduled on . Pain medication as directed. Please provide the patient a copy of his CT results and lab results at discharge. Return if symptoms worsen or progress. Med/Other Pt SpecificInfo: Prescription(s) given Scripts Hydrocodone-Acetaminophen ([place]) 10-325 Mg Tab 1 TAB PO Q6H Y for PAIN, #20 TAB 0 Refills Prov: Gil Hoffman MD 05/24/17 Disposition: 01 DISCHARGE HOME Condition: Stable Gil Hoffman MD May 23, 2017 23:55
--- NOTE | 2017-05-24 00:05 | RADRPT ---
EXAM DATE/TIME: 05/23/2017 23:49 [facility] COMPARISON: CT ABDOMEN & PELVIS W CONTRAST, April 06, 2017, 23:04. INDICATIONS : Left abdominal pain. IV CONTRAST: 100 cc Omnipaque 350 (iohexol) IV ORAL CONTRAST: No oral contrast ingested. RADIATION DOSE: 21.65 CTDIvol (mGy) MEDICAL HISTORY : Pancreatitis. Gastroesophageal reflux disease. SURGICAL HISTORY : Appendectomy. Pacemaker. ENCOUNTER: Initial ACUITY: 7 - 11 months PAIN SCALE: 10/10 LOCATION: Left lower quadrant TECHNIQUE: Volumetric scanning of the abdomen and pelvis was performed. Using automated exposure control and ad justment of the mA and/or kV according to patient size, radiation dose was kept as low as reasonably achievable to obtain optimal diagnostic quality images. DICOM format image data is available electro nically for review and comparison. FINDINGS: LOWER LUNGS: The visualized lower lungs are clear. LIVER: Homogeneous density without lesion. There is no dilation of the biliary tree. There is a single tiffanie te calcified gallstone with no wall thickening or inflammatory change. SPLEEN: Normal size without lesion. PANCREAS: There is an ill-defined hypoechoic mass like area again noted in the tail of the pancreas measuring u p to approximately 2.3 cm. There is mild surrounding inflammatory change with mild prominence of the distal pancreatic duct noted. KIDNEYS: Normal in size and shape. There is no mass, stone or hydronephrosis. ADRENAL GLANDS: Within normal limits. VASCULAR: There is no aortic aneurysm. BOWEL/MESENTERY: The stomach, small bowel, and colon demonstrate no acute abnormality. There is no free intraperitone al air or fluid. ABDOMINAL WALL: Within normal limits. RETROPERITONEUM: There is no lymphadenopathy. BLADDER: No wall thickening or mass. REPRODUCTIVE: Within normal limits. INGUINAL: There is no lymphadenopathy or hernia. MUSCULOSKELETAL: Within normal limits for patient age. CONCLUSION: 1. The pancreas remains abnormal in appearance with ill-defined hypoechoic mass like area in the marcia l. There is mild surrounding inflammatory change. This is not significantly changed from the recent dy but remains of concern for possible pancreatic cancer. 2. Tiny gallstone with no biliary obstruction or inflammatory change. Martín Lyons MD on May 24, 2017 at 0:00 Board Certified Radiologist. This report was verified electronically.
[2017-05-24 00:15] VITALS: BP 120/78; PULSE 78; RESP 16; O2SAT 93
[2017-05-24] MEDS ORDERED: HYDR-3366 PO (00:18)
[2017-05-24 00:20] LABS: BILIRUBIN, URINE NEG (NEG); BLOOD, URINE NEG (NEG); GLUCOSE,URINE NEG (NEG); KETONE, URINE TRACE mg/dL (NEG); NITRITE,URINE NEG (NEG); URINE LEUKOCYTE ESTERASE NEG (NEG)
[2017-05-24 00:29] LABS: MUCUS URINE MOD /lpf (OCC); URINE COLOR AMBER (YELLW/STRAW)
[2017-05-24 00:30] LABS: HYALINE CAST, URINE 0-2 /lpf (RARE); SQUAMOUS EPITHELIAL CELL URINE 0-5 /hpf (0-5)
[2017-05-24 00:45] VITALS: BP 119/75; PULSE 79; RESP 16; O2SAT 93
== END 2017-05-24 01:04 | disposition home or self-care (01) ==
LOC: PHED 22:08
DX: K86.89 Other specified diseases of pancreas (principal); R11.2 Nausea with vomiting, unspecified; D72.829 Elevated white blood cell count, unspecified; I10 Essential (primary) hypertension; E78.00 Pure hypercholesterolemia, unspecified; K21.9 Gastro-esophageal reflux disease without esophagitis; G47.30 Sleep apnea, unspecified; Z79.82 Long term (current) use of aspirin; Z87.39 Personal history of other diseases of the musculoskeletal system and connective tissue; Z87.09 Personal history of other diseases of the respiratory system; Z86.59 Personal history of other mental and behavioral disorders; Z86.79 Personal history of other diseases of the circulatory system; Z87.19 Personal history of other diseases of the digestive system; Z86.69 Personal history of other diseases of the nervous system and sense organs
CPT/HCPCS: 74177; 80053; 81001; 83690; 85025; 85610; 85730; 96374; 96375; 99284; J2270; J2405; Q9967

== ENCOUNTER 2017-06-16 05:53 | Inpatient (IN) | payer OTHER ==
[2017-06-16] VITALS (9 sets, daily range): BP systolic 133–141; BP diastolic 66–77; PULSE 75–100; RESP 22–24; TEMP 98.3–98.8; O2SAT 92–96
[~2017-06-16] VITALS: Ht 172.7 cm; Wt 103.0 kg
[~2017-06-16 05:53] MED LIST changes: +HYDR-3366 PO; -HYDR-3516 OROPHARYNG; +METH5TAB PO; -PRIL20TA2 PO; +SYMB160A INH; +[UNRECOGNIZED DRUG - CODE] PO
[2017-06-16] MEDS ORDERED: METOPROLOL TARTRATE 25 MG TAB PO PRN (06:15)
[2017-06-16] MEDS ORDERED: CHLORHEXIDINE GLUCONATE 2 % 1 PACK (2 CLOTHS) TOPICAL PRN (06:15)
[2017-06-16] MEDS ORDERED: SODIUM CHLORID 0.9% 500 ML IV PRN (06:15)
[2017-06-16] MEDS ORDERED: ceFAZolin 2 GM PREMIX 50 ML IV SCH (06:15)
[2017-06-16] MEDS ORDERED: LACTATED RINGER'S 1000 ML IV PRN (06:15)
[2017-06-16] MEDS ORDERED: POVIDONE IODINE 5% (ANTISEPSIS KIT) 4 APPLICATIONS EACH NARE PRN (06:15)
[2017-06-16] MEDS ORDERED: FAT EMULSION 20% INJ 0 ML ONE (06:17)
[2017-06-16] MEDS ORDERED: HYDROmorphone HCL PF 2 MG/ML VIAL ONE (06:25)
[2017-06-16] MEDS ORDERED: SUGAMMADEX SODIUM 200 MG/2 ML VIAL IV PUSH ONE (06:25)
[2017-06-16] MEDS ORDERED: ACETAMINOPHEN 1000 MG/100 ML 100 ML IV ONE (06:25)
[2017-06-16 06:45] LABS: AUTOMATED NEUTROPHIL # 13.9 TH/MM3 (1.8-7.7); BASOPHIL # 0.2 TH/MM3 (0-0.2); BASOPHIL % 0.9 % (0.0-2.0); EOSINOPHIL # 0.4 TH/MM3 (0-0.4); EOSINOPHIL % 2.1 % (0.0-4.0); HEMATOCRIT 40.3 % (39.0-51.0); HEMOGLOBIN 13.6 GM/DL (13.0-17.0); LYMPH % 10.6 % (9.0-44.0); LYMPHOCYTE # 1.9 TH/MM3 (1.0-4.8); MEAN CORPUSCULAR HEMOGLOBIN 31.2 PG (27.0-34.0); MEAN CORPUSCULAR HGB CONC 33.9 % (32.0-36.0); MEAN PLATELET VOLUME 7.6 FL (7.0-11.0); MONO % 8.8 % (0.0-8.0); MONOCYTE # 1.6 TH/MM3 (0-0.9); NEUT % 77.6 % (16.0-70.0); PLATELET COUNT 369 TH/MM3 (150-450); RED BLOOD COUNT 4.38 MIL/MM3 (4.50-5.90); RED CELL DISTRIBUTION WIDTH 15.5 % (11.6-17.2)
[2017-06-16 07:19] LABS: BICARBONATE 28.1 MEQ/L (21.0-32.0); CALCIUM 8.6 MG/DL (8.5-10.1); CREATININE 0.68 MG/DL (0.60-1.30)
[2017-06-16] MEDS ORDERED: FAMOTIDINE 20 MG/2 ML VIAL ONE (07:25)
[2017-06-16] MEDS ORDERED: HEPARIN SODIUM - SQ 10,000 UNITS/ML VIAL ONE (07:25)
[2017-06-16] MEDS ORDERED: HEPARIN SODIUM - IV 10,000 UNITS/10 ML VIAL ONE (07:25)
[2017-06-16] MEDS ORDERED: BUPIVACAINE HCL PF 0.5% 30 ML VIAL ONE (07:34)
[2017-06-16] MEDS ORDERED: BUPIVACAINE LIPOSOME PF 1.3% 20 ML VIAL ONE (07:35)
[2017-06-16] MEDS ORDERED: BUPIVACAINE/EPINEPHRINE 0.5% PF 30 ML VIAL ONE (08:46)
--- NOTE | 2017-06-16 11:19 | EKG ---
Date Performed: 06/16/2017 Time Performed: 06:26:20 PTAGE: 56 years EKG: Sinus rhythm Indeterminate axis Borderline ECG PREVIOUS TRACING 04/10/2017 DOCTOR: Adan Seals Interpretating Date/Time 06/16/2017 11:17:19
[2017-06-16] MEDS ORDERED: DEXAMETHASONE SOD PHOS 4 MG/ML VIAL IV ONE (12:00)
[2017-06-16] MEDS ORDERED: PROPOFOL 200 MG/20 ML AMP IV ONE (12:00)
[2017-06-16] MEDS ORDERED: NORMOSOL R INJ 2,000 ML IV ONE (12:00)
[2017-06-16] MEDS ORDERED: PHENYLEPHRINE HCL 10 MG/ML VIAL IV ONE (12:00)
[2017-06-16] MEDS ORDERED: NEOSTIGMINE 5 MG/5 ML SYRINGE IV PUSH ONE (12:00)
[2017-06-16] MEDS ORDERED: GLYCOPYRROLATE 1 MG/5 ML SYRINGE IV PUSH ONE (12:00)
[2017-06-16] MEDS ORDERED: SODIUM CHLORIDE 0.9% 20 ML VIAL IV ONE (12:00)
[2017-06-16] MEDS ORDERED: LACTATED RINGER'S 1000 ML INJ 2,000 ML IV ONE (12:00)
[2017-06-16] MEDS ORDERED: VECURONIUM BROMIDE 20 MG VIAL IV ONE (12:00)
[2017-06-16] MEDS ORDERED: ePHEDrine/NS 25 MG/5 ML SYRINGE IV ONE (12:00)
[2017-06-16] MEDS ORDERED: ceFAZolin INJ 1,000 MG VIAL IV ONE (12:00)
[2017-06-16] MEDS ORDERED: ONDANSETRON HCL 4 MG/2 ML VIAL IV ONE (12:00)
[2017-06-16] MEDS ORDERED: LIDOCAINE HCL 1% PF 5 ML SYRINGE OTHER ONE (12:00)
[2017-06-16] MEDS ORDERED: NS 500 ML (EXCEL BAG) INJ 500 ML IV ONE (12:00)
[2017-06-16] MEDS ORDERED: PHENYLEPH/NS 1000 MCG/10 ML SYR IV ONE (12:00)
[2017-06-16] MEDS ORDERED: ESMOLOL HCL 100 MG/10 ML VIAL IV ONE (12:00)
[2017-06-16] MEDS ORDERED: ROCURONIUM INJ 50 MG/5 ML SYRINGE IV PUSH ONE (12:00)
[2017-06-16] MEDS ORDERED: DO NOT ADM ANY ANTICOAGULANT DRUGS PRN (12:37)
[2017-06-16] MEDS ORDERED: NALOXONE HCL 0.4 MG/ML AMP IV PUSH PRN ×2 (12:45→14:00)
[2017-06-16] MEDS ORDERED: SODIUM CHLORIDE 0.9% FLUSH 10 ML FLUSH IV FLUSH PRN (12:45)
[2017-06-16] MEDS ORDERED: MAGNESIUM HYDROXIDE SUSP 30 ML CUP PO PRN (12:45)
[2017-06-16] MEDS ORDERED: BISACODYL 10 MG SUPP RECTAL PRN (12:45)
[2017-06-16] MEDS ORDERED: SENNOSIDES 8.6 MG TAB PO PRN (12:45)
[2017-06-16] MEDS ORDERED: *MEPERIDINE 25 MG INJ VIAL PERIprocedural Use ONLY ONE (12:47)
[2017-06-16] MEDS ORDERED: *ONDANSETRON 4 MG VIAL PERIprocedural Use ONLY ONE (12:48)
[2017-06-16] MEDS ORDERED: MIDAZOLAM HCL 2 MG/2 ML VIAL ONE (12:51)
[2017-06-16] MEDS ORDERED: MORPHINE SULFATE 4 MG/ML INJ ONE (12:51)
[2017-06-16] MEDS ORDERED: *morphine SULFATE 10 MG/ML PERIprocedure ONLY ONE (12:56)
[2017-06-16] MEDS ORDERED: diphenhydrAMINE HCL 50 MG/ML VIAL IV PUSH PRN (13:30)
[2017-06-16] MEDS: BUDESONIDE-FORMOTEROL 160/4.5 MCG INHALER INH SCH ×2 (13:30→20:24)
[2017-06-16] MEDS: FAMOTIDINE 20 MG/2 ML VIAL IV PUSH SCH ×2 (13:30→20:19)
[2017-06-16] MEDS ORDERED: BENZOCAINE 20% ORAL SPR 60 ML CAN MT PRN (13:30)
[2017-06-16] MEDS: SODIUM CHLORIDE 0.9% FLUSH 10 ML FLUSH IV FLUSH SCH ×2 (13:30→20:19)
[2017-06-16] MEDS: SODIUM CHLOR 0.9% 1000 ML INJ 1,000 ML IV SCH ×2 (13:30→20:23)
[2017-06-16] MEDS: MORPHINE SULFATE 30 MG/30 ML PCA IV SCH ×2 (13:31→16:09)
--- NOTE | 2017-06-16 13:44 | MP ---
cc: Dawson Juarez MD DATE OF OPERATION: 06/16/2017 PREOPERATIVE DIAGNOSES: 1. Pancreatic mass in the body of the pancreas suspicious for adenocarcinoma. 2. Right upper quadrant pain with cholelithiasis, likely symptomatic cholelithiasis. POSTOPERATIVE DIAGNOSES: 1. Pancreatic mass in the body of the pancreas suspicious for adenocarcinoma. 2. Right upper quadrant pain with cholelithiasis, likely symptomatic cholelithiasis. PROCEDURE: 1. Diagnostic laparoscopy. 2. Open distal pancreatectomy and splenectomy. 3. Omentectomy. 4. Cholecystectomy. 5. Placement of radiologic markers in the retroperitoneum. ATTENDING SURGEON: Dawson Juarez MD AGER TENDER: Martín Grover MD ANESTHESIA: General and regional tap block. BLOOD LOSS: 300 mL COMPLICATIONS: None. FINDINGS: 1. Very large, approximately 6-7 cm tumor in the body of the pancreas directly invading and likely occluding the splenic vein. No evidence of carcinomatosis or metastatic disease. Gallbladder with gallstones and signs of acute and chronic inflammation. 2. Omentum very large and redundant with ischemic changes after mobilization for pancreatectomy. 3. Body tumor being deeply into the retroperitoneum. Clips placed for high-risk margins for possible future radiation. INDICATION FOR PROCEDURE: The patient is a 56-year-old male who presented to [facility] in [place] with epigastric abdominal pain. Workup was performed and he was found to have cholelithiasis as well as a pancreatic body mass. This was seen by Dr. Tabatha Grace of oncology and he underwent further workup, which included tumor marker, which was noted to be elevated consistent with pancreatic adenocarcinoma. Staging scans were negative for metastatic disease. The patient was referred for surgical evaluation. After discussing with the patient about options including proceeding with a biopsy versus upfront resection of a highly suspicious lesion, the patient did wish to undergo resection soon as possible. I did discuss the risks, benefits, and alternatives to pancreatectomy, as well as cholecystectomy with the patient in detail prior to the procedure, and the patient agreed to undergo the procedure. PROCEDURE: The patient was taken to the operating room and placed in a supine position and placed under general endotracheal anesthesia. The patient's abdomen was shaved, prepped and draped in sterile fashion. Timeout was performed. We entered the abdomen with a Eduardo-type technique just above the umbilicus. We placed a 10 mm balloon trocar into the abdomen, insufflated the abdomen. We placed two 5 mm ports up in the epigastric area under direct visualization of the laparoscope. We were able to manipulate the omentum and the viscera. The mass was very deep and was really not even seen at this point, but there was no evidence of any carcinomatosis. After extensive search again there was no entry evidence of metastatic disease in the liver or peritoneum, and there was no contraindication to resection. The patient was tolerating this procedure fine at this point. We did remove ports and insufflation and opened the patient on the midline from the umbilicus up to the subxiphoid position with a 15-blade scalpel. Bovie electrocautery was used to dissect through subcutaneous tissue and opened the midline fascia for the full length of the incision. An [place] extra large wound protector was placed. Bookwalter retractor was placed. We were able to then use the EnSeal to open up the lesser sac from the head of the pancreas across the gastrocolic ligament and take the short gastrics down and all the way to the left luke. We were then able to pack our stomach up out of the way. We were able to see the pancreas. We dissected the transverse mesocolon as this was stuck down to the tumor. We resected this off using the EnSeal as well as with tedious right angle dissection and Bovie electrocautery. We were then able to identify the superior mesenteric vein as it coursed under the pancreas. We obtained a window between the vein and the neck of the pancreas using a Latia hemostat carefully. We placed a vessel loop across this. We divided the pancreas at the neck with the Ethicon 35 mm vascular stapler. We had excellent staple line distal and proximal margin, and this was grossly normal pancreas and grossly about between 1 and 2 cm away from our tumor, which was in the body of the pancreas. We then continued our dissection. We took down some retroperitoneal tissue above and below the pancreas to identify the splenic vein as it entered SMV portal confluence as well as the hepatic artery. Just due to the artery being very deep and hard to get to, we went ahead and divided the vein first. This was in our field and wanted to minimize retraction on this. We easily gained access around the, again, splenic vein, with a right angle passed a vessel loop. Used the vessel loop to guide the 35 mm vascular stapler across the vein. We fired this and had excellent staple line with no bleeding. We continued our dissection until we identified the artery. We placed the 35 mm stapler across the artery, compressed this. We had a good pulse in our hepatic artery and left gastric artery, confirming this was our splenic artery. We divided this without difficulty. We continued our dissection, mainly using the EnSeal device around the retroperitoneum. 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 We used another 35 mm vascular load on the IMV. We continued our dissection down to the spleen and took down the splenocolic ligament as well as the diaphragmatic attachments of the spleen with the EnSeal. The specimen was delivered into our field, passed off with a long stitch marking the pancreas margin for permanent processing. We had excellent hemostasis at this time. Irrigated out left upper quadrant, all suction was clear. We did place a clip over the hepatic artery as well as a small clip at the area of the retroperitoneal tumor where it was the most deep into the retroperitoneum for further reference in case the patient may need adjuvant radiation. We then turned our attention towards the cholecystectomy. The patient had some palpable gallstones, and there was clearly some evidence of acute and chronic inflammation of the gallbladder. A dome-down approach using the tonsil hemostat as well as the Bovie electrocautery. We took the gallbladder off of the gallbladder fossa without difficulty and down to the cystic duct and cystic artery. The cystic artery was tied with 0 Vicryl suture, and the cystic duct was tied with a 2-0 silk suture. These were both divided and the gallbladder was removed and passed off for permanent processing. We did use the EnSeal to take a large portion of the omentum as this would have been devascularized with our dissection for the pancreas. This again was passed off for permanent processing as separate specimen. We again turned our attention and reinspected our bed. There was no evidence of any leak or bleeding or complication. We placed a 19-Korean round Chas drain through a separate stab incision in the left upper quadrant and brought it to our splenic and pancreatic bed right in the retroperitoneum. We then placed the remaining portion of omentum up over the left upper quadrant and over the pancreatic bed. All viscera was placed in normal anatomic position. We placed the stomach back over the normal anatomic position with the NG tube in good position. We closed the midline incision with a #1 looped PDS suture. We closed the skin with jake and RICO dressing was applied. Drain was placed to bulb suction. All counts were correct. I was present and scrubbed for entire procedure. The patient tolerated procedure well. The patient was taken to the PACU in stable condition. Myself and Dr. Grover were present and scrubbed for entire procedure. Dr. Grover's presence was required for this procedure as it was particularly complex and a second experienced pancreatic surgeon was required. MD CAPRICE Jenkins/GENA , 12:55 PM , 01:42 PM ANN
[2017-06-16] MEDS ORDERED: Post-op Orders (for Pharmacy) XX ONE (14:00)
[2017-06-16] MEDS: PCA - TOTAL MG MORPHINE DELIVERED PER SHIFT SCH ×2 (14:00→22:00)
[2017-06-16] MEDS: ACETAMINOPHEN 1000 MG/100 ML 100 ML IV SCH ×2 (14:00→20:19)
--- NOTE | 2017-06-16 15:23 | PD.CONS ---
HPI Service Critical Care Medicine Consult Requested By Surgical Oncology Reason for Consult Critical Care Primary Care Physician Non-Staff History of Present Illness 56yo M with PMH of sick sinus syndrome s/p pacemaker, pancreatic mass underwent distal pancreatectomy and splenectomy today. Pt had CT a/p in April 2017 and a 2.5cm mass was found in pancreas. Pt has seen Yarelis PRECIADO from oncology Dr. Juarez for definitive diagnosis. Past Family Social History Allergies: Coded Allergies: No Known Allergies (Verified Adverse Reaction, Unknown, 05/23/17) Past Medical History History PFSH Past Medical History Hx Anticoagulant Therapy: Yes (81mg aspirin ) Arthritis: Yes Asthma: Yes Autoimmune Disease: No Blood Disorders: No Anxiety: Yes Depression: Yes Heart Rhythm Problems: Yes Cancer: Yes (POSSIBLE PANCREATIC CANCER) Cardiac Catheterization: No Cardiovascular Problems: Yes High Cholesterol: Yes Chest Pain: Yes Congestive Heart Failure: No COPD: Yes Cerebrovascular Accident: No Diabetes: No Diminished Hearing: No Endocrine: No Gastrointestinal Disorders: Yes GERD: Yes Genitourinary: No Hiatal Hernia: No Hypertension: Yes Immune Disorder: No Implanted Vascular Access Dvce: Yes Musculoskeletal: Yes Neurologic: Yes Psychiatric: Yes Reproductive: No Respiratory: Yes Immunizations Current: Yes Migraines: Yes (WITH TMJ) Pancreatitis: Yes (TUMOR ON PANCREAS) Seizures: No Sleep Apnea: Yes (cpap at home) Thyroid Disease: No Ulcer: No Tetanus Vaccination: Unknown Influenza Vaccination: Yes Past Surgical History Abdominal Surgery: Yes (appendectomy) AICD: No Appendectomy: Yes Arteriovenous Shunt: No Cardiac Surgery: Yes (PACEMAKER INSERTED: 05/12/16) Coronary Artery Bypass Graft: No Ear Surgery: No Endocrine Surgery: No Eye Surgery: No Genitourinary Surgery: No Gynecologic Surgery: No Insulin Pump: No Joint Replacement: No Oral Surgery: Yes (TOOTH REMOVED, tonsillectomy) Pacemaker: Yes Thoracic Surgery: No Tonsillectomy: Yes ( CHILD) Other Surgery: Yes Social History Alcohol Use: No Tobacco Use: No (QUIT 2013) Substance Use: No Allergies-Medications Allergies-Medications (Allergen,Severity, Reaction): Coded Allergies: No Known Allergies (Verified Adverse Reaction, Unknown, 05/23/17) Reported Meds & Prescriptions Reported Meds & Active Scripts Active [place] (Hydrocodone-Acetaminophen) 10-325 Mg Tab 1 Tab PO Q6H PRN Hydrocodone-Acetamin 5-325 mg (Hydrocodone/Acetaminophen) 5 Mg-325 Mg Tablet 1 Tab OROPHARYNG Q6HR Zofran (Ondansetron HCl) 4 Mg Tab 4 Mg PO Q6HR PRN Aspirin EC (Aspirin) 81 Mg Tabdr 81 Mg PO DAILY Reported Lisinopril 10 Mg Tab 10 Mg PO DAILY Hydrochlorothiazide 25 Mg Tab 25 Mg PO DAILY Metoprolol Tartrate 25 Mg Tab 25 Mg PO DAILY Physical Exam Vital Signs Vital Signs Date Time Temp Pulse Resp B/P (MAP) Pulse Ox O2 Delivery O2 Flow Rate FiO2 06/16/17 14:00 94 22 149/87 (107) 96 Nasal Cannula 3 06/16/17 13:31 14 06/16/17 13:30 95 24 141/75 (97) 93 Nasal Cannula 4 06/16/17 13:15 95 21 142/81 (101) 93 Nasal Cannula 4 06/16/17 13:00 98 21 147/83 (104) 94 Nasal Cannula 4 06/16/17 12:45 101 15 140/81 (100) 97 Nasal Cannula 4 06/16/17 12:39 97.6 101 18 157/75 (102) 99 Nasal Cannula 4 06/16/17 12:39 100 06/16/17 06:36 92 Nasal Cannula 2 06/16/17 06:36 78 06/16/17 06:35 97.2 74 18 122/76 (91) 96 Physical Exam Gen: Lethargic. Head: Normal. Neck: Supple, prone to snoring when flat. Obstructs airway. Lungs: Clear, good air movement and no wheezes. Heart: NL S1S2, Neck veins full, not distended. Abdomen: Post-surgical, quiet. Extremities: Warm. well perfused. Neuro: Moves 4 limbs to command, SIMONA, EOMI. Laboratory Laboratory Tests Test 06/16/17 06:20 White Blood Count 18.0 Red Blood Count 4.38 Hemoglobin 13.6 Hematocrit 40.3 Mean Corpuscular Volume 92.0 Mean Corpuscular Hemoglobin 31.2 Mean Corpuscular Hemoglobin Concent 33.9 Red Cell Distribution Width 15.5 Platelet Count 369 Mean Platelet Volume 7.6 Neutrophils (%) (Auto) 77.6 Lymphocytes (%) (Auto) 10.6 Monocytes (%) (Auto) 8.8 Eosinophils (%) (Auto) 2.1 Basophils (%) (Auto) 0.9 Neutrophils # (Auto) 13.9 Lymphocytes # (Auto) 1.9 Monocytes # (Auto) 1.6 Eosinophils # (Auto) 0.4 Basophils # (Auto) 0.2 CBC Comment DIFF FINAL Differential Comment Blood Urea Nitrogen 17 Creatinine 0.68 Random Glucose 102 Calcium Level 8.6 Sodium Level 140 Potassium Level 3.9 Chloride Level 104 Carbon Dioxide Level 28.1 Anion Gap 8 Estimat Glomerular Filtration Rate 121 Result Diagram: 06/16/17 0620 06/16/17 0620 Assessment and Plan Assessment and Plan A/P Problem List: (1) Obstructive sleep apnea hypopnea, severe ICD Code: G47.33 - Obstructive sleep apnea (adult) (pediatric) Status: Acute (2) COPD (chronic obstructive pulmonary disease) ICD Code: J44.9 - Chronic obstructive pulmonary disease, unspecified Status: Chronic (3) S/P splenectomy ICD Code: Z90.81 - Acquired absence of spleen (4) Pancreatic mass ICD Code: K86.9 - Disease of pancreas, unspecified Assessment and Plan Plan: 1. BiPAP 10/5 HS. 2. D/C COLD ROLLING MACHINE SETTER. 3. Maint iv. 4. Pepcid. 5. Chemical DVT px. 6. HOB 30 -45 degrees. Overall impression: Concerned for severe obstructive sleep apnea coupled with COLD ROLLING MACHINE SETTER. Will convert to oral pain meds and start BiPAP non-invasive ventilation. Problem Qualifiers (1) COPD (chronic obstructive pulmonary disease): Macario Reddy MD Jun 16, 2017 15:23
[2017-06-16] MEDS: ENOXAPARIN SODIUM 40 MG/0.4 ML SYRINGE SQ SCH (16:00)
[2017-06-16] MEDS: RESP: ALBUTEROL 2.5 MG/IPRATROPIUM 0.5 MG NEB (SCH) NEB (16:00)
[2017-06-16] MEDS: METOPROLOL TARTRATE 5 MG/5 ML VIAL IV PUSH SCH ×2 (17:02→23:06)
[2017-06-17] VITALS (19 sets, daily range): BP systolic 139–180; BP diastolic 68–93; PULSE 82–110; RESP 10–27; TEMP 98.2–99.2; O2SAT 94–100
[2017-06-17] MEDS: RESP: ALBUTEROL 2.5 MG/IPRATROPIUM 0.5 MG NEB (SCH) NEB ×5 (00:17→20:01)
[2017-06-17] MEDS: ACETAMINOPHEN 1000 MG/100 ML 100 ML IV SCH ×2 (04:05→08:13)
[2017-06-17] MEDS: METOPROLOL TARTRATE 5 MG/5 ML VIAL IV PUSH SCH ×4 (04:05→21:04)
[2017-06-17] MEDS: SODIUM CHLOR 0.9% 1000 ML INJ 1,000 ML IV SCH ×4 (05:30→21:30)
[2017-06-17] MEDS: PCA - TOTAL MG MORPHINE DELIVERED PER SHIFT SCH (06:00)
[2017-06-17 06:03] LABS: AUTOMATED NEUTROPHIL # 25.8 TH/MM3 (1.8-7.7); BASOPHIL # 0.1 TH/MM3 (0-0.2); BASOPHIL % 0.3 % (0.0-2.0); HEMOGLOBIN 14.1 GM/DL (13.0-17.0); LYMPH % 3.4 % (9.0-44.0); MEAN CELL VOLUME 94.5 FL (80.0-100.0); MEAN CORPUSCULAR HEMOGLOBIN 30.9 PG (27.0-34.0); MEAN CORPUSCULAR HGB CONC 32.8 % (32.0-36.0); MEAN PLATELET VOLUME 8.1 FL (7.0-11.0); MONO % 8.1 % (0.0-8.0); MONOCYTE # 2.4 TH/MM3 (0-0.9); NEUT % 88.2 % (16.0-70.0); PLATELET COUNT 376 TH/MM3 (150-450); RED BLOOD COUNT 4.55 MIL/MM3 (4.50-5.90); WHITE BLOOD COUNT 29.2 TH/MM3 (4.0-11.0)
[2017-06-17 06:22] LABS: BICARBONATE 27.2 MEQ/L (21.0-32.0); CALCIUM 8.2 MG/DL (8.5-10.1); CREATININE 0.68 MG/DL (0.60-1.30)
[2017-06-17 07:51] LABS: BANDS 8 % (0-6); LYMPHOCYTES 3 % (9-44); MONOCYTES 4 % (0-8); NEUTROPHIL # MANUAL DIFF 27.2 TH/MM3 (1.8-7.7); POLYS (SEG NEUTROPHILS) 85 % (16-70)
[2017-06-17] MEDS: METOPROLOL TARTRATE 25 MG TAB PO SCH (08:12)
[2017-06-17] MEDS: FAMOTIDINE 20 MG/2 ML VIAL IV PUSH SCH ×2 (08:12→21:03)
[2017-06-17] MEDS: METHADONE HCL 10 MG TAB PO SCH (08:13)
[2017-06-17] MEDS: SODIUM CHLORIDE 0.9% FLUSH 10 ML FLUSH IV FLUSH SCH ×2 (08:13→21:09)
[2017-06-17] MEDS: BUDESONIDE-FORMOTEROL 160/4.5 MCG INHALER INH SCH ×2 (09:00→21:09)
[2017-06-17] MEDS: MORPHINE SULFATE 30 MG/30 ML PCA IV SCH (10:34)
--- NOTE | 2017-06-17 10:42 | HHI.CCPN ---
Subjective Remarks/Hospital Course 56yo M with PMH of sick sinus syndrome s/p pacemaker, pancreatic mass underwent distal pancreatectomy and splenectomy today. Pt had CT a/p in April 2017 and a 2.5cm mass was found in pancreas. Pt has seen Yarelis PRECIADO from oncology Dr. Juarez for definitive diagnosis. Major complicating feature requiring critical care management is patient's chronic obstructive sleep apnea which is severe. 06/17: Patient placed on BiPAP shortly after arrival to [facility] and ABG showed only moderate CO2 retention. Will d/c ATHLETIC TEAM PHYSICIAN and try to limit his additional pain medication - already on chronic meds for back pain. Objective Vital Signs Date Time Temp Pulse Resp B/P (MAP) Pulse Ox O2 Delivery O2 Flow Rate FiO2 06/17/17 10:00 97 06/17/17 09:13 17 06/17/17 08:56 96 Nasal Cannula 6.00 06/17/17 08:00 98.2 157/80 (105) 06/17/17 07:00 35 Intake and Output 06/17/17 06/17/17 06/18/17 08:00 16:00 00:00 Intake Total 2693 ml Output Total 1050 ml Balance 1643 ml Result Diagram: 06/17/17 0541 06/17/17 0541 Other Results Laboratory Tests Test 06/16/17 17:45 Blood Gas Puncture Site ART LINE Blood Gas Patient Temperature 98.6 Blood Gas HCO3 23 mmol/L (22-26) Blood Gas Base Excess -2.9 mmol/L (-2-2) Blood Gas Oxygen Saturation 96 % (90-100) Arterial Blood pH 7.27 (7.380-7.420) Arterial Blood Partial Pressure CO2 52 mmHg (38-42) Arterial Blood Partial Pressure O2 119 mmHG (61-120) Arterial Blood Oxygen Content 17.6 Vol % (12.0-20.0) Arterial Blood Carboxyhemoglobin 2.0 % (0-4) Arterial Blood Methemoglobin 0.6 % (0-2) Blood Gas Hemoglobin 13.0 G/DL (12.0-16.0) Oxygen Delivery Device NASAL CANNULA Blood Gas Liter Flow 5 L/M Objective Remarks Gen: Lethargic. Head: Normal. Neck: Supple, prone to snoring when flat. Lungs: Clear, good air movement and no wheezes. Heart: NL S1S2, Neck veins full, not distended. Abdomen: Post-surgical, quiet. Extremities: War,. well perfused. Neuro: Moves 4 limbs to command, SIMONA, EOMI. A/P Problem List: (1) Obstructive sleep apnea hypopnea, severe ICD Code: G47.33 - Obstructive sleep apnea (adult) (pediatric) Status: Acute (2) COPD (chronic obstructive pulmonary disease) ICD Code: J44.9 - Chronic obstructive pulmonary disease, unspecified Status: Chronic (3) S/P splenectomy ICD Code: Z90.81 - Acquired absence of spleen (4) Pancreatic mass ICD Code: K86.9 - Disease of pancreas, unspecified Assessment and Plan Plan: 1. BiPAP 10/5 HS. 2. D/C ATHLETIC TEAM PHYSICIAN. 3. Maint iv. 4. Pepcid. 5. Chemical DVT px. 6. HOB 30 -45 degrees. Overall impression: Concerned for severe obstructive sleep apnea coupled with ATHLETIC TEAM PHYSICIAN. Will convert to oral pain meds and start BiPAP non-invasive ventilation. Problem Qualifiers (1) COPD (chronic obstructive pulmonary disease): Macario Reddy MD Jun 17, 2017 10:42
[2017-06-17] MEDS: ACETAMINOPHEN/HYDROcodone 325 MG/10 MG TAB PO PRN ×3 (14:19→22:57)
[2017-06-17] MEDS: ENOXAPARIN SODIUM 40 MG/0.4 ML SYRINGE SQ SCH (16:14)
--- NOTE | 2017-06-17 19:47 | HHI.PR ---
Subjective Subjective Notes Was painful this morning; better now back on oral pain meds. Objective Vitals/I&O Vital Signs Date Time Temp Pulse Resp B/P (MAP) Pulse Ox O2 Delivery O2 Flow Rate FiO2 06/17/17 19:17 19 06/17/17 18:00 101 06/17/17 16:00 99.2 180/92 (121) 94 06/17/17 08:56 Nasal Cannula 6.00 06/17/17 07:00 35 Labs Laboratory Tests Test 06/17/17 05:41 White Blood Count 29.2 Red Blood Count 4.55 Hemoglobin 14.1 Hematocrit 43.0 Mean Corpuscular Volume 94.5 Mean Corpuscular Hemoglobin 30.9 Mean Corpuscular Hemoglobin Concent 32.8 Red Cell Distribution Width 16.0 Platelet Count 376 Mean Platelet Volume 8.1 Neutrophils (%) (Auto) 88.2 Lymphocytes (%) (Auto) 3.4 Monocytes (%) (Auto) 8.1 Eosinophils (%) (Auto) 0.0 Basophils (%) (Auto) 0.3 Neutrophils # (Auto) 25.8 Lymphocytes # (Auto) 1.0 Monocytes # (Auto) 2.4 Eosinophils # (Auto) 0.0 Basophils # (Auto) 0.1 CBC Comment AUTO DIFF Differential Total Cells Counted 100 Neutrophils % (Manual) 85 Band Neutrophils % 8 Lymphocytes % 3 Monocytes % 4 Neutrophils # (Manual) 27.2 Differential Comment FINAL DIFF MANUAL Platelet Estimate NORMAL Platelet Morphology Comment NORMAL Red Cell Morphology Comment NORMAL Blood Urea Nitrogen 13 Creatinine 0.68 Random Glucose 124 Calcium Level 8.2 Sodium Level 138 Potassium Level 4.5 Chloride Level 102 Carbon Dioxide Level 27.2 Anion Gap 9 Estimat Glomerular Filtration Rate 121 Abdomen: Other (Moderately distended), Post-op tenderness Narrative Exam RICO dressing dry Binder in place ROSA output bloody; 50 ml/12 hrs A/P Assessment and Plan POD #1 Distal pancreatectomy/splenectomy WBC's 29.2; acute phase reaction from recent surgery D/C good Keep in [facility] through weekend due to severe sleep apnea and for pain control. Recheck labs in AM Martín Grover MD Jun 17, 2017 19:47
[2017-06-18] VITALS (14 sets, daily range): BP systolic 138–189; BP diastolic 77–97; PULSE 84–111; RESP 22–28; TEMP 97.8–99.2; O2SAT 88–98
[2017-06-18] MEDS: RESP: ALBUTEROL 2.5 MG/IPRATROPIUM 0.5 MG NEB (SCH) NEB ×4 (03:11→20:00)
[2017-06-18] MEDS: METOPROLOL TARTRATE 5 MG/5 ML VIAL IV PUSH SCH ×4 (04:00→22:19)
[2017-06-18] MEDS: ACETAMINOPHEN/HYDROcodone 325 MG/10 MG TAB PO PRN ×5 (04:18→23:26)
--- NOTE | 2017-06-18 04:25 | RADRPT ---
EXAM DATE/TIME: 06/18/2017 02:17 [place] COMPARISON: CHEST SINGLE AP, April 10, 2017, 23:45. INDICATIONS : Congestion MEDICAL HISTORY : Hypertension. Chronic obstructive pulmonary disease. Congestive heart failure. Pancreatitis. Oz roesophageal reflux disease. SURGICAL HISTORY : Appendectomy. Pacemaker. ENCOUNTER: Initial ACUITY: 1 day PAIN SCORE: 0/10 LOCATION: Bilateral chest FINDINGS: A single view of the chest demonstrates developing airspace disease in the left base. Mild atelectati c changes above the right hemidiaphragm. Heart size is borderline. Nasogastric tube traverses the GE junction extends off the inferior aspect of the image. Left subclavian bipolar pacer is radiographica lly intact. The osseous structures are intact. CONCLUSION: Developing left basilar airspace disease. Minimal atelectatic changes in the right base. Scotty Ingram MD on June 18, 2017 at 4:21 Board Certified Radiologist. This report was verified electronically.
[2017-06-18] MEDS: METOPROLOL TARTRATE 25 MG TAB PO SCH (08:14)
[2017-06-18] MEDS: METHADONE HCL 10 MG TAB PO SCH (08:15)
[2017-06-18] MEDS: FAMOTIDINE 20 MG/2 ML VIAL IV PUSH SCH ×2 (08:15→20:07)
[2017-06-18] MEDS: BUDESONIDE-FORMOTEROL 160/4.5 MCG INHALER INH SCH ×2 (08:16→22:15)
--- NOTE | 2017-06-18 08:50 | HHI.CCPN ---
Subjective Remarks/Hospital Course 56yo M with PMH of sick sinus syndrome s/p pacemaker, pancreatic mass underwent distal pancreatectomy and splenectomy today. Pt had CT a/p in April 2017 and a 2.5cm mass was found in pancreas. Pt has seen Yarelis PRECIADO from oncology Dr. Juarez for definitive diagnosis. Major complicating feature requiring critical care management is patient's chronic obstructive sleep apnea which is severe. 06/17: Patient placed on BiPAP shortly after arrival to [facility] and ABG showed only moderate CO2 retention. Will d/c TRADEMARK ATTORNEY and try to limit his additional pain medication - already on chronic meds for back pain. 06/18: DOUGLAS remains problematic but when he sleeps with his head elevated he is fine. Hypertension persists; will add clonidine and increase lopressor dose. Objective Vital Signs Date Time Temp Pulse Resp B/P (MAP) Pulse Ox O2 Delivery O2 Flow Rate FiO2 06/18/17 07:00 94 Nasal Cannula 5.00 06/18/17 06:00 105 06/18/17 05:18 26 06/18/17 04:00 98.7 167/89 (115) 06/17/17 19:00 35 Intake and Output 06/18/17 06/18/17 06/19/17 08:00 16:00 00:00 Output Total 2000 ml Balance -2000 ml Result Diagram: 06/17/17 0541 06/17/17 0541 Objective Remarks Gen: Lethargic but easily arousable. Head: Normal. Neck: Supple, prone to snoring when flat. Obstructs airway. Fine when sitting up. Lungs: Clear, good air movement and no wheezes. Some snoring. Heart: NL S1S2, No JVD. Abdomen: Post-surgical, nondistended, BS active. Dressings dry. Extremities: Warm. well perfused. Neuro: Moves 4 limbs to command, SIMONA, EOMI. Conversant, anxious. A/P Problem List: (1) Obstructive sleep apnea hypopnea, severe ICD Code: G47.33 - Obstructive sleep apnea (adult) (pediatric) Status: Acute (2) COPD (chronic obstructive pulmonary disease) ICD Code: J44.9 - Chronic obstructive pulmonary disease, unspecified Status: Chronic (3) S/P splenectomy ICD Code: Z90.81 - Acquired absence of spleen (4) Pancreatic mass ICD Code: K86.9 - Disease of pancreas, unspecified Assessment and Plan A/P Problem List: (1) Obstructive sleep apnea hypopnea, severe ICD Code: G47.33 - Obstructive sleep apnea (adult) (pediatric) Status: Acute (2) COPD (chronic obstructive pulmonary disease) ICD Code: J44.9 - Chronic obstructive pulmonary disease, unspecified Status: Chronic (3) S/P splenectomy ICD Code: Z90.81 - Acquired absence of spleen (4) Pancreatic mass ICD Code: K86.9 - Disease of pancreas, unspecified Assessment and Plan Plan: 1. BiPAP 10/5 qHS. 2. D/C TRADEMARK ATTORNEY. Add oral meds. 3. Maint iv. 4. Pepcid. 5. Chemical DVT px. 6. HOB 30 -45 degrees. 7. Add xanax 0.5 prn. 8. Add clonidine bid. 9. Encourage to sleep in chair when he wants. Overall impression: Concerned for obstructive sleep apnea; better after TRADEMARK ATTORNEY d/c' d. OK to transfer, always keep HOB up. Problem Qualifiers (1) COPD (chronic obstructive pulmonary disease): Problem Qualifiers (1) COPD (chronic obstructive pulmonary disease): Macario Reddy MD Jun 18, 2017 08:50
[2017-06-18] MEDS: SODIUM CHLORIDE 0.9% FLUSH 10 ML FLUSH IV FLUSH SCH ×2 (09:00→22:16)
[2017-06-18] MEDS ORDERED: PROCHLORPERAZINE MALEATE 10 MG TAB PO SCH (09:00)
[2017-06-18] MEDS: cloNIDine HCL 0.1 MG TAB PO SCH ×3 (09:08→23:27)
[2017-06-18] MEDS: METOPROLOL TARTRATE 50 MG TAB PO SCH (09:08)
[2017-06-18 10:40] LABS: AUTOMATED NEUTROPHIL # 30.2 TH/MM3 (1.8-7.7); BASOPHIL # 0.1 TH/MM3 (0-0.2); BASOPHIL % 0.2 % (0.0-2.0); HEMATOCRIT 40.3 % (39.0-51.0); HEMOGLOBIN 13.5 GM/DL (13.0-17.0); LYMPH % 3.5 % (9.0-44.0); LYMPHOCYTE # 1.2 TH/MM3 (1.0-4.8); MEAN CELL VOLUME 92.5 FL (80.0-100.0); MEAN CORPUSCULAR HEMOGLOBIN 30.9 PG (27.0-34.0); MEAN CORPUSCULAR HGB CONC 33.4 % (32.0-36.0); MEAN PLATELET VOLUME 8.4 FL (7.0-11.0); MONO % 7.3 % (0.0-8.0); MONOCYTE # 2.5 TH/MM3 (0-0.9); PLATELET COUNT 373 TH/MM3 (150-450); RED BLOOD COUNT 4.35 MIL/MM3 (4.50-5.90); RED CELL DISTRIBUTION WIDTH 15.1 % (11.6-17.2); WHITE BLOOD COUNT 33.9 TH/MM3 (4.0-11.0)
[2017-06-18 11:16] LABS: BICARBONATE 31.9 MEQ/L (21.0-32.0); CALCIUM 8.9 MG/DL (8.5-10.1); CREATININE 0.46 MG/DL (0.60-1.30)
[2017-06-18] MEDS: SODIUM CHLOR 0.9% 1000 ML INJ 1,000 ML IV SCH ×3 (11:30→18:23)
[2017-06-18 11:50] LABS: BANDS 3 % (0-6); LYMPHOCYTES 4 % (9-44); MONOCYTES 5 % (0-8); NEUTROPHIL # MANUAL DIFF 30.8 TH/MM3 (1.8-7.7); POLYS (SEG NEUTROPHILS) 88 % (16-70)
--- NOTE | 2017-06-18 12:06 | HHI.PR ---
Subjective Subjective Notes c/o pain this am, sitting in chair Objective Vitals/I&O Vital Signs Date Time Temp Pulse Resp B/P (MAP) Pulse Ox O2 Delivery O2 Flow Rate FiO2 06/18/17 11:00 22 06/18/17 10:00 94 06/18/17 09:53 97 Nasal Cannula 3.00 06/18/17 08:00 97.8 189/96 (127) 06/17/17 19:00 35 Labs Laboratory Tests Test 06/18/17 10:06 White Blood Count 33.9 Red Blood Count 4.35 Hemoglobin 13.5 Hematocrit 40.3 Mean Corpuscular Volume 92.5 Mean Corpuscular Hemoglobin 30.9 Mean Corpuscular Hemoglobin Concent 33.4 Red Cell Distribution Width 15.1 Platelet Count 373 Mean Platelet Volume 8.4 Neutrophils (%) (Auto) 89.0 Lymphocytes (%) (Auto) 3.5 Monocytes (%) (Auto) 7.3 Eosinophils (%) (Auto) 0.0 Basophils (%) (Auto) 0.2 Neutrophils # (Auto) 30.2 Lymphocytes # (Auto) 1.2 Monocytes # (Auto) 2.5 Eosinophils # (Auto) 0.0 Basophils # (Auto) 0.1 CBC Comment AUTO DIFF Differential Total Cells Counted 100 Neutrophils % (Manual) 88 Band Neutrophils % 3 Lymphocytes % 4 Monocytes % 5 Neutrophils # (Manual) 30.8 Differential Comment FINAL DIFF MANUAL Platelet Estimate NORMAL Platelet Morphology Comment NORMAL Red Cell Morphology Comment NORMAL Blood Urea Nitrogen 11 Creatinine 0.46 Random Glucose 117 Calcium Level 8.9 Sodium Level 138 Potassium Level 3.2 Chloride Level 97 Carbon Dioxide Level 31.9 Anion Gap 9 Estimat Glomerular Filtration Rate 190 Abdomen: Other (incisional tenderness hoda serosang) A/P Assessment and Plan POD #2 Distal pancreatectomy/splenectomy WBC' increase to 33 acute phase reaction from recent surgery, consider CT scan in continued increase trend D/C good Keep in ISC through weekend due to severe sleep apnea and for pain control. Recheck labs in AM htn- mgnt per isc Frederick Cruz MD Jun 18, 2017 12:06
[2017-06-18] MEDS: ENOXAPARIN SODIUM 40 MG/0.4 ML SYRINGE SQ SCH (16:47)
[2017-06-18] MEDS: ALPRAZolam 0.5 MG TAB PO PRN (20:07)
[2017-06-18] MEDS: LABETALOL HCL 100 MG/20 ML VIAL IV PUSH PRN (20:07)
[2017-06-18] MEDS: ONDANSETRON HCL 4 MG/2 ML VIAL IV PUSH PRN (20:07)
[2017-06-19] VITALS (15 sets, daily range): BP systolic 133–176; BP diastolic 64–98; PULSE 80–110; RESP 18–27; TEMP 98.3–98.9; O2SAT 92–97
[2017-06-19] MEDS: SODIUM CHLOR 0.9% 1000 ML INJ 1,000 ML IV SCH ×2 (00:22→09:25)
[2017-06-19] MEDS: RESP: ALBUTEROL 2.5 MG/IPRATROPIUM 0.5 MG NEB (SCH) NEB ×4 (02:39→20:28)
[2017-06-19] MEDS: ACETAMINOPHEN/HYDROcodone 325 MG/10 MG TAB PO PRN ×4 (03:31→20:16)
[2017-06-19] MEDS: METOPROLOL TARTRATE 5 MG/5 ML VIAL IV PUSH SCH (03:31)
[2017-06-19] MEDS: ONDANSETRON HCL 4 MG/2 ML VIAL IV PUSH PRN ×2 (03:31→20:16)
--- NOTE | 2017-06-19 08:13 | HHI.CCPN ---
Subjective Remarks/Hospital Course 56yo M with PMH of sick sinus syndrome s/p pacemaker, pancreatic mass underwent distal pancreatectomy and splenectomy today. Pt had CT a/p in April 2017 and a 2.5cm mass was found in pancreas. Pt has seen Yarelis PRECIADO from oncology Dr. Juarez for definitive diagnosis. Major complicating feature requiring critical care management is patient's chronic obstructive sleep apnea which is severe. 06/17: Patient placed on BiPAP shortly after arrival to [facility] and ABG showed only moderate CO2 retention. Will d/c WIRE PREPARATION WORKER and try to limit his additional pain medication - already on chronic meds for back pain. 06/18: DOUGLAS remains problematic but when he sleeps with his head elevated he is fine. Hypertension persists; will add clonidine and increase lopressor dose. 06/19: Afebrile but markedly elevated WBC (33,000) last few days. Abdominal exam benign. Trying to convince him to wear CPAP mask qhs at home. Objective Vital Signs Date Time Temp Pulse Resp B/P (MAP) Pulse Ox O2 Delivery O2 Flow Rate FiO2 06/19/17 06:00 98 06/19/17 04:31 23 06/19/17 04:00 98.7 144/89 (107) 92 06/18/17 20:03 Nasal Cannula 6.00 06/17/17 19:00 35 Intake and Output 06/19/17 06/19/17 06/20/17 08:00 16:00 00:00 Intake Total 1789 ml Output Total 925 ml Balance 864 ml Result Diagram: 06/18/17 1006 06/18/17 1006 Objective Remarks Gen: Lethargic but easily arousable. Head: Normal. Neck: Supple, prone to snoring when flat. Obstructs airway. Fine when sitting up. Lungs: Clear, good air movement and no wheezes. Some snoring. Heart: NL S1S2, No JVD. Abdomen: Post-surgical, nondistended, BS active. Dressings dry. Extremities: Warm. well perfused. Neuro: Moves 4 limbs to command, SIMONA, EOMI. Conversant, anxious. A/P Problem List: (1) Obstructive sleep apnea hypopnea, severe ICD Code: G47.33 - Obstructive sleep apnea (adult) (pediatric) Status: Acute (2) COPD (chronic obstructive pulmonary disease) ICD Code: J44.9 - Chronic obstructive pulmonary disease, unspecified Status: Chronic (3) S/P splenectomy ICD Code: Z90.81 - Acquired absence of spleen (4) Pancreatic mass ICD Code: K86.9 - Disease of pancreas, unspecified Assessment and Plan A/P Problem List: (1) Obstructive sleep apnea hypopnea, severe ICD Code: G47.33 - Obstructive sleep apnea (adult) (pediatric) Status: Acute (2) COPD (chronic obstructive pulmonary disease) ICD Code: J44.9 - Chronic obstructive pulmonary disease, unspecified Status: Chronic (3) S/P splenectomy ICD Code: Z90.81 - Acquired absence of spleen (4) Pancreatic mass ICD Code: K86.9 - Disease of pancreas, unspecified Assessment and Plan Plan: 1. BiPAP 10/5 qHS. 2. D/C WIRE PREPARATION WORKER. Add oral meds. 3. Maint iv. 4. Pepcid. 5. Chemical DVT px. 6. HOB 30 -45 degrees. 7. Add xanax 0.5 prn. 8. Add clonidine bid. 9. Encourage to sleep in chair when he wants. 10. Arrange for home CPAP machine. Overall impression: Concerned for obstructive sleep apnea; better after WIRE PREPARATION WORKER d/c' d. OK to transfer, always keep HOB up. Problem Qualifiers (1) COPD (chronic obstructive pulmonary disease): Problem Qualifiers (1) COPD (chronic obstructive pulmonary disease): Macario Reddy MD Jun 19, 2017 08:13
[2017-06-19 08:43] LABS: AUTOMATED NEUTROPHIL # 31.5 TH/MM3 (1.8-7.7); BASOPHIL # 0.1 TH/MM3 (0-0.2); BASOPHIL % 0.4 % (0.0-2.0); EOSINOPHIL % 0.1 % (0.0-4.0); HEMATOCRIT 40.2 % (39.0-51.0); HEMOGLOBIN 13.1 GM/DL (13.0-17.0); LYMPH % 3.6 % (9.0-44.0); LYMPHOCYTE # 1.3 TH/MM3 (1.0-4.8); MEAN CELL VOLUME 92.2 FL (80.0-100.0); MEAN CORPUSCULAR HEMOGLOBIN 30.1 PG (27.0-34.0); MEAN CORPUSCULAR HGB CONC 32.7 % (32.0-36.0); MEAN PLATELET VOLUME 8.4 FL (7.0-11.0); MONOCYTE # 2.8 TH/MM3 (0-0.9); NEUT % 87.9 % (16.0-70.0); PLATELET COUNT 402 TH/MM3 (150-450); RED BLOOD COUNT 4.36 MIL/MM3 (4.50-5.90); RED CELL DISTRIBUTION WIDTH 15.3 % (11.6-17.2); WHITE BLOOD COUNT 35.8 TH/MM3 (4.0-11.0)
[2017-06-19 09:00] LABS: ALBUMIN 2.6 GM/DL (3.4-5.0); ALT (GPT) 26 U/L (12-78); AST (GOT) 21 U/L (15-37); BICARBONATE 34.8 MEQ/L (21.0-32.0); BLOOD UREA NITROGEN 14 MG/DL (7-18); CALCIUM 8.6 MG/DL (8.5-10.1); CHLORIDE 98 MEQ/L (98-107); CREATININE 0.47 MG/DL (0.60-1.30); GLOMERULAR FILTRATION RATE 185 ML/MIN (>89); GLUCOSE,RANDOM 103 MG/DL (74-106); MAGNESIUM 1.9 MG/DL (1.5-2.5); PHOSPHORUS 2.2 MG/DL (2.5-4.9); SODIUM (NA) 140 MEQ/L (136-145)
[2017-06-19 09:01] LABS: ALKALINE PHOSPHATASE 108 U/L (45-117); TOTAL BILIRUBIN ADULT 0.4 MG/DL (0.2-1.0); TOTAL PROTEIN 6.8 GM/DL (6.4-8.2)
[2017-06-19 09:19] LABS: BANDS 15 % (0-6); LYMPHOCYTES 4 % (9-44); MONOCYTES 10 % (0-8); MYELOCYTES 2 % (0-0); NEUTROPHIL # MANUAL DIFF 30.8 TH/MM3 (1.8-7.7); POLYS (SEG NEUTROPHILS) 69 % (16-70)
[2017-06-19 09:20] LABS: TOXIC VACUOLATION PRESENT (NONE SEEN)
[2017-06-19] MEDS: METHADONE HCL 10 MG TAB PO SCH (09:24)
[2017-06-19] MEDS: FAMOTIDINE 20 MG/2 ML VIAL IV PUSH SCH ×2 (09:24→20:15)
[2017-06-19] MEDS: cloNIDine HCL 0.1 MG TAB PO SCH ×2 (09:24→17:21)
[2017-06-19] MEDS: METOPROLOL TARTRATE 50 MG TAB PO SCH (09:24)
[2017-06-19] MEDS: BUDESONIDE-FORMOTEROL 160/4.5 MCG INHALER INH SCH ×2 (09:25→20:17)
[2017-06-19] MEDS: SODIUM CHLORIDE 0.9% FLUSH 10 ML FLUSH IV FLUSH SCH ×2 (09:26→20:17)
--- NOTE | 2017-06-19 10:57 | RADRPT ---
EXAM DATE/TIME: 06/19/2017 10:37 [facility] COMPARISON: CT THORAX W/O CONTRAST, April 07, 2017, 21:14. CHEST SINGLE AP, April 10, 2017, 23:45. CHEST SI NGLE AP, June 18, 2017, 2:17. INDICATIONS : Short of breath and wheezing MEDICAL HISTORY : Pancreatitis. Gastroesophageal reflux disease. SURGICAL HISTORY : Pacemaker. Appendectomy. ENCOUNTER: Subsequent ACUITY: 2 days PAIN SCORE: 0/10 LOCATION: Bilateral chest FINDINGS: Pacemaker device is noted with control pack over the left chest. Nasogastric tube descends into the s tomach. Mild perihilar right opacities persist grossly unchanged. No significant effusion. Heart size and mediastinal contours are stable. CONCLUSION: Mild central interstitial opacities. Elmer Witt MD on June 19, 2017 at 10:53 Board Certified Radiologist. This report was verified electronically.
[2017-06-19] MEDS ORDERED: POTASSIUM CHLORIDE 10 MEQ CONTROLLED RELEASE TAB PO ONE (11:00)
[2017-06-19] MEDS ORDERED: POTASSIUM PHOSPHATE INJ 15 MMOL in SODIUM CHLORIDE 0.9% INJ 150 ML IV ONE (12:00)
--- NOTE | 2017-06-19 13:26 | HHI.PR ---
Subjective Subjective Notes Reports increase in secretions today Feeling good; no complaints Likes abdominal binder Objective Vitals/I&O Vital Signs Date Time Temp Pulse Resp B/P (MAP) Pulse Ox O2 Delivery O2 Flow Rate FiO2 06/19/17 09:53 94 Nasal Cannula 6.00 06/19/17 06:00 98 06/19/17 04:31 23 06/19/17 04:00 98.7 144/89 (107) 06/17/17 19:00 35 Labs Laboratory Tests Test 06/19/17 08:28 White Blood Count 35.8 Red Blood Count 4.36 Hemoglobin 13.1 Hematocrit 40.2 Mean Corpuscular Volume 92.2 Mean Corpuscular Hemoglobin 30.1 Mean Corpuscular Hemoglobin Concent 32.7 Red Cell Distribution Width 15.3 Platelet Count 402 Mean Platelet Volume 8.4 Neutrophils (%) (Auto) 87.9 Lymphocytes (%) (Auto) 3.6 Monocytes (%) (Auto) 8.0 Eosinophils (%) (Auto) 0.1 Basophils (%) (Auto) 0.4 Neutrophils # (Auto) 31.5 Lymphocytes # (Auto) 1.3 Monocytes # (Auto) 2.8 Eosinophils # (Auto) 0.0 Basophils # (Auto) 0.1 CBC Comment AUTO DIFF Differential Total Cells Counted 100 Neutrophils % (Manual) 69 Band Neutrophils % 15 Lymphocytes % 4 Monocytes % 10 Neutrophils # (Manual) 30.8 Myelocytes 2 Differential Comment FINAL DIFF MANUAL Toxic Vacuolation PRESENT Platelet Estimate NORMAL Platelet Morphology Comment NORMAL Blood Urea Nitrogen 14 Creatinine 0.47 Random Glucose 103 Total Protein 6.8 Albumin 2.6 Calcium Level 8.6 Phosphorus Level 2.2 Magnesium Level 1.9 Alkaline Phosphatase 108 Aspartate Amino Transf (AST/SGOT) 21 Alanine Aminotransferase (ALT/SGPT) 26 Total Bilirubin 0.4 Sodium Level 140 Potassium Level 3.3 Chloride Level 98 Carbon Dioxide Level 34.8 Anion Gap 7 Estimat Glomerular Filtration Rate 185 Date/Time Source Procedure Growth Status 06/19/17 12:35 Sputum Expectorated Sputum Gram Stain Pending Received 06/19/17 12:35 Sputum Expectorated Sputum Sputum Culture Pending Received Cardiovascular: Regular Lungs: Clear Abdomen: Other (RICO in place with good suction; ROSA with SS fluid; abdomen mildly distended; post op tenderness ) Extremities: No edema A/P Assessment and Plan 56 year old male POD3 dx lap;Distal pancreatectomy/splenectomy -Increase in WBC -CT chest and abd/pelvis -Sputum culture sent -IS -Continue NGT to LIWS -IVF -OOB as tolerated -Will follow up on scans Attending Statement The exam, history, and the medical decision-making described in the above note were completed with the assistance of the mid-level provider. I reviewed and agree with the findings presented. I attest that I had a [id number] encounter with the patient on the same day, and personally performed and documented my assessment and findings in the medical record. Patient s/p distal pancreatectomy Pain controlled currently Abdominal Exam: +BS, no rebound tenderness or peritonitis CT scan today ROSA drain clear DC planning Kristen Woodruff COMPUTER INSTALLER/Friction Paint Machine Tender COMPUTER INSTALLER Jun 19, 2017 13:26 Dawson Juarez MD Jun 19, 2017 23:21
[2017-06-19] MEDS: ENOXAPARIN SODIUM 40 MG/0.4 ML SYRINGE SQ SCH (17:21)
[2017-06-19] MEDS: LABETALOL HCL 100 MG/20 ML VIAL IV PUSH PRN (18:22)
[2017-06-19] MEDS: ALPRAZolam 0.5 MG TAB PO PRN (20:16)
[2017-06-19] MEDS ORDERED: IOHEXOL 350 MG/ML 10 ML VIAL (for RAD DIAG) IVCONTRAST ONE (21:55)
--- NOTE | 2017-06-19 22:13 | RADRPT ---
EXAM DATE/TIME: 06/19/2017 21:26 [facility] COMPARISON: CT ABDOMEN & PELVIS W CONTRAST, May 23, 2017, 23:49. INDICATIONS : Elevated labs post pancreatectomy/spleenectomy. IV CONTRAST: 100 cc Omnipaque 350 (iohexol) IV ; Cumulative dose for multiple exams. ORAL CONTRAST: No oral contrast ingested. RADIATION DOSE: 19.79 CTDIvol (mGy) ; Combined studies - Thorax/Abdomen/Pelvis MEDICAL HISTORY : Cardiovascular disease. Pancreatitis. Chronic obstructive pulmonary disease. SURGICAL HISTORY : Appendectomy. Splenectomy.pancreatectomy. ENCOUNTER: Subsequent ACUITY: 2 days PAIN SCALE: 5/10 LOCATION: Bilateral abdomen. TECHNIQUE: Volumetric scanning of the abdomen and pelvis was performed. Using automated exposure control and ad justment of the mA and/or kV according to patient size, radiation dose was kept as low as reasonably achievable to obtain optimal diagnostic quality images. DICOM format image data is available electro nically for review and comparison. FINDINGS: Comparison is May 23. Since the prior exam the spleen and distal pancreas have been an. There ar e multiple locules of air in the operative bed and there is stranding in the omental region. Nasogast rosanne tube is present in the stomach. There is a drain present in the pancreatic bed. Skin jake pres ent anteriorly. Bilateral basilar airspace consolidation the lungs and distal airway disease could represent aspirati on pneumonia. Pacer lead tip in right ventricle. No acute findings in the liver, adrenals, kidneys. Mild constipation. CONCLUSION: 1. Development of basilar airspace disease and distal airway disease. This could be secondary to pneu monia and aspiration. 2. Postoperative distal pancreatectomy and splenectomy with edematous changes in the upper abdomen an d multiple small locules of air. There is a drain in the pancreatic bed. No abnormal or drainable flu id collections are present. 3. Mild constipation. No bowel obstruction. NG tip in stomach. Luiz Magana MD on June 19, 2017 at 22:06 Board Certified Radiologist. This report was verified electronically.
--- NOTE | 2017-06-19 22:25 | RADRPT ---
EXAM DATE/TIME: 06/19/2017 21:26 [facility] COMPARISON: No previous studies available for comparison. INDICATIONS : Elevated labs post pancreatectomy/spleenectomy. IV CONTRAST: 100 cc Omnipaque 350 (iohexol) IV ; Cumulative dose for multiple exams. RADIATION DOSE: 19.79 CTDIvol (mGy) ; Combined studies - Thorax/Abdomen/Pelvis MEDICAL HISTORY : Cardiovascular disease. Chronic obstructive pulmonary disease. Pancreatitis. SURGICAL HISTORY : Appendectomy. Pacemaker.Splenectomy.Pancreatectomy. ENCOUNTER: Subsequent ACUITY: 2 days PAIN SCALE: 5/10 LOCATION: Bilateral chest TECHNIQUE: Volumetric scanning of the chest was performed. Using automated exposure control and adjustment of t he mA and/or kV according to patient size, radiation dose was kept as low as reasonably achievable to obtain optimal diagnostic quality images. DICOM format image data is available electronically for review and comparison. Follow-up recommendations for detected pulmonary nodules are based at a minimum on nodule size and pa tient risk factors according to Fleischner Society Guidelines. FINDINGS: Compared April 07. Over the last 2 months there is interval development of extensive distal airway d isease and peribronchial thickening. There is also patchy airspace consolidation in both lungs. Findi ngs are most characteristic of bronchopneumonia or extensive aspiration. Basilar lung disease is new since an abdomen CT from May 23 as well. There is also interval development of mild hilar and mediastinal adenopathy bilaterally. Pacer leads are present in right atrium and right ventricle. CONCLUSION: 1. Development of bilateral distal airway disease, peribronchial thickening and patchy airspace conso lidation in both lungs most characteristic of pneumonia and aspiration. Cannot completely exclude rap id metastatic spread of tumor in patient with reported history of pancreatic mass. There is also deve lopment of bilateral mediastinal and hilar adenopathy with multiple lymph nodes in the 1-2 cm range. Luiz Magana MD on June 19, 2017 at 22:11 Board Certified Radiologist. This report was verified electronically.
[2017-06-20] VITALS (19 sets, daily range): BP systolic 128–152; BP diastolic 68–79; PULSE 83–98; RESP 22–25; TEMP 98.4–98.6; O2SAT 88–97
[2017-06-20] MEDS: cloNIDine HCL 0.1 MG TAB PO SCH ×3 (00:04→16:24)
[2017-06-20] MEDS: LABETALOL HCL 100 MG/20 ML VIAL IV PUSH PRN ×2 (00:05→05:09)
[2017-06-20] MEDS: ALPRAZolam 0.5 MG TAB PO PRN ×2 (02:02→21:55)
[2017-06-20] MEDS: ACETAMINOPHEN/HYDROcodone 325 MG/10 MG TAB PO PRN ×3 (02:03→21:55)
[2017-06-20] MEDS: RESP: ALBUTEROL 2.5 MG/IPRATROPIUM 0.5 MG NEB (SCH) NEB ×3 (02:48→15:22)
[2017-06-20] MEDS: SODIUM CHLOR 0.9% 1000 ML INJ 1,000 ML IV SCH ×2 (05:06→19:42)
[2017-06-20 05:38] LABS: HEMATOCRIT 37.2 % (39.0-51.0); HEMOGLOBIN 12.2 GM/DL (13.0-17.0); MEAN CELL VOLUME 93.6 FL (80.0-100.0); MEAN CORPUSCULAR HEMOGLOBIN 30.7 PG (27.0-34.0); MEAN CORPUSCULAR HGB CONC 32.7 % (32.0-36.0); PLATELET COUNT 373 TH/MM3 (150-450); RED BLOOD COUNT 3.98 MIL/MM3 (4.50-5.90); RED CELL DISTRIBUTION WIDTH 15.4 % (11.6-17.2); WHITE BLOOD COUNT 39.5 TH/MM3 (4.0-11.0)
[2017-06-20 05:56] LABS: ALBUMIN 2.1 GM/DL (3.4-5.0); AST (GOT) 20 U/L (15-37); BICARBONATE 33.3 MEQ/L (21.0-32.0); BLOOD UREA NITROGEN 13 MG/DL (7-18); CALCIUM 8.9 MG/DL (8.5-10.1); CHLORIDE 98 MEQ/L (98-107); GLOMERULAR FILTRATION RATE 223 ML/MIN (>89); GLUCOSE,RANDOM 111 MG/DL (74-106); SODIUM (NA) 139 MEQ/L (136-145)
[2017-06-20 05:58] LABS: ALT (GPT) 24 U/L (12-78)
[2017-06-20 05:59] LABS: ALKALINE PHOSPHATASE 383 U/L (45-117); TOTAL BILIRUBIN ADULT 0.4 MG/DL (0.2-1.0); TOTAL PROTEIN 6.3 GM/DL (6.4-8.2)
[2017-06-20 06:48] LABS: BANDS 26 % (0-6); LYMPHOCYTES 5 % (9-44); METAMYELOCYTES 1 % (0-1); MONOCYTES 11 % (0-8); MYELOCYTES 5 % (0-0); NEUTROPHIL # MANUAL DIFF 33.2 TH/MM3 (1.8-7.7); POLYS (SEG NEUTROPHILS) 52 % (16-70)
[2017-06-20 06:50] LABS: TOXIC VACUOLATION PRESENT (NONE SEEN)
[2017-06-20] MEDS: FAMOTIDINE 20 MG/2 ML VIAL IV PUSH SCH ×2 (08:09→21:56)
[2017-06-20] MEDS: METOPROLOL TARTRATE 50 MG TAB PO SCH (08:09)
[2017-06-20] MEDS: METHADONE HCL 10 MG TAB PO SCH (08:09)
[2017-06-20] MEDS: BUDESONIDE-FORMOTEROL 160/4.5 MCG INHALER INH SCH ×2 (08:10→21:57)
[2017-06-20] MEDS: SODIUM CHLORIDE 0.9% FLUSH 10 ML FLUSH IV FLUSH SCH ×2 (08:10→21:56)
--- NOTE | 2017-06-20 09:14 | HHI.PR ---
Subjective Remarks Follow up respiratory failure, pneumonia. Patient states that he feels "much better" today. He wants to go home. Per nursing, patient's oxygen saturation drops when he sleeps. He states that his breathing is better. Objective Vitals Vital Signs Date Time Temp Pulse Resp B/P (MAP) Pulse Ox O2 Delivery O2 Flow Rate FiO2 06/20/17 07:50 88 Nasal Cannula 6.00 06/20/17 07:43 93 50 06/20/17 06:00 87 06/20/17 04:00 85 06/20/17 04:00 98.5 85 22 134/73 (93) 93 06/20/17 03:43 94 50 06/20/17 02:00 86 06/20/17 00:00 98.4 83 24 152/79 (103) 96 06/20/17 00:00 83 06/19/17 23:45 95 45 06/19/17 22:00 90 06/19/17 20:30 92 Nasal Cannula 21 06/19/17 20:00 90 06/19/17 20:00 98.8 90 24 174/98 (123) 95 06/19/17 19:00 92 Nasal Cannula 6.00 Humidified 06/19/17 18:00 97 06/19/17 16:00 98.9 93 23 176/91 (119) 94 06/19/17 16:00 102 06/19/17 14:00 86 06/19/17 12:00 80 06/19/17 12:00 98.6 110 18 133/75 (94) 97 06/19/17 10:00 98 06/19/17 09:53 94 Nasal Cannula 6.00 I/O 06/19/17 06/19/17 06/19/17 06/20/17 06/20/17 06/20/17 07:00 15:00 23:00 07:00 15:00 23:00 Intake Total 1789 ml 1255 ml 1283 ml Output Total 925 ml 1010 ml 650 ml Balance 864 ml 245 ml 633 ml Intake Oral 120 ml 100 ml 480 ml IV Total 1669 ml 1155 ml 803 ml Output Urine Total 800 ml 800 ml 625 ml Gastric Drainage Total 100 ml 200 ml 25 ml Drainage Total 25 ml 10 ml # Bowel Movements 0 0 Result Diagram: 06/20/17 0506/20/17520 Imaging Last Impressions Chest X-Ray 06/19/17 0000 Signed Impressions: Service Date/Time: Monday, June 19, 2017 10:37 - CONCLUSION: Mild central interstitial opacities. Elmer Wtit MD Chest CT 06/19/17 0000 Signed Impressions: Service Date/Time: Monday, June 19, 2017 21:26 - CONCLUSION: 1. Development of bilateral distal airway disease, peribronchial thickening and patchy airspace consolidation in both lungs most characteristic of pneumonia and aspiration. Cannot completely exclude rapid metastatic spread of tumor in patient with reported history of pancreatic mass. There is also development of bilateral mediastinal and hilar adenopathy with multiple lymph nodes in the 1-2 cm range. Luiz Magana MD Abdomen/Pelvis CT 06/19/17 0000 Signed Impressions: Service Date/Time: Monday, June 19, 2017 21:26 - CONCLUSION: 1. Development of basilar airspace disease and distal airway disease. This could be secondary to pneumonia and aspiration. 2. Postoperative distal pancreatectomy and splenectomy with edematous changes in the upper abdomen and multiple small locules of air. There is a drain in the pancreatic bed. No abnormal or drainable fluid collections are present. 3. Mild constipation. No bowel obstruction. NG tip in stomach. Luiz Magana MD Objective Remarks General: Obese male in no acute distress. Heart: Regular rate and rhythm. No murmur. Lungs: Clear to auscultation bilaterally. No wheezes, rales, or rhonchi. Breathing is nonlabored. Abdomen: Soft, nontender, nondistended. Extremities: No lower extremity edema. Psych: Alert and oriented. Answers questions appropriately. Procedures 06/16/17 diagnostic laparoscopy, open distal pancreatectomy and splenectomy, omentectomy, cholecystectomy, placement of radiologic markers in the retroperitoneum Urinary Catheter: No Vascular Central Line Catheter: No A/P Assessment and Plan 1. Respiratory failure: Secondary to obstructive sleep apnea, COPD, pneumonia. Continue supplemental oxygen. BiPAP at night. Consult pulmonology. Oxygen saturations remain low, in the 80s, despite oxygen per nasal cannula. Check ABG. 2. COPD, pneumonia: Add antibiotic coverage. DuoNeb, Symbicort. 3. GI prophylaxis: Famotidine. 4. Leukocytosis with bandemia: WBCs are significantly elevated. Likely secondary to infection. Blood cultures are pending. Sputum culture pending. 5. Hypokalemia: Improved. Monitor labs. 6. DVT prophylaxis: Lovenox. Oli Thompson MD Jun 20, 2017 09:14
[2017-06-20] MEDS: LEVOFLOXACIN 750 MG PREMIX INJ 150 ML IV SCH (14:00)
[2017-06-20] MEDS: ENOXAPARIN SODIUM 40 MG/0.4 ML SYRINGE SQ SCH (15:00)
--- NOTE | 2017-06-20 15:44 | HHI.PR ---
Subjective Subjective Notes Up to chair On BiPAP---RT doing ABG Objective Vitals/I&O Vital Signs Date Time Temp Pulse Resp B/P (MAP) Pulse Ox O2 Delivery O2 Flow Rate FiO2 06/20/17 13:42 97 45 06/20/17 09:12 Venturi Mask 6.00 06/20/17 06:00 87 06/20/17 04:00 98.5 22 134/73 (93) Labs Laboratory Tests Test 06/20/17 05:21 06/20/17 13:00 White Blood Count 39.5 Red Blood Count 3.98 Hemoglobin 12.2 Hematocrit 37.2 Mean Corpuscular Volume 93.6 Mean Corpuscular Hemoglobin 30.7 Mean Corpuscular Hemoglobin Concent 32.7 Red Cell Distribution Width 15.4 Platelet Count 373 Mean Platelet Volume 8.0 CBC Comment AUTO DIFF Differential Total Cells Counted 100 Neutrophils % (Manual) 52 Band Neutrophils % 26 Lymphocytes % 5 Monocytes % 11 Neutrophils # (Manual) 33.2 Metamyelocytes 1 Myelocytes 5 Differential Comment FINAL DIFF MANUAL Toxic Vacuolation PRESENT Platelet Estimate HIGH Platelet Morphology Comment NORMAL Red Cell Morphology Comment NORMAL Blood Urea Nitrogen 13 Creatinine 0.40 Random Glucose 111 Total Protein 6.3 Albumin 2.1 Calcium Level 8.9 Alkaline Phosphatase 383 Aspartate Amino Transf (AST/SGOT) 20 Alanine Aminotransferase (ALT/SGPT) 24 Total Bilirubin 0.4 Sodium Level 139 Potassium Level 3.7 Chloride Level 98 Carbon Dioxide Level 33.3 Anion Gap 8 Estimat Glomerular Filtration Rate 223 Blood Gas Puncture Site RT RADIAL Blood Gas Patient Temperature 98.6 Blood Gas HCO3 35 Blood Gas Base Excess 9.0 Blood Gas Oxygen Saturation 91 Arterial Blood pH 7.31 Arterial Blood Partial Pressure CO2 72 Arterial Blood Partial Pressure O2 73 Arterial Blood Oxygen Content 17.9 Arterial Blood Carboxyhemoglobin 1.1 Arterial Blood Methemoglobin 0.9 Blood Gas Hemoglobin 14.0 Oxygen Delivery Device BIPAP Blood Gas Ventilator Setting EPAP 5/IPAP 12 Blood Gas Inspired Oxygen 50 Date/Time Source Procedure Growth Status 06/19/17 14:07 Blood Peripheral Aerobic Blood Culture - Preliminary NO GROWTH IN 1 DAY Resulted 06/19/17 14:07 Blood Peripheral Anaerobic Blood Culture - Preliminary NO GROWTH IN 1 DAY Resulted 06/19/17 12:35 Sputum Expectorated Sputum Gram Stain - Final Resulted 06/19/17 12:35 Sputum Expectorated Sputum Sputum Culture - Preliminary HEAVY GROWTH NORMAL RESPIRATORY LYNNETTE... Resulted Cardiovascular: Regular Lungs: Clear Abdomen: Other (RICO in place; ROSA with SS drainage ) Extremities: No edema A/P Assessment and Plan 56 year old male POD4 dx lap;Distal pancreatectomy/splenectomy -WBC continues to increase -CT abd/pelvis negative for acute finding -CT Chest --- shows consolidation -Pulmonology consult -BiPAP for now; follow up ABG -Sputum culture sent -Continue NGT to LIWS -IVF Attending Statement The exam, history, and the medical decision-making described in the above note were completed with the assistance of the mid-level provider. I reviewed and agree with the findings presented. I attest that I had a [id number] encounter with the patient on the same day, and personally performed and documented my assessment and findings in the medical record. patient postop distal pancreatectomy pulmonary status poor, needs ICU and critical care management abdominal exam stable postop tenderness ROSA clear Kristen Woodruff AUTO REFINISHER/Supervisor [employer] AUTO REFINISHER Jun 20, 2017 15:44 Dawson Juarez MD Jun 21, 2017 09:49
[2017-06-20] MEDS: ONDANSETRON HCL 4 MG/2 ML VIAL IV PUSH PRN (21:56)
[2017-06-21] VITALS (17 sets, daily range): BP systolic 109–136; BP diastolic 57–74; PULSE 71–96; RESP 14–21; TEMP 98.1–98.8; O2SAT 92–99
[2017-06-21] MEDS: cloNIDine HCL 0.1 MG TAB PO SCH ×3 (01:00→17:00)
[2017-06-21] MEDS: ACETAMINOPHEN/HYDROcodone 325 MG/10 MG TAB PO PRN ×3 (04:37→20:14)
[2017-06-21] MEDS: ONDANSETRON HCL 4 MG/2 ML VIAL IV PUSH PRN (04:37)
[2017-06-21] MEDS: SODIUM CHLOR 0.9% 1000 ML INJ 1,000 ML IV SCH (04:38)
[2017-06-21 05:43] LABS: AUTOMATED NEUTROPHIL # 30.4 TH/MM3 (1.8-7.7); BASOPHIL # 0.1 TH/MM3 (0-0.2); BASOPHIL % 0.1 % (0.0-2.0); EOSINOPHIL # 0.2 TH/MM3 (0-0.4); EOSINOPHIL % 0.5 % (0.0-4.0); HEMATOCRIT 36.9 % (39.0-51.0); LYMPH % 7.3 % (9.0-44.0); LYMPHOCYTE # 2.7 TH/MM3 (1.0-4.8); MEAN CELL VOLUME 93.3 FL (80.0-100.0); MEAN CORPUSCULAR HEMOGLOBIN 30.4 PG (27.0-34.0); MEAN CORPUSCULAR HGB CONC 32.6 % (32.0-36.0); MEAN PLATELET VOLUME 8.6 FL (7.0-11.0); MONO % 10.5 % (0.0-8.0); MONOCYTE # 3.9 TH/MM3 (0-0.9); NEUT % 81.6 % (16.0-70.0); PLATELET COUNT 395 TH/MM3 (150-450); RED BLOOD COUNT 3.96 MIL/MM3 (4.50-5.90); RED CELL DISTRIBUTION WIDTH 15.7 % (11.6-17.2); WHITE BLOOD COUNT 37.3 TH/MM3 (4.0-11.0)
[2017-06-21 06:06] LABS: ALBUMIN 2.1 GM/DL (3.4-5.0); AST (GOT) 24 U/L (15-37); BICARBONATE 35.3 MEQ/L (21.0-32.0); BLOOD UREA NITROGEN 14 MG/DL (7-18); CALCIUM 8.9 MG/DL (8.5-10.1); CHLORIDE 95 MEQ/L (98-107); CREATININE 0.53 MG/DL (0.60-1.30); GLOMERULAR FILTRATION RATE 161 ML/MIN (>89); GLUCOSE,RANDOM 102 MG/DL (74-106); SODIUM (NA) 138 MEQ/L (136-145)
[2017-06-21 06:08] LABS: ALT (GPT) 27 U/L (12-78)
[2017-06-21 06:10] LABS: ALKALINE PHOSPHATASE 156 U/L (45-117); TOTAL BILIRUBIN ADULT 0.2 MG/DL (0.2-1.0); TOTAL PROTEIN 6.6 GM/DL (6.4-8.2)
[2017-06-21 06:56] LABS: BANDS 2 % (0-6); LYMPHOCYTES 5 % (9-44); METAMYELOCYTES 2 % (0-1); MONOCYTES 3 % (0-8); NEUTROPHIL # MANUAL DIFF 34.3 TH/MM3 (1.8-7.7); POLYS (SEG NEUTROPHILS) 88 % (16-70)
[2017-06-21] MEDS: FAMOTIDINE 20 MG/2 ML VIAL IV PUSH SCH ×2 (08:19→20:12)
[2017-06-21] MEDS: METHADONE HCL 10 MG TAB PO SCH (08:19)
[2017-06-21] MEDS: METOPROLOL TARTRATE 50 MG TAB PO SCH (08:19)
[2017-06-21] MEDS: SODIUM CHLORIDE 0.9% FLUSH 10 ML FLUSH IV FLUSH SCH ×2 (08:20→20:12)
[2017-06-21] MEDS: BUDESONIDE-FORMOTEROL 160/4.5 MCG INHALER INH SCH ×2 (08:20→20:33)
--- NOTE | 2017-06-21 08:37 | MB ---
cc: Adriane Forrest MD DATE: 06/20/2017 REASON FOR CONSULTATION: Sleep apnea. HISTORY OF PRESENT ILLNESS: Mr. Kay is a 56-year-old male who underwent abdominal surgery, distal pancreatectomy, splenectomy. The patient has done well postoperatively. Abdominal bandage in place, sitting up in chair. The patient had evidence of hypoxic and hypercarbic respiratory failure. On 06/16, pH was 727, pCO2 52, pO2 119. On 06/20, pH is 731, pCO2 72, pO2 of 73, on BiPAP therapy. The patient, however, is quite resistant to BiPAP, refuses to use it. He believes he has sleep apnea and known about it for many years, however, could not get the CPAP machine for financial reasons. He says he borrowed his neighbor's CPAP machine, but it seems too weak and is not doing the job. PAST MEDICAL HISTORY: Question of obstructive sleep apnea as outlined above, COPD, status post splenectomy and pancreatectomy as mentioned above. FAMILY HISTORY: Noncontributory. SOCIAL HISTORY: He used to smoke until 2013. Does not drink any alcohol, does not use drugs. CURRENT MEDICATIONS: Include: 1. Levofloxacin. 2. Metoprolol. 3. Clonidine. 4. Alprazolam. 5. Hydrocodone. 6. Labetalol. 7. Methadone. ALLERGIES: NONE KNOWN TO ANY MEDICATION. REVIEW OF SYSTEMS: A 12-point review of systems as per HPI and past history, otherwise negative. PHYSICAL EXAMINATION: VITAL SIGNS: Temperature 98, pulse 80, respirations 18, blood pressure 138/70, oxygen saturation 95%, on 45% inspired oxygen fraction. HEENT: Unremarkable. Eyes without icterus. HEENT: No adenopathy. No thyroid enlargement. CHEST: Decreased breath sound at bases. CARDIAC: PMI distant. S1, S2 audible. No murmur. No rub. ABDOMEN: Bandaged. EXTREMITIES: 1+ edema. IMAGING, LABORATORY DATA: CT scan of the chest with patchy infiltrates bilaterally, likely inflammatory. Malignancy is not totally excluded. White count 39,000, hemoglobin 12, hematocrit 37. Sodium 139, potassium 3.7, BUN 13, creatinine 0.4. IMPRESSION: 1. Hypoxic/hypercarbic respiratory failure. 2. Chronic obstructive pulmonary disease. 3. Obstructive sleep apnea. 4. Status post pancreatectomy, splenectomy as above. PLAN: The patient will be maintained on oxygen therapy as needed. BiPAP therapy is obviously helpful. The patient, however, is quite difficult to convince to use it on a regular basis. I have instructed him to do so. Continue bronchodilator therapy. Follow his course along closely. Upon discharge, we will arrange for BiPAP therapy at home. I do thank you for asking me to participate in Mr. Kay's care. Adriane Forrest MD WWW/TITUS , 08:34 PM , 09:04 PM
[2017-06-21] MEDS: LEVOFLOXACIN 750 MG PREMIX INJ 150 ML IV SCH (10:52)
--- NOTE | 2017-06-21 12:52 | HHI.PR ---
Subjective Subjective Notes Was off BiPAP all night Feels hungry Objective Vitals/I&O Vital Signs Date Time Temp Pulse Resp B/P (MAP) Pulse Ox O2 Delivery O2 Flow Rate FiO2 06/21/17 12:00 98.4 71 21 122/57 (78) 95 06/21/17 08:59 Nasal Cannula 6.00 06/20/17 13:42 45 Labs Laboratory Tests Test 06/20/17 13:00 06/21/17 04:50 Blood Gas Puncture Site RT RADIAL Blood Gas Patient Temperature 98.6 Blood Gas HCO3 35 Blood Gas Base Excess 9.0 Blood Gas Oxygen Saturation 91 Arterial Blood pH 7.31 Arterial Blood Partial Pressure CO2 72 Arterial Blood Partial Pressure O2 73 Arterial Blood Oxygen Content 17.9 Arterial Blood Carboxyhemoglobin 1.1 Arterial Blood Methemoglobin 0.9 Blood Gas Hemoglobin 14.0 Oxygen Delivery Device BIPAP Blood Gas Ventilator Setting EPAP 5/IPAP 12 Blood Gas Inspired Oxygen 50 White Blood Count 37.3 Red Blood Count 3.96 Hemoglobin 12.0 Hematocrit 36.9 Mean Corpuscular Volume 93.3 Mean Corpuscular Hemoglobin 30.4 Mean Corpuscular Hemoglobin Concent 32.6 Red Cell Distribution Width 15.7 Platelet Count 395 Mean Platelet Volume 8.6 Neutrophils (%) (Auto) 81.6 Lymphocytes (%) (Auto) 7.3 Monocytes (%) (Auto) 10.5 Eosinophils (%) (Auto) 0.5 Basophils (%) (Auto) 0.1 Neutrophils # (Auto) 30.4 Lymphocytes # (Auto) 2.7 Monocytes # (Auto) 3.9 Eosinophils # (Auto) 0.2 Basophils # (Auto) 0.1 CBC Comment AUTO DIFF Differential Total Cells Counted 100 Neutrophils % (Manual) 88 Band Neutrophils % 2 Lymphocytes % 5 Monocytes % 3 Neutrophils # (Manual) 34.3 Metamyelocytes 2 Differential Comment FINAL DIFF MANUAL Platelet Estimate NORMAL Platelet Morphology Comment NORMAL Red Cell Morphology Comment NORMAL Blood Urea Nitrogen 14 Creatinine 0.53 Random Glucose 102 Total Protein 6.6 Albumin 2.1 Calcium Level 8.9 Alkaline Phosphatase 156 Aspartate Amino Transf (AST/SGOT) 24 Alanine Aminotransferase (ALT/SGPT) 27 Total Bilirubin 0.2 Sodium Level 138 Potassium Level 3.6 Chloride Level 95 Carbon Dioxide Level 35.3 Anion Gap 8 Estimat Glomerular Filtration Rate 161 Date/Time Source Procedure Growth Status 06/19/17 14:07 Blood Peripheral Aerobic Blood Culture - Preliminary NO GROWTH IN 2 DAYS Resulted 06/19/17 14:07 Blood Peripheral Anaerobic Blood Culture - Preliminary NO GROWTH IN 2 DAYS Resulted 06/19/17 12:35 Sputum Expectorated Sputum Gram Stain - Final Resulted 06/19/17 12:35 Sputum Expectorated Sputum Sputum Culture - Preliminary Resulted Cardiovascular: Regular Lungs: Clear Abdomen: Other (RICO in place with good seal; ROSA with SS drainage; non tender ) Extremities: No edema A/P Assessment and Plan 56 year old male POD5 dx lap;Distal pancreatectomy/splenectomy -WBC now trending down but will need to keep close watch of it -CT abd/pelvis negative for acute finding -CT Chest --- shows consolidation -Pulmonology following -NGT out -Advance to full liquids -DC IVF -Kristen NicholasP/Agricultural Specialist MACHINE STITCHER Jun 21, 2017 12:52
[2017-06-21] MEDS: ENOXAPARIN SODIUM 40 MG/0.4 ML SYRINGE SQ SCH (15:11)
--- NOTE | 2017-06-21 16:07 | HHI.PR ---
Subjective Remarks ALERT NO SOB AT REST Objective Vital Signs Date Time Temp Pulse Resp B/P (MAP) Pulse Ox O2 Delivery O2 Flow Rate FiO2 06/21/17 14:00 88 06/21/17 13:13 20 06/21/17 12:00 98.4 71 21 122/57 (78) 95 06/21/17 12:00 71 06/21/17 10:00 74 06/21/17 09:22 20 06/21/17 08:59 95 Nasal Cannula 6.00 06/21/17 08:00 98.8 86 14 118/60 (79) 92 06/21/17 08:00 91 Nasal Cannula 6.00 Humidified 06/21/17 08:00 81 06/21/17 06:00 96 06/21/17 04:00 86 06/21/17 04:00 98.1 86 18 121/66 (84) 95 06/21/17 03:09 94 Nasal Cannula 6.00 06/21/17 02:00 92 06/21/17 00:00 98.7 88 21 109/62 (78) 93 06/21/17 00:00 88 06/20/17 23:55 94 Nasal Cannula 6.00 06/20/17 22:00 96 06/20/17 20:00 98.6 98 25 128/68 (88) 90 06/20/17 20:00 98 06/20/17 19:32 90 Nasal Cannula 6.00 06/20/17 19:00 86 Nasal Cannula 6.00 Humidified 06/20/17 18:00 94 I/O 06/20/17 06/20/17 06/20/17 06/21/17 06/21/17 06/21/17 07:00 15:00 23:00 07:00 15:00 23:00 Intake Total 1283 ml 240 ml 1874 ml 418 ml Output Total 650 ml 670 ml 600 ml Balance 633 ml -430 ml 1274 ml 418 ml Intake Oral 480 ml 240 ml 240 ml IV Total 803 ml 1634 ml 418 ml Output Urine Total 625 ml 600 ml 600 ml Gastric Drainage Total 25 ml Drainage Total 70 ml # Bowel Movements 0 Result Diagram: 06/21/17 0450 06/21/17 0450 Objective Remarks GENERAL: SKIN: Warm and dry. HEAD: Atraumatic. Normocephalic. EYES: Pupils equal and round. No scleral icterus. No injection or drainage. ENT: No nasal bleeding or discharge. Mucous membranes pink and moist. NECK: Trachea midline. No JVD. CARDIOVASCULAR: Regular rate and rhythm. RESPIRATORY: No accessory muscle use. Clear to auscultation. Breath sounds equal bilaterally. GASTROINTESTINAL: Abdomen soft, non-tender, nondistended. Hepatic and splenic margins not palpable. MUSCULOSKELETAL: Extremities without clubbing, cyanosis, or edema. No obvious deformities. NEUROLOGICAL: Awake and alert. No obvious cranial nerve deficits. Motor grossly within normal limits. Five out of 5 muscle strength in the arms and legs. Normal speech. PSYCHIATRIC: Appropriate mood and affect; insight and judgment normal. Assessment and Plan Assessment and Plan IMP: RESPIRATORY FAILURE COPD ?DOUGLAS/CSA PLAN O2 NEEDED BRONCHODILATOR BIPAP PATIENT MORE COOPERATIVE TODAY, WILLING TO USE PAP Adriane Forrest MD Jun 21, 2017 16:06
--- NOTE | 2017-06-21 16:07 | HHI.PR ---
Subjective Remarks Follow up respiratory failure, pneumonia. Patient states that he feels great today. States that his breathing is better. No chest pain. Objective Vitals Vital Signs Date Time Temp Pulse Resp B/P (MAP) Pulse Ox O2 Delivery O2 Flow Rate FiO2 06/21/17 14:00 88 06/21/17 13:13 20 06/21/17 12:00 98.4 71 21 122/57 (78) 95 06/21/17 12:00 71 06/21/17 10:00 74 06/21/17 09:22 20 06/21/17 08:59 95 Nasal Cannula 6.00 06/21/17 08:00 98.8 86 14 118/60 (79) 92 06/21/17 08:00 91 Nasal Cannula 6.00 Humidified 06/21/17 08:00 81 06/21/17 06:00 96 06/21/17 04:00 86 06/21/17 04:00 98.1 86 18 121/66 (84) 95 06/21/17 03:09 94 Nasal Cannula 6.00 06/21/17 02:00 92 06/21/17 00:00 98.7 88 21 109/62 (78) 93 06/21/17 00:00 88 06/20/17 23:55 94 Nasal Cannula 6.00 06/20/17 22:00 96 06/20/17 20:00 98.6 98 25 128/68 (88) 90 06/20/17 20:00 98 06/20/17 19:32 90 Nasal Cannula 6.00 06/20/17 19:00 86 Nasal Cannula 6.00 Humidified 06/20/17 18:00 94 I/O 06/20/17 06/20/17 06/20/17 06/21/17 06/21/17 06/21/17 07:00 15:00 23:00 07:00 15:00 23:00 Intake Total 1283 ml 240 ml 1874 ml 418 ml Output Total 650 ml 670 ml 600 ml Balance 633 ml -430 ml 1274 ml 418 ml Intake Oral 480 ml 240 ml 240 ml IV Total 803 ml 1634 ml 418 ml Output Urine Total 625 ml 600 ml 600 ml Gastric Drainage Total 25 ml Drainage Total 70 ml # Bowel Movements 0 Result Diagram: 06/21/17 0450 06/21/17 0450 Imaging Last Impressions Chest X-Ray 06/19/17 0000 Signed Impressions: Service Date/Time: Monday, June 19, 2017 10:37 - CONCLUSION: Mild central interstitial opacities. Elmer Witt MD Chest CT 06/19/17 0000 Signed Impressions: Service Date/Time: Monday, June 19, 2017 21:26 - CONCLUSION: 1. Development of bilateral distal airway disease, peribronchial thickening and patchy airspace consolidation in both lungs most characteristic of pneumonia and aspiration. Cannot completely exclude rapid metastatic spread of tumor in patient with reported history of pancreatic mass. There is also development of bilateral mediastinal and hilar adenopathy with multiple lymph nodes in the 1-2 cm range. Luiz Magana MD Abdomen/Pelvis CT 06/19/17 0000 Signed Impressions: Service Date/Time: Monday, June 19, 2017 21:26 - CONCLUSION: 1. Development of basilar airspace disease and distal airway disease. This could be secondary to pneumonia and aspiration. 2. Postoperative distal pancreatectomy and splenectomy with edematous changes in the upper abdomen and multiple small locules of air. There is a drain in the pancreatic bed. No abnormal or drainable fluid collections are present. 3. Mild constipation. No bowel obstruction. NG tip in stomach. Luiz Magana MD Objective Remarks General: Obese male in no acute distress. Heart: Regular rate and rhythm. No murmur. Lungs: Scattered rhonchi, right greater than left. Breathing is nonlabored. Abdomen: Soft, nontender, nondistended. Extremities: 2+ bilateral lower extremity edema. Psych: Alert and oriented. Answers questions appropriately. Procedures 06/16/17 diagnostic laparoscopy, open distal pancreatectomy and splenectomy, omentectomy, cholecystectomy, placement of radiologic markers in the retroperitoneum Urinary Catheter: No Vascular Central Line Catheter: No A/P Assessment and Plan 1. Respiratory failure: Secondary to obstructive sleep apnea, COPD, pneumonia. Continue supplemental oxygen. BiPAP at night. Oxygen saturations are improving, still requiring 6 L per nasal cannula. Appreciate pulmonology recommendations. 2. COPD, pneumonia: Continue Levaquin. DuoNeb, Symbicort. 3. GI prophylaxis: Famotidine. 4. Leukocytosis with bandemia: WBCs are significantly elevated. Likely secondary to infection. Blood cultures are pending. Sputum culture pending. 5. Hypokalemia: Improved. Monitor labs. 6. DVT prophylaxis: Lovenox. Oli Thompson MD Jun 21, 2017 16:07
[2017-06-22] VITALS (15 sets, daily range): BP systolic 95–146; BP diastolic 60–77; PULSE 69–93; RESP 13–21; TEMP 95.4–98.6; O2SAT 89–98
[2017-06-22] MEDS: cloNIDine HCL 0.1 MG TAB PO SCH ×3 (01:00→17:00)
[2017-06-22] MEDS: ACETAMINOPHEN/HYDROcodone 325 MG/10 MG TAB PO PRN ×3 (04:30→21:06)
[2017-06-22 06:27] LABS: AUTOMATED NEUTROPHIL # 18.1 TH/MM3 (1.8-7.7); BASOPHIL # 0.1 TH/MM3 (0-0.2); BASOPHIL % 0.2 % (0.0-2.0); EOSINOPHIL # 0.5 TH/MM3 (0-0.4); EOSINOPHIL % 1.9 % (0.0-4.0); HEMATOCRIT 34.1 % (39.0-51.0); HEMOGLOBIN 11.3 GM/DL (13.0-17.0); LYMPHOCYTE # 2.1 TH/MM3 (1.0-4.8); MEAN CELL VOLUME 92.7 FL (80.0-100.0); MEAN CORPUSCULAR HEMOGLOBIN 30.8 PG (27.0-34.0); MEAN CORPUSCULAR HGB CONC 33.2 % (32.0-36.0); MEAN PLATELET VOLUME 8.6 FL (7.0-11.0); MONO % 12.8 % (0.0-8.0); NEUT % 76.1 % (16.0-70.0); PLATELET COUNT 405 TH/MM3 (150-450); RED BLOOD COUNT 3.68 MIL/MM3 (4.50-5.90); RED CELL DISTRIBUTION WIDTH 15.4 % (11.6-17.2); WHITE BLOOD COUNT 23.7 TH/MM3 (4.0-11.0)
[2017-06-22 06:47] LABS: ALBUMIN 1.9 GM/DL (3.4-5.0); AST (GOT) 20 U/L (15-37); BICARBONATE 37.7 MEQ/L (21.0-32.0); BLOOD UREA NITROGEN 11 MG/DL (7-18); CALCIUM 8.7 MG/DL (8.5-10.1); CHLORIDE 95 MEQ/L (98-107); CREATININE 0.52 MG/DL (0.60-1.30); GLOMERULAR FILTRATION RATE 165 ML/MIN (>89); GLUCOSE,RANDOM 143 MG/DL (74-106); SODIUM (NA) 139 MEQ/L (136-145)
[2017-06-22 06:50] LABS: ALKALINE PHOSPHATASE 114 U/L (45-117); ALT (GPT) 24 U/L (12-78); TOTAL BILIRUBIN ADULT 0.2 MG/DL (0.2-1.0); TOTAL PROTEIN 5.9 GM/DL (6.4-8.2)
[2017-06-22] MEDS ORDERED: POTASSIUM CHLORIDE 20 MEQ CONTROLLED RELEASE TAB PO ONE (07:45)
[2017-06-22] MEDS ORDERED: POTASSIUM CHLORIDE 25 MEQ EFFERVESCENT TAB PO ONE (08:00)
[2017-06-22] MEDS: SODIUM CHLORIDE 0.9% FLUSH 10 ML FLUSH IV FLUSH SCH ×2 (08:35→21:10)
[2017-06-22] MEDS: FAMOTIDINE 20 MG/2 ML VIAL IV PUSH SCH (08:35)
[2017-06-22] MEDS: METOPROLOL TARTRATE 50 MG TAB PO SCH (08:35)
[2017-06-22] MEDS: METHADONE HCL 10 MG TAB PO SCH (08:39)
[2017-06-22] MEDS: BUDESONIDE-FORMOTEROL 160/4.5 MCG INHALER INH SCH ×2 (08:52→21:00)
--- NOTE | 2017-06-22 08:55 | HHI.PR ---
Subjective Remarks Follow-up pneumonia, respiratory failure. Patient reports pain in his abdomen, which is worse with coughing. Feels that his breathing is a little better today. He has been coughing up more phlegm. Objective Vitals Vital Signs Date Time Temp Pulse Resp B/P (MAP) Pulse Ox O2 Delivery O2 Flow Rate FiO2 06/22/17 07:57 97 Nasal Cannula 6.00 06/22/17 06:00 83 06/22/17 04:00 88 06/22/17 04:00 98.5 88 16 119/77 (91) 95 06/22/17 03:21 95 45 06/22/17 03:02 98 BiPAP 06/22/17 02:00 84 06/22/17 00:00 89 06/22/17 00:00 98.6 80 14 116/62 (80) 96 06/21/17 23:11 99 BiPAP 06/21/17 22:39 99 45 06/21/17 22:00 86 06/21/17 20:00 84 06/21/17 20:00 98.8 84 19 124/73 (90) 99 06/21/17 19:30 97 Nasal Cannula 6.00 06/21/17 19:00 91 Nasal Cannula 6.00 Humidified 06/21/17 18:00 87 06/21/17 16:00 98.1 88 19 136/74 (94) 98 06/21/17 16:00 94 06/21/17 14:00 88 06/21/17 13:13 20 06/21/17 12:00 98.4 71 21 122/57 (78) 95 06/21/17 12:00 71 06/21/17 10:00 74 06/21/17 09:22 20 06/21/17 08:59 95 Nasal Cannula 6.00 I/O 06/21/17 06/21/17 06/21/17 06/22/17 06/22/17 06/22/17 07:00 15:00 23:00 07:00 15:00 23:00 Intake Total 1874 ml 418 ml 840 ml 840 ml Output Total 600 ml 650 ml 670 ml Balance 1274 ml 418 ml 190 ml 170 ml Intake Oral 240 ml 840 ml 840 ml IV Total 1634 ml 418 ml Output Urine Total 600 ml 600 ml 625 ml Drainage Total 50 ml 45 ml # Bowel Movements 0 1 Result Diagram: 3/22/18 0455 06/22/17 0455 Imaging Last Impressions Chest X-Ray 06/19/17 0000 Signed Impressions: Service Date/Time: Monday, June 19, 2017 10:37 - CONCLUSION: Mild central interstitial opacities. Elmer Witt MD Chest CT 06/19/17 0000 Signed Impressions: Service Date/Time: Monday, June 19, 2017 21:26 - CONCLUSION: 1. Development of bilateral distal airway disease, peribronchial thickening and patchy airspace consolidation in both lungs most characteristic of pneumonia and aspiration. Cannot completely exclude rapid metastatic spread of tumor in patient with reported history of pancreatic mass. There is also development of bilateral mediastinal and hilar adenopathy with multiple lymph nodes in the 1-2 cm range. Luiz Magana MD Abdomen/Pelvis CT 06/19/17 0000 Signed Impressions: Service Date/Time: Monday, June 19, 2017 21:26 - CONCLUSION: 1. Development of basilar airspace disease and distal airway disease. This could be secondary to pneumonia and aspiration. 2. Postoperative distal pancreatectomy and splenectomy with edematous changes in the upper abdomen and multiple small locules of air. There is a drain in the pancreatic bed. No abnormal or drainable fluid collections are present. 3. Mild constipation. No bowel obstruction. NG tip in stomach. Luiz Magana MD Objective Remarks General: Obese male in no acute distress. Sitting up in a chair. Heart: Regular rate and rhythm. No murmur. Lungs: Scattered rhonchi, right greater than left. Breathing is nonlabored. Abdomen: Soft, nontender, nondistended. Extremities: 2+ bilateral lower extremity edema. Psych: Alert and oriented. Answers questions appropriately. Procedures 06/16/17 diagnostic laparoscopy, open distal pancreatectomy and splenectomy, omentectomy, cholecystectomy, placement of radiologic markers in the retroperitoneum Urinary Catheter: No Vascular Central Line Catheter: No A/P Assessment and Plan 1. Respiratory failure: Secondary to obstructive sleep apnea, COPD, pneumonia. Continue supplemental oxygen. BiPAP at night. Oxygen saturations are improving, still requiring 6 L per nasal cannula. Appreciate pulmonology recommendations. 2. COPD, pneumonia: Continue Levaquin. DuoNeb, Symbicort. 3. GI prophylaxis: Famotidine. 4. Leukocytosis with bandemia: WBCs are significantly elevated, but trending down. Likely secondary to infection. Blood cultures are negative so far. Sputum culture pending. Continue antibiotics. 5. Hypokalemia: Supplement potassium and recheck labs in the morning. 6. DVT prophylaxis: Lovenox. Discharge Planning OK to transfer to med/surg floor when OK with general surgery. Oli Thompson MD Jun 22, 2017 08:55
[2017-06-22 09:26] LABS: BANDS 5 % (0-6); CORRECTED NUCLEATED RBC 1 /100 WBC (0-0); LYMPHOCYTES 7 % (9-44); METAMYELOCYTES 4 % (0-1); MONOCYTES 14 % (0-8); MYELOCYTES 2 % (0-0); NEUTROPHIL # MANUAL DIFF 18.5 TH/MM3 (1.8-7.7); NUCLEATED RED BLOOD CELL 1 (0-0); POLYS (SEG NEUTROPHILS) 66 % (16-70); PROMYELOCYTES 1 % (0-0)
[2017-06-22] MEDS: LEVOFLOXACIN 750 MG PREMIX INJ 150 ML IV SCH (11:00)
--- NOTE | 2017-06-22 14:38 | HHI.PR ---
Subjective Subjective Notes " I like the liquids but I would like something more. I am feeling a little down today." Son at bedside states that patient really like Mike RN and has been OOB walking with PT this morning Objective Vitals/I&O Vital Signs Date Time Temp Pulse Resp B/P (MAP) Pulse Ox O2 Delivery O2 Flow Rate FiO2 06/22/17 07:57 97 Nasal Cannula 6.00 06/22/17 06:00 83 06/22/17 04:00 98.5 16 119/77 (91) 06/22/17 03:21 45 Labs Laboratory Tests Test 06/22/17 04:55 White Blood Count 23.7 Red Blood Count 3.68 Hemoglobin 11.3 Hematocrit 34.1 Mean Corpuscular Volume 92.7 Mean Corpuscular Hemoglobin 30.8 Mean Corpuscular Hemoglobin Concent 33.2 Red Cell Distribution Width 15.4 Platelet Count 405 Mean Platelet Volume 8.6 Neutrophils (%) (Auto) 76.1 Lymphocytes (%) (Auto) 9.0 Monocytes (%) (Auto) 12.8 Eosinophils (%) (Auto) 1.9 Basophils (%) (Auto) 0.2 Neutrophils # (Auto) 18.1 Lymphocytes # (Auto) 2.1 Monocytes # (Auto) 3.0 Eosinophils # (Auto) 0.5 Basophils # (Auto) 0.1 CBC Comment AUTO DIFF Differential Total Cells Counted 100 Neutrophils % (Manual) 66 Band Neutrophils % 5 Lymphocytes % 7 Monocytes % 14 Eosinophils % 1 Neutrophils # (Manual) 18.5 Metamyelocytes 4 Myelocytes 2 Promyelocytes 1 Nucleated Red Blood Cells 1 Differential Comment FINAL DIFF MANUAL Platelet Estimate NORMAL Platelet Morphology Comment NORMAL Red Cell Morphology Comment NORMAL Blood Urea Nitrogen 11 Creatinine 0.52 Random Glucose 143 Total Protein 5.9 Albumin 1.9 Calcium Level 8.7 Alkaline Phosphatase 114 Aspartate Amino Transf (AST/SGOT) 20 Alanine Aminotransferase (ALT/SGPT) 24 Total Bilirubin 0.2 Sodium Level 139 Potassium Level 3.4 Chloride Level 95 Carbon Dioxide Level 37.7 Anion Gap 6 Estimat Glomerular Filtration Rate 165 Date/Time Source Procedure Growth Status 06/19/17 14:07 Blood Peripheral Aerobic Blood Culture - Preliminary NO GROWTH IN 3 DAYS Resulted 06/19/17 14:07 Blood Peripheral Anaerobic Blood Culture - Preliminary NO GROWTH IN 3 DAYS Resulted 06/19/17 12:35 Sputum Expectorated Sputum Gram Stain - Final Resulted 06/19/17 12:35 Sputum Expectorated Sputum Sputum Culture - Preliminary Resulted Cardiovascular: Regular Lungs: Clear Abdomen: Other (Abdominal binder in place; RICO in place; ROSA with SS drainage ) Extremities: No edema A/P Assessment and Plan 56 year old male POD6 dx lap;Distal pancreatectomy/splenectomy -WBC now trending down but will need to keep close watch of it -CT Chest --- shows consolidation -Pulmonology following -Change IV Levaquin to PO -Regular diet -OOB -Transfer to 7N Attending Note - Dr. Grover Awaiting bed on 7N Abdomen benign; ROSA output 95 mls, serosanguinous WBC's decreasing The exam, history, and the medical decision-making described in the above note were completed with the assistance of the mid-level provider. I reviewed and agree with the findings presented. I attest that I had a [id number] encounter with the patient on the same day, and personally performed and documented my assessment and findings in the medical record. The exam, history, and the medical decision-making described in the above note were completed with the assistance of the mid-level provider. I reviewed and agree with the findings presented. I attest that I had a [id number] encounter with the patient on the same day, and personally performed and documented my assessment and findings in the medical record. Kristen Woodruff/Manager Materials Management IL[employer] Jun 22, 2017 14:38 Martín Grover MD Jun 22, 2017 17:53
[2017-06-22] MEDS ORDERED: ACETAMINOPHEN/HYDROcodone 325 MG/5 MG TAB PO PRN (15:30)
[2017-06-22] MEDS: ENOXAPARIN SODIUM 40 MG/0.4 ML SYRINGE SQ SCH (16:00)
[2017-06-22] MEDS: FAMOTIDINE 20 MG TAB PO SCH (21:06)
[2017-06-22] MEDS: ALPRAZolam 0.5 MG TAB PO PRN (22:14)
[2017-06-23] VITALS (9 sets, daily range): BP systolic 130–162; BP diastolic 70–84; PULSE 79–88; RESP 15–19; TEMP 95.9–98.7; O2SAT 93–100
[2017-06-23] MEDS: ACETAMINOPHEN/HYDROcodone 325 MG/10 MG TAB PO PRN ×4 (01:11→20:40)
[2017-06-23] MEDS: cloNIDine HCL 0.1 MG TAB PO SCH ×3 (01:11→18:41)
[2017-06-23 06:16] LABS: AUTOMATED NEUTROPHIL # 15.9 TH/MM3 (1.8-7.7); BASOPHIL # 0.1 TH/MM3 (0-0.2); BASOPHIL % 0.3 % (0.0-2.0); EOSINOPHIL # 0.4 TH/MM3 (0-0.4); EOSINOPHIL % 1.8 % (0.0-4.0); HEMATOCRIT 31.2 % (39.0-51.0); HEMOGLOBIN 10.8 GM/DL (13.0-17.0); LYMPH % 13.6 % (9.0-44.0); MEAN CELL VOLUME 91.1 FL (80.0-100.0); MEAN CORPUSCULAR HEMOGLOBIN 31.7 PG (27.0-34.0); MEAN CORPUSCULAR HGB CONC 34.8 % (32.0-36.0); MEAN PLATELET VOLUME 8.4 FL (7.0-11.0); MONO % 13.5 % (0.0-8.0); NEUT % 70.8 % (16.0-70.0); PLATELET COUNT 401 TH/MM3 (150-450); RED BLOOD COUNT 3.42 MIL/MM3 (4.50-5.90); RED CELL DISTRIBUTION WIDTH 15.3 % (11.6-17.2); WHITE BLOOD COUNT 22.4 TH/MM3 (4.0-11.0)
[2017-06-23 06:46] LABS: AST (GOT) 22 U/L (15-37); BICARBONATE 39.3 MEQ/L (21.0-32.0); BLOOD UREA NITROGEN 10 MG/DL (7-18); CALCIUM 8.7 MG/DL (8.5-10.1); CHLORIDE 95 MEQ/L (98-107); CREATININE 0.63 MG/DL (0.60-1.30); GLOMERULAR FILTRATION RATE 132 ML/MIN (>89); GLUCOSE,RANDOM 133 MG/DL (74-106); SODIUM (NA) 139 MEQ/L (136-145)
[2017-06-23 06:48] LABS: ALT (GPT) 25 U/L (12-78)
[2017-06-23 06:50] LABS: ALKALINE PHOSPHATASE 137 U/L (45-117); TOTAL BILIRUBIN ADULT 0.1 MG/DL (0.2-1.0); TOTAL PROTEIN 6.1 GM/DL (6.4-8.2)
[2017-06-23] MEDS ORDERED: POTASSIUM CHLORIDE 10 MEQ CONTROLLED RELEASE TAB PO ONE (07:30)
[2017-06-23 08:55] LABS: BANDS 7 % (0-6); LYMPHOCYTES 15 % (9-44); MONOCYTES 12 % (0-8); MYELOCYTES 4 % (0-0); NEUTROPHIL # MANUAL DIFF 16.4 TH/MM3 (1.8-7.7); POLYS (SEG NEUTROPHILS) 62 % (16-70)
[2017-06-23 08:56] LABS: CORRECTED NUCLEATED RBC 1 /100 WBC (0-0); NUCLEATED RED BLOOD CELL 1 (0-0)
--- NOTE | 2017-06-23 10:19 | HHI.PR ---
Subjective Remarks Follow-up pneumonia, leukocytosis. Patient states that his breathing is better today. Still having abdominal discomfort. Feels that his abdominal binder needs to be readjusted. Objective Vitals Vital Signs Date Time Temp Pulse Resp B/P (MAP) Pulse Ox O2 Delivery O2 Flow Rate FiO2 06/23/17 08:00 96.9 87 17 162/82 (108) 97 06/23/17 04:52 Nasal Cannula 6.00 06/23/17 04:00 95.9 81 18 145/75 (98) 97 06/23/17 00:45 96 45 06/23/17 00:00 95.9 88 18 142/71 (94) 99 06/22/17 22:44 93 45 06/22/17 20:00 95.4 93 13 146/70 (95) 97 06/22/17 19:20 93 Nasal Cannula 5.00 06/22/17 16:00 71 06/22/17 16:00 98.2 71 19 127/68 (87) 92 06/22/17 14:00 79 06/22/17 12:00 73 06/22/17 12:00 98.0 73 21 95/60 (72) 94 I/O 06/22/17 06/22/17 06/22/17 06/23/17 06/23/17 06/23/17 07:00 15:00 23:00 07:00 15:00 23:00 Intake Total 840 ml 1590 ml 720 ml 240 ml Output Total 670 ml 550 ml 290 ml Balance 170 ml 1040 ml 430 ml 240 ml Intake Oral 840 ml 1440 ml 720 ml 240 ml IV Total 150 ml Output Urine Total 625 ml 550 ml 200 ml Drainage Total 45 ml 90 ml # Voids 2 # Bowel Movements 0 0 Result Diagram: 06/23/17 0500 06/23/17 0500 Imaging Last Impressions Chest X-Ray 06/19/17 0000 Signed Impressions: Service Date/Time: Monday, June 19, 2017 10:37 - CONCLUSION: Mild central interstitial opacities. Elmer Witt MD Chest CT 06/19/17 0000 Signed Impressions: Service Date/Time: Monday, June 19, 2017 21:26 - CONCLUSION: 1. Development of bilateral distal airway disease, peribronchial thickening and patchy airspace consolidation in both lungs most characteristic of pneumonia and aspiration. Cannot completely exclude rapid metastatic spread of tumor in patient with reported history of pancreatic mass. There is also development of bilateral mediastinal and hilar adenopathy with multiple lymph nodes in the 1-2 cm range. Luiz Magana MD Abdomen/Pelvis CT 06/19/17 0000 Signed Impressions: Service Date/Time: Monday, June 19, 2017 21:26 - CONCLUSION: 1. Development of basilar airspace disease and distal airway disease. This could be secondary to pneumonia and aspiration. 2. Postoperative distal pancreatectomy and splenectomy with edematous changes in the upper abdomen and multiple small locules of air. There is a drain in the pancreatic bed. No abnormal or drainable fluid collections are present. 3. Mild constipation. No bowel obstruction. NG tip in stomach. Luiz Magana MD Objective Remarks General: Obese male in no acute distress. Sitting up in a chair. Heart: Regular rate and rhythm. No murmur. Lungs: Scattered rhonchi, right greater than left. Breathing is nonlabored. Abdomen: Soft, nontender, nondistended. Extremities: 2+ bilateral lower extremity edema. Psych: Alert and oriented. Answers questions appropriately. Procedures 06/16/17 diagnostic laparoscopy, open distal pancreatectomy and splenectomy, omentectomy, cholecystectomy, placement of radiologic markers in the retroperitoneum Urinary Catheter: No Vascular Central Line Catheter: No A/P Assessment and Plan 1. Respiratory failure: Secondary to obstructive sleep apnea, COPD, pneumonia. Continue supplemental oxygen. BiPAP at night. Oxygen saturations are improved, requiring 5 L per nasal cannula. Appreciate pulmonology recommendations. 2. COPD, pneumonia: Continue Levaquin. DuoNeb, Symbicort. 3. GI prophylaxis: Famotidine. 4. Leukocytosis with bandemia: WBCs are trending down. Likely secondary to infection. Blood cultures are negative so far. Sputum culture positive for Haemophilus Influenzae. Continue antibiotics. 5. Hypokalemia: Still low. Supplement potassium and recheck labs in the morning. 6. DVT prophylaxis: Lovenox. Discharge Planning Pending further clinical improvement. Oli Thompson MD Jun 23, 2017 10:19
[2017-06-23] MEDS: ALPRAZolam 0.5 MG TAB PO PRN ×2 (10:22→18:41)
[2017-06-23] MEDS: FAMOTIDINE 20 MG TAB PO SCH ×2 (10:22→20:40)
[2017-06-23] MEDS: METHADONE HCL 10 MG TAB PO SCH (10:24)
[2017-06-23] MEDS: BUDESONIDE-FORMOTEROL 160/4.5 MCG INHALER INH SCH ×2 (10:24→20:41)
[2017-06-23] MEDS: LEVOFLOXACIN 750 MG TAB PO SCH (10:25)
[2017-06-23] MEDS: SODIUM CHLORIDE 0.9% FLUSH 10 ML FLUSH IV FLUSH SCH ×2 (10:25→20:43)
[2017-06-23] MEDS: METOPROLOL TARTRATE 50 MG TAB PO SCH (10:31)
--- NOTE | 2017-06-23 14:39 | HHI.PR ---
Subjective Subjective Notes Resting in bed Son at bedside No issues Objective Vitals/I&O Vital Signs Date Time Temp Pulse Resp B/P (MAP) Pulse Ox O2 Delivery O2 Flow Rate FiO2 06/23/17 12:00 98.7 87 19 130/70 (90) 99 06/23/17 10:45 Nasal Cannula 5.00 06/23/17 00:45 45 Labs Laboratory Tests Test 06/23/17 05:00 White Blood Count 22.4 Red Blood Count 3.42 Hemoglobin 10.8 Hematocrit 31.2 Mean Corpuscular Volume 91.1 Mean Corpuscular Hemoglobin 31.7 Mean Corpuscular Hemoglobin Concent 34.8 Red Cell Distribution Width 15.3 Platelet Count 401 Mean Platelet Volume 8.4 Neutrophils (%) (Auto) 70.8 Lymphocytes (%) (Auto) 13.6 Monocytes (%) (Auto) 13.5 Eosinophils (%) (Auto) 1.8 Basophils (%) (Auto) 0.3 Neutrophils # (Auto) 15.9 Lymphocytes # (Auto) 3.0 Monocytes # (Auto) 3.0 Eosinophils # (Auto) 0.4 Basophils # (Auto) 0.1 CBC Comment AUTO DIFF Differential Total Cells Counted 100 Neutrophils % (Manual) 62 Band Neutrophils % 7 Lymphocytes % 15 Monocytes % 12 Neutrophils # (Manual) 16.4 Myelocytes 4 Nucleated Red Blood Cells 1 Differential Comment FINAL DIFF MANUAL Platelet Estimate NORMAL Platelet Morphology Comment ENLARGED Blood Urea Nitrogen 10 Creatinine 0.63 Random Glucose 133 Total Protein 6.1 Albumin 2.0 Calcium Level 8.7 Alkaline Phosphatase 137 Aspartate Amino Transf (AST/SGOT) 22 Alanine Aminotransferase (ALT/SGPT) 25 Total Bilirubin 0.1 Sodium Level 139 Potassium Level 3.4 Chloride Level 95 Carbon Dioxide Level 39.3 Anion Gap 5 Estimat Glomerular Filtration Rate 132 Date/Time Source Procedure Growth Status 06/19/17 14:07 Blood Peripheral Aerobic Blood Culture - Preliminary NO GROWTH IN 4 DAYS Resulted 06/19/17 14:07 Blood Peripheral Anaerobic Blood Culture - Preliminary NO GROWTH IN 4 DAYS Resulted 06/19/17 12:35 Sputum Expectorated Sputum Gram Stain - Final Complete 06/19/17 12:35 Sputum Culture - Final Haemophilus Influenzae Complete Cardiovascular: Regular Lungs: Clear Abdomen: Other (RICO removed; midline incision with jake; c/d/i; abdomen obese; soft ) Extremities: No edema A/P Assessment and Plan 56 year old male POD7 dx lap;Distal pancreatectomy/splenectomy -WBC continues to trend down -CT Chest --- shows consolidation -Pulmonology following -Continue Levaquin PO -Regular diet -OOB -Continue to wean oxygen; likely home Monday Kristen Woodruff/Track Laying Machine Operator [facility] Jun 23, 2017 14:39
[2017-06-23] MEDS: ENOXAPARIN SODIUM 40 MG/0.4 ML SYRINGE SQ SCH (15:15)
[2017-06-24] VITALS (12 sets, daily range): BP systolic 121–165; BP diastolic 70–99; PULSE 71–89; RESP 15–18; TEMP 97–98.6; O2SAT 87–99
[2017-06-24] MEDS: cloNIDine HCL 0.1 MG TAB PO SCH ×3 (01:12→16:44)
[2017-06-24] MEDS: ACETAMINOPHEN/HYDROcodone 325 MG/10 MG TAB PO PRN ×5 (01:15→22:58)
[2017-06-24] MEDS: ALPRAZolam 0.5 MG TAB PO PRN ×3 (04:13→22:58)
[2017-06-24 07:15] LABS: AUTOMATED NEUTROPHIL # 14.6 TH/MM3 (1.8-7.7); BASOPHIL # 0.1 TH/MM3 (0-0.2); BASOPHIL % 0.5 % (0.0-2.0); EOSINOPHIL # 0.7 TH/MM3 (0-0.4); EOSINOPHIL % 3.3 % (0.0-4.0); HEMATOCRIT 34.4 % (39.0-51.0); HEMOGLOBIN 11.5 GM/DL (13.0-17.0); LYMPH % 12.4 % (9.0-44.0); LYMPHOCYTE # 2.6 TH/MM3 (1.0-4.8); MEAN CELL VOLUME 92.9 FL (80.0-100.0); MEAN CORPUSCULAR HGB CONC 33.4 % (32.0-36.0); MEAN PLATELET VOLUME 8.3 FL (7.0-11.0); MONO % 13.6 % (0.0-8.0); MONOCYTE # 2.8 TH/MM3 (0-0.9); NEUT % 70.2 % (16.0-70.0); PLATELET COUNT 433 TH/MM3 (150-450); RED BLOOD COUNT 3.71 MIL/MM3 (4.50-5.90); RED CELL DISTRIBUTION WIDTH 15.2 % (11.6-17.2); WHITE BLOOD COUNT 20.8 TH/MM3 (4.0-11.0)
[2017-06-24 07:44] LABS: BICARBONATE 35.9 MEQ/L (21.0-32.0); CALCIUM 8.8 MG/DL (8.5-10.1); CREATININE 0.57 MG/DL (0.60-1.30)
[2017-06-24] MEDS: SODIUM CHLORIDE 0.9% FLUSH 10 ML FLUSH IV FLUSH SCH ×2 (09:19→20:41)
[2017-06-24] MEDS: METHADONE HCL 10 MG TAB PO SCH (09:20)
[2017-06-24] MEDS: FAMOTIDINE 20 MG TAB PO SCH ×2 (09:20→20:41)
[2017-06-24] MEDS: BUDESONIDE-FORMOTEROL 160/4.5 MCG INHALER INH SCH ×2 (09:20→20:40)
[2017-06-24] MEDS: METOPROLOL TARTRATE 50 MG TAB PO SCH (09:21)
[2017-06-24] MEDS: LEVOFLOXACIN 750 MG TAB PO SCH (09:21)
[2017-06-24 09:49] LABS: BANDS 8 % (0-6); CORRECTED NUCLEATED RBC 1 /100 WBC (0-0); LYMPHOCYTES 17 % (9-44); METAMYELOCYTES 1 % (0-1); MONOCYTES 11 % (0-8); MYELOCYTES 4 % (0-0); NEUTROPHIL # MANUAL DIFF 14.4 TH/MM3 (1.8-7.7); NUCLEATED RED BLOOD CELL 1 (0-0); POLYS (SEG NEUTROPHILS) 56 % (16-70)
--- NOTE | 2017-06-24 11:41 | HHI.PR ---
Subjective Remarks Follow up pneumonia. Patient feels that his breathing is getting better. Now on 4L oxygen. Still having abdominal pain. Objective Vitals Vital Signs Date Time Temp Pulse Resp B/P (MAP) Pulse Ox O2 Delivery O2 Flow Rate FiO2 06/24/17 08:00 98.2 82 16 143/73 (96) 97 06/24/17 07:51 78 06/24/17 07:28 75 06/24/17 04:00 98.0 76 15 156/83 (107) 99 06/24/17 01:18 99 45 06/24/17 00:00 97.9 89 15 162/99 (120) 87 06/23/17 22:39 83 06/23/17 20:52 Nasal Cannula 6.00 Humidified 06/23/17 20:00 97.6 84 15 157/84 (108) 98 06/23/17 16:00 97.9 79 19 147/80 (102) 100 06/23/17 12:00 98.7 87 19 130/70 (90) 99 I/O 06/23/17 06/23/17 06/23/17 06/24/17 06/24/17 06/24/17 07:00 15:00 23:00 07:00 15:00 23:00 Intake Total 720 ml 1240 ml 240 ml Output Total 290 ml 800 ml 60 ml 650 ml 30 ml Balance 430 ml 440 ml -60 ml -410 ml -30 ml Intake Oral 720 ml 1240 ml 240 ml Output Urine Total 200 ml 800 ml 600 ml Drainage Total 90 ml 60 ml 50 ml 30 ml # Voids 2 # Bowel Movements 0 0 0 Result Diagram: 06/24/17 0640 06/24/17 0640 Imaging Last Impressions Chest X-Ray 06/19/17 0000 Signed Impressions: Service Date/Time: Monday, June 19, 2017 10:37 - CONCLUSION: Mild central interstitial opacities. Elmer Witt MD Chest CT 06/19/17 0000 Signed Impressions: Service Date/Time: Monday, June 19, 2017 21:26 - CONCLUSION: 1. Development of bilateral distal airway disease, peribronchial thickening and patchy airspace consolidation in both lungs most characteristic of pneumonia and aspiration. Cannot completely exclude rapid metastatic spread of tumor in patient with reported history of pancreatic mass. There is also development of bilateral mediastinal and hilar adenopathy with multiple lymph nodes in the 1-2 cm range. Luiz Magana MD Abdomen/Pelvis CT 06/19/17 0000 Signed Impressions: Service Date/Time: Monday, June 19, 2017 21:26 - CONCLUSION: 1. Development of basilar airspace disease and distal airway disease. This could be secondary to pneumonia and aspiration. 2. Postoperative distal pancreatectomy and splenectomy with edematous changes in the upper abdomen and multiple small locules of air. There is a drain in the pancreatic bed. No abnormal or drainable fluid collections are present. 3. Mild constipation. No bowel obstruction. NG tip in stomach. Luiz Magana MD Objective Remarks General: Obese male in no acute distress. Sitting up in a chair. Heart: Regular rate and rhythm. No murmur. Lungs: Occasional rhonchi, improving. Breathing is nonlabored. Abdomen: Soft, nontender, nondistended. Extremities: 2+ bilateral lower extremity edema. Psych: Alert and oriented. Answers questions appropriately. Procedures 06/16/17 diagnostic laparoscopy, open distal pancreatectomy and splenectomy, omentectomy, cholecystectomy, placement of radiologic markers in the retroperitoneum Urinary Catheter: No Vascular Central Line Catheter: No A/P Assessment and Plan 1. Respiratory failure: Secondary to obstructive sleep apnea, COPD, pneumonia. Continue supplemental oxygen. BiPAP at night. Oxygen saturations are improved, requiring 4 L per nasal cannula. Appreciate pulmonology recommendations. Clinically improving. 2. COPD, pneumonia: Continue Levaquin. DuoNeb, Symbicort. 3. GI prophylaxis: Famotidine. 4. Leukocytosis with bandemia: WBCs are trending down. Likely secondary to infection. Blood cultures are negative so far. Sputum culture positive for Haemophilus Influenzae. Continue antibiotics. 5. Hypokalemia: Improved. 6. DVT prophylaxis: Lovenox. Discharge Planning Per general surgery, possible discharge Monday. May need home oxygen, but currently has no payor source. Case management to assist. Oli Thompson MD Jun 24, 2017 11:41
--- NOTE | 2017-06-24 12:09 | HHI.PR ---
Subjective Subjective Notes Patient indicates he is doing very well. He denies pain. He is hungry and anticipating breakfast. He is having normal bowel and bladder function. Objective Vitals/I&O Vital Signs Date Time Temp Pulse Resp B/P (MAP) Pulse Ox O2 Delivery O2 Flow Rate FiO2 06/24/17 08:00 98.2 82 16 143/73 (96) 97 06/24/17 01:18 45 06/23/17 20:52 Nasal Cannula 6.00 Humidified Labs Laboratory Tests Test 06/24/17 06:40 White Blood Count 20.8 Red Blood Count 3.71 Hemoglobin 11.5 Hematocrit 34.4 Mean Corpuscular Volume 92.9 Mean Corpuscular Hemoglobin 31.0 Mean Corpuscular Hemoglobin Concent 33.4 Red Cell Distribution Width 15.2 Platelet Count 433 Mean Platelet Volume 8.3 Neutrophils (%) (Auto) 70.2 Lymphocytes (%) (Auto) 12.4 Monocytes (%) (Auto) 13.6 Eosinophils (%) (Auto) 3.3 Basophils (%) (Auto) 0.5 Neutrophils # (Auto) 14.6 Lymphocytes # (Auto) 2.6 Monocytes # (Auto) 2.8 Eosinophils # (Auto) 0.7 Basophils # (Auto) 0.1 CBC Comment AUTO DIFF Differential Total Cells Counted 100 Neutrophils % (Manual) 56 Band Neutrophils % 8 Lymphocytes % 17 Monocytes % 11 Eosinophils % 3 Neutrophils # (Manual) 14.4 Metamyelocytes 1 Myelocytes 4 Nucleated Red Blood Cells 1 Differential Comment FINAL DIFF MANUAL Platelet Estimate NORMAL Platelet Morphology Comment NORMAL Blood Urea Nitrogen 8 Creatinine 0.57 Random Glucose 112 Calcium Level 8.8 Magnesium Level 2.0 Sodium Level 136 Potassium Level 3.6 Chloride Level 95 Carbon Dioxide Level 35.9 Anion Gap 5 Estimat Glomerular Filtration Rate 148 Date/Time Source Procedure Growth Status 06/19/17 14:07 Blood Peripheral Aerobic Blood Culture - Final NO GROWTH IN 5 DAYS Complete 06/19/17 14:07 Blood Peripheral Anaerobic Blood Culture - Final NO GROWTH IN 5 DAYS Complete 06/19/17 12:35 Sputum Expectorated Sputum Gram Stain - Final Complete 06/19/17 12:35 Sputum Culture - Final Haemophilus Influenzae Complete Abdomen: Non-distended, Non-tender, Other (Midline incision is healing well. Esbon are intact. Drain exiting left side of abdomen has this bloody drainage. Old dark.) Extremities: No edema, Perfused A/P Assessment and Plan Postop exploratory laparotomy distal pancreatectomy splenectomy. Very stable. He anticipates discharge home on Monday. No new findings or recommendations. Aneudy Cheng MD Jun 24, 2017 12:09
[2017-06-24] MEDS: ENOXAPARIN SODIUM 40 MG/0.4 ML SYRINGE SQ SCH (16:44)
[2017-06-25] VITALS (14 sets, daily range): BP systolic 109–148; BP diastolic 57–82; PULSE 72–90; RESP 16–20; TEMP 97.7–99; O2SAT 93–99
[2017-06-25] MEDS: cloNIDine HCL 0.1 MG TAB PO SCH ×3 (00:14→16:00)
[2017-06-25] MEDS: ACETAMINOPHEN/HYDROcodone 325 MG/10 MG TAB PO PRN ×3 (06:08→21:07)
[2017-06-25] MEDS: BUDESONIDE-FORMOTEROL 160/4.5 MCG INHALER INH SCH ×2 (08:50→19:35)
[2017-06-25] MEDS: SODIUM CHLORIDE 0.9% FLUSH 10 ML FLUSH IV FLUSH SCH ×2 (08:51→19:35)
[2017-06-25] MEDS: METOPROLOL TARTRATE 50 MG TAB PO SCH (08:51)
[2017-06-25] MEDS: METHADONE HCL 10 MG TAB PO SCH (08:51)
[2017-06-25] MEDS: FAMOTIDINE 20 MG TAB PO SCH ×2 (08:51→19:36)
[2017-06-25] MEDS: ALPRAZolam 0.5 MG TAB PO PRN ×3 (08:52→22:31)
[2017-06-25] MEDS: LEVOFLOXACIN 750 MG TAB PO SCH (08:52)
--- NOTE | 2017-06-25 09:19 | HHI.PR ---
Subjective Subjective Notes feels great, ate whole breakfast, bowels working, pain not bad. ready to go home Objective Vitals/I&O Vital Signs Date Time Temp Pulse Resp B/P (MAP) Pulse Ox O2 Delivery O2 Flow Rate FiO2 06/25/17 08:00 97.7 84 16 146/75 (98) 93 06/25/17 03:39 Nasal Cannula 3.00 06/25/17 00:24 45 Labs Date/Time Source Procedure Growth Status 06/19/17 14:07 Blood Peripheral Aerobic Blood Culture - Final NO GROWTH IN 5 DAYS Complete 06/19/17 14:07 Blood Peripheral Anaerobic Blood Culture - Final NO GROWTH IN 5 DAYS Complete 06/19/17 12:35 Sputum Expectorated Sputum Gram Stain - Final Complete 06/19/17 12:35 Sputum Culture - Final Haemophilus Influenzae Complete Lungs: Clear Abdomen: Non-distended, Post-op tenderness, BS normal Wound Wound : Wound Location: Abdomen Appearance: Clean & Dry Dressing: Dry A/P Assessment and Plan s/p distal pancreatectomy, splenectomy doing great will set up for DC in am Grayson Gil MD Jun 25, 2017 09:19
[2017-06-25 09:37] LABS: HEMATOCRIT 34.6 % (39.0-51.0); HEMOGLOBIN 11.4 GM/DL (13.0-17.0); RED BLOOD COUNT 3.76 MIL/MM3 (4.50-5.90); WHITE BLOOD COUNT 20.4 TH/MM3 (4.0-11.0)
[2017-06-25 09:38] LABS: AUTOMATED NEUTROPHIL # 14.2 TH/MM3 (1.8-7.7); BASOPHIL # 0.1 TH/MM3 (0-0.2); BASOPHIL % 0.4 % (0.0-2.0); EOSINOPHIL # 0.8 TH/MM3 (0-0.4); LYMPH % 14.2 % (9.0-44.0); LYMPHOCYTE # 2.9 TH/MM3 (1.0-4.8); MEAN CORPUSCULAR HEMOGLOBIN 30.4 PG (27.0-34.0); MEAN PLATELET VOLUME 8.3 FL (7.0-11.0); MONO % 11.9 % (0.0-8.0); MONOCYTE # 2.4 TH/MM3 (0-0.9); NEUT % 69.5 % (16.0-70.0); PLATELET COUNT 503 TH/MM3 (150-450); RED CELL DISTRIBUTION WIDTH 15.3 % (11.6-17.2)
[2017-06-25 10:08] LABS: BICARBONATE 34.8 MEQ/L (21.0-32.0); CALCIUM 8.7 MG/DL (8.5-10.1); CREATININE 0.61 MG/DL (0.60-1.30)
[2017-06-25] MEDS ORDERED: PILL SPLITTER OTHER PRN (10:15)
[2017-06-25 10:33] LABS: BANDS 10 % (0-6); LYMPHOCYTES 11 % (9-44); METAMYELOCYTES 2 % (0-1); MONOCYTES 11 % (0-8); MYELOCYTES 3 % (0-0); NEUTROPHIL # MANUAL DIFF 15.7 TH/MM3 (1.8-7.7); POLYS (SEG NEUTROPHILS) 62 % (16-70)
--- NOTE | 2017-06-25 11:11 | HHI.PR ---
Subjective Remarks Follow-up pneumonia, respiratory failure. Still requiring 4 L oxygen per nasal cannula. Patient states that he feels much better today. He denies chest pain , abdominal pain. Objective Vitals Vital Signs Date Time Temp Pulse Resp B/P (MAP) Pulse Ox O2 Delivery O2 Flow Rate FiO2 06/25/17 10:08 93 3.00 06/25/17 08:00 80 06/25/17 08:00 97.7 84 16 146/75 (98) 93 06/25/17 08:00 Nasal Cannula 4.00 06/25/17 04:00 98.0 81 18 126/72 (90) 96 06/25/17 03:54 77 06/25/17 03:39 95 Nasal Cannula 3.00 06/25/17 00:24 94 45 06/25/17 00:00 97.9 77 18 148/82 (104) 97 06/24/17 23:51 75 06/24/17 22:01 Nasal Cannula 4.00 Humidified 06/24/17 20:29 89 06/24/17 20:00 98.6 85 18 165/85 (111) 98 06/24/17 16:00 97.3 85 17 138/72 (94) 95 06/24/17 14:52 4.00 06/24/17 12:00 97.0 76 17 121/73 (89) 98 06/24/17 12:00 71 I/O 06/24/17 06/24/17 06/24/17 06/25/17 06/25/17 06/25/17 07:00 15:00 23:00 07:00 15:00 23:00 Intake Total 240 ml 600 ml 240 ml Output Total 650 ml 30 ml 1120 ml 750 ml Balance -410 ml -30 ml -520 ml -510 ml Intake Oral 240 ml 600 ml 240 ml Output Urine Total 600 ml 1075 ml 700 ml Drainage Total 50 ml 30 ml 45 ml 50 ml # Voids 1 # Bowel Movements 0 2 Result Diagram: 06/25/1730 06/25/1730 Imaging Last Impressions Chest X-Ray 06/19/17 0000 Signed Impressions: Service Date/Time: Monday, June 19, 2017 10:37 - CONCLUSION: Mild central interstitial opacities. Elmer Witt MD Chest CT 06/19/17 0000 Signed Impressions: Service Date/Time: Monday, June 19, 2017 21:26 - CONCLUSION: 1. Development of bilateral distal airway disease, peribronchial thickening and patchy airspace consolidation in both lungs most characteristic of pneumonia and aspiration. Cannot completely exclude rapid metastatic spread of tumor in patient with reported history of pancreatic mass. There is also development of bilateral mediastinal and hilar adenopathy with multiple lymph nodes in the 1-2 cm range. Luiz Magana MD Abdomen/Pelvis CT 06/19/17 0000 Signed Impressions: Service Date/Time: Monday, June 19, 2017 21:26 - CONCLUSION: 1. Development of basilar airspace disease and distal airway disease. This could be secondary to pneumonia and aspiration. 2. Postoperative distal pancreatectomy and splenectomy with edematous changes in the upper abdomen and multiple small locules of air. There is a drain in the pancreatic bed. No abnormal or drainable fluid collections are present. 3. Mild constipation. No bowel obstruction. NG tip in stomach. Luiz Magana MD Objective Remarks General: Obese male in no acute distress. Sitting up in a chair. Heart: Regular rate and rhythm. No murmur. Lungs: Occasional rhonchi, improving. Breathing is nonlabored. Abdomen: Soft, nontender, nondistended. Abdominal binder in place. Midline surgical wound clean and dry. Extremities: 2+ bilateral lower extremity edema. Psych: Alert and oriented. Answers questions appropriately. Procedures 06/16/17 diagnostic laparoscopy, open distal pancreatectomy and splenectomy, omentectomy, cholecystectomy, placement of radiologic markers in the retroperitoneum Urinary Catheter: No Vascular Central Line Catheter: No A/P Assessment and Plan 1. Respiratory failure: Secondary to obstructive sleep apnea, COPD, pneumonia. Continue supplemental oxygen. BiPAP at night. Oxygen saturations are improved, requiring 4 L per nasal cannula. Appreciate pulmonology recommendations. Clinically improving. 2. COPD, pneumonia: Continue Levaquin. DuoNeb, Symbicort. 3. GI prophylaxis: Famotidine. 4. Leukocytosis with bandemia: WBCs are trending down. Likely secondary to infection. Blood cultures are negative so far. Sputum culture positive for Haemophilus Influenzae. Continue antibiotics. 5. Hypokalemia: Improved. 6. DVT prophylaxis: Lovenox. Discharge Planning Per general surgery, plan is for discharge tomorrow. May need home oxygen, but currently has no payor source. Attempting to wean off oxygen. Case management to assist. Oli Thompson MD Jun 25, 2017 11:11
[2017-06-25] MEDS: ENOXAPARIN SODIUM 40 MG/0.4 ML SYRINGE SQ SCH (16:00)
[2017-06-26] VITALS (10 sets, daily range): BP systolic 110–132; BP diastolic 51–75; PULSE 73–86; RESP 17–20; TEMP 97.4–98.2; O2SAT 93–96
[2017-06-26] MEDS: cloNIDine HCL 0.1 MG TAB PO SCH ×3 (01:17→17:02)
[2017-06-26] MEDS: ACETAMINOPHEN/HYDROcodone 325 MG/10 MG TAB PO PRN ×5 (01:18→20:59)
[2017-06-26] MEDS: ALPRAZolam 0.5 MG TAB PO PRN ×2 (04:48→17:09)
[2017-06-26 07:17] LABS: BICARBONATE 37.8 MEQ/L (21.0-32.0); CREATININE 0.64 MG/DL (0.60-1.30)
[2017-06-26 07:21] LABS: AUTOMATED NEUTROPHIL # 14.5 TH/MM3 (1.8-7.7); BASOPHIL # 0.1 TH/MM3 (0-0.2); BASOPHIL % 0.4 % (0.0-2.0); EOSINOPHIL # 0.8 TH/MM3 (0-0.4); HEMATOCRIT 34.6 % (39.0-51.0); HEMOGLOBIN 11.5 GM/DL (13.0-17.0); LYMPH % 15.3 % (9.0-44.0); LYMPHOCYTE # 3.2 TH/MM3 (1.0-4.8); MEAN CELL VOLUME 92.7 FL (80.0-100.0); MEAN CORPUSCULAR HEMOGLOBIN 30.8 PG (27.0-34.0); MEAN CORPUSCULAR HGB CONC 33.3 % (32.0-36.0); MEAN PLATELET VOLUME 8.3 FL (7.0-11.0); MONO % 11.3 % (0.0-8.0); MONOCYTE # 2.4 TH/MM3 (0-0.9); PLATELET COUNT 576 TH/MM3 (150-450); RED BLOOD COUNT 3.73 MIL/MM3 (4.50-5.90); RED CELL DISTRIBUTION WIDTH 15.1 % (11.6-17.2); WHITE BLOOD COUNT 20.9 TH/MM3 (4.0-11.0)
[2017-06-26] MEDS: METHADONE HCL 10 MG TAB PO SCH (08:53)
[2017-06-26] MEDS: FAMOTIDINE 20 MG TAB PO SCH ×2 (08:54→20:59)
[2017-06-26] MEDS: SODIUM CHLORIDE 0.9% FLUSH 10 ML FLUSH IV FLUSH SCH ×2 (08:54→20:59)
[2017-06-26] MEDS: BUDESONIDE-FORMOTEROL 160/4.5 MCG INHALER INH SCH ×2 (08:54→20:59)
[2017-06-26] MEDS: LEVOFLOXACIN 750 MG TAB PO SCH (08:54)
[2017-06-26] MEDS: METOPROLOL TARTRATE 50 MG TAB PO SCH (08:54)
[2017-06-26 09:01] LABS: BANDS 7 % (0-6); LYMPHOCYTES 16 % (9-44); METAMYELOCYTES 1 % (0-1); MONOCYTES 9 % (0-8); MYELOCYTES 6 % (0-0); NEUTROPHIL # MANUAL DIFF 14.8 TH/MM3 (1.8-7.7); POLYS (SEG NEUTROPHILS) 57 % (16-70)
[2017-06-26 09:02] LABS: TOXIC GRANULATION 1+ (NORMAL)
--- NOTE | 2017-06-26 11:05 | HHI.PR ---
Subjective Remarks Nursing denies any deterioration since last night. Patient says he is feeling better, is coughing up less and less productive sputum. Says he feels great overall otherwise. Objective Vital Signs Date Time Temp Pulse Resp B/P (MAP) Pulse Ox O2 Delivery O2 Flow Rate FiO2 06/26/17 10:50 Nasal Cannula 2.00 06/26/17 08:47 93 Nasal Cannula 2.00 06/26/17 08:00 98.1 83 17 115/62 (79) 93 06/26/17 04:30 96 Nasal Cannula 2.00 06/26/17 04:01 73 06/26/17 03:31 97.4 85 20 132/75 (94) 94 06/26/17 00:24 96 45 06/25/17 23:55 98.3 79 18 132/62 (85) 95 06/25/17 23:55 Nasal Cannula 3.00 Humidified 06/25/17 23:53 87 06/25/17 22:25 96 Nasal Cannula 2.00 06/25/17 21:45 Nasal Cannula 3.00 Humidified 06/25/17 20:00 99.0 84 20 148/78 (101) 93 06/25/17 19:29 90 06/25/17 16:00 98.1 79 17 119/57 (77) 94 06/25/17 12:00 97.8 72 16 109/60 (76) 99 I/O 06/25/17 06/25/17 06/25/17 06/26/17 06/26/17 06/26/17 07:00 15:00 23:00 07:00 15:00 23:00 Intake Total 240 ml 480 ml Output Total 750 ml 950 ml 1320 ml Balance -510 ml -470 ml -1320 ml Intake Oral 240 ml 480 ml Output Urine Total 700 ml 900 ml 1300 ml Drainage Total 50 ml 50 ml 20 ml # Voids 1 # Bowel Movements 1 Result Diagram: 06/26/17 0609 06/26/17 0609 Objective Remarks Clear lungs bilaterally, unlabored breathing Midline abdominal incision with jake, healing well Abdomen is nondistended A/P Assessment and Plan Acute respiratory failure: Secondary to obstructive sleep apnea, COPD, pneumonia. Continue supplemental oxygen, currently at 3 L, attempting to wean down to room air, will hold off on steroids given patient having actively healing incision. COPD, pneumonia: Continue Levaquin. DuoNeb, Symbicort. Pancreatic mass - pancreatic adenocarcinoma per bx, consulting oncology s/p Diagnostic laparoscopy, Open distal pancreatectomy and splenectomy, Omentectomy, and Cholecystectomy, and Placement of radiologic markers in the retroperitoneum. Leukocytosis - Likely secondary to infection; Blood cultures are negative so far. Sputum culture positive for Haemophilus Influenzae. Continue antibiotics. DVT prophylaxis: Lovenox. Lul Mclaughlin MD Jun 26, 2017 11:05
--- NOTE | 2017-06-26 15:29 | HHI.PR ---
Subjective Subjective Notes Up to chair; has been walking in the hallways Feeling depressed today Objective Vitals/I&O Vital Signs Date Time Temp Pulse Resp B/P (MAP) Pulse Ox O2 Delivery O2 Flow Rate FiO2 06/26/17 12:00 98.0 75 17 114/70 (85) 96 06/26/17 10:50 Nasal Cannula 2.00 06/26/17 00:24 45 Labs Laboratory Tests Test 06/26/17 06:09 White Blood Count 20.9 Red Blood Count 3.73 Hemoglobin 11.5 Hematocrit 34.6 Mean Corpuscular Volume 92.7 Mean Corpuscular Hemoglobin 30.8 Mean Corpuscular Hemoglobin Concent 33.3 Red Cell Distribution Width 15.1 Platelet Count 576 Mean Platelet Volume 8.3 Neutrophils (%) (Auto) 69.0 Lymphocytes (%) (Auto) 15.3 Monocytes (%) (Auto) 11.3 Eosinophils (%) (Auto) 4.0 Basophils (%) (Auto) 0.4 Neutrophils # (Auto) 14.5 Lymphocytes # (Auto) 3.2 Monocytes # (Auto) 2.4 Eosinophils # (Auto) 0.8 Basophils # (Auto) 0.1 CBC Comment AUTO DIFF Differential Total Cells Counted 100 Neutrophils % (Manual) 57 Band Neutrophils % 7 Lymphocytes % 16 Monocytes % 9 Eosinophils % 4 Neutrophils # (Manual) 14.8 Metamyelocytes 1 Myelocytes 6 Differential Comment FINAL DIFF MANUAL Toxic Granulation 1+ Platelet Estimate HIGH Platelet Morphology Comment NORMAL Blood Urea Nitrogen 8 Creatinine 0.64 Random Glucose 118 Calcium Level 9.0 Sodium Level 138 Potassium Level 4.0 Chloride Level 95 Carbon Dioxide Level 37.8 Anion Gap 5 Estimat Glomerular Filtration Rate 130 Date/Time Source Procedure Growth Status 06/19/17 14:07 Blood Peripheral Aerobic Blood Culture - Final NO GROWTH IN 5 DAYS Complete 06/19/17 14:07 Blood Peripheral Anaerobic Blood Culture - Final NO GROWTH IN 5 DAYS Complete 06/19/17 12:35 Sputum Expectorated Sputum Gram Stain - Final Complete 06/19/17 12:35 Sputum Culture - Final Haemophilus Influenzae Complete Cardiovascular: Regular Lungs: Clear Abdomen: Other (midline incison; abdominal binder in place ) Extremities: No edema A/P Assessment and Plan 56 year old male POD10 dx lap;Distal pancreatectomy/splenectomy -WBC continues to trend down -Continue Levaquin PO -Regular diet -OOB -Continue to wean oxygen; home when O2 off Kristen Woodruff/Automotive [employer] Person SOLID WASTE ANALYST Jun 26, 2017 15:29
[2017-06-26] MEDS: ENOXAPARIN SODIUM 40 MG/0.4 ML SYRINGE SQ SCH (17:02)
--- NOTE | 2017-06-26 20:49 | MB ---
cc: Tabatha Grace MD,Lul Mckeon MD DATE: 06/26/2017 REFERRING PHYSICIAN: Lul Mclaughlin MD CHIEF COMPLAINT: Dr. Mclaughlin requested consultation for Mr. Kay with diagnosed resected pancreatic cancer. HISTORY OF PRESENT ILLNESS: Mr. Kay is a 56-year-old man, well known patient initially consulted, 04/21/2017. He has multiple medical problems, presented with unintentional weight loss, nausea, vomiting, abdominal pain. He had a 2.5 cm ill-defined hypodensity in the pancreatic body/tail. His course was complicated by chronic pain. He was quite difficult initially trying to obtain pain medication through our clinic. He had elevated CA 19-9. He was referred to Dr. Juarez for definitive resection. He underwent a diagnostic laparoscopy, open distal pancreatectomy and splenectomy, omentectomy, cholecystectomy and radiographic markers in the retroperitoneum. He had a resected pancreatic cancer. The final pathology showed a tumor measuring 5.5 x 3.8 x 2.0 cm. 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 The tumor invades peripancreatic soft tissue. All margins are uninvolved by invasive carcinoma. There is high grade intraepithelial neoplasia. The tumor is 1 cm from the proximal pancreatic resection margin. The surrounding adipose tissue resection margin is also negative. Four out of 6 lymph nodes were involved. He is a final stage T3N2M0 cancer. The omentum was clear. He has recovered from surgery. He is ambulatory. He has a bout of depression. He has reactive thrombocytosis from the splenectomy. He has mild anemia. His leukocytosis persists. His pain is well controlled. He denies any nausea or vomiting. His post CA 19-9 is not available as yet. Hematology/Oncology is consulted for his resected pancreas cancer and continued therapy. PAST MEDICAL HISTORY: 1. Asthma. 2. COPD. 3. Sleep apnea. 4. Hemorrhoid. 5. Migraine headaches. 6. Pancreatic mass, status post resected pancreatic cancer. 7. Fatty liver. 8. Acute renal insufficiency, resolved. PAST SURGICAL HISTORY: Appendectomy, endoscopy, colonoscopy, pacemaker placement, tonsillectomy, laparoscopy, cholecystectomy, resection of pancreatic cancer. ALLERGIES: NO KNOWN DRUG ALLERGIES. FAMILY HISTORY: Significant for both parents being . SOCIAL HISTORY: He is . His has von Recklinghausen disease. He quit smoking 6 years ago. Denies any alcohol or illicit drug use. His son is here from [place] assisting him with his recovery. CURRENT MEDICATIONS: Levaquin, Pepcid, [place], Lopressor, Catapres, Xanax p.r.n., labetalol, Lovenox, methadone, Zofran p.r.n. PHYSICAL EXAMINATION: VITAL SIGNS: Temperature 97.8, heart rate 78, respiratory rate 18, blood pressure 116/56, saturation 96%. GENERAL: Mr. Kay is a well-developed, well-nourished man. HEENT: His pupils are round, reactive to light and accommodation. Oropharynx is clear. NECK: Supple. LUNGS: Clear to auscultation. CARDIOVASCULAR: Reveals a normal rate and rhythm. ABDOMEN: Large, distended, healing, jake, mid abdominal area, drain in the left lower quadrant. LOWER EXTREMITIES: With no edema. LABORATORY DATA: Significant for leukocytosis, white blood cell count 20.9, hemoglobin 11.5, platelet count 576. Renal function is normal. ASSESSMENT AND PLAN: Mr. Kay is a 56-year-old man with multiple medical problems described above. He has a resected pancreatic cancer. He has lymph node involvement. He would benefit from adjuvant chemotherapy and radiation. We discussed the risks and benefit of adjuvant therapy. He has markers in place for adjuvant radiation. His margins were negative. We will discuss in coordination with radiation oncology the best adjuvant course. We discussed in general terms the principle of adjuvant therapy. I anticipate starting this after he has recovered and has gone home. There is no barrier from oncology standpoint for his discharge. He would followup in oncology clinic where he is established the following week after his discharge. I will check a CA 19-9. We will follow this as marker for response. His renal insufficiency has resolved. We will continue to titrate him off his pain medication. I see he is continued on his long-acting methadone, which was started for his chronic pain before surgical resection. His pain should improve once his cancer is resected completely. MD SONIA Phelps/VAUGHN , 08:06 PM , 08:48 PM
[2017-06-27] VITALS (11 sets, daily range): BP systolic 107–150; BP diastolic 59–80; PULSE 71–97; RESP 16–20; TEMP 98.2–99; O2SAT 93–99
[2017-06-27] MEDS: cloNIDine HCL 0.1 MG TAB PO SCH ×3 (00:50→16:58)
[2017-06-27] MEDS: ACETAMINOPHEN/HYDROcodone 325 MG/10 MG TAB PO PRN ×3 (05:13→22:11)
[2017-06-27] MEDS: BUDESONIDE-FORMOTEROL 160/4.5 MCG INHALER INH SCH ×2 (08:38→22:03)
[2017-06-27] MEDS: METOPROLOL TARTRATE 50 MG TAB PO SCH (08:40)
[2017-06-27] MEDS: LEVOFLOXACIN 750 MG TAB PO SCH (08:40)
[2017-06-27] MEDS: FAMOTIDINE 20 MG TAB PO SCH ×2 (08:41→22:02)
[2017-06-27] MEDS: METHADONE HCL 10 MG TAB PO SCH (08:41)
[2017-06-27] MEDS: SODIUM CHLORIDE 0.9% FLUSH 10 ML FLUSH IV FLUSH SCH ×2 (08:42→22:02)
--- NOTE | 2017-06-27 12:14 | HHI.PR ---
Subjective Remarks Nursing denies any deterioration since last night. Patient does report having some chest discomfort as if food is getting "stuck" when he eats solids, no problems with liquids. Upon review of his medical reconciliation, he is not on any PPIs and he did have an EGD done last February which showed class a esophagitis. Objective Vital Signs Date Time Temp Pulse Resp B/P (MAP) Pulse Ox O2 Delivery O2 Flow Rate FiO2 06/27/17 10:58 18 06/27/17 10:03 95 06/27/17 09:41 18 06/27/17 08:00 98.3 88 18 124/59 (80) 95 06/27/17 05:53 81 06/27/17 04:00 89 20 137/79 (98) 96 06/27/17 00:17 77 06/27/17 00:00 88 20 150/74 (99) 97 06/26/17 21:45 Nasal Cannula 2.00 06/26/17 20:00 81 06/26/17 20:00 98.2 86 20 110/51 (70) 96 06/26/17 17:29 96 Nasal Cannula 2.00 06/26/17 16:00 97.8 78 17 116/56 (76) 96 I/O 06/26/17 06/26/17 06/26/17 06/27/17 06/27/17 06/27/17 07:00 15:00 23:00 07:00 15:00 23:00 Intake Total 2022 ml 270 ml Output Total 1320 ml 925 ml 425 ml Balance -1320 ml 1097 ml -155 ml Intake Oral 2022 ml 270 ml Output Urine Total 1300 ml 925 ml 400 ml Drainage Total 20 ml 25 ml # Bowel Movements 0 Result Diagram: 06/26/17 0609 06/26/17 0609 Objective Remarks Clear lungs bilaterally, unlabored breathing Midline abdominal incision with jake, healing well Abdomen is nondistended, soft No acute distress, pleasant mood A/P Assessment and Plan Acute respiratory failure: Secondary to obstructive sleep apnea, COPD, pneumonia. Continue supplemental oxygen, currently at 3 L, attempting to wean down to room air, will hold off on steroids given patient having actively healing incision - discussed with surgery. COPD, pneumonia: Continue Levaquin. DuoNeb, Symbicort. Pancreatic mass - pancreatic adenocarcinoma per bx. oncology recommendations noted, can be followed up as outpatient. Possible esophageal stricture-consulting GI for assessing candidacy as of esophageal dilatation, starting PPI. s/p Diagnostic laparoscopy, Open distal pancreatectomy and splenectomy, Omentectomy, and Cholecystectomy, and Placement of radiologic markers in the retroperitoneum. Leukocytosis - Likely secondary to infection; Blood cultures are negative so far. Sputum culture positive for Haemophilus Influenzae. Continue antibiotics. DVT prophylaxis: Lovenox. Discharge Planning Discharge is pending weaning down to room air or approving oxygen for patient however he has no benefits. Lul Mclaughlin MD Jun 27, 2017 12:14
[2017-06-27] MEDS ORDERED: PANTOPRAZOLE SOD 40 MG DELAYED RELEASE TAB PO ONE (12:15)
--- NOTE | 2017-06-27 13:11 | HHI.PR ---
Subjective Subjective Notes Resting in bed Visiting with friends and family Objective Vitals/I&O Vital Signs Date Time Temp Pulse Resp B/P (MAP) Pulse Ox O2 Delivery O2 Flow Rate FiO2 06/27/17 10:58 18 06/27/17 10:03 95 06/27/17 08:00 76 06/27/17 08:00 98.3 124/59 (80) 06/26/17 21:45 Nasal Cannula 2.00 06/26/17 00:24 45 Labs Laboratory Tests Test 06/26/17 18:10 06/27/17 05:40 CA 19-9 Antigen 122.4 Date/Time Source Procedure Growth Status 06/19/17 14:07 Blood Peripheral Aerobic Blood Culture - Final NO GROWTH IN 5 DAYS Complete 06/19/17 14:07 Blood Peripheral Anaerobic Blood Culture - Final NO GROWTH IN 5 DAYS Complete 06/19/17 12:35 Sputum Expectorated Sputum Gram Stain - Final Complete 06/19/17 12:35 Sputum Culture - Final Haemophilus Influenzae Complete Cardiovascular: Regular Lungs: Clear Abdomen: Other (midline incision c/d/i ) Extremities: No edema A/P Assessment and Plan 56 year old male POD11 dx lap;Distal pancreatectomy/splenectomy -Checking lipase level from drain -Continue Levaquin PO -Regular diet -OOB -Continue to wean oxygen; home when O2 off Kristen Woodruff/Dust Collector Attendant ARNP Jun 27, 2017 13:11
[2017-06-27] MEDS ORDERED: FUROSEMIDE 40 MG TAB PO ONE (13:15)
--- NOTE | 2017-06-27 14:37 | PD.CONS ---
HPI History of Present Illness This is a 56 year old M with PMH significant for SSS S/P pacemaker placement, asthma, COPD, sleep apnea, pancreatic mass S/P resected pancreatic cancer, and fatty liver. Pt was admitted to [facility] S/P diagnostic laparoscopy, open distal pancreatectomy and splenectomy, omentectomy, cholecystectomy, and radiographic markers in the retroperitoneum. Final pathology revealed invasive pancreatic adenocarcinoma. Hematology/oncology has been consulted and suggested pt would benefit from adjuvant chemotherapy and radiation with plans to follow up outpatient in their office after discharge. Our service has been consulted to evaluate pt for dysphagia. Pt reports dysphagia for the past nine months but has been progressively been getting worse, only has issues with solid foods. Has gotten so bad that he was unable to eat breakfast this morning. States he can feel the food get stuck which causes him pain and then he eventually can feel it pass down. Denies regurgitation of the food. Reports nausea, intermittent for the past nine months. Pt has been previously evaluated by our service for complaints of constipation, which he states is no longer an issue. Feb 2017 he underwent EGD and colonoscopy --> Normal colonic mucosa, internal and external hemorrhoids. Class A esophagitis. Erythematous gastritis in gastric antrum. Normal duodenum. Pathology (gastric antrum) gastric fundic- type mucosa without significant histologic abnormality. Pt also report significant acid reflux for the past couple weeks, described as burning sensation in epigastric/chest area. (Jenise Terry) PFSH Past Medical History Arthritis Asthma Anxiety Pancreatic adenocarcinoma TMJ SSS DOUGLAS Past Surgical History Appendectomy Pacemaker Tonsillectomy diagnostic laparoscopy, open distal pancreatectomy and splenectomy, omentectomy , cholecystectomy, and radiographic markers in the retroperitoneum (Jenise Terry) Coded Allergies: No Known Allergies (Verified Adverse Reaction, Unknown, 05/23/17) Review of Systems Gastrointestinal: COMPLAINS OF: Nausea, Difficulty Swallowing, Odynophagia, Heartburn, DENIES: Abdominal pain, Black stools, Bloody stools, Constipation, Diarrhea, Vomiting, Swelling of Abdomen, Hematemesis (Jenise Terry) GI Exam Vitals I&O Vital Signs Date Time Temp Pulse Resp B/P (MAP) Pulse Ox O2 Delivery O2 Flow Rate FiO2 06/27/17 10:58 18 06/27/17 10:03 95 06/27/17 09:41 18 06/27/17 08:00 76 06/27/17 08:00 98.3 88 18 124/59 (80) 95 06/27/17 05:53 81 06/27/17 04:00 89 20 137/79 (98) 96 06/27/17 00:17 77 06/27/17 00:00 88 20 150/74 (99) 97 06/26/17 21:45 Nasal Cannula 2.00 06/26/17 20:00 81 06/26/17 20:00 98.2 86 20 110/51 (70) 96 06/26/17 17:29 96 Nasal Cannula 2.00 06/26/17 16:00 97.8 78 17 116/56 (76) 96 I/O 06/26/17 06/26/17 06/26/17 06/27/17 06/27/17 06/27/17 07:00 15:00 23:00 07:00 15:00 23:00 Intake Total 2022 ml 270 ml Output Total 1320 ml 925 ml 425 ml Balance -1320 ml 1097 ml -155 ml Intake Oral 2022 ml 270 ml Output Urine Total 1300 ml 925 ml 400 ml Drainage Total 20 ml 25 ml # Bowel Movements 0 Imaging Last Impressions Chest X-Ray 06/19/17 0000 Signed Impressions: Service Date/Time: Monday, June 19, 2017 10:37 - CONCLUSION: Mild central interstitial opacities. Elmer Witt MD Chest CT 06/19/17 0000 Signed Impressions: Service Date/Time: Monday, June 19, 2017 21:26 - CONCLUSION: 1. Development of bilateral distal airway disease, peribronchial thickening and patchy airspace consolidation in both lungs most characteristic of pneumonia and aspiration. Cannot completely exclude rapid metastatic spread of tumor in patient with reported history of pancreatic mass. There is also development of bilateral mediastinal and hilar adenopathy with multiple lymph nodes in the 1-2 cm range. Luiz Magana MD Abdomen/Pelvis CT 06/19/17 0000 Signed Impressions: Service Date/Time: Monday, June 19, 2017 21:26 - CONCLUSION: 1. Development of basilar airspace disease and distal airway disease. This could be secondary to pneumonia and aspiration. 2. Postoperative distal pancreatectomy and splenectomy with edematous changes in the upper abdomen and multiple small locules of air. There is a drain in the pancreatic bed. No abnormal or drainable fluid collections are present. 3. Mild constipation. No bowel obstruction. NG tip in stomach. Luiz Magana MD Laboratory Test 06/26/17 18:10 06/27/17 05:40 CA 19-9 Antigen 122.4 U/ML Date/Time Source Procedure Growth Status 06/19/17 14:07 Blood Peripheral Aerobic Blood Culture - Final NO GROWTH IN 5 DAYS Complete 06/19/17 14:07 Blood Peripheral Anaerobic Blood Culture - Final NO GROWTH IN 5 DAYS Complete 06/19/17 12:35 Sputum Expectorated Sputum Gram Stain - Final Complete 06/19/17 12:35 Sputum Culture - Final Haemophilus Influenzae Complete Physical Examination HEENT: Normocephalic; atraumatic CHEST: Even/unlabored CARDIAC: RRR ABDOMEN: Midline vertical incision with jake, no drainage or erythema. ROSA drain to left side of abdomen with serous output. SKIN: Abdominal midline vertical incision ENERGY PROFESSIONAL: No focal deficits; alert and oriented times three. (Jenise Terry [facility]) Assessment and Plan Plan Assessment: - Dysphagia- States for the past 9 months has been progressively getting worse, unable to even eat breakfast this morning. Only with solids, denies issues with liquids. States feels food get stuck while eating, eventually he can feel it pass. Denies regurgitation of food. Some nausea, but chronic, on medication it is well controlled denies emesis. EGD and colonoscopy Feb 2017--> Normal colonic mucosa, internal and external hemorrhoids. Class A esophagitis. Erythematous gastritis in gastric antrum. Normal duodenum. Pathology (gastric antrum) gastric fundic-type mucosa without significant histologic abnormality. - Acid reflux- states has been worse over the past couple months - Invasive pancreatic adenocarcinoma- S/P diagnostic laparoscopy, open distal pancreatectomy and splenectomy, omentectomy, cholecystectomy, and radiographic markers in the retroperitoneum on June 16- Hematology/oncology following ROSA drain to left side of abdomen, serous drainage (lipase from drain pending) . Abdominal midline vertical incision with jake, no erythema or drainage CT abdomen and pelvis (06/19) --> Development of bibasilar airspace disease and distal airway disease. This could be secondary to pneumonia and aspiration. Postoperative distal pancreatectomy and splenectomy with edematous changes in the upper abdomen and multiple small locules of air. There is a drain in the pancreatic bed. No abnormal or drainable fluid collections are present. Mild constipation. No bowel obstruction. NG tip in stomach. - SSS- S/P pacemaker placement - Leukocytosis- ? secondary to reactive splenectomy - Anemia- normocytic- H/H stable Discussed case with Kristen Woodruff, CRYPTOGRAPHER states would like to hold off on EGD for now given multiple medical issues being managed after recent surgery. Plan: Protonix Hold off on EGD- per DATA MIGRATION CONSULTANT consult for diet recommendations Will continue to follow based on clinical course Pt has been seen and examined by myself and Dr. Plascencia and this note is written on his behalf (Jenise Terry) Physician Comments Patient seen and examined Agree with above Continue with current supportive care Monitor labs (Kenyon Plascencia MD) Jenise Terry Jun 27, 2017 14:37 Kenyon Plascencia MD Jun 27, 2017 21:55
[2017-06-27] MEDS ORDERED: RESP: ALBUTEROL CONC 2.5 MG/0.5 ML NEB NEB PRN (15:15)
[2017-06-27] MEDS: ALPRAZolam 0.5 MG TAB PO PRN (15:56)
[2017-06-27] MEDS: ENOXAPARIN SODIUM 40 MG/0.4 ML SYRINGE SQ SCH (15:57)
[2017-06-28] VITALS (7 sets, daily range): BP systolic 104–136; BP diastolic 51–88; PULSE 71–86; RESP 18–19; TEMP 98–98.9; O2SAT 92–96
[2017-06-28] MEDS: cloNIDine HCL 0.1 MG TAB PO SCH ×3 (00:10→17:09)
[2017-06-28] MEDS: ALPRAZolam 0.5 MG TAB PO PRN (01:56)
[2017-06-28] MEDS: ACETAMINOPHEN/HYDROcodone 325 MG/10 MG TAB PO PRN ×3 (04:59→14:44)
[2017-06-28] MEDS: FAMOTIDINE 20 MG TAB PO SCH (07:58)
[2017-06-28] MEDS: METOPROLOL TARTRATE 50 MG TAB PO SCH (07:58)
[2017-06-28] MEDS: LEVOFLOXACIN 750 MG TAB PO SCH (07:58)
[2017-06-28] MEDS: METHADONE HCL 10 MG TAB PO SCH (07:59)
[2017-06-28] MEDS: BUDESONIDE-FORMOTEROL 160/4.5 MCG INHALER INH SCH (08:00)
[2017-06-28] MEDS: SODIUM CHLORIDE 0.9% FLUSH 10 ML FLUSH IV FLUSH SCH (08:01)
[2017-06-28] MEDS ORDERED: PANTOPRAZOLE SOD 40 MG DELAYED RELEASE TAB PO SCH (09:00)
--- NOTE | 2017-06-28 10:07 | HHI.PR ---
Subjective Subjective Notes Up to chair Feels like food getting stuck sometimes Objective Vitals/I&O Vital Signs Date Time Temp Pulse Resp B/P (MAP) Pulse Ox O2 Delivery O2 Flow Rate FiO2 06/28/17 08:59 18 06/28/17 08:00 98.0 86 120/60 (80) 92 06/28/17 08:00 Nasal Cannula 2.00 06/27/17 23:40 35 Labs Date/Time Source Procedure Growth Status 06/19/17 14:07 Blood Peripheral Aerobic Blood Culture - Final NO GROWTH IN 5 DAYS Complete 06/19/17 14:07 Blood Peripheral Anaerobic Blood Culture - Final NO GROWTH IN 5 DAYS Complete 06/19/17 12:35 Sputum Expectorated Sputum Gram Stain - Final Complete 06/19/17 12:35 Sputum Culture - Final Haemophilus Influenzae Complete Cardiovascular: Regular Lungs: Clear Abdomen: Other (midline incision with jake; ROSA with dark drainage ) Extremities: No edema A/P Assessment and Plan 56 year old male POD12 dx lap;Distal pancreatectomy/splenectomy -Checking lipase level from drain ---still pending -Continue Levaquin PO -GI consulted--- I suggested waiting on EGD for now until complete recover from surgery -Regular diet --soft -OOB -Repeat home walk test today -Continue to wean oxygen; home when O2 off Kristen Woodruff/[employer] Driver ARNP Jun 28, 2017 10:07
[2017-06-28] MEDS ORDERED: CLON.1 PO (11:19)
[2017-06-28] MEDS ORDERED: VENTAER INH (11:19)
[2017-06-28] MEDS ORDERED: ALPR.5 PO (11:19)
[2017-06-28] MEDS ORDERED: METO-309 PO (11:19)
[2017-06-28] MEDS ORDERED: PANT40TA3 PO (11:19)
[2017-06-28] MEDS ORDERED: LEVA750T9 PO (11:19)
--- NOTE | 2017-06-28 11:20 | HHI.DCPOC ---
Discharge Care Plan Diagnosis: (1) Hepatitis C, chronic (2) Pancreatic mass (3) COPD (chronic obstructive pulmonary disease) Goals to Promote Your Health * To prevent worsening of your condition and complications * To maintain your health at the optimal level Directions to Meet Your Goals Take your medications as prescribed Follow your dietary instruction Follow activity as directed Keep your appointments as scheduled Take your immunizations and boosters as scheduled If your symptoms worsen call your PCP, if no PCP go to Urgent Care Center or Emergency Room Smoking is Dangerous to Your Health. Avoid second hand smoke Call the 24-hour hour crisis hotline for domestic abuse at Lul Mclaughlin MD Jun 28, 2017 11:20
--- NOTE | 2017-06-28 12:37 | HHI.DS ---
Discharge Summary Admission Date Jun 16, 2017 at 05:53 Discharge Date: Jun 28, 2017 Admitting Diagnosis Severe shortness of breath, obstructive sleep apnea, and suspected pancreatic cancer (1) Pancreatic mass ICD Code: K86.9 - Disease of pancreas, unspecified Procedures 06/16/17 diagnostic laparoscopy, open distal pancreatectomy and splenectomy, omentectomy, cholecystectomy, placement of radiologic markers in the retroperitoneum Brief History - From Admission 56yo M with PMH of sick sinus syndrome s/p pacemaker, pancreatic mass underwent distal pancreatectomy and splenectomy today. Pt had CT a/p in April 2017 and a 2.5cm mass was found in pancreas. Pt has seen Yarelis PRECIADO from oncology Dr. Juarez for definitive diagnosis. CBC/BMP: 06/26/17 0609 06/26/17 0609 Significant Findings Laboratory Tests Test 06/26/17 06:09 06/26/17 18:10 06/27/17 05:40 White Blood Count 20.9 TH/MM3 (4.0-11.0) Red Blood Count 3.73 MIL/MM3 (4.50-5.90) Hemoglobin 11.5 GM/DL (13.0-17.0) Hematocrit 34.6 % (39.0-51.0) Platelet Count 576 TH/MM3 (150-450) Monocytes (%) (Auto) 11.3 % (0.0-8.0) Neutrophils # (Auto) 14.5 TH/MM3 (1.8-7.7) Monocytes # (Auto) 2.4 TH/MM3 (0-0.9) Eosinophils # (Auto) 0.8 TH/MM3 (0-0.4) Band Neutrophils % 7 % (0-6) Monocytes % 9 % (0-8) Neutrophils # (Manual) 14.8 TH/MM3 (1.8-7.7) Myelocytes 6 % (0-0) Toxic Granulation 1+ (NORMAL) Platelet Estimate HIGH (NORMAL) Random Glucose 118 MG/DL (74-106) Chloride Level 95 MEQ/L (98-107) Carbon Dioxide Level 37.8 MEQ/L (21.0-32.0) CA 19-9 Antigen 122.4 U/ML (0.0-35.0) Imaging Last Impressions Chest X-Ray 06/19/17 0000 Signed Impressions: Service Date/Time: Monday, June 19, 2017 10:37 - CONCLUSION: Mild central interstitial opacities. Elmer Witt MD Chest CT 06/19/17 0000 Signed Impressions: Service Date/Time: Monday, June 19, 2017 21:26 - CONCLUSION: 1. Development of bilateral distal airway disease, peribronchial thickening and patchy airspace consolidation in both lungs most characteristic of pneumonia and aspiration. Cannot completely exclude rapid metastatic spread of tumor in patient with reported history of pancreatic mass. There is also development of bilateral mediastinal and hilar adenopathy with multiple lymph nodes in the 1-2 cm range. Luiz Magana MD Abdomen/Pelvis CT 06/19/17 0000 Signed Impressions: Service Date/Time: Monday, June 19, 2017 21:26 - CONCLUSION: 1. Development of basilar airspace disease and distal airway disease. This could be secondary to pneumonia and aspiration. 2. Postoperative distal pancreatectomy and splenectomy with edematous changes in the upper abdomen and multiple small locules of air. There is a drain in the pancreatic bed. No abnormal or drainable fluid collections are present. 3. Mild constipation. No bowel obstruction. NG tip in stomach. Luiz Magana MD PE at Discharge Patient ambulating up and down the hallway, clear lungs bilaterally, well- healing midline abdominal incision. On room air. Hospital Course Patient had initially undergone a open distal pancreatectomy and splenectomy, omentectomy, cholecystectomy as well as placement of radiologic markers in the retroperitoneum. However postoperatively he was requiring BiPAP while on the SAUSAGE WRAPPER pump and was transferred to critical care. Pulmonology had been consulted to help manage the patient with his very severe obstructive sleep apnea. Eventually he was stabilized and transferred to the regular floor. 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 Oncology was consulted and recommended radiation and chemotherapy as an outpatient. Patient was weaned down to room air. Patient has met maximal benefit from hospitalization is clinically stable for discharge. Pt Condition on Discharge: Stable Discharge Disposition: Discharge Home Discharge Time: <= 30 minutes Discharge Instructions DIET: Follow Instructions for: As Tolerated, No Restrictions Speech Therapy-Diet Recommends: Mechanical Soft Activities you can perform: Regular-No Restrictions Follow up Referrals: Oncology/Hematology - 1 Week with Tabatha Grace MD Steam Plant Control Room Operator stated she could not make an appointment patient needs a new patient referral to be seen, I provided the patient with the number [phone] option #3 PCP Follow-up - 1 Week with [facility]Dr. [facility] - 07/03/17 with Dawson Juarez MD July 06 at 2PM New Medications: Albuterol 18 GM Inh (Ventolin Hfa 18 GM Inh) 90 Mcg/Act Aer 2 PUFF INH Q4-6H PRN for SHORTNESS OF BREATH, #1 INHALER 0 Refills Hydrocodone-Acetaminophen ([place]) 5 Mg-325 Mg Tab 1-2 TAB PO Q4H PRN for PAIN, #28 TAB 0 Refills Methadone (Methadone) 5 Mg Tab 2.5 MG PO DAILY for Pain Management, #14 TAB 0 Refills Alprazolam (Xanax) 0.5 Mg Tab 0.5 MG PO Q6H PRN for anxiety, #30 TAB Clonidine (Catapres) 0.1 Mg Tab 0.1 MG PO Q8H for Blood Pressure Management, #90 TAB Levofloxacin (Levaquin) 750 Mg Tablet 750 MG PO DAILY for pneumonia, #6 TAB Metoprolol Tartrate (Lopressor) 50 Mg Tab 50 MG PO DAILY for heart health, #30 TAB Pantoprazole (Pantoprazole) 40 Mg Tab 40 MG PO DAILY for acid reflux, #30 TAB Continued Medications: Aspirin DR (Aspirin EC) 81 Mg Tabdr 81 MG PO DAILY for Stroke Prevention, #30 TAB 0 Refills Budesonide-Formoterol Inh (Symbicort Inh) 160-4.5 Mcg/Act Aero 2 PUFF INH Q12HR, #1 INHALER 0 Refills Hydrocodone-Acetaminophen ([place]) 10-325 Mg Tab 1 TAB PO Q6H PRN for PAIN, #20 TAB 0 Refills Methadone (Methadone) 5 Mg Tab 2.5 MG PO DAILY for Pain Management, TAB 0 Refills Ondansetron (Zofran) 4 Mg Tab 4 MG PO Q6HR PRN for NAUSEA OR VOMITING, #30 TAB 0 Refills Prochlorperazine Maleate (Prochlorperazine Maleate) 25 Gm Powder 1 TAB PO DAILY Discontinued Medications: Metoprolol Tartrate (Metoprolol Tartrate) 25 Mg Tab 25 MG PO DAILY, #30 TAB 0 Refills Lul Mclaughlin MD Jun 28, 2017 12:37
--- NOTE | 2017-06-28 13:56 | HHI.GIFU ---
Subjective Remarks up in chair Feeling much better today No nausea, vomiting, heartburn Abdomen [place] clean, draining left abdomen dark gretel fluid (Marilee Resendiz) Objective Vitals I&O Vital Signs Date Time Temp Pulse Resp B/P (MAP) Pulse Ox O2 Delivery O2 Flow Rate FiO2 06/28/17 12:00 98.2 73 19 104/51 (68) 93 06/28/17 10:53 95 21 06/28/17 10:35 18 06/28/17 10:32 95 Nasal Cannula 2.00 06/28/17 08:59 18 06/28/17 08:00 83 06/28/17 08:00 98.0 86 19 120/60 (80) 92 06/28/17 08:00 92 Nasal Cannula 2.00 06/28/17 04:00 71 06/28/17 04:00 98.9 80 18 135/62 (86) 94 06/28/17 02:00 Nasal Cannula 2.00 06/28/17 00:10 Nasal Cannula 2.00 06/28/17 00:00 98.9 83 18 136/88 (104) 96 06/28/17 00:00 75 06/27/17 23:40 97 35 06/27/17 20:00 95 06/27/17 20:00 99.0 97 18 137/80 (99) 99 06/27/17 17:24 96 21 06/27/17 16:00 98.2 82 17 121/76 (91) 93 06/27/17 16:00 71 I/O 06/27/17 06/27/17 06/27/17 06/28/17 06/28/17 06/28/17 07:00 15:00 23:00 07:00 15:00 23:00 Intake Total 270 ml 1320 ml 240 ml Output Total 425 ml 3120 ml 525 ml Balance -155 ml -1800 ml -285 ml Intake Oral 270 ml 1320 ml 240 ml Output Urine Total 400 ml 3100 ml 500 ml Drainage Total 25 ml 20 ml 25 ml # Bowel Movements 1 0 Laboratory Date/Time Source Procedure Growth Status 06/19/17 14:07 Blood Peripheral Aerobic Blood Culture - Final NO GROWTH IN 5 DAYS Complete 06/19/17 14:07 Blood Peripheral Anaerobic Blood Culture - Final NO GROWTH IN 5 DAYS Complete 3/19/18 12:35 Sputum Expectorated Sputum Gram Stain - Final Complete 06/19/17 12:35 Sputum Culture - Final Haemophilus Influenzae Complete Imaging Last Impressions Chest X-Ray 06/19/17 0000 Signed Impressions: Service Date/Time: Monday, June 19, 2017 10:37 - CONCLUSION: Mild central interstitial opacities. Elmer Witt MD Chest CT 06/19/17 0000 Signed Impressions: Service Date/Time: Monday, June 19, 2017 21:26 - CONCLUSION: 1. Development of bilateral distal airway disease, peribronchial thickening and patchy airspace consolidation in both lungs most characteristic of pneumonia and aspiration. Cannot completely exclude rapid metastatic spread of tumor in patient with reported history of pancreatic mass. There is also development of bilateral mediastinal and hilar adenopathy with multiple lymph nodes in the 1-2 cm range. Luiz Magana MD Abdomen/Pelvis CT 06/19/17 0000 Signed Impressions: Service Date/Time: Monday, June 19, 2017 21:26 - CONCLUSION: 1. Development of basilar airspace disease and distal airway disease. This could be secondary to pneumonia and aspiration. 2. Postoperative distal pancreatectomy and splenectomy with edematous changes in the upper abdomen and multiple small locules of air. There is a drain in the pancreatic bed. No abnormal or drainable fluid collections are present. 3. Mild constipation. No bowel obstruction. NG tip in stomach. Luiz Magana MD Physical Exam HEENT: Pupils round and reactive to light; normocephalic; atraumatic; no jaundice. Morbid obesity NECK: Neck is supple, obese CHEST: Chest diminished in bases CARDIAC: Regular rate and rhythm ABDOMEN: taut, obese, large, mild tenderness around incision site, no erythema ; bowel sounds are present in all four quadrants. EXTREMITIES: No clubbing, cyanosis, or edema. SKIN: Normal; no rash; no jaundice. SOUND EQUIPMENT MECHANIC: No focal deficits; alert and oriented times three. (Marilee Resendiz) Assessment and Plan Plan Assessment: - Dysphagia- States for the past 9 months has been progressively getting worse, unable to even eat breakfast this morning. Only with solids, denies issues with liquids. States feels food get stuck while eating, eventually he can feel it pass. Denies regurgitation of food. Some nausea, but chronic, on medication it is well controlled denies emesis. EGD and colonoscopy Feb 2017--> Normal colonic mucosa, internal and external hemorrhoids. Class A esophagitis. Erythematous gastritis in gastric antrum. Normal duodenum. Pathology (gastric antrum) gastric fundic-type mucosa without significant histologic abnormality. - Acid reflux- states has been worse over the past couple months - Invasive pancreatic adenocarcinoma- S/P diagnostic laparoscopy, open distal pancreatectomy and splenectomy, omentectomy, cholecystectomy, and radiographic markers in the retroperitoneum on June 16- Hematology/oncology following ROSA drain to left side of abdomen, serous drainage (lipase from drain pending) . Abdominal midline vertical incision with jake, no erythema or drainage CT abdomen and pelvis (06/19) --> Development of bibasilar airspace disease and distal airway disease. This could be secondary to pneumonia and aspiration. Postoperative distal pancreatectomy and splenectomy with edematous changes in the upper abdomen and multiple small locules of air. There is a drain in the pancreatic bed. No abnormal or drainable fluid collections are present. Mild constipation. No bowel obstruction. NG tip in stomach. - SSS- S/P pacemaker placement - Leukocytosis- ? secondary to reactive splenectomy - Anemia- normocytic- H/H stable Discussed case with Kristen Woodruff, ARMED GUARD states would like to hold off on EGD for now given multiple medical issues being managed after recent surgery. 06/28/17 symptoms are much improved with Protonix for reflux disease. denies any nausea vomiting and states that he was able to eat regular food without it hurting Abdomen incision midline clean dry and intact no erythema, abdominal drain with dark gretel fluid. Denies any constipation or diarrhea,. Hemoglobin stable at 11.5. Plan: Diet regular basic with no obvious dysphagia Protonix continued Pepcid DC Hold off on EGD- per GS Will continue to follow based on clinical course Monitor labs Supportive care Pt has been seen and examined by myself and Dr. Plascencia and this note is written on his behalf (Marilee Resendiz) Plan Patient seen and examined Agree with above Continue with current supportive care Monitor labs Okay for discharge (Kenyon Plascencia MD) Marilee Resendiz Jun 28, 2017 13:56 Kenyon Plascencia MD Jun 28, 2017 23:02
[2017-06-28] MEDS ORDERED: NORC5TAB PO (15:39)
[2017-06-28] MEDS ORDERED: METH5TAB PO (15:39)
[2017-06-28] MEDS: ENOXAPARIN SODIUM 40 MG/0.4 ML SYRINGE SQ SCH (16:29)
[2017-06-28 19:56] LABS: LIPASE BODY FLUID LESS THAN 10 U/L; LIPASE SOURCE JP DRAIN
== END 2017-06-28 17:32 | disposition home or self-care (01) | DRG 405 ==
LOC: HSDI 05:53 → N03A 14:16 → N07B 06-22 20:07
PROVIDERS: ADMIT Surgery; ATTEND Surgery
PROC: 07TP0ZZ Resection of Spleen, Open Approach (ICD-10-PCS; 2017-06-16)
PROC: 0FT40ZZ Resection of Gallbladder, Open Approach (ICD-10-PCS; 2017-06-16)
PROC: 0DBU0ZZ Excision of Omentum, Open Approach (ICD-10-PCS; 2017-06-16)
PROC: 5A09557 Assistance with Respiratory Ventilation, Greater than 96 Consecutive Hours, Continuous Positive Airway Pressure (ICD-10-PCS; 2017-06-16)
PROC: 0FBG0ZZ Excision of Pancreas, Open Approach (ICD-10-PCS; principal; 2017-06-16 07:57)
DX: C25.1 Malignant neoplasm of body of pancreas (principal); J96.01 Acute respiratory failure with hypoxia; J96.02 Acute respiratory failure with hypercapnia; J18.9 Pneumonia, unspecified organism; J44.0 Chronic obstructive pulmonary disease with (acute) lower respiratory infection; K80.10 Calculus of gallbladder with chronic cholecystitis without obstruction; E87.2 Acidosis; I49.5 Sick sinus syndrome; R13.10 Dysphagia, unspecified; K76.0 Fatty (change of) liver, not elsewhere classified; Z95.0 Presence of cardiac pacemaker; D64.9 Anemia, unspecified; M19.90 Unspecified osteoarthritis, unspecified site; E78.00 Pure hypercholesterolemia, unspecified; I10 Essential (primary) hypertension; G47.33 Obstructive sleep apnea (adult) (pediatric); Z87.891 Personal history of nicotine dependence; G89.29 Other chronic pain; K21.9 Gastro-esophageal reflux disease without esophagitis; B18.2 Chronic viral hepatitis C; E87.6 Hypokalemia; E66.9 Obesity, unspecified; Z68.34 Body mass index [BMI] 34.0-34.9, adult; Z53.31 Laparoscopic surgical procedure converted to open procedure
CPT/HCPCS: 36600; 71045; 71260; 74177; 76937; 80048; 80053; 82805; 83605; 83690; 83735; 84100; 85007; 85025; 85027; 86301; 86850; 86900; 86901; 87040; 87070; 87205; 87641; 88304; 88305; 88307; 88309; 93005; 94002; 94003; 94150; 94640; 94664; C9290; J0131; J0690; J1100; J1170; J1200; J1644; J1650; J1956; J2175; J2250; J2270; J2370; J2405; J2710; J3010; J7030; J7040; J7120; Q9967

== ENCOUNTER 2017-07-05 20:55 | Observation (INO) | payer OTHER, MEDICAID ==
[~2017-07-05] VITALS: Ht 172.7 cm; Wt 130.2 kg
[~2017-07-05 20:55] MED LIST changes: +ALPR.5 PO; +CLON.1 PO; +LEVA750T9 PO; +METO-309 PO; -METO25TA3 PO; +NORC5TAB PO; +PANT40TA3 PO; +VENTAER INH
[2017-07-05 21:24] VITALS: BP 132/73; PULSE 73; RESP 20; TEMP 98.5; O2SAT 97
--- NOTE | 2017-07-05 21:24 | PD ---
HPI Chief Complaint: Chest Pain Time Seen by Provider: 21:10 Travel History International Travel<30 days: No Contact w/Intl Traveler<30days: No History of Present Illness HPI Patient is a 56-year-old male who presents the emergency room with multiple complaints. Patient reports that 3 hours prior to onset to the emergency room, he was taking a shower and began to have substernal chest pain as well as left lower extremity calf pain. Patient reports that the pain feels a punching sensation to his mid chest wall. Patient reports increased nausea with no vomiting with his symptoms. He endorses that he is having shortness of breath with his symptoms. Patient reports that he has never had these symptoms in the past. Patient reports that he has history of sick sinus syndrome and does have a pacemaker, he is being followed by Dr. Tripp. Patient reports that he recently was admitted to the hospital as he was diagnosed with pancreatic cancer. Patient was admitted on June 16 and discharged on June 28, 2017 status post diagnostic laparoscopy with open distal pancreatectomy and splenectomy, omentectomy, cholecystectomy, placement of radiologic markers in the retroperitoneum. Patient is currently being followed by Dr. Juarez as well as Dr. Grace. Patient denies any fever or chills, denies any abdominal pain. PFSH Past Medical History Hx Anticoagulant Therapy: Yes (81mg aspirin ) Arthritis: Yes Asthma: Yes Autoimmune Disease: No Blood Disorders: No Anxiety: Yes Depression: Yes Heart Rhythm Problems: Yes Cancer: Yes (POSSIBLE PANCREATIC CANCER) Cardiac Catheterization: No Cardiovascular Problems: Yes (pt is not clear regarding his actual cardiac hx other than he has a pacemak) High Cholesterol: Yes Chest Pain: Yes Congestive Heart Failure: No COPD: Yes Cerebrovascular Accident: No Diabetes: No Diminished Hearing: No Endocrine: No Gastrointestinal Disorders: Yes GERD: Yes Genitourinary: No Hepatitis: No Hiatal Hernia: No Hypertension: Yes Immune Disorder: No Implanted Vascular Access Dvce: Yes Musculoskeletal: Yes Neurologic: Yes (migraines) Psychiatric: Yes Reproductive: No Respiratory: Yes (asthma, copd) Immunizations Current: Yes Migraines: Yes (WITH TMJ) Pancreatitis: Yes (TUMOR ON PANCREAS) Seizures: No Sleep Apnea: Yes (cpap at home) Thyroid Disease: No Ulcer: No Past Surgical History Abdominal Surgery: Yes (appendectomy) AICD: No Appendectomy: Yes Arteriovenous Shunt: No Cardiac Surgery: Yes (PACEMAKER INSERTED: 05/12/16) Coronary Artery Bypass Graft: No Ear Surgery: No Endocrine Surgery: No Eye Surgery: No Genitourinary Surgery: No Gynecologic Surgery: No Insulin Pump: No Joint Replacement: No Oral Surgery: Yes (TOOTH REMOVED, tonsillectomy) Pacemaker: Yes Thoracic Surgery: No Tonsillectomy: Yes ( CHILD) Other Surgery: Yes Social History Alcohol Use: No Tobacco Use: No (QUIT 2013) Substance Use: No Allergies-Medications (Allergen,Severity, Reaction): Coded Allergies: No Known Allergies (Verified Adverse Reaction, Unknown, 05/23/17) Reported Meds & Prescriptions Reported Meds & Active Scripts Active [place] (Hydrocodone-Acetaminophen) 5 Mg-325 Mg Tab 1-2 Tab PO Q4H PRN Catapres (Clonidine) 0.1 Mg Tab 0.1 Mg PO Q8H Lopressor (Metoprolol Tartrate) 50 Mg Tab 50 Mg PO DAILY Xanax (Alprazolam) 0.5 Mg Tab 0.5 Mg PO Q6H PRN Pantoprazole (Pantoprazole Sodium) 40 Mg Tab 40 Mg PO DAILY Ventolin Hfa 18 GM Inh (Albuterol Sulfate) 90 Mcg/Act Aer 2 Puff INH Q4-6H PRN Levaquin (Levofloxacin) 750 Mg Tablet 750 Mg PO DAILY Zofran (Ondansetron HCl) 4 Mg Tab 4 Mg PO Q6HR PRN Aspirin EC (Aspirin) 81 Mg Tabdr 81 Mg PO DAILY Reported Symbicort Inh (Budesonide/Formoterol Fumarate) 160-4.5 Mcg/Act Aero 2 Puff INH Q12HR Methadone (Methadone HCl) 5 Mg Tab 2.5 Mg PO DAILY Review of Systems General / Constitutional: No: Fever Eyes: No: Visual changes HENT: No: Headaches Cardiovascular: Positive: Chest Pain or Discomfort, Diaphoresis, No: Palpitations, Irregular Rhythm, Tachycardia Respiratory: Positive: Shortness of Breath Gastrointestinal: Positive: Nausea, No: Vomiting, Diarrhea, Abdominal Pain Genitourinary: No: Dysuria Musculoskeletal: Positive: Cramping (Left lower extremity calf cramping), Pain Skin: No Rash Neurologic: No: Weakness Psychiatric: No: Depression Endocrine: No: Polydipsia Hematologic/Lymphatic: No: Easy Bruising Physical Exam Narrative GENERAL: Moderate distress SKIN: Focused skin assessment warm/dry. HEAD: Atraumatic. Normocephalic. EYES: Pupils equal and round. No scleral icterus. No injection or drainage. ENT: No nasal bleeding or discharge. Mucous membranes pink and moist. NECK: Trachea midline. No JVD. CARDIOVASCULAR: Regular rate and rhythm. No murmur appreciated. RESPIRATORY: No accessory muscle use. Clear to auscultation. Breath sounds equal bilaterally. GASTROINTESTINAL: Abdomen soft, non-tender, nondistended. Hepatic and splenic margins not palpable. MUSCULOSKELETAL: No obvious deformities. No clubbing. No cyanosis. No edema. Positive Homans sign to left lower extremity NEUROLOGICAL: Awake and alert. No obvious cranial nerve deficits. Motor grossly within normal limits. Normal speech. PSYCHIATRIC: Appropriate mood and affect; insight and judgment normal. Data Data Last Documented VS Vital Signs Date Time Temp Pulse Resp B/P (MAP) Pulse Ox O2 Delivery O2 Flow Rate FiO2 07/05/17 21:31 73 20 97 Nasal Cannula 2.00 07/05/17 21:29 98.5 132/73 (92) Orders Orders B-Type Natriuretic Peptide (07/05/17 21:22) Ckmb (Isoenzyme) Profile (07/05/17 21:22) Complete Blood Count With Diff (07/05/17 21:22) Comprehensive Metabolic Panel (07/05/17 21:22) Magnesium (Mg) (07/05/17 21:22) Prothrombin Time / Inr (Pt) (07/05/17 21:22) Act Partial Throm Time (Ptt) (07/05/17 21:22) Troponin I (07/05/17 21:22) Chest, Single Ap (07/05/17 21:22) Ecg Monitoring (07/05/17 21:22) Iv Access Insert/Monitor (07/05/17 21:22) Oximetry (07/05/17 21:22) Aspirin Chew (Aspirin Chew) (07/05/17 21:30) Sodium Chloride 0.9% Flush (Ns Flush) (07/05/17 21:30) Nitroglycerin Sl (Nitrostat Sl) (07/05/17 21:30) Sodium Chlorid 0.9% 500 Ml Inj (Ns 500 M (07/05/17 21:30) Us Leg Venous Doppler (07/05/17 ) Electrocardiogram (4/4/18 21:16) Morphine Inj (Morphine Inj) (07/05/17 22:15) Labs Laboratory Tests Test 07/05/17 21:20 White Blood Count 9.8 TH/MM3 Red Blood Count 3.58 MIL/MM3 Hemoglobin 10.8 GM/DL Hematocrit 33.1 % Mean Corpuscular Volume 92.3 FL Mean Corpuscular Hemoglobin 30.0 PG Mean Corpuscular Hemoglobin Concent 32.5 % Red Cell Distribution Width 15.0 % Platelet Count 894 TH/MM3 Mean Platelet Volume 7.6 FL Neutrophils (%) (Auto) 48.7 % Lymphocytes (%) (Auto) 31.7 % Monocytes (%) (Auto) 11.2 % Eosinophils (%) (Auto) 5.5 % Basophils (%) (Auto) 2.9 % Neutrophils # (Auto) 4.8 TH/MM3 Lymphocytes # (Auto) 3.1 TH/MM3 Monocytes # (Auto) 1.1 TH/MM3 Eosinophils # (Auto) 0.5 TH/MM3 Basophils # (Auto) 0.3 TH/MM3 CBC Comment AUTO DIFF Differential Comment AUTO DIFF CONFIRMED Platelet Estimate HIGH Platelet Morphology Comment NORMAL Prothrombin Time 10.7 SEC Prothromb Time International Ratio 1.1 RATIO Activated Partial Thromboplast Time 26.4 SEC Blood Urea Nitrogen 13 MG/DL Creatinine 0.85 MG/DL Random Glucose 119 MG/DL Total Protein 6.8 GM/DL Albumin 2.7 GM/DL Calcium Level 8.0 MG/DL Magnesium Level 1.9 MG/DL Alkaline Phosphatase 103 U/L Aspartate Amino Transf (AST/SGOT) 20 U/L Alanine Aminotransferase (ALT/SGPT) 22 U/L Total Bilirubin 0.1 MG/DL Sodium Level 140 MEQ/L Potassium Level 4.0 MEQ/L Chloride Level 104 MEQ/L Carbon Dioxide Level 29.6 MEQ/L Anion Gap 6 MEQ/L Estimat Glomerular Filtration Rate 94 ML/MIN Total Creatine Kinase 96 U/L Troponin I LESS THAN 0.02 NG/ML B-Type Natriuretic Peptide 53 PG/ML [facility] Medical Decision Making Medical Screen Exam Complete: Yes Emergency Medical Condition: Yes Medical Record Reviewed: Yes Interpretation(s) EKG at 2116: NSR at 74bpm, qt/qtc: 362/389, no acute st or t wave changes Differential Diagnosis ACS, arrhythmia, PE, DVT, anxiety reaction, electrolyte abnormality, pneumothorax Narrative Course 56-year-old male presents the emergency room complaints of substernal chest pain as well as left lower extremity calf tenderness which began 3 hours prior to arrival to the emergency room. During the course of the patients emergency department visit, the patients history, examination, and differential diagnosis were reviewed with the patient. The patient was placed on a groundwater monitoring technician with oximetry and frequent blood pressure monitoring. The patient had an IV access obtained and blood work sent for analysis. The patient was initially provided sublingual nitroglycerin as well as aspirin for his chest pain. The patients laboratory studies were reviewed and remarkable for: Laboratory Tests Test 07/05/17 21:20 White Blood Count 9.8 TH/MM3 (4.0-11.0) Red Blood Count 3.58 MIL/MM3 (4.50-5.90) Hemoglobin 10.8 GM/DL (13.0-17.0) Hematocrit 33.1 % (39.0-51.0) Mean Corpuscular Volume 92.3 FL (80.0-100.0) Mean Corpuscular Hemoglobin 30.0 PG (27.0-34.0) Mean Corpuscular Hemoglobin Concent 32.5 % (32.0-36.0) Red Cell Distribution Width 15.0 % (11.6-17.2) Platelet Count 894 TH/MM3 (150-450) Mean Platelet Volume 7.6 FL (7.0-11.0) Neutrophils (%) (Auto) 48.7 % (16.0-70.0) Lymphocytes (%) (Auto) 31.7 % (9.0-44.0) Monocytes (%) (Auto) 11.2 % (0.0-8.0) Eosinophils (%) (Auto) 5.5 % (0.0-4.0) Basophils (%) (Auto) 2.9 % (0.0-2.0) Neutrophils # (Auto) 4.8 TH/MM3 (1.8-7.7) Lymphocytes # (Auto) 3.1 TH/MM3 (1.0-4.8) Monocytes # (Auto) 1.1 TH/MM3 (0-0.9) Eosinophils # (Auto) 0.5 TH/MM3 (0-0.4) Basophils # (Auto) 0.3 TH/MM3 (0-0.2) CBC Comment AUTO DIFF Differential Comment AUTO DIFF CONFIRMED Platelet Estimate HIGH (NORMAL) Platelet Morphology Comment NORMAL (NORMAL) Prothrombin Time 10.7 SEC (9.8-11.6) Prothromb Time International Ratio 1.1 RATIO Activated Partial Thromboplast Time 26.4 SEC (24.3-30.1) Blood Urea Nitrogen 13 MG/DL (7-18) Creatinine 0.85 MG/DL (0.60-1.30) Random Glucose 119 MG/DL (74-106) Total Protein 6.8 GM/DL (6.4-8.2) Albumin 2.7 GM/DL (3.4-5.0) Calcium Level 8.0 MG/DL (8.5-10.1) Magnesium Level 1.9 MG/DL (1.5-2.5) Alkaline Phosphatase 103 U/L (45-117) Aspartate Amino Transf (AST/SGOT) 20 U/L (15-37) Alanine Aminotransferase (ALT/SGPT) 22 U/L (12-78) Total Bilirubin 0.1 MG/DL (0.2-1.0) Sodium Level 140 MEQ/L (136-145) Potassium Level 4.0 MEQ/L (3.5-5.1) Chloride Level 104 MEQ/L (98-107) Carbon Dioxide Level 29.6 MEQ/L (21.0-32.0) Anion Gap 6 MEQ/L (5-15) Estimat Glomerular Filtration Rate 94 ML/MIN (>89) Total Creatine Kinase 96 U/L (39-308) Troponin I LESS THAN 0.02 NG/ML B-Type Natriuretic Peptide 53 PG/ML (0-100) Radiology studies were reviewed and remarkable for: Last Impressions Chest X-Ray 07/05/172121 Signed Impressions: Service Date/Time: Wednesday, July 05, 2017 21:24 - CONCLUSION: Mild compensated cardiomegaly Topher Kim MD FACR Lower Extremity Ultrasound 07/05/17 0000 Signed Impressions: Service Date/Time: Wednesday, July 05, 2017 22:15 - CONCLUSION: Negative for deep venous thrombosis. Topher Kim MD FACR Patient reevaluated, patient reports resolution of chest pain at this time. I reviewed all labs and all studies in detail, plan to observation for chest pain. Diagnosis Primary Impression: Chest pain Qualified Codes: R07.9 - Chest pain, unspecified Admitting Information Admitting Physician Requests: Observation Rama Larkin DO Jul 05, 2017 21:24
[2017-07-05 21:29] VITALS: BP 132/73; PULSE 73; RESP 20; TEMP 98.5; O2SAT 98
[2017-07-05] MEDS ORDERED: SODIUM CHLORID 0.9% 500 ML INJ 500 ML IV ONE (21:30)
[2017-07-05] MEDS ORDERED: ASPIRIN 81 MG CHEW TAB PO ONE (21:30)
[2017-07-05] MEDS ORDERED: SODIUM CHLORIDE 0.9% FLUSH 10 ML FLUSH IVF PRN (21:30)
[2017-07-05] MEDS ORDERED: NITROGLYCERIN 0.4 MG SL 25 TABS/BTL SL SCH (21:30)
[2017-07-05 21:31] LABS: AUTOMATED NEUTROPHIL # 4.8 TH/MM3 (1.8-7.7); BASOPHIL # 0.3 TH/MM3 (0-0.2); BASOPHIL % 2.9 % (0.0-2.0); EOSINOPHIL # 0.5 TH/MM3 (0-0.4); EOSINOPHIL % 5.5 % (0.0-4.0); HEMATOCRIT 33.1 % (39.0-51.0); HEMOGLOBIN 10.8 GM/DL (13.0-17.0); LYMPH % 31.7 % (9.0-44.0); LYMPHOCYTE # 3.1 TH/MM3 (1.0-4.8); MEAN CELL VOLUME 92.3 FL (80.0-100.0); MEAN CORPUSCULAR HGB CONC 32.5 % (32.0-36.0); MEAN PLATELET VOLUME 7.6 FL (7.0-11.0); MONO % 11.2 % (0.0-8.0); MONOCYTE # 1.1 TH/MM3 (0-0.9); NEUT % 48.7 % (16.0-70.0); PLATELET COUNT 894 TH/MM3 (150-450); RED BLOOD COUNT 3.58 MIL/MM3 (4.50-5.90); WHITE BLOOD COUNT 9.8 TH/MM3 (4.0-11.0)
[2017-07-05 21:39] LABS: CHLORIDE 104 MEQ/L (98-107); SODIUM (NA) 140 MEQ/L (136-145)
[2017-07-05 21:43] LABS: INTERNATIONAL NORMALIZED RATIO 1.1 RATIO; PROTHROMBIN TIME - PATIENT 10.7 SEC (9.8-11.6)
[2017-07-05 21:44] LABS: ALBUMIN 2.7 GM/DL (3.4-5.0); BICARBONATE 29.6 MEQ/L (21.0-32.0); BLOOD UREA NITROGEN 13 MG/DL (7-18); GLUCOSE,RANDOM 119 MG/DL (74-106); MAGNESIUM 1.9 MG/DL (1.5-2.5)
[2017-07-05 21:46] LABS: ALT (GPT) 22 U/L (12-78)
[2017-07-05 21:47] LABS: AST (GOT) 20 U/L (15-37); CREATININE 0.85 MG/DL (0.60-1.30); GLOMERULAR FILTRATION RATE 94 ML/MIN (>89)
[2017-07-05 21:48] LABS: TOTAL BILIRUBIN ADULT 0.1 MG/DL (0.2-1.0); TOTAL PROTEIN 6.8 GM/DL (6.4-8.2)
[2017-07-05 21:49] LABS: ALKALINE PHOSPHATASE 103 U/L (45-117)
[2017-07-05 21:50] VITALS: BP 100/65; PULSE 74; RESP 20; O2SAT 97
[2017-07-05 21:52] LABS: TROPONIN I LESS THAN 0.02 NG/ML (0.02-0.05)
--- NOTE | 2017-07-05 21:57 | RADRPT ---
EXAM DATE/TIME: 07/05/2017 21:24 [facility] COMPARISON: CHEST SINGLE AP, June 19, 2017, 10:37. INDICATIONS : Chest pain. MEDICAL HISTORY : Cardiovascular disease. Pancreatitis. Chronic obstructive pulmonary disease. SURGICAL HISTORY : Appendectomy. Splenectomy.pancreatectomy. ENCOUNTER: Initial ACUITY: 1 day PAIN SCORE: 8/10 LOCATION: Bilateral chest FINDINGS: Compensated cardiomegaly with pacer on the left. No infiltrate no failure no pneumothorax The portio n of the bony skeleton visualized is unremarkable. CONCLUSION: Mild compensated cardiomegaly Topher Kim MD FACR on July 05, 2017 at 21:54 Board Certified Radiologist. This report was verified electronically.
[2017-07-05] MEDS ORDERED: MORPHINE SULFATE 2 MG/ML SYRINGE IV PUSH ONE (22:15)
--- NOTE | 2017-07-05 22:52 | RADRPT ---
EXAM DATE/TIME: 07/05/2017 22:15 [facility] COMPARISON: No previous studies available for comparison. INDICATIONS : Left leg pain. MEDICAL HISTORY : Hypercholesterolemia. Chronic obstructive pulmonary disease. Gastroesophageal reflux disease. Migr aines. Irregular heartbeat. Hypertension. Sleep apnea. Pancreas mass. Renal disease. Arthritis. Antic oagulant therapy, Aspirin 81mg. Hepatitis. Depression. Anxiety. SURGICAL HISTORY : Tonsillectomy. Cholecystectomy. Appendectomy. Splenectomy. Pacemaker. ENCOUNTER: Initial ACUITY: 1 day PAIN SCORE: 9/10 LOCATION: Left leg. TECHNIQUE: Venous ultrasound of the leg was performed from the inguinal ligament to the proximal calf. Real-betsy e, color Doppler and spectral tracing, compression and augmentation techniques were used. FINDINGS: There is normal compressibility of the deep venous system from the inguinal region to the proximal ca lf. No echogenic clot is seen in the lumen of the common femoral, femoral, popliteal, and posterior tibial veins. There is a normal response of the venous system to proximal and distal augmentation an d respiration. CONCLUSION: Negative for deep venous thrombosis. Topher Kim MD FACR on July 05, 2017 at 22:49 Board Certified Radiologist. This report was verified electronically.
[2017-07-05] MEDS ORDERED: NITROGLYCERIN 0.4 MG SL 25 TABS/BTL SL PRN (23:15)
[2017-07-05] MEDS ORDERED: ALPRAZolam 0.5 MG TAB PO PRN (23:15)
[2017-07-05] MEDS ORDERED: ACETAMINOPHEN/HYDROcodone 325 MG/7.5 MG TAB PO PRN (23:15)
[2017-07-05] MEDS ORDERED: RESP: ALBUTEROL 2.5 MG/IPRATROPIUM 0.5 MG NEB (PRN) NEB (23:15)
[2017-07-05] MEDS ORDERED: SODIUM CHLORIDE 0.9% FLUSH 10 ML FLUSH IV FLUSH PRN (23:15)
[2017-07-05] MEDS ORDERED: MORPHINE SULFATE 4 MG/ML INJ IV PUSH PRN (23:15)
[2017-07-05] MEDS ORDERED: ACETAMINOPHEN 500 MG CPLT PO PRN (23:15)
[2017-07-05] MEDS: cloNIDine HCL 0.1 MG TAB PO SCH (23:25)
[2017-07-05 23:30] VITALS: BP 131/80; PULSE 72; RESP 20; O2SAT 98
[2017-07-06] VITALS (8 sets, daily range): BP systolic 123–152; BP diastolic 79–95; PULSE 73–99; RESP 16–20; TEMP 97.4–98.2; O2SAT 92–100
[2017-07-06 05:11] LABS: TROPONIN I LESS THAN 0.02 NG/ML (0.02-0.05)
[2017-07-06] MEDS: cloNIDine HCL 0.1 MG TAB PO SCH ×2 (06:50→14:07)
[2017-07-06 08:32] LABS: AUTOMATED NEUTROPHIL # 6.7 TH/MM3 (1.8-7.7); BASOPHIL # 0.1 TH/MM3 (0-0.2); BASOPHIL % 0.7 % (0.0-2.0); EOSINOPHIL # 0.5 TH/MM3 (0-0.4); EOSINOPHIL % 4.9 % (0.0-4.0); HEMOGLOBIN 11.1 GM/DL (13.0-17.0); LYMPH % 22.5 % (9.0-44.0); LYMPHOCYTE # 2.5 TH/MM3 (1.0-4.8); MEAN CELL VOLUME 92.5 FL (80.0-100.0); MEAN CORPUSCULAR HEMOGLOBIN 30.3 PG (27.0-34.0); MEAN CORPUSCULAR HGB CONC 32.7 % (32.0-36.0); MEAN PLATELET VOLUME 7.4 FL (7.0-11.0); MONO % 12.1 % (0.0-8.0); MONOCYTE # 1.3 TH/MM3 (0-0.9); NEUT % 59.8 % (16.0-70.0); PLATELET COUNT 808 TH/MM3 (150-450); RED BLOOD COUNT 3.68 MIL/MM3 (4.50-5.90); RED CELL DISTRIBUTION WIDTH 15.1 % (11.6-17.2); WHITE BLOOD COUNT 11.1 TH/MM3 (4.0-11.0)
[2017-07-06] MEDS ORDERED: LEVOFLOXACIN 750 MG TAB PO SCH (09:00)
[2017-07-06] MEDS ORDERED: SODIUM CHLORIDE 0.9% FLUSH 10 ML FLUSH IV FLUSH SCH (09:00)
[2017-07-06] MEDS ORDERED: PANTOPRAZOLE SOD 40 MG DELAYED RELEASE TAB PO SCH (09:00)
[2017-07-06] MEDS ORDERED: BUDESONIDE-FORMOTEROL 160/4.5 MCG INHALER INH SCH (09:00)
[2017-07-06] MEDS ORDERED: ASPIRIN 325 MG TAB PO SCH (09:00)
--- NOTE | 2017-07-06 09:07 | HHI.HP ---
[facility] [place] [facility] Primary Care Physician Non-Staff Admission Diagnosis Chest pain Diagnoses: (1) Chest pain Chief Complaint: Chest pain Left lower extremity pain Travel History International Travel<30 Days: No Contact w/Intl Traveler <30 Da: No Traveled to Known Affected Are: No History of Present Illness This is a pleasant 56-year-old male patient with a known medical history of pancreatic cancer, hypertension, hyperlipidemia and COPD presented to the ED with complaints of substernal chest pain with associated dyspnea and left lower extremity pain. Patient states that on Monday evening while he was helping his son pack his things to move he developed a sudden onset of sharp midsternal chest pain that lasted roughly 20 minutes and then went away with aspirin. Patient states the pain was up 6 out of 10 on its worst on pain scale, characterizes the pain as sharp in nature. He does admit to associated nausea and shortness of breath. He does admit to increasing stress lately in his life due to recent surgery and recent diagnosis of pancreatic cancer. Patient does have a history of a sneaker placement due to sick sinus syndrome and follows with Dr. Tripp, who manages his pacemaker and was last seen reportedly 6 months ago. It should be noted that patient has recently been diagnosed with pancreatic cancer last month, and is recently status post diagnostic laparoscopic with open distal pancreatectomy and splenectomy, omentectomy, cholecystectomy and placement of radiologic markers in the retroperitoneum on . Patient is being managed surgically by Dr. Juarez and Dr. Grace is seeing patient for pancreatic cancer. Patient does have an appointment with her tomorrow morning for possible port placement. Does admit to a 30 pound weight loss in the last 4 months. Patient denies any recent illness including fever, chills, cough, abdominal pain, nausea, vomiting, diarrhea or dysuria. Supposedly patient also has severe sleep apnea, was referred for a sleep study test and was lost to follow-up due to lack of insurance. Review of Systems Constitutional: DENIES: Fatigue, Chills Endocrine: DENIES: Polydipsia, Polyuria Respiratory: DENIES: Cough, Sputum production, Shortness of breath Cardiovascular: COMPLAINS OF: Chest pain, Palpitations Gastrointestinal: DENIES: Abdominal pain Integumentary: DENIES: Abnormal pigmentation Psychiatric: DENIES: Anxiety Except as stated in HPI: all other systems reviewed are Neg Past Family Social History Past Medical History Arthritis Asthma Anxiety and depression Pancreatic cancer CAD Hyperlipidemia COPD GERD Hypertension History of migraines Sleep apnea with uses CPAP at home History of tobacco abuse Past Surgical History Appendectomy Pacemaker insertion Tonsillectomy Tooth extraction Reported Medications Active [place] (Hydrocodone-Acetaminophen) 5 Mg-325 Mg Tab 1-2 Tab PO Q4H PRN Catapres (Clonidine) 0.1 Mg Tab 0.1 Mg PO Q8H Lopressor (Metoprolol Tartrate) 50 Mg Tab 50 Mg PO DAILY Xanax (Alprazolam) 0.5 Mg Tab 0.5 Mg PO Q6H PRN Pantoprazole (Pantoprazole Sodium) 40 Mg Tab 40 Mg PO DAILY Ventolin Hfa 18 GM Inh (Albuterol Sulfate) 90 Mcg/Act Aer 2 Puff INH Q4-6H PRN Levaquin (Levofloxacin) 750 Mg Tablet 750 Mg PO DAILY Zofran (Ondansetron HCl) 4 Mg Tab 4 Mg PO Q6HR PRN Aspirin EC (Aspirin) 81 Mg Tabdr 81 Mg PO DAILY Reported Symbicort Inh (Budesonide/Formoterol Fumarate) 160-4.5 Mcg/Act Aero 2 Puff INH Q12HR Methadone (Methadone HCl) 5 Mg Tab 2.5 Mg PO DAILY Allergies: Coded Allergies: No Known Allergies (Verified Adverse Reaction, Unknown, 05/23/17) Active Ordered Medications Current Medications Medications (Trade) Dose Ordered Sig/Lashae Route Start Time Stop Time Status Last Admin (NS Flush) 2 ml BID IV FLUSH 07/06/17 09:00 (NS Flush) 2 ml UNSCH PRN IV FLUSH 07/05/17 23:15 (Aspirin) 325 mg DAILY PO 07/06/17 09:00 (Nitrostat Sl) 0.4 mg Q5M PRN SL 07/05/17 23:15 (Tylenol) 500 mg Q4H PRN PO 07/05/17 23:15 ([place] 7.5-325 Mg) 1 tab Q4H PRN PO 07/05/17 23:15 07/06/17 06:27 (Morphine Inj) 2 mg Q3H PRN IV PUSH 07/05/17 23:15 (Xanax) 0.5 mg Q6H PRN PO 07/05/17 23:15 (Symbicort 160-4.5 Mcg Inh) 2 puff Q12HR INH 07/06/17 09:00 (Catapres) 0.1 mg Q8HR PO 07/05/17 23:25 07/06/17 06:50 (Levaquin) 750 mg DAILY PO 07/06/17 09:00 (Protonix) 40 mg DAILY PO 07/06/17 09:00 (Duoneb Neb) 1 ampule Q4HR NEB PRN NEB 07/05/17 23:15 Family History Paternal medical history significant for CT at the age of 6565 years old. Social History Denies any tobacco use, states he quit in 2013. Denies any alcohol use. Denies any illicit drug use. Physical Exam Vital Signs Vital Signs Date Time Temp Pulse Resp B/P (MAP) Pulse Ox O2 Delivery O2 Flow Rate FiO2 07/06/17 07:40 16 07/06/17 07:10 97.5 82 16 147/84 (105) 100 Nasal Cannula 2.00 07/06/17 07:10 82 16 100 Nasal Cannula 2.00 07/06/17 04:30 75 20 152/88 (109) 99 07/06/17 03:30 73 18 141/82 (101) 95 Nasal Cannula 2.00 07/06/17 02:30 74 20 133/95 (108) 95 Nasal Cannula 2.00 07/06/17 00:30 74 20 123/89 (100) 96 07/05/17 23:30 72 20 131/80 (97) 98 07/05/17 21:50 74 20 100/65 (77) 97 07/05/17 21:31 73 20 97 Nasal Cannula 2.00 07/05/17 21:29 98.5 73 20 132/73 (92) 98 07/05/17 21:24 98.5 73 20 132/73 (92) 97 Physical Exam GENERAL: Well-developed, obese mal patient in [facility]. SKIN: Warm and dry. No rash. HEAD: Normocephalic. Atraumatic. EYES: Pupils equal and round. No scleral icterus. No injection or drainage. ENT: No nasal bleeding or discharge. Mucous membranes pink and moist. NECK: Supple. Trachea midline. CARDIOVASCULAR: Regular rate and rhythm. S1, S2 noted. No murmur appreciated. RESPIRATORY: No accessory muscle use. Clear to auscultation. Breath sounds equal bilaterally. GASTROINTESTINAL: Abdomen soft, non-tender, nondistended. Normoactive bowel sounds x4. Midabdominal surgical healing wound present, steri strips in place. Left upper quadrat 1.5x1.5 cm surgical wound from ROSA drain present. No erythema. Some serous drainage. MUSCULOSKELETAL: No obvious deformities. Extremities without clubbing, cyanosis , or edema. NEUROLOGICAL: Awake and alert. No obvious cranial nerve deficits. Motor grossly within normal limits. 5/5 muscle strength in bilateral upper and lower extremities. Normal speech. PSYCHIATRIC: Appropriate mood and affect; insight and judgment normal. Laboratory Laboratory Tests Test 07/05/17 21:20 07/06/17 03:30 07/06/17 08:15 White Blood Count 9.8 11.1 Red Blood Count 3.58 3.68 Hemoglobin 10.8 11.1 Hematocrit 33.1 34.0 Mean Corpuscular Volume 92.3 92.5 Mean Corpuscular Hemoglobin 30.0 30.3 Mean Corpuscular Hemoglobin Concent 32.5 32.7 Red Cell Distribution Width 15.0 15.1 Platelet Count 894 808 Mean Platelet Volume 7.6 7.4 Neutrophils (%) (Auto) 48.7 59.8 Lymphocytes (%) (Auto) 31.7 22.5 Monocytes (%) (Auto) 11.2 12.1 Eosinophils (%) (Auto) 5.5 4.9 Basophils (%) (Auto) 2.9 0.7 Neutrophils # (Auto) 4.8 6.7 Lymphocytes # (Auto) 3.1 2.5 Monocytes # (Auto) 1.1 1.3 Eosinophils # (Auto) 0.5 0.5 Basophils # (Auto) 0.3 0.1 CBC Comment AUTO DIFF AUTO DIFF Differential Comment AUTO DIFF CONFIRMED AUTO DIFF CONFIRMED Platelet Estimate HIGH HIGH Platelet Morphology Comment NORMAL NORMAL Prothrombin Time 10.7 Prothromb Time International Ratio 1.1 Activated Partial Thromboplast Time 26.4 Blood Urea Nitrogen 13 Creatinine 0.85 Random Glucose 119 Total Protein 6.8 Albumin 2.7 Calcium Level 8.0 Magnesium Level 1.9 Alkaline Phosphatase 103 Aspartate Amino Transf (AST/SGOT) 20 Alanine Aminotransferase (ALT/SGPT) 22 Total Bilirubin 0.1 Sodium Level 140 Potassium Level 4.0 Chloride Level 104 Carbon Dioxide Level 29.6 Anion Gap 6 Estimat Glomerular Filtration Rate 94 Total Creatine Kinase 96 68 Troponin I LESS THAN 0.02 LESS THAN 0.02 B-Type Natriuretic Peptide 53 Result Diagram: 07/06/17 0815 07/05/172119 Imaging Last Impressions Chest X-Ray 07/05/172121 Signed Impressions: Service Date/Time: Wednesday, July 05, 2017 21:24 - CONCLUSION: Mild compensated cardiomegaly Topher Kim MD FACR Lower Extremity Ultrasound 07/05/17 0000 Signed Impressions: Service Date/Time: Wednesday, July 05, 2017 22:15 - CONCLUSION: Negative for deep venous thrombosis. Topher Kim MD FACR Septic Shock Reassessment Septic shock perfusion: reassessment completed Caprini VTE Risk Assessment Caprini VTE Risk Assessment: No/Low Risk (score <= 1) Caprini Risk Assessment Model Point Value = 1 Point Value = 2 Point Value = 3 Point Value = 5 Age 41-60 Minor surgery BMI > 25 kg/m2 Swollen legs Varicose veins or History of unexplained or recurrent spontaneous Oral contraceptives or hormone replacement Sepsis (< 1 month) Serious lung disease, including pneumonia (< 1 month) Abnormal pulmonary function Acute myocardial infarction Congestive heart failure (< 1 month) History of inflammatory bowel disease Medical patient at bed rest Age 61-74 Arthroscopic surgery Major open surgery (> 45 min) Laparoscopic surgery (> 45 min) Malignancy Confined to bed (> 72 hours) Immobilizing plaster cast Central venous access Age >= 75 History of VTE Family history of VTE Factor V Leiden Prothrombin [id number] Lupus anticoagulant Anticardiolipin antibodies Elevated serum homocysteine Heparin-induced thrombocytopenia Other congenital or acquired thrombophilia Stroke (< 1 month) Elective arthroplasty Hip, pelvis, or leg fracture Acute spinal cord injury (< 1 month) Prophylaxis Regimen Total Risk Factor Score Risk Level Prophylaxis Regimen 0-1 Low Early ambulation 2 Moderate Order ONE of the following: *Sequential Compression Device (SCD) *Heparin 5000 units SQ BID 3-4 Higher Order ONE of the following medications: *Heparin 5000 units SQ TID *Enoxaparin/Lovenox 40 mg SQ daily (WT < 150 kg, CrCl > 30 mL/min) *Enoxaparin/Lovenox 30 mg SQ daily (WT < 150 kg, CrCl > 10-29 mL/min) *Enoxaparin/Lovenox 30 mg SQ BID (WT < 150 kg, CrCl > 30 mL/min) AND/OR *Sequential Compression Device (SCD) 5 or more Highest Order ONE of the following medications: *Heparin 5000 units SQ TID (Preferred with Epidurals) *Enoxaparin/Lovenox 40 mg SQ daily (WT < 150 kg, CrCl > 30 mL/min) *Enoxaparin/Lovenox 30 mg SQ daily (WT < 150 kg, CrCl > 10-29 mL/min) *Enoxaparin/Lovenox 30 mg SQ BID (WT < 150 kg, CrCl > 30 mL/min) AND *Sequential Compression Device (SCD) Assessment and Plan Problem List: (1) Chest pain ICD Code: R07.9 - Chest pain, unspecified Status: Acute Plan: Patient has been admitted to the chest pain center for observation. Serial EKGs and serial troponins have been ordered for ruling out ACS purposes. Troponin trend flat. EKG reviewed showing paced rhythm. Chest x-ray reviewed showing cardiomegaly. Left lower extremity ultrasound showing no DVT. Vital signs are stable. No fever. Was given aspirin and nitroglycerin in the ED. As well as an IV NS 500 mL bolus. At the time of assessment patient's chest pain has resolved, there are no further symptoms. He states he feels much improved and at his baseline. He states that he was just nervous regarding recent life stressors and surgery and diagnosis of pancreatic cancer, he also mentions that he has been pretty active post surgery helping his son move and may be related to some form of musculoskeletal cause. He does express concern regarding treatment and fear that he main not outlive this diagnosis of pancreatic cancer. Patient does have an appointment with oncologist tomorrow morning for port placement. Patient did undergo a cardiac stress test last year which was reportedly negative, images reviewed from May 2016. Patient states that he would rather not undergo a cardiac stress test today saying that chest pain has resolved and ACS has been ruled out. He states that he would rather heal from his recent diagnostic laparoscopic intervention and follow with oncologist tomorrow. He does state he has an appointment with the performance tester in a month and will see him then. I did encourage the patient to make an appointment with him within the week. [place] available as needed per pain scale as well as morphine IV while hospitalized. Patient does not have any pain since presenting to the ED. Chest pain is likely secondary to anxiety versus musculoskeletal cause. Xanax is available as needed. Advised to use NSAIDs if needed at home. Mildly elevated WBC, 11K, was placed on Levaquin overnight. Will continue upon discharge to finish course, recent surgery with left upper abdominal drainage status post ROSA drain and subjective report of recent pneumonia. Patient states he saw general surgery 2 days ago and has been following him. Site is clean, dry. with no erythema, mild serous drainage. Encouraged to follow up outpatient. (2) Pancreatic cancer ICD Code: C25.9 - Malignant neoplasm of pancreas, unspecified Plan: Supportive care. Will discharge patient to follow-up with Dr. Grace tomorrow. (3) Sleep apnea ICD Code: G47.30 - Sleep apnea, unspecified Plan: Mandatory referral replace for discharge and outpatient sleep study. After review of records it was noted that patient desperately needs a CPAP machine and evaluation. Problem Qualifiers (1) Chest pain: Qualified Codes: R07.9 - Chest pain, unspecified Mikki Martin Jul 06, 2017 09:07
--- NOTE | 2017-07-06 14:28 | HHI.DCPOC ---
Discharge Care Plan Diagnosis: (1) Chest pain (2) Pancreatic cancer (3) Sick sinus syndrome (4) Obstructive sleep apnea hypopnea, severe Goals to Promote Your Health * To prevent worsening of your condition and complications * To maintain your health at the optimal level Directions to Meet Your Goals Take your medications as prescribed Follow your dietary instruction Follow activity as directed Keep your appointments as scheduled Take your immunizations and boosters as scheduled If your symptoms worsen call your PCP, if no PCP go to Urgent Care Center or Emergency Room Smoking is Dangerous to Your Health. Avoid second hand smoke Call the 24-hour hour crisis hotline for domestic abuse at Mikki Martin Jul 06, 2017 14:28
[2017-07-06] MEDS ORDERED: LEVA750T9 PO (14:29)
[2017-07-06 14:48] LABS: BICARBONATE 32.2 MEQ/L (21.0-32.0); CALCIUM 8.5 MG/DL (8.5-10.1); CREATININE 0.76 MG/DL (0.60-1.30)
[2017-07-06 14:51] LABS: TROPONIN I LESS THAN 0.02 NG/ML (0.02-0.05)
--- NOTE | 2017-07-06 20:34 | EKG ---
Date Performed: 07/06/2017 Time Performed: 10:09:12 PTAGE: 56 years EKG: ELECTRONIC ATRIAL PACEMAKER INCOMPLETE RIGHT BUNDLE BRANCH BLOCK ABNORMAL RHYTHM ECG PREVIOUS TRACING : 07/06/2017 03.25 No significant change from previous tracing noted. DOCTOR: Jaxson Tripp Interpretating Date/Time 07/06/2017 20:32:42
--- NOTE | 2017-07-07 10:07 | EKG ---
Date Performed: 07/05/2017 Time Performed: 21:16:03 PTAGE: 56 years EKG: Sinus rhythm INCOMPLETE RIGHT BUNDLE BRANCH BLOCK BORDERLINE ECG PREVIOUS TRACING : 07/05/2017 21.03 Since the prior tracing, the right ventricular conduction d elay is new. The tracing now also suggests possible left atrial enlargment. DOCTOR: Joanna Carrillo Interpretating Date/Time 07/07/2017 10:06:13
--- NOTE | 2017-07-07 10:08 | EKG ---
Date Performed: 07/06/2017 Time Performed: 03:25:42 PTAGE: 56 years EKG: ELECTRONIC ATRIAL PACEMAKER INCOMPLETE RIGHT BUNDLE BRANCH BLOCK SEPTAL MYOCARDIAL INFARCTI ON ABNORMAL ECG PREVIOUS TRACING : 07/05/2017 21.16 Since the prior tracing, there has been no significant seri al change with the exception that the atrial rhythm is now paced. DOCTOR: Joanna Carrillo Interpretating Date/Time 07/07/2017 10:06:47
== END 2017-07-06 15:50 | disposition home or self-care (01) ==
LOC: PHED 20:55 → PHEDA 23:10 → PHEDH 07-06 03:10 → PH3B 07-06 08:45
PROVIDERS: ADMIT Hospitalist; ATTEND Hospitalist
DX: R07.89 Other chest pain (principal); C25.9 Malignant neoplasm of pancreas, unspecified; R06.02 Shortness of breath; R11.0 Nausea; D72.829 Elevated white blood cell count, unspecified; I45.10 Unspecified right bundle-branch block; R94.31 Abnormal electrocardiogram [ECG] [EKG]; M79.605 Pain in left leg; I25.10 Atherosclerotic heart disease of native coronary artery without angina pectoris; I49.5 Sick sinus syndrome; I11.9 Hypertensive heart disease without heart failure; E78.00 Pure hypercholesterolemia, unspecified; G47.30 Sleep apnea, unspecified; J44.9 Chronic obstructive pulmonary disease, unspecified; K21.9 Gastro-esophageal reflux disease without esophagitis; F41.8 Other specified anxiety disorders; M19.90 Unspecified osteoarthritis, unspecified site; Z87.891 Personal history of nicotine dependence; Z79.899 Other long term (current) drug therapy; Z79.82 Long term (current) use of aspirin; Z95.0 Presence of cardiac pacemaker
CPT/HCPCS: 71045; 80048; 80053; 82550; 83735; 83880; 84484; 85025; 85610; 85730; 93005; 93971; 96361; 96374; 99285; G0378; J2270; J7040

== ENCOUNTER 2017-08-01 18:48 | Observation (INO) | payer MEDICAID, OTHER ==
[~2017-08-01] VITALS: Ht 172.7 cm; Wt 94.6 kg
[~2017-08-01 18:48] MED LIST changes: -HYDR-3366 PO; -[UNRECOGNIZED DRUG - CODE] PO
--- NOTE | 2017-08-01 19:02 | PD ---
HPI Chief Complaint: Chest Pain Time Seen by Provider: 19:01 Travel History International Travel<30 days: No Contact w/Intl Traveler<30days: No Traveled to known affect area: No History of Present Illness HPI 56-year-old male came to the emergency room with history of right-sided chest pain and right-sided abdominal pain that has been going on since 5 PM yesterday. Patient has been diagnosed with stage III pancreatic cancer 3-4 months ago. He has had partial resection of his pancreas and the gallbladder. He is currently on chemotherapy and yesterday had the second round of chemo. His oncologist is Dr. Hooker. Patient says that after the chemo yesterday he went home and that is when he started to get sick. He has been nauseous and threw up a few times. Patient is on pain medications at home but has been unable to keep it down. He appears to be in moderate distress. Vital signs are stable. Patient says that he had a stress test done a few months ago and was negative. No aggravating or relieving factors identified for the pain. [facility] Past Medical History Narrative Medical List of his past medical, surgical, social and family history is reviewed from the nursing note. Hx Anticoagulant Therapy: Yes (81mg aspirin ) Arthritis: Yes Asthma: Yes Autoimmune Disease: No Blood Disorders: No Anxiety: Yes Depression: Yes Heart Rhythm Problems: Yes Cancer: Yes (PANCREATIC,DUCTAL ADENOCARCINOMA) Cardiac Catheterization: No Cardiovascular Problems: Yes High Cholesterol: Yes Chemotherapy: No Chest Pain: Yes Congestive Heart Failure: No COPD: Yes Cerebrovascular Accident: No Diabetes: No Diminished Hearing: No Endocrine: No Gastrointestinal Disorders: Yes GERD: Yes Genitourinary: No Hepatitis: No Hiatal Hernia: No Hypertension: Yes Immune Disorder: No Implanted Vascular Access Dvce: Yes Musculoskeletal: Yes Neurologic: Yes Psychiatric: Yes Reproductive: No Respiratory: Yes Immunizations Current: Yes Migraines: Yes (WITH TMJ) Pancreatitis: Yes (TUMOR ON PANCREAS) Radiation Therapy: No Seizures: No Sleep Apnea: Yes (CPAP) Thyroid Disease: No Ulcer: No Past Surgical History Abdominal Surgery: Yes (Splenectomy, cholescystectomy, pancreas removed) AICD: No Appendectomy: Yes Arteriovenous Shunt: No Cardiac Surgery: Yes (PACEMAKER INSERTED: 05/12/16) Cholecystectomy: Yes Coronary Artery Bypass Graft: No Ear Surgery: No Endocrine Surgery: No Eye Surgery: No Genitourinary Surgery: No Gynecologic Surgery: No Insulin Pump: No Joint Replacement: No Oral Surgery: Yes Pacemaker: Yes Thoracic Surgery: No Tonsillectomy: Yes ( CHILD) Other Surgery: Yes Social History Alcohol Use: No Tobacco Use: No (QUIT 2013) Substance Use: No Allergies-Medications (Allergen,Severity, Reaction): Coded Allergies: No Known Allergies (Verified Adverse Reaction, Unknown, 08/01/17) Comments No known drug allergies. Reported Meds & Prescriptions Reported Meds & Active Scripts Active Catapres (Clonidine) 0.1 Mg Tab 0.1 Mg PO Q8H Lopressor (Metoprolol Tartrate) 50 Mg Tab 50 Mg PO DAILY Xanax (Alprazolam) 0.5 Mg Tab 0.5 Mg PO Q6H PRN Pantoprazole (Pantoprazole Sodium) 40 Mg Tab 40 Mg PO DAILY Zofran (Ondansetron HCl) 4 Mg Tab 4 Mg PO Q6HR PRN Aspirin EC (Aspirin) 81 Mg Tabdr 81 Mg PO DAILY Reported Vitamin C (Ascorbic Acid) 250 Mg Chew 250 Mg CHEW DAILY Multiple Vitamin 1 Tab 1 Tab PO DAILY Calcium Carbonate 1,500 Mg Tab 1,500 Mg PO DAILY 1,500 mg calcium carbonate (600 mg elemental calcium) Prochlorperazine Maleate 10 Mg Tab 10 Mg PO Q4H PRN Hydrocodone-Acetaminophen 10-325 mg Tab 1 Tab PO Q6H PRN Symbicort Inh (Budesonide/Formoterol Fumarate) 160-4.5 Mcg/Act Aero 2 Puff INH Q12HR Narrative Medication List of his home medications reviewed from the nursing note. Review of Systems Except as stated in HPI: all other systems reviewed are Neg Cardiovascular: Positive: Chest Pain or Discomfort Gastrointestinal: Positive: Nausea, Vomiting, Abdominal Pain Physical Exam Narrative GENERAL: Awake, alert, obese, anxious, moderate distress SKIN: Focused skin assessment warm/dry. HEAD: Atraumatic. Normocephalic. EYES: Pupils equal and round. No scleral icterus. No injection or drainage. ENT: No nasal bleeding or discharge. Mucous membranes pink and moist. NECK: Trachea midline. No JVD. CARDIOVASCULAR: Regular rate and rhythm. No murmur appreciated. RESPIRATORY: No accessory muscle use. Clear to auscultation. Breath sounds equal bilaterally. GASTROINTESTINAL: Abdomen soft, non-tender, nondistended. Hepatic and splenic margins not palpable. MUSCULOSKELETAL: No obvious deformities. No clubbing. No cyanosis. No edema. NEUROLOGICAL: Awake and alert. No obvious cranial nerve deficits. Motor grossly within normal limits. Normal speech. PSYCHIATRIC: Appropriate mood and affect; insight and judgment normal. Data Data Last Documented VS Vital Signs Date Time Temp Pulse Resp B/P (MAP) Pulse Ox O2 Delivery O2 Flow Rate FiO2 08/01/17 20:32 18 08/01/17 19:31 73 100/66 (77) 98 Room Air 08/01/17 19:04 98.2 Orders Orders Electrocardiogram (08/01/17:07) Complete Blood Count With Diff (08/01/17:) Comprehensive Metabolic Panel (08/01/17:07) Magnesium (Mg) (08/01/17:07) Prothrombin Time / Inr (Pt) (08/01/17:) Act Partial Throm Time (Ptt) (08/01/17:07) Troponin I (08/01/17 19:07) Chest, Single Ap (08/01/17 19:07) Ecg Monitoring (08/01/17 19:07) Bilateral Bp Monitoring (08/01/17 19:07) Iv Access Insert/Monitor (08/01/17:07) Oximetry (08/01/17 19:07) Oxygen Administration (08/01/17 19:07) Sodium Chloride 0.9% Flush (Ns Flush) (08/01/17 19:15) Cta Thor Abd Aorta W Iv C W3d (08/01/17 19:07) Lipase (08/01/17 19:07) Morphine Inj (Morphine Inj) (08/01/17 19:15) Iohexol 350 Inj (Omnipaque 350 Inj) (08/01/17 20:23) Alprazolam (Xanax) (08/01/17 21:00) Budeson-Formot 160-4.5 Mcg Inh (Symbicor (08/01/17 21:00) Clonidine (Catapres) (08/01/17 22:00) Methadone (Dolophine) (08/02/17 09:00) Metoprolol Tartrate (Lopressor) (08/02/17 09:00) Pantoprazole (Protonix) (08/02/17 09:00) Prochlorperazine Maleate (Compazine) (08/01/17 21:00) Admit Order (Ed Use Only) (08/01/17 20:54) Labs Laboratory Tests Test 08/01/17 19:00 White Blood Count 8.4 TH/MM3 Red Blood Count 4.69 MIL/MM3 Hemoglobin 13.6 GM/DL Hematocrit 42.7 % Mean Corpuscular Volume 91.2 FL Mean Corpuscular Hemoglobin 29.1 PG Mean Corpuscular Hemoglobin Concent 31.9 % Red Cell Distribution Width 14.1 % Platelet Count 320 TH/MM3 Mean Platelet Volume 8.1 FL Neutrophils (%) (Auto) 67.4 % Lymphocytes (%) (Auto) 23.0 % Monocytes (%) (Auto) 5.4 % Eosinophils (%) (Auto) 3.8 % Basophils (%) (Auto) 0.4 % Neutrophils # (Auto) 5.7 TH/MM3 Lymphocytes # (Auto) 1.9 TH/MM3 Monocytes # (Auto) 0.5 TH/MM3 Eosinophils # (Auto) 0.3 TH/MM3 Basophils # (Auto) 0.0 TH/MM3 CBC Comment DIFF FINAL Differential Comment Prothrombin Time 11.1 SEC Prothromb Time International Ratio 1.1 RATIO Activated Partial Thromboplast Time 27.6 SEC Blood Urea Nitrogen 12 MG/DL Creatinine 0.75 MG/DL Random Glucose 126 MG/DL Total Protein 7.4 GM/DL Albumin 3.2 GM/DL Calcium Level 9.1 MG/DL Magnesium Level 2.0 MG/DL Alkaline Phosphatase 101 U/L Aspartate Amino Transf (AST/SGOT) 17 U/L Alanine Aminotransferase (ALT/SGPT) 23 U/L Total Bilirubin 0.3 MG/DL Sodium Level 136 MEQ/L Potassium Level 4.3 MEQ/L Chloride Level 101 MEQ/L Carbon Dioxide Level 28.8 MEQ/L Anion Gap 6 MEQ/L Estimat Glomerular Filtration Rate 108 ML/MIN Troponin I LESS THAN 0.02 NG/ML Lipase 179 U/L MDM Medical Decision Making Medical Screen Exam Complete: Yes Emergency Medical Condition: Yes Medical Record Reviewed: Yes Interpretation(s) Twelve-lead EKG was reviewed by me. Normal sinus rhythm, left axis deviation, nonspecific ST-T wave changes. Heart rate of 77 bpm per Differential Diagnosis Atypical chest pain, PE, acute pancreatitis, pancreatic duct obstruction Narrative Course 7:58 PM blood test results are back and within acceptable limits. Awaiting for the CT thoracic aortogram to be resulted. Patient was medicated for pain. If test results are within normal limit he will be discharged home. 8:[address] scan is suggestive of a pseudocyst of 2.5 cm with some edematous changes of the fat in the left upper quadrant. Would like to admit this patient for intractable pain in the pseudocyst. Awaiting for the hospitalist to call back as well as the oncologist. Procedures EKG Prior to Arrival: No Physician Communication Physician Communication Dr. Weathers Diagnosis Primary Impression: Intractable pain Additional Impression: Pseudocyst of pancreas Admitting Information Admitting Physician Requests: Admit Scripts Dexamethasone (Dexamethasone) 2 Mg Tab 2 MG PO BID for inflammation for 30 Days, #60 TAB 0 Refills Prov: Mikki Martin 08/03/17 Methadone (Methadone) 5 Mg Tab 2.5 MG PO BID for pain management for 10 Days, #10 TAB 0 Refills Prov: Mikki Martin 08/03/17 Ralph Silva MD August 01, 2017 19:02
[2017-08-01 19:04] VITALS: BP 114/76; PULSE 78; RESP 20; TEMP 98.2; O2SAT 95
[2017-08-01 19:12] VITALS: BP_SYST 103; BP_SYST 114; BP_DIAS 68; BP_DIAS 76
[2017-08-01] MEDS ORDERED: SODIUM CHLORIDE 0.9% FLUSH 10 ML FLUSH IVF PRN (19:15)
[2017-08-01] MEDS ORDERED: MORPHINE SULFATE 8 MG/ML INJ IV PUSH ONE (19:15)
[2017-08-01 19:16] VITALS: O2SAT 98
[2017-08-01 19:25] LABS: AUTOMATED NEUTROPHIL # 5.7 TH/MM3 (1.8-7.7); BASOPHIL % 0.4 % (0.0-2.0); EOSINOPHIL # 0.3 TH/MM3 (0-0.4); EOSINOPHIL % 3.8 % (0.0-4.0); HEMATOCRIT 42.7 % (39.0-51.0); HEMOGLOBIN 13.6 GM/DL (13.0-17.0); LYMPHOCYTE # 1.9 TH/MM3 (1.0-4.8); MEAN CELL VOLUME 91.2 FL (80.0-100.0); MEAN CORPUSCULAR HEMOGLOBIN 29.1 PG (27.0-34.0); MEAN CORPUSCULAR HGB CONC 31.9 % (32.0-36.0); MEAN PLATELET VOLUME 8.1 FL (7.0-11.0); MONO % 5.4 % (0.0-8.0); MONOCYTE # 0.5 TH/MM3 (0-0.9); NEUT % 67.4 % (16.0-70.0); PLATELET COUNT 320 TH/MM3 (150-450); RED BLOOD COUNT 4.69 MIL/MM3 (4.50-5.90); RED CELL DISTRIBUTION WIDTH 14.1 % (11.6-17.2); WHITE BLOOD COUNT 8.4 TH/MM3 (4.0-11.0)
[2017-08-01] MEDS ORDERED: HYDR-3583 PO (19:28)
[2017-08-01 19:31] VITALS: BP 100/66; PULSE 73; RESP 20; O2SAT 98
[2017-08-01 19:31] LABS: CHLORIDE 101 MEQ/L (98-107); SODIUM (NA) 136 MEQ/L (136-145)
[2017-08-01] MEDS ORDERED: PROC10TA PO (19:31)
[2017-08-01 19:35] LABS: ALBUMIN 3.2 GM/DL (3.4-5.0); BICARBONATE 28.8 MEQ/L (21.0-32.0); BLOOD UREA NITROGEN 12 MG/DL (7-18); CALCIUM 9.1 MG/DL (8.5-10.1); GLUCOSE,RANDOM 126 MG/DL (74-106)
[2017-08-01 19:36] LABS: INTERNATIONAL NORMALIZED RATIO 1.1 RATIO; PROTHROMBIN TIME - PATIENT 11.1 SEC (9.8-11.6)
[2017-08-01 19:38] LABS: ALT (GPT) 23 U/L (12-78); AST (GOT) 17 U/L (15-37); CREATININE 0.75 MG/DL (0.60-1.30); GLOMERULAR FILTRATION RATE 108 ML/MIN (>89)
[2017-08-01] MEDS ORDERED: MULTTAB67 PO (19:38)
[2017-08-01] MEDS ORDERED: iron PO (19:38)
[2017-08-01] MEDS ORDERED: CALC600T4 PO (19:38)
[2017-08-01] MEDS ORDERED: VITA250C3 CHEW (19:38)
[2017-08-01 19:39] LABS: TOTAL BILIRUBIN ADULT 0.3 MG/DL (0.2-1.0)
[2017-08-01 19:40] LABS: TOTAL PROTEIN 7.4 GM/DL (6.4-8.2)
[2017-08-01 19:41] LABS: ALKALINE PHOSPHATASE 101 U/L (45-117)
[2017-08-01 19:43] LABS: TROPONIN I LESS THAN 0.02 NG/ML (0.02-0.05)
--- NOTE | 2017-08-01 20:00 | RADRPT ---
EXAM DATE/TIME: 08/01/2017 19:40 [facility] COMPARISON: CHEST SINGLE AP, July 05, 2017, 21:24. INDICATIONS : Chest pain. MEDICAL HISTORY : Hypercholesterolemia. Chronic obstructive pulmonary disease. Gastroesophageal reflux disease. Migrain es. Irregular heartbeat. Hypertension. Sleep apnea. Pancreatic cancer . Renal disease. Arthritis. Ant icoagulant therapy. Hepatitis. SURGICAL HISTORY : Tonsillectomy. Cholecystectomy. Appendectomy. Splenectomy. Pacemaker. ENCOUNTER: Initial ACUITY: 1 day PAIN SCORE: 6/10 LOCATION: Bilateral chest FINDINGS: A single view of the chest demonstrates a pacer lead overlying right atrium and right ventricle. No c onsolidation or effusion. No pneumothorax. CONCLUSION: 1. No acute findings. Pacer leads overlie right atrium and right ventricle. Luiz Magana MD on August 01, 2017 at 19:57 Board Certified Radiologist. This report was verified electronically.
[2017-08-01] MEDS ORDERED: IOHEXOL 350 MG/ML 10 ML VIAL (for RAD DIAG) IVCONTRAST ONE (20:23)
--- NOTE | 2017-08-01 20:39 | RADRPT ---
EXAM DATE/TIME: 08/01/2017 19:44 [facility] COMPARISON: CT ABDOMEN & PELVIS W CONTRAST, June 19, 2017, 21:26. INDICATIONS : Chest pain. Evaluate for dissection. IV CONTRAST: 100 cc Omnipaque 350 (iohexol) IV RADIATION DOSE: 21.98 CTDIvol (mGy) MEDICAL HISTORY : Carcinoma, pancreas. Renal failure, acute. SURGICAL HISTORY : Splenectomy. Cholecystectomy.Pacemaker.Partial pancreas removed. ENCOUNTER: Initial ACUITY: 1 day PAIN SCALE: 9/10 LOCATION: Bilateral chest TECHNIQUE: Volumetric scanning was performed using a multi-row detector CT scanner. The data was post processed with a variety of visualization algorithms including full volume maximum intensity projection, multi -planar sliding thin slab reformation, curved planar reformation, and surface rendering techniques. Using automated exposure control and adjustment of the mA and/or kV according to patient size, radiat ion dose was kept as low as reasonably achievable to obtain optimal diagnostic quality images. DICOM format image data is available electronically for review and comparison. FINDINGS: Comparison is June 19. Previous basilar airspace consolidation has resolved. There is atheroscleroti c disease in the aorta and branches without hemodynamically significant stenosis. No aneurysm or diss ection. There are postoperative changes of distal pancreatectomy and splenectomy. 2.5 cm presume pseudocysts noted in the pancreas at the resection site. There is some edematous changes in the mesentery and ome ntum in the left upper quadrant, slightly increased from june 19. Previous drains have been removed. No pelvic masses or free fluid. No acute findings in the liver, adrenals, kidneys. No free air. Previous cholecystectomy. Celiac, superior mesenteric and inferior mesenteric arteries are patent. Iliac arteries are patent bi laterally. Renal arteries are patent. CONCLUSION: 1. Postoperative distal pancreatectomy with 2.5 cm pseudocyst at the resection site and some edematou s changes in the fat of the left upper quadrant. Also previous splenectomy and cholecystectomy. Negat alivia for aortic dissection or aneurysm. Pacer lead in right ventricle. Luiz Magana MD on August 01, 2017 at 20:31 Board Certified Radiologist. This report was verified electronically.
[2017-08-01] MEDS ORDERED: MAGNESIUM HYDROXIDE SUSP 30 ML CUP PO PRN (21:00)
[2017-08-01] MEDS: BUDESONIDE-FORMOTEROL 160/4.5 MCG INHALER INH SCH (21:00)
[2017-08-01] MEDS: SODIUM CHLORIDE 0.9% FLUSH 10 ML FLUSH IV FLUSH SCH (21:00)
[2017-08-01] MEDS ORDERED: LACTULOSE SYRUP 20 GM/30 ML CUP PO PRN (21:00)
[2017-08-01] MEDS ORDERED: SENNOSIDES 8.6 MG TAB PO PRN (21:00)
[2017-08-01] MEDS ORDERED: BISACODYL 10 MG SUPP RECTAL PRN (21:00)
[2017-08-01] MEDS ORDERED: PROCHLORPERAZINE MALEATE 10 MG TAB PO PRN (21:00)
[2017-08-01] MEDS ORDERED: SODIUM CHLORIDE 0.9% FLUSH 10 ML FLUSH IV FLUSH PRN (21:00)
[2017-08-01] MEDS ORDERED: HYDROmorphone HCL PF 1 MG/ML VIAL IV PUSH PRN (21:00)
[2017-08-01] MEDS ORDERED: NALOXONE HCL 0.4 MG/ML AMP IV PUSH PRN (21:00)
[2017-08-01] MEDS: cloNIDine HCL 0.1 MG TAB PO SCH (22:04)
[2017-08-01] MEDS: DOCUSATE SODIUM 50 MG/SENNA 8.6 MG TAB PO SCH (22:04)
[2017-08-01] MEDS: HEPARIN SODIUM - SQ 10,000 UNITS/ML VIAL SQ SCH (22:04)
[2017-08-01 22:08] VITALS: BP 120/74; PULSE 80; RESP 16; O2SAT 99
[2017-08-01 23:57] VITALS: BP 121/75; PULSE 77; RESP 22; TEMP 97.3; O2SAT 97
[2017-08-02] MEDS: cloNIDine HCL 0.1 MG TAB PO SCH ×3 (05:20→20:36)
[2017-08-02] MEDS: HEPARIN SODIUM - SQ 10,000 UNITS/ML VIAL SQ SCH ×3 (05:21→20:48)
[2017-08-02 06:33] LABS: AUTOMATED NEUTROPHIL # 6.3 TH/MM3 (1.8-7.7); BASOPHIL % 0.2 % (0.0-2.0); EOSINOPHIL # 0.4 TH/MM3 (0-0.4); EOSINOPHIL % 4.2 % (0.0-4.0); HEMATOCRIT 39.8 % (39.0-51.0); HEMOGLOBIN 12.9 GM/DL (13.0-17.0); LYMPH % 19.4 % (9.0-44.0); LYMPHOCYTE # 1.7 TH/MM3 (1.0-4.8); MEAN CELL VOLUME 91.4 FL (80.0-100.0); MEAN CORPUSCULAR HEMOGLOBIN 29.6 PG (27.0-34.0); MEAN CORPUSCULAR HGB CONC 32.4 % (32.0-36.0); MEAN PLATELET VOLUME 8.2 FL (7.0-11.0); MONO % 3.8 % (0.0-8.0); MONOCYTE # 0.3 TH/MM3 (0-0.9); NEUT % 72.4 % (16.0-70.0); PLATELET COUNT 290 TH/MM3 (150-450); RED BLOOD COUNT 4.36 MIL/MM3 (4.50-5.90); RED CELL DISTRIBUTION WIDTH 14.2 % (11.6-17.2); WHITE BLOOD COUNT 8.7 TH/MM3 (4.0-11.0)
[2017-08-02 06:47] LABS: CHLORIDE 100 MEQ/L (98-107); SODIUM (NA) 137 MEQ/L (136-145)
[2017-08-02 06:49] LABS: CALCIUM 8.8 MG/DL (8.5-10.1)
[2017-08-02 06:50] LABS: BICARBONATE 29.7 MEQ/L (21.0-32.0); BLOOD UREA NITROGEN 13 MG/DL (7-18); GLUCOSE,RANDOM 103 MG/DL (74-106)
[2017-08-02 06:53] LABS: ALT (GPT) 32 U/L (12-78); AST (GOT) 28 U/L (15-37); CREATININE 0.52 MG/DL (0.60-1.30); GLOMERULAR FILTRATION RATE 165 ML/MIN (>89)
[2017-08-02 06:54] LABS: TOTAL BILIRUBIN ADULT 0.5 MG/DL (0.2-1.0); TOTAL PROTEIN 6.9 GM/DL (6.4-8.2)
[2017-08-02 06:56] LABS: ALKALINE PHOSPHATASE 163 U/L (45-117)
[2017-08-02 08:00] VITALS: BP 126/78; PULSE 73; RESP 15; TEMP 97.3; O2SAT 95
[2017-08-02] MEDS: BUDESONIDE-FORMOTEROL 160/4.5 MCG INHALER INH SCH ×2 (08:01→20:36)
[2017-08-02] MEDS: ONDANSETRON HCL 4 MG/2 ML VIAL IVP PRN ×3 (08:10→20:35)
[2017-08-02] MEDS: HYDROmorphone HCL PF 2 MG/ML VIAL IV PUSH PRN ×3 (08:11→20:45)
[2017-08-02] MEDS: METHADONE HCL 10 MG TAB PO SCH (08:11)
[2017-08-02] MEDS: PANTOPRAZOLE SOD 40 MG DELAYED RELEASE TAB PO SCH (08:11)
[2017-08-02] MEDS: ALPRAZolam 0.5 MG TAB PO PRN ×3 (08:11→20:36)
[2017-08-02] MEDS: DOCUSATE SODIUM 50 MG/SENNA 8.6 MG TAB PO SCH ×2 (08:11→20:36)
[2017-08-02] MEDS: METOPROLOL TARTRATE 50 MG TAB PO SCH (08:11)
[2017-08-02] MEDS: SODIUM CHLORIDE 0.9% FLUSH 10 ML FLUSH IV FLUSH SCH ×2 (08:12→20:36)
--- NOTE | 2017-08-02 08:54 | EKG ---
Date Performed: 08/01/2017 Time Performed: 18:51:46 PTAGE: 56 years EKG: Sinus rhythm INDETERMINATE AXIS ABNORMAL ECG PREVIOUS TRACING 07/06/2017 Since the previous tracing, no significant change noted DOCTOR: Erwin Scherer Interpretating Date/Time 08/02/2017 08:49:33
[2017-08-02] MEDS ORDERED: IRON18TA PO (10:28)
[2017-08-02 12:00] VITALS: BP 116/65; PULSE 71; RESP 16; TEMP 96.1; O2SAT 99
--- NOTE | 2017-08-02 14:27 | HHI.HP ---
[facility] Non-Staff Admission Diagnosis Intractable abdominal pain, pseudocyst of pancreas Diagnoses: Travel History International Travel<30 Days: No Contact w/Intl Traveler <30 Da: No Traveled to Known Affected Are: No History of Present Illness his is a pleasant 56-year-old male patient with a known medical history of pancreatic cancer undergoing chemotherapy, hypertension, hyperlipidemia and COPD presented to the emergency department with right sided chest pain and right upper quadrant abdominal pain. Patient underwent his second dose of chemotherapy yesterday, when postchemotherapy administration patient complained of inability to walk, significant weakness, nausea and vomiting and subjective fever of 103. Patient also states that he was hypertensive after the chemo which has now normalized. He does also complain of right-sided chest pain and right-sided abdominal pain that is characterized as sharp in nature, intermittent, coming and going with no known alleviating or relieving factors. Patient has been unable to eat since last evening without vomiting. Patient did undergo a cardiac stress test several months ago and was negative. Patient denies any recent illness including cough, abdominal pain, diarrhea or dysuria. It should be noted that patient does have a history of a pacemaker placement due to sick sinus syndrome and follows with Dr. Tripp, who manages his pacemaker and was last seen reportedly 7 months ago. It should be noted that patient has recently been diagnosed with pancreatic cancer, and is recently status post diagnostic laparoscopic with open distal pancreatectomy and splenectomy, omentectomy, cholecystectomy and placement of radiologic markers in the retroperitoneum on 06/28/17. Patient is being managed surgically by Dr. Juarez and Dr. Ardon, oncology, for management of pancreatic cancer. Does admit to a 40 pound weight loss in the last 4 months. Supposedly patient also has severe sleep apnea, was referred for a sleep study test and was lost to follow-up due to lack of insurance. Review of Systems Constitutional: COMPLAINS OF: Fatigue, Fever, Chills Eyes: DENIES: Blurred vision, Diplopia Respiratory: DENIES: Cough, Sputum production, Shortness of breath Cardiovascular: COMPLAINS OF: Chest pain, Palpitations Gastrointestinal: COMPLAINS OF: Nausea, Vomiting, DENIES: Abdominal pain, Black stools, Bloody stools, Constipation, Diarrhea Musculoskeletal: DENIES: Joint pain Hematologic/lymphatic: DENIES: Bruising Psychiatric: COMPLAINS OF: Anxiety Except as stated in HPI: all other systems reviewed are Neg Past Family Social History Past Medical History Arthritis Asthma Anxiety and depression Pancreatic cancer CAD Hyperlipidemia COPD GERD Hypertension History of migraines Sleep apnea with uses CPAP at home History of tobacco abuse Past Surgical History Appendectomy Pacemaker insertion Tonsillectomy Tooth extraction Open distal pancreatectomy and splenectomy, omentectomy Cholecystectomy Port placement Reported Medications Active Catapres (Clonidine) 0.1 Mg Tab 0.1 Mg PO Q8H Lopressor (Metoprolol Tartrate) 50 Mg Tab 50 Mg PO DAILY Xanax (Alprazolam) 0.5 Mg Tab 0.5 Mg PO Q6H PRN Pantoprazole (Pantoprazole Sodium) 40 Mg Tab 40 Mg PO DAILY Zofran (Ondansetron HCl) 4 Mg Tab 4 Mg PO Q6HR PRN Aspirin EC (Aspirin) 81 Mg Tabdr 81 Mg PO DAILY Reported Iron (Ferrous Sulfate) Unknown Strength Tab 1 Tab PO DAILY Vitamin C (Ascorbic Acid) 250 Mg Chew 250 Mg CHEW DAILY Multiple Vitamin 1 Tab 1 Tab PO DAILY Calcium Carbonate 1,500 Mg Tab 1,500 Mg PO DAILY 1,500 mg calcium carbonate (600 mg elemental calcium) Prochlorperazine Maleate 10 Mg Tab 10 Mg PO Q4H PRN Hydrocodone-Acetaminophen 10-325 mg Tab 1 Tab PO Q6H PRN Symbicort Inh (Budesonide/Formoterol Fumarate) 160-4.5 Mcg/Act Aero 2 Puff INH Q12HR Methadone (Methadone HCl) 5 Mg Tab 2.5 Mg PO DAILY Allergies: Coded Allergies: No Known Allergies (Verified Adverse Reaction, Unknown, 08/01/17) Active Ordered Medications Current Medications Medications (Trade) Dose Ordered Sig/Lashae Route Start Time Stop Time Status Last Admin (Xanax) 0.5 mg Q6H PRN PO 08/01/17 21:00 08/02/17 14:14 (Symbicort 160-4.5 Mcg Inh) 2 puff Q12HR INH 08/01/17 21:00 (Catapres) 0.1 mg Q8HR PO 08/01/17 22:00 08/02/17 08:11 (Dolophine) 2.5 mg DAILY PO 08/02/17 09:00 08/02/17 08:11 (Lopressor) 50 mg DAILY PO 08/02/17 09:00 08/02/17 08:11 (Protonix) 40 mg DAILY PO 08/02/17 09:00 08/02/17 08:11 (Compazine) 10 mg Q4H PRN PO 08/01/17 21:00 (NS Flush) 2 ml UNSCH PRN IV FLUSH 08/01/17 21:00 (NS Flush) 2 ml BID IV FLUSH 08/01/17 21:00 08/02/17 08:12 (Zofran Inj) 4 mg Q6H PRN IVP 08/01/17 21:00 08/02/17 14:14 (Heparin Inj) 5,000 units Q8HR SQ 08/01/17 22:00 08/02/17 14:13 (Narcan Inj) 0.4 mg UNSCH PRN IV PUSH 08/01/17 21:00 (Jeannette-Colace) 1 tab BID PO 08/01/17 21:00 08/02/17 08:11 (Milk Of Magnesia Liq) 30 ml Q12H PRN PO 08/01/17 21:00 (Senokot) 17.2 mg Q12H PRN PO 08/01/17 21:00 (Dulcolax Supp) 10 mg DAILY PRN RECTAL 08/01/17 21:00 (Lactulose Liq) 30 ml DAILY PRN PO 08/01/17 21:00 (Dilaudid Pf Inj) 1 mg Q3H PRN IV PUSH 08/01/17 21:15 08/02/17 14:14 Family History Paternal medical history significant for [place] at the age of 6565 years old. Social History Denies any tobacco use, states he quit in 2013. Denies any alcohol use. Denies any illicit drug use. Physical Exam Vital Signs Vital Signs Date Time Temp Pulse Resp B/P (MAP) Pulse Ox O2 Delivery O2 Flow Rate FiO2 08/02/17 12:00 96.1 71 16 116/65 (82) 99 08/02/17 09:07 18 08/02/17 09:07 18 08/02/17 08:00 97.3 73 15 126/78 (94) 95 08/01/17 23:57 97.3 77 22 121/75 (90) 97 08/01/17 22:08 80 16 120/74 (89) 99 Room Air 08/01/17 20:32 18 08/01/17 19:31 73 20 100/66 (77) 98 Room Air 08/01/17 19:16 98 Room Air 08/01/17 19:16 98 Room Air 08/01/17 19:12 114/76 (89) 103/68 (80) 08/01/17 19:04 98.2 78 20 114/76 (89) 95 Physical Exam GENERAL: Well-developed, obese mal patient in NAD. SKIN: Warm and dry. No rash. HEAD: Normocephalic. Atraumatic. EYES: Pupils equal and round. No scleral icterus. No injection or drainage. ENT: No nasal bleeding or discharge. Mucous membranes pink and moist. NECK: Supple. Trachea midline. CARDIOVASCULAR: Regular rate and rhythm. S1, S2 noted. No murmur appreciated. RESPIRATORY: No accessory muscle use. Clear to auscultation. Breath sounds equal bilaterally. GASTROINTESTINAL: Abdomen soft, non-tender, nondistended. Normoactive bowel sounds x4. Midabdominal scarring clean and skin intact. MUSCULOSKELETAL: No obvious deformities. Extremities without clubbing, cyanosis , or edema. NEUROLOGICAL: Awake and alert. No obvious cranial nerve deficits. Motor grossly within normal limits. 5/5 muscle strength in bilateral upper and lower extremities. Normal speech. PSYCHIATRIC: Appropriate mood and affect; insight and judgment normal. Laboratory Laboratory Tests Test 08/01/17 19:00 08/02/17 05:40 White Blood Count 8.4 8.7 Red Blood Count 4.69 4.36 Hemoglobin 13.6 12.9 Hematocrit 42.7 39.8 Mean Corpuscular Volume 91.2 91.4 Mean Corpuscular Hemoglobin 29.1 29.6 Mean Corpuscular Hemoglobin Concent 31.9 32.4 Red Cell Distribution Width 14.1 14.2 Platelet Count 320 290 Mean Platelet Volume 8.1 8.2 Neutrophils (%) (Auto) 67.4 72.4 Lymphocytes (%) (Auto) 23.0 19.4 Monocytes (%) (Auto) 5.4 3.8 Eosinophils (%) (Auto) 3.8 4.2 Basophils (%) (Auto) 0.4 0.2 Neutrophils # (Auto) 5.7 6.3 Lymphocytes # (Auto) 1.9 1.7 Monocytes # (Auto) 0.5 0.3 Eosinophils # (Auto) 0.3 0.4 Basophils # (Auto) 0.0 0.0 CBC Comment DIFF FINAL DIFF FINAL Differential Comment Prothrombin Time 11.1 Prothromb Time International Ratio 1.1 Activated Partial Thromboplast Time 27.6 Blood Urea Nitrogen 12 13 Creatinine 0.75 0.52 Random Glucose 126 103 Total Protein 7.4 6.9 Albumin 3.2 3.0 Calcium Level 9.1 8.8 Magnesium Level 2.0 Alkaline Phosphatase 101 163 Aspartate Amino Transf (AST/SGOT) 17 28 Alanine Aminotransferase (ALT/SGPT) 23 32 Total Bilirubin 0.3 0.5 Sodium Level 136 137 Potassium Level 4.3 4.1 Chloride Level 101 100 Carbon Dioxide Level 28.8 29.7 Anion Gap 6 7 Estimat Glomerular Filtration Rate 108 165 Troponin I LESS THAN 0.02 Lipase 179 Result Diagram: 08/02/17 0540 08/02/1740 Imaging Last Impressions Chest X-Ray 08/01/171906 Signed Impressions: Service Date/Time: Tuesday, August 01, 2017 19:40 - CONCLUSION: 1. No acute findings. Pacer leads overlie right atrium and right ventricle. Luiz Magana MD Aorta CTA [id number]/01/171906 Signed Impressions: Service Date/Time: Tuesday, August 01, 2017 19:44 - CONCLUSION: 1. Postoperative distal pancreatectomy with 2.5 cm pseudocyst at the resection site and some edematous changes in the fat of the left upper quadrant. Also previous splenectomy and cholecystectomy. Negative for aortic dissection or aneurysm. Pacer lead in right ventricle. Luiz Magana MD Septic Shock Reassessment Septic shock perfusion: reassessment completed Caprini VTE Risk Assessment Caprini VTE Risk Assessment: No/Low Risk (score <= 1) Caprini Risk Assessment Model Point Value = 1 Point Value = 2 Point Value = 3 Point Value = 5 Age 41-60 Minor surgery BMI > 25 kg/m2 Swollen legs Varicose veins or History of unexplained or recurrent spontaneous Oral contraceptives or hormone replacement Sepsis (< 1 month) Serious lung disease, including pneumonia (< 1 month) Abnormal pulmonary function Acute myocardial infarction Congestive heart failure (< 1 month) History of inflammatory bowel disease Medical patient at bed rest Age 61-74 Arthroscopic surgery Major open surgery (> 45 min) Laparoscopic surgery (> 45 min) Malignancy Confined to bed (> 72 hours) Immobilizing plaster cast Central venous access Age >= 75 History of VTE Family history of VTE Factor V Leiden Prothrombin [id number] Lupus anticoagulant Anticardiolipin antibodies Elevated serum homocysteine Heparin-induced thrombocytopenia Other congenital or acquired thrombophilia Stroke (< 1 month) Elective arthroplasty Hip, pelvis, or leg fracture Acute spinal cord injury (< 1 month) Prophylaxis Regimen Total Risk Factor Score Risk Level Prophylaxis Regimen 0-1 Low Early ambulation 2 Moderate Order ONE of the following: *Sequential Compression Device (SCD) *Heparin 5000 units SQ BID 3-4 Higher Order ONE of the following medications: *Heparin 5000 units SQ TID *Enoxaparin/Lovenox 40 mg SQ daily (WT < 150 kg, CrCl > 30 mL/min) *Enoxaparin/Lovenox 30 mg SQ daily (WT < 150 kg, CrCl > 10-29 mL/min) *Enoxaparin/Lovenox 30 mg SQ BID (WT < 150 kg, CrCl > 30 mL/min) AND/OR *Sequential Compression Device (SCD) 5 or more Highest Order ONE of the following medications: *Heparin 5000 units SQ TID (Preferred with Epidurals) *Enoxaparin/Lovenox 40 mg SQ daily (WT < 150 kg, CrCl > 30 mL/min) *Enoxaparin/Lovenox 30 mg SQ daily (WT < 150 kg, CrCl > 10-29 mL/min) *Enoxaparin/Lovenox 30 mg SQ BID (WT < 150 kg, CrCl > 30 mL/min) AND *Sequential Compression Device (SCD) Assessment and Plan Problem List: (1) Intractable pain ICD Code: R52 - Pain, unspecified Status: Acute Plan: Aorta CTA reviewed showing postoperative distal pancreatectomy with pseudocyst mentioned. Negative for dissection or aneurysm. Chest x-ray with no acute findings. Vital signs are stable upon presentation. Patient is comfortable on room air. We will continue home methadone. Dilaudid IV as needed for breakthrough pain. Supportive care. Patient has mild chest pain, that has resolved. He states that this is probably due to undergoing chemotherapy and increase in stressors related. Patient has refused stress test 1 month ago and continues to refuse any cardiac workup. Patient desires to follow-up outpatient. We will continue to monitor. Cardiac telemetry continued, monitor for any arrhythmias. (2) Pseudocyst of pancreas ICD Code: K86.3 - Pseudocyst of pancreas Status: Acute Plan: Lipase is 179. No signs of acute pancreatitis. Oncology consult, appreciate input recommendations. (3) Pancreatic cancer ICD Code: C25.9 - Malignant neoplasm of pancreas, unspecified Plan: Oncology has been consulted, abdominal CT showing pseudocyst of 2.5 cm with some edematous changes in the fat in the left upper quadrant. Appreciate input recommendations. Patient is currently undergoing chemotherapy. Patient expresses distress regarding diagnosis and undergoing chemotherapy treatment. Xanax will be continued. Offer support. Supportive care. DVT prophylaxis: SCDs. Heparin. Mikki Martin August 02, 2017 14:27
[2017-08-02 16:00] VITALS: BP 102/57; PULSE 71; RESP 16; TEMP 98.1; O2SAT 96
[2017-08-02 20:00] VITALS: BP 135/85; PULSE 83; RESP 20; TEMP 96.9; O2SAT 99
--- NOTE | 2017-08-02 23:43 | MB ---
cc: Onofre Weathers MD DATE: 08/02/2017 REASON FOR CONSULTATION: The patient with a history of pancreatic cancer, who was sent to the emergency room after he experienced subjective fevers and also was hypertensive and complained of abdominal and chest pain. HISTORY OF PRESENT ILLNESS: This is a 56-year-old male who has a diagnosis of adenocarcinoma of the pancreatic tail initially diagnosed in April 2017. He has pT3 pN2c M0 disease. The patient underwent distal pancreatectomy, splenectomy, lymph node sampling of the peripancreatic lymph nodes, as well as omental resection on 06/19/2017. The patient is currently being treated under the care of my colleague, Dr. Ardon. He is being treated with systemic chemotherapy consisting of gemcitabine as a single agent. The patient states that he has received 1 cycle of his treatment. The patient states that after receiving his chemotherapy treatment, he felt unwell and was having diffuse pains, including abdominal pain, chest pain and he felt nauseous. He was sent to the emergency room. The patient is currently on methadone and he has also been receiving IV Dilaudid. His chest pain has resolved. He complains of diffuse abdominal tenderness, specifically in the right upper quadrant. In the emergency room, a CT scan of the abdomen and pelvis was obtained, which showed postoperative distal pancreatectomy with a 2.5 cm pseudocyst at the resection site and some edematous changes in the fat of the left upper quadrant. Splenectomy and cholecystectomy was noted. The patient is currently comfortably sitting in the bed. He denies any active pain. He states that occasionally he gets right upper quadrant pain. He states that he is quite anxious about his treatment and does not know what to expect. He has not had any fevers or chills during the course of his admission. He denies any dyspnea or cough. He has not had any diarrhea. REVIEW OF SYSTEMS: A comprehensive review of system was completed which is negative except as stated in the HPI. PAST MEDICAL HISTORY: History of pancreatic adenocarcinoma, osteoarthritis, asthma, anxiety and depression, coronary artery disease, hyperlipidemia, COPD, GERD, hypertension, history of migraines, sleep apnea. PAST SURGICAL HISTORY: Appendectomy, pacemaker insertion, tonsillectomy, tooth extraction, open distal pancreatectomy, splenectomy and omentectomy, history of cholecystectomy, history of port placement. FAMILY HISTORY: Was reviewed and is noncontributory to this admission. SOCIAL HISTORY: He states that he quit smoking in 2013, but does have more than 30 pack years of smoking history. He denies any alcohol abuse. No illicit drug use. MEDICATIONS: Methadone 2.5 mg p.o. daily, Lopressor 50 mg p.o. daily, pantoprazole 40 mg p.o. daily, clonidine 0.1 mg p.o. every 8 hours, heparin 5000 units subcutaneous every 8 hours, Dilaudid 1 mg IV every 3 hours p.r.n., Xanax 0.5 mg p.o. every 6 hours p.r.n., Symbicort 2 puffs every 12 hours, compazine 10 mg p.o. every 4 hours p.r.n., Zofran 4 mg IV every 6 hours p.r.n., senna and docusate 1 tablet p.o. b.i.d., Milk of Magnesia p.r.n., , bisacodyl, lactulose p.r.n. ALLERGIES: NO KNOWN DRUG ALLERGIES. PHYSICAL EXAMINATION: VITAL SIGNS: Blood pressure is 135/85, pulse is 80, temperature is 96.9, O2 saturations are 99% on room air. GENERAL: Well-developed, well-nourished male who appears comfortable, in no apparent distress. HEENT: Pupils are equal, round, reactive to light. EOMI. No thrush or lesions. NECK: Supple. No JVD, no bruits, no lymphadenopathy. CHEST: Clear to auscultation bilaterally. HEART: S1, S2. Regular rate and rhythm. ABDOMEN: Soft. There is diffuse mild tenderness, more pronounced on the right upper quadrant. Bowel sounds are present. EXTREMITIES: Without any edema, erythema, cyanosis. SKIN: Without any petechiae, lesions or bruises. NEUROLOGIC: No focal deficits. PSYCHIATRIC: Mood and affect is appropriate. LABORATORY DATA: WBC 8.7, hemoglobin 12.9, platelet count 290. Serum chemistries, sodium 137, potassium 4.1, chloride 100, CO2 29.7, BUN 13, creatinine 0.52, calcium is 8.8, total bilirubin is 0.5, AST is 28, ALT 32, alkaline phosphatase is 163. Troponins are less than 0.02. Total protein 6.9, albumin 3. CA 19-9 is 179. Coags, PT 11.1, INR 1.1, PTT 27.6. ASSESSMENT AND PLAN: This is a 56-year-old male who has a history of pancreatic adenocarcinoma. He has undergone distal pancreatectomy, splenectomy, lymph node sampling of the peripancreatic lymph nodes and omental resection. He is currently getting adjuvant chemotherapy consisting of single agent gemcitabine. He developed symptoms of chest pain, abdominal pain, subjective fevers and nausea after he received the first cycle of his chemotherapy. He was admitted to the hospital. 1. Generalized pain involving chest and abdomen. There does not appear to be any underlying cardiac etiology. His pain is now mostly in his abdomen. I reviewed his CT scan. There is a pseudocyst of 2.5 cm at the resection site and some edematous changes. Since he continues to complain of pain, specifically in the right upper quadrant, I would recommend a surgical evaluation for this patient. However, if he continues to do better by tomorrow, we could also potentially consider discharging him from the hospital and outpatient followup. He does not appear to have acute abdomen. He will also followup with Dr. Ardon in the outpatient clinic for further evaluation and treatment. 2. Continue methadone 2.5 mg p.o. daily. He has been receiving Dilaudid 1 mg every 3 hours as needed. However, he is not requiring this anymore. 3. Nausea, which has mostly resolved. 4. Pancreatic adenocarcinoma. Further management outpatient. Thank you for allowing me to participate in the care of this patient. If this patient continues to remain stable and have improvement in his symptoms, he can be discharged from the hospital tomorrow and with outpatient followup with surgery and Dr. Ardon. If he continues to have abdominal pain, then he will need further evaluation by surgery. MD LEO Aaron/TITUS , 10:36 PM , 11:42 PM
[2017-08-03] VITALS: BP_SYST 101; BP_SYST 129; BP_DIAS 61; BP_DIAS 69; PULSE 47; PULSE 87; RESP 20; TEMP 97.6; TEMP 98; O2SAT 96
[2017-08-03 04:00] VITALS: BP 110/67; PULSE 76; RESP 20; TEMP 96; O2SAT 96
[2017-08-03] MEDS: HEPARIN SODIUM - SQ 10,000 UNITS/ML VIAL SQ SCH ×2 (05:59→14:16)
[2017-08-03] MEDS: cloNIDine HCL 0.1 MG TAB PO SCH ×2 (05:59→14:15)
[2017-08-03 08:00] VITALS: BP 118/69; PULSE 75; RESP 17; TEMP 96.3; O2SAT 96
[2017-08-03] MEDS: PANTOPRAZOLE SOD 40 MG DELAYED RELEASE TAB PO SCH (08:10)
[2017-08-03] MEDS: DOCUSATE SODIUM 50 MG/SENNA 8.6 MG TAB PO SCH (08:10)
[2017-08-03] MEDS: METHADONE HCL 10 MG TAB PO SCH (08:11)
[2017-08-03] MEDS: SODIUM CHLORIDE 0.9% FLUSH 10 ML FLUSH IV FLUSH SCH (08:12)
[2017-08-03] MEDS: BUDESONIDE-FORMOTEROL 160/4.5 MCG INHALER INH SCH (08:13)
[2017-08-03] MEDS: METOPROLOL TARTRATE 50 MG TAB PO SCH (08:15)
[2017-08-03] MEDS: HYDROmorphone HCL PF 2 MG/ML VIAL IV PUSH PRN (08:21)
[2017-08-03 12:00] VITALS: BP 109/57; PULSE 66; RESP 16; TEMP 96.6; O2SAT 99
--- NOTE | 2017-08-03 12:16 | PD.CONS ---
Consult Service Palliative Care . Consult Requested By Mikki PRECIADO . Primary Care Physician Non-Staff . Reason for Consultation a. To assist with evaluation and management of symptoms including: pain, anxiety b. To assist medical decision maker(s) with: better understanding of current medical conditions; weighing benefits/burdens of medical treatment options; making medical treatment decisions. . HPI History of Present Illness Mr. Kay is a 56-year-old male patient with osteoarthritis, asthma, anxiety /depression, pancreatic adenocarcinoma, CAD, hyperlipidemia, COPD, GERD, hypertension, migraines and sleep apnea (uses CPAP at home) who presented to [facility] on 08/01/2017 with complaints of right-sided chest and abdominal pain that began 24 hours earlier. The patient was diagnosed with stage III pancreatic cancer in April, and underwent a distal pancreatectomy, splenectomy and peripancreatic lymph node sampling along with omental resection in 06/2017 and was found to have locally advanced disease which was moderate to poorly differentiated, multiple lymph nodes were involved with malignancy. Upon arrival to the ED, patient complained of significant weakness, inability to walk, nausea/vomiting and a subjective fever of 103 status post administration of his second dose of chemotherapy on 07/31/2017. Pain was described as sharp in nature, intermittent with no known alleviating factors. Patient is on methadone 2.5 mg daily and hydrocodone/acetaminophen 10-325 mg every 6 hours as needed for breakthrough pain at home but had been unable to keep pain medication secondary to nausea and vomiting. Patient has a pacemaker secondary to sick sinus syndrome; he follows Dr. Tripp who manages his pacemaker and last evaluated the patient's 7 months ago. He underwent a cardiac stress test several months ago which was negative. Mr. Kay is being managed surgically by Dr. Juarez. Dr. Ardon is his oncologist. Patient's has had a documented weight loss of nearly 40 pounds in the past 3-4 months. Reportedly has severe sleep apnea and was referred for a sleep study but was lost to follow-up secondary to lack of insurance. Additional diagnostic data: * Vital signs: Pulse 78, respirations 20, BP 114/78, oxygen saturation 95% on room air, oral temperature 98.2 * WBC: 8.4, hemoglobin 13.6, hematocrit 42.7, platelets 320, neutrophils 67.4% * Sodium: 136, potassium 4.3, chloride 101, carbon dioxide 28.8, glucose 126, calcium 9.1, magnesium 2.0 * BUN: 12, creatinine 0.75, GFR 108 * Total bilirubin: 0.3, AST 17, ALT 23, alkaline phosphatase 101 * Lipase: 179 * Troponin <0.02 * Total protein: 7.4, albumin 3.2 * PT: 11.1, INR 1.1, APTT 27.6 * EKG: Normal sinus rhythm, left axis deviation, nonspecific ST-T wave changes. Heart rate of 77 bpm Patient was admitted for management of intractable pain. Aorta is CTA showed postoperative distal pancreatectomy with pseudocyst; negative for dissection or aneurysm. Chest x-ray with no acute findings. Patient has refused a stress test last month and continues to refuse any inpatient cardiac workup stating he will follow-up with his interline clerk outpatient. Chest pain has resolved. Patient complains of diffuse abdominal tenderness and intermittent pain in the right upper quadrant. Currently receiving methadone and IV Dilaudid every 3 hours as needed for breakthrough pain. 24 hour PRN requirements = 1 mg IV Dilaudid 3. Patient expressing anxiety related to his diagnosis and treatment plan - Xanax 0.5mg is available every 6 hours PRN. Palliative Care was consulted to assist with symptom management and to discuss with the patient the benefits and burdens of his current illnesses and the options regarding future care. On examination, the patient denies pain. Patient is on methadone 2.5mg daily as well as Hydrocodone-Acetaminophen 10-325mg every 6 hours for breakthrough pain. Mr. Kay states his pain at home can be quite severe but he tries not to utilize his as needed hydrocodone/acetaminophen because it is difficult to get and he is afraid he will not have the medication available on a "really bad day. " Patient verbalizes anxiety over his his recent diagnosis of cancer and current treatments stating, "I kind of feel like I am in a dark room and cannot find the door." He takes PRN Xanax which helps to control his anxiety and allows him to rest. . Function/Cognitive Trajectory Patient reports ongoing weight loss, fatigue, weakness and anxiety. He has had a documented weight loss of 37 pounds in the past 3-4 months. . Review of Systems ROS Limitations: Clinical Condition Constitutional: COMPLAINS OF: Fatigue, Weight gain (Approximate weight loss of 40 pounds in the past 3-4 months reported), Change in appetite (Decreased appetite), Pain (Diffuse abdominal pain; intermittent pain in right upper quadrant), Generalized weakness, Sleep problems (Insomnia) Respiratory: DENIES: Cough, Sputum production, Shortness of breath Cardiovascular: DENIES: Chest pain Gastrointestinal: COMPLAINS OF: Nausea, DENIES: Black stools, Bloody stools Musculoskeletal: COMPLAINS OF: Joint pain Hematologic/Lymphatics: DENIES: Bruising Neurologic: DENIES: Headache, Seizures, Speech Problems, Poor Balance Psychiatric: COMPLAINS OF: Anxiety Past Family Social History Coded Allergies: No Known Allergies (Verified Adverse Reaction, Unknown, 08/01/17) Past Medical History Osteoarthritis Asthma Anxiety and depression Pancreatic adenocarcinoma CAD Hyperlipidemia COPD GERD Hypertension History of migraines Sleep apnea with uses CPAP at home History of tobacco abuse . Past Surgical History Appendectomy Pacemaker insertion Tonsillectomy Tooth extraction Open distal pancreatectomy and splenectomy, omentectomy Cholecystectomy Port placement . Reported Medications [iron] 1 Tab PO DAILY Vitamin C (Ascorbic Acid) 250 Mg Chew 250 Mg CHEW DAILY Multiple Vitamin 1 Tab 1 Tab PO DAILY Calcium Carbonate 1,500 Mg Tab 1,500 Mg PO DAILY 1,500 mg calcium carbonate (600 mg elemental calcium) Prochlorperazine Maleate 10 Mg Tab 10 Mg PO Q4H PRN Hydrocodone-Acetaminophen 10-325 mg Tab 1 Tab PO Q6H PRN Symbicort Inh (Budesonide/Formoterol Fumarate) 160-4.5 Mcg/Act Aero 2 Puff INH Q12HR Methadone (Methadone HCl) 5 Mg Tab 2.5 Mg PO DAILY Current Medications Medications (Trade) Dose Ordered Sig/Lashae Route Start Time Stop Time Status Last Admin (Xanax) 0.5 mg Q6H PRN PO 08/01/17 21:00 08/02/17 20:36 (Symbicort 160-4.5 Mcg Inh) 2 puff Q12HR INH 08/01/17 21:00 08/03/17 08:13 (Catapres) 0.1 mg Q8HR PO 08/01/17 22:00 08/02/17 20:36 (Dolophine) 2.5 mg DAILY PO 08/02/17 09:00 08/03/17 08:11 (Lopressor) 50 mg DAILY PO 08/02/17 09:00 5/3/18 08:15 (Protonix) 40 mg DAILY PO 08/02/17 09:00 08/03/17 08:10 (Compazine) 10 mg Q4H PRN PO 08/01/17 21:00 (NS Flush) 2 ml UNSCH PRN IV FLUSH 08/01/17 21:00 (NS Flush) 2 ml BID IV FLUSH 08/01/17 21:00 08/03/17 08:12 (Zofran Inj) 4 mg Q6H PRN IVP 08/01/17 21:00 08/02/17 20:35 (Heparin Inj) 5,000 units Q8HR SQ 08/01/17 22:00 08/02/17 14:13 (Narcan Inj) 0.4 mg UNSCH PRN IV PUSH 08/01/17 21:00 (Jeannette-Colace) 1 tab BID PO 08/01/17 21:00 08/03/17 08:10 (Milk Of Magnesia Liq) 30 ml Q12H PRN PO 08/01/17 21:00 (Senokot) 17.2 mg Q12H PRN PO 08/01/17 21:00 (Dulcolax Supp) 10 mg DAILY PRN RECTAL 08/01/17 21:00 (Lactulose Liq) 30 ml DAILY PRN PO 08/01/17 21:00 (Dilaudid Pf Inj) 1 mg Q3H PRN IV PUSH 08/01/17 21:15 08/03/17 08:21 Family History Mr. Obrien's mother at the age of 81; his father at the age of 59 from complications related to heart disease ([place]?). . Substance Use Tobacco: 30+ pack-year smoking history; patient quit within the past several years. Alcohol: None known Prescription med abuse:None known Illicits: None known . Psychosocial History Patient is originally from [place] but moved to [place] when he was only 12 months old. He has been to his , Nely, for 12 years. 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 He has 2 adult children. Reji lives in [place];Basilio lives in [place]. The patient's plans to reach locate to [place], [place] as soon as possible to be closer to family. . Spiritual/Cultural Factors Jehovah'[employer] Witness mary kay Living Will: Never completed Health Care Surrogate: Never completed Durable Power of Groundman/Lineman: Never completed Today's verbally stated goals: Patient verbalizes aggressive goals with intention to move to [place] to be closer to his family. . Family/friends goals: No family or friends present. . Ethical and Legal Issues Per [place] statutes, in the absence of written advanced directives healthcare proxy decision making falls to the patient's . . Physical Exam Vital Signs Date Time Temp Pulse Resp B/P (MAP) Pulse Ox O2 Delivery O2 Flow Rate FiO2 08/03/17 08:00 96.3 75 17 118/69 (85) 96 08/03/17 04:00 96.0 76 20 110/67 (81) 96 08/03/17 00:00 97.6 87 20 101/61 (74) 96 08/02/17 20:00 96.9 83 20 135/85 (102) 99 08/02/17 16:00 98.1 71 16 102/57 (72) 96 08/02/17 14:58 18 08/02/17 12:00 96.1 71 16 116/65 (82) 99 . Exam CONSTITUTIONAL/GENERAL: This is an adequately nourished, middle-aged male patient in no acute distress TUBES/LINES/DRAINS: PIV 1 SKIN: No jaundice, rashes, or lesions. Surgical scar on abdomen. skin temperature appropriate. Not diaphoretic. HEAD: Atraumatic. Normocephalic. EYES: Pupils equal and round and reactive. Extraocular motions intact. No scleral icterus. No injection or drainage. Fundi not examined. ENT: Hearing grossly normal. Nose without bleeding or purulent drainage. Throat without visible erythema, exudates, masses, or lesions. NECK: Trachea midline. Supple, nontender. No palpable thyroid enlargement or nodularity. CARDIOVASCULAR: Regular rate and rhythm without murmurs, gallops, or rubs. No JVD. Peripheral pulses symmetric. RESPIRATORY/CHEST: Symmetric, unlabored respirations. Clear to auscultation. Breath sounds equal bilaterally. No wheezes, rales, or rhonchi. GASTROINTESTINAL: Abdomen soft, non-tender, nondistended. No hepato-splenomegaly , or palpable masses. No guarding. Bowel sounds present. GENITOURINARY: Without palpable bladder distension. Díaz catheter in place. MUSCULOSKELETAL: Extremities without clubbing, cyanosis, or edema. No mottling or clubbing. LYMPHATICS: No palpable cervical or supraclavicular adenopathy. NEUROLOGICAL: Awake and alert. Motor and sensory grossly within normal limits. Follows commands. Cognitively sharp. Moves all extremities. PSYCHIATRIC: No obvious anxiety/depression. no apparent hallucinations or other psychotic thought process. Insight and judgment normal. . Diagnostic Tests Laboratory Laboratory Tests Test 08/01/17 19:00 08/02/17 05:40 White Blood Count 8.4 TH/MM3 (4.0-11.0) 8.7 TH/MM3 (4.0-11.0) Red Blood Count 4.69 MIL/MM3 (4.50-5.90) 4.36 MIL/MM3 (4.50-5.90) Hemoglobin 13.6 GM/DL (13.0-17.0) 12.9 GM/DL (13.0-17.0) Hematocrit 42.7 % (39.0-51.0) 39.8 % (39.0-51.0) Mean Corpuscular Volume 91.2 FL (80.0-100.0) 91.4 FL (80.0-100.0) Mean Corpuscular Hemoglobin 29.1 PG (27.0-34.0) 29.6 PG (27.0-34.0) Mean Corpuscular Hemoglobin Concent 31.9 % (32.0-36.0) 32.4 % (32.0-36.0) Red Cell Distribution Width 14.1 % (11.6-17.2) 14.2 % (11.6-17.2) Platelet Count 320 TH/MM3 (150-450) 290 TH/MM3 (150-450) Mean Platelet Volume 8.1 FL (7.0-11.0) 8.2 FL (7.0-11.0) Neutrophils (%) (Auto) 67.4 % (16.0-70.0) 72.4 % (16.0-70.0) Lymphocytes (%) (Auto) 23.0 % (9.0-44.0) 19.4 % (9.0-44.0) Monocytes (%) (Auto) 5.4 % (0.0-8.0) 3.8 % (0.0-8.0) Eosinophils (%) (Auto) 3.8 % (0.0-4.0) 4.2 % (0.0-4.0) Basophils (%) (Auto) 0.4 % (0.0-2.0) 0.2 % (0.0-2.0) Neutrophils # (Auto) 5.7 TH/MM3 (1.8-7.7) 6.3 TH/MM3 (1.8-7.7) Lymphocytes # (Auto) 1.9 TH/MM3 (1.0-4.8) 1.7 TH/MM3 (1.0-4.8) Monocytes # (Auto) 0.5 TH/MM3 (0-0.9) 0.3 TH/MM3 (0-0.9) Eosinophils # (Auto) 0.3 TH/MM3 (0-0.4) 0.4 TH/MM3 (0-0.4) Basophils # (Auto) 0.0 TH/MM3 (0-0.2) 0.0 TH/MM3 (0-0.2) CBC Comment DIFF FINAL DIFF FINAL Differential Comment Prothrombin Time 11.1 SEC (9.8-11.6) Prothromb Time International Ratio 1.1 RATIO Activated Partial Thromboplast Time 27.6 SEC (24.3-30.1) Blood Urea Nitrogen 12 MG/DL (7-18) 13 MG/DL (7-18) Creatinine 0.75 MG/DL (0.60-1.30) 0.52 MG/DL (0.60-1.30) Random Glucose 126 MG/DL (74-106) 103 MG/DL (74-106) Total Protein 7.4 GM/DL (6.4-8.2) 6.9 GM/DL (6.4-8.2) Albumin 3.2 GM/DL (3.4-5.0) 3.0 GM/DL (3.4-5.0) Calcium Level 9.1 MG/DL (8.5-10.1) 8.8 MG/DL (8.5-10.1) Magnesium Level 2.0 MG/DL (1.5-2.5) Alkaline Phosphatase 101 U/L (45-117) 163 U/L (45-117) Aspartate Amino Transf (AST/SGOT) 17 U/L (15-37) 28 U/L (15-37) Alanine Aminotransferase (ALT/SGPT) 23 U/L (12-78) 32 U/L (12-78) Total Bilirubin 0.3 MG/DL (0.2-1.0) 0.5 MG/DL (0.2-1.0) Sodium Level 136 MEQ/L (136-145) 137 MEQ/L (136-145) Potassium Level 4.3 MEQ/L (3.5-5.1) 4.1 MEQ/L (3.5-5.1) Chloride Level 101 MEQ/L (98-107) 100 MEQ/L (98-107) Carbon Dioxide Level 28.8 MEQ/L (21.0-32.0) 29.7 MEQ/L (21.0-32.0) Anion Gap 6 MEQ/L (5-15) 7 MEQ/L (5-15) Estimat Glomerular Filtration Rate 108 ML/MIN (>89) 165 ML/MIN (>89) Troponin I LESS THAN 0.02 NG/ML Lipase 179 U/L (73-393) . Result Diagram: 08/02/17 0540 08/02/17 0540 Imaging Last 72 hours Impressions Chest X-Ray 08/01/171906 Signed Impressions: Service Date/Time: Tuesday, August 01, 2017 19:40 - CONCLUSION: 1. No acute findings. Pacer leads overlie right atrium and right ventricle. Luiz Magana MD Aorta CTA 08/01/171906 Signed Impressions: Service Date/Time: Tuesday, August 01, 2017 19:44 - CONCLUSION: 1. Postoperative distal pancreatectomy with 2.5 cm pseudocyst at the resection site and some edematous changes in the fat of the left upper quadrant. Also previous splenectomy and cholecystectomy. Negative for aortic dissection or aneurysm. Pacer lead in right ventricle. Luiz Magana MD . Patient/Family Conference Present at Family Conference: Met with patient at bedside. . Family Conference Location: Bedside Issues Discussed: * Palliative care role, purpose, approach * Additional medical, psychosocial, and spiritual history * Patients general health, functional status, and cognitive changes in the months leading up to the current hospitalization * Patient/family understanding of the current medical problems * Patient/family understanding of prognosis * Patients goals of care as best understood from advance directives and/or conversations and/or values * Current medical treatment options and benefits/burdens of those options * Likely scenarios comparing ongoing aggressive care with a transition to comfort measures only * Questions answered to the best of my ability * Palliative care contact information provided . Assessment and Plan Disease Oriented Problem List: (1) Tobacco dependence in remission (2) Pancreatic cancer (3) Pseudocyst of pancreas (4) Obstructive sleep apnea hypopnea, severe (5) Sick sinus syndrome (6) COPD (chronic obstructive pulmonary disease) (7) Obesity Symptom Scale: Pertinent Non-Medical Issues Psychosocial:Patient is originally from [place] but moved to [place] when he was only 12 months old. He has been to his , Nely, for 12 years. 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 He has 2 adult children. Reji lives in [place];Basilio lives in [place]. The patient's plans to reach locate to [place], [place] as soon as possible to be closer to family. Spiritual: Mormon mary kay Legal: Per [place] statutes, in the absence of written advanced directives healthcare proxy decision making falls to the patient's Ethical issues impacting care: No known ethical issues impacting care at this time. . Important Contacts Nely Kay, spouse: [phone] . Prognosis Patient is a 56-year-old male who has experienced an acute decline status post diagnosis of stage III pancreatic cancer, currently receiving chemotherapy. Patient reports progressively increased fatigue, weakness, nausea/vomiting and a 40 pound weight loss in the past 4 months. Given patient's complex medical history including newly diagnosed cancer, he is high risk for ongoing complications and decline. . Code Status: Full Code Plan * FULL CODE * Patient currently has appropriate insight and judgment related to his medical conditions. Per [place] statutes, in the absence of written advanced directives healthcare proxy decision making would fall to his . * AGGRESSIVE GOAL * Discussed current medical treatment goals with BELL EastmanP and Yarelis Dickerson, Oncology [employer] SERVICE MEAT MANAGER. * Palliative care contact information provided to patient * SYMPTOM MANAGEMENT: = Pain: Multifactoral. Patient reports diffuse abdominal pain as well as intermittent sharp pain s in the RUQ. At time pain feels gassy per patient. Patient is on methadone 2.5mg daily at home as well as PRN hydromorphone/ acetaminophen for breakthrough pain. Patient is hesitant to continues his PRN medications at home because they are difficult to refill and he is afraid he will not have them when he has a "really bad day." He has jayme receiving IV Dilaudid for breakthrough pain during this hospitalization which the patient states has improved his symptoms. 24 hour PRN requirements = Dilaudid 1 mg IV 3. Recommendations to increase methadone to 2.5 mg PO 2 times daily ; QTC: 399. Consider starting the patient on a low-dose of dexamethasone 2 mg PO daily which may improve management of pain and nausea as well as increase patient's appetite and provide a sense of overall [id number] with Yarelis Dickerson (oncology SEAFOOD AND SERVICE MEAT MANAGER ) to ensure there were no contraindications of low-dose steroid in current chemo regimen. = Anxiety: Multifactoral. Patient verbalizing anxiety secondary to newly diagnosed cancer, current treatments as well as financial concerns. Patient states he feels like "he is in a dark room and cannot find the door." He is hopeful that he can move to [place] in the near future to be Closer to family. Patient is currently on PRN Xanax 0.5mg every 6 hours PRN. Education provided on non-pharmaceutical therapies such as cognitive behavioral therapy, breathing, visualization. * Palliative care will continue to follow this patient throughout his hospitalization to establish trust and assist with symptom management. . Thank you for the opportunity to participate in the care of Mr. Kay. Attestation To help prompt me to consider important information that might be impacting today's encounter and assessment, information from prior notes written by myself or my colleagues may have been "brought forward" into today's note. My signature on this note, however, is an attestation that I personally performed the exam, history, and/or decision-making noted today, and, unless otherwise indicated, the interactions with patient, family, and staff as well as the review of records all occurred today. I also attest that the listed assessment and stated plan reflect my best clinical judgment today based on the combination of historical information, prior notes, and today's exam/ interactions. When time spent is documented, it refers only to time spent today by the signer, or if indicated, combined time spent today by collaborating physician/nurse practitioner. . Whitney ZavalaP August 03, 2017 12:16
--- NOTE | 2017-08-03 13:08 | HHI.PR ---
Subjective Remarks Follow-up intractable pain, pancreatic cancer. Patient seen and examined, lying in bed comfortably no apparent distress. Pain is well controlled. Palliative care and to see patient, patient did have pain overnight, methadone increased. Also added dexamethasone. Patient eating well, denies any nausea or vomiting. Patient does have pseudocyst on pancreas, will follow up with surgery upon discharge. Objective Vitals Vital Signs Date Time Temp Pulse Resp B/P (MAP) Pulse Ox O2 Delivery O2 Flow Rate FiO2 08/03/17 08:00 96.3 75 17 118/69 (85) 96 08/03/17 04:00 96.0 76 20 110/67 (81) 96 08/03/17 00:00 97.6 87 20 101/61 (74) 96 08/02/17 20:00 96.9 83 20 135/85 (102) 99 08/02/17 16:00 98.1 71 16 102/57 (72) 96 08/02/17 14:58 18 I/O 08/02/17 08/02/17 08/02/17 08/03/17 08/03/17 08/03/17 07:00 15:00 23:00 07:00 15:00 23:00 Intake Total 500 ml 720 ml 600 ml Balance 500 ml 720 ml 600 ml Intake Oral 500 ml 720 ml 600 ml # Voids 5 1 # Bowel Movements 1 0 Result Diagram: 08/02/17 0540 08/02/17 0540 Imaging Last Impressions Chest X-Ray 08/01/171906 Signed Impressions: Service Date/Time: Tuesday, August 01, 2017 19:40 - CONCLUSION: 1. No acute findings. Pacer leads overlie right atrium and right ventricle. Luiz Magana MD Aorta CTA 08/01/171906 Signed Impressions: Service Date/Time: Tuesday, August 01, 2017 19:44 - CONCLUSION: 1. Postoperative distal pancreatectomy with 2.5 cm pseudocyst at the resection site and some edematous changes in the fat of the left upper quadrant. Also previous splenectomy and cholecystectomy. Negative for aortic dissection or aneurysm. Pacer lead in right ventricle. Luiz Magana MD Objective Remarks GENERAL: Well-developed, well-nourished obese patient in NAD. SKIN: Warm and dry. No rash. HEAD: Normocephalic. Atraumatic. EYES: Pupils equal and round. No scleral icterus. No injection or drainage. ENT: No nasal bleeding or discharge. Mucous membranes pink and moist. NECK: Supple. Trachea midline. CARDIOVASCULAR: Regular rate and rhythm. S1, S2 noted. No murmur appreciated. RESPIRATORY: No accessory muscle use. Clear to auscultation. Breath sounds equal bilaterally. GASTROINTESTINAL: Abdomen soft, non-tender, nondistended. Normoactive bowel sounds x4. MUSCULOSKELETAL: No obvious deformities. Extremities without clubbing, cyanosis , or edema. NEUROLOGICAL: Awake and alert. No obvious cranial nerve deficits. Motor grossly within normal limits. 5/5 muscle strength in bilateral upper and lower extremities. Normal speech. PSYCHIATRIC: Appropriate mood and affect; insight and judgment normal. A/P Problem List: (1) Intractable pain ICD Code: R52 - Pain, unspecified Status: Acute Plan: Aorta CTA reviewed showing postoperative distal pancreatectomy with pseudocyst mentioned. Negative for dissection or aneurysm. Chest x-ray with no acute findings. Vital signs are stable upon presentation. Patient is comfortable on room air. We will continue home methadone. Dilaudid IV as needed for breakthrough pain, patient has been pain free. Supportive care. Patient had mild chest pain, that has resolved. He states that this is probably due to undergoing chemotherapy and increase in stressors related. Patient has refused stress test 1 month ago and continues to refuse any cardiac workup. ACS ruled out. Cardiac tele unremarkable overnight. Patient desires to follow-up outpatient. We will continue to monitor. Will DC IV dilaudid. [place] PO as needed. (2) Pseudocyst of pancreas ICD Code: K86.3 - Pseudocyst of pancreas Status: Acute Plan: Lipase is 179. No signs of acute pancreatitis. Oncology consult, appreciate input recommendations. Outpatient follow up with general surgery, known to Dr. Juarez. Will DC today. Follow up with oncologist. (3) Pancreatic cancer ICD Code: C25.9 - Malignant neoplasm of pancreas, unspecified Plan: Oncology has been consulted, abdominal CT showing pseudocyst of 2.5 cm with some edematous changes in the fat in the left upper quadrant. General surgery upon discharge. Patient is currently undergoing chemotherapy. Patient expresses distress regarding diagnosis and undergoing chemotherapy treatment. Xanax will be continued. Offer support. Added dexamethasone. Mikki Martin August 03, 2017 13:08
[2017-08-03] MEDS ORDERED: ACETAMINOPHEN/HYDROcodone 325 MG/5 MG TAB PO PRN (13:15)
--- NOTE | 2017-08-03 13:50 | HHI.DCPOC ---
Discharge Care Plan Diagnosis: (1) Pancreatic cancer (2) Intractable pain (3) Hepatitis C, chronic (4) Pseudocyst of pancreas Goals to Promote Your Health * To prevent worsening of your condition and complications * To maintain your health at the optimal level Directions to Meet Your Goals Take your medications as prescribed Follow your dietary instruction Follow activity as directed Keep your appointments as scheduled Take your immunizations and boosters as scheduled If your symptoms worsen call your PCP, if no PCP go to Urgent Care Center or Emergency Room Smoking is Dangerous to Your Health. Avoid second hand smoke Call the 24-hour hour crisis hotline for domestic abuse at Mikki Martin August 03, 2017 13:50
[2017-08-03] MEDS ORDERED: METH5TAB PO (14:18)
[2017-08-03] MEDS ORDERED: DEXA2TAB PO (14:28)
[2017-08-03 16:00] VITALS: BP 112/67; PULSE 60; RESP 16; TEMP 96.4; O2SAT 96
[2017-08-09] MEDS ORDERED: PROC10TA PO (01:29)
== END 2017-08-03 19:00 | disposition home or self-care (01) ==
LOC: PHED 18:48 → INTOOBSV 20:55 → PHEDA 20:55 → PH3B 22:25
PROVIDERS: ADMIT Hospitalist; ATTEND Hospitalist
DX: R10.11 Right upper quadrant pain (principal); R07.89 Other chest pain; K86.3 Pseudocyst of pancreas; C25.9 Malignant neoplasm of pancreas, unspecified; I10 Essential (primary) hypertension; E78.5 Hyperlipidemia, unspecified; J44.9 Chronic obstructive pulmonary disease, unspecified; I25.10 Atherosclerotic heart disease of native coronary artery without angina pectoris; B18.2 Chronic viral hepatitis C; E78.00 Pure hypercholesterolemia, unspecified; I49.5 Sick sinus syndrome; R94.31 Abnormal electrocardiogram [ECG] [EKG]; G47.33 Obstructive sleep apnea (adult) (pediatric); K21.9 Gastro-esophageal reflux disease without esophagitis; F06.4 Anxiety disorder due to known physiological condition; G43.909 Migraine, unspecified, not intractable, without status migrainosus; F41.9 Anxiety disorder, unspecified; F32.9 Major depressive disorder, single episode, unspecified; M19.90 Unspecified osteoarthritis, unspecified site; E66.9 Obesity, unspecified; F17.201 Nicotine dependence, unspecified, in remission; Z95.0 Presence of cardiac pacemaker; Z79.899 Other long term (current) drug therapy; Z79.82 Long term (current) use of aspirin; Z90.411 Acquired partial absence of pancreas; Z90.81 Acquired absence of spleen
CPT/HCPCS: 71045; 71275; 74174; 80053; 83690; 83735; 84484; 85025; 85610; 85730; 93005; 96372; 96374; 96375; 96376; 99285; G0378; J1170; J1644; J2270; J2405; Q9967

== ENCOUNTER 2017-08-08 16:24 | Emergency (ER) | payer OTHER, MEDICAID ==
[2017-08-08] MEDS: LORazepam 2 MG/ML VIAL IV PUSH (17:13)
[2017-08-08] MEDS: ALUMINUM/MAGNESIUM/SIMETH 30 ML CUP PO (17:13)
[2017-08-08] MEDS: LIDOCAINE VISCOUS 2% SOLN 15 ML UDC PO (17:13)
[2017-08-08] MEDS: ONDANSETRON HCL 4 MG/2 ML VIAL IVP (17:13)
[2017-08-08 17:36] LABS: TROPONIN I LESS THAN 0.02 NG/ML (0.02-0.05)
[2017-08-08 18:02] LABS: CREATINE KINASE 21 U/L (39-308)
== END 2017-08-08 18:48 | disposition home or self-care (01) ==
LOC: PHED 16:24
DX: R10.84 Generalized abdominal pain (principal); F41.9 Anxiety disorder, unspecified; K21.9 Gastro-esophageal reflux disease without esophagitis; C25.2 Malignant neoplasm of tail of pancreas; R94.31 Abnormal electrocardiogram [ECG] [EKG]; J44.9 Chronic obstructive pulmonary disease, unspecified; I10 Essential (primary) hypertension; E78.00 Pure hypercholesterolemia, unspecified; Z87.19 Personal history of other diseases of the digestive system
CPT/HCPCS: 82550; 84484; 93005; 96374; 96375; 99284-25

== ENCOUNTER 2017-08-08 22:29 | Emergency (ER) | payer MEDICAID, OTHER ==
[2017-08-08 23:51] LABS: AUTOMATED NEUTROPHIL # 14.2 TH/MM3 (1.8-7.7); BASOPHIL % 0.3 % (0.0-2.0); EOSINOPHIL % 0.1 % (0.0-4.0); HEMATOCRIT 37.1 % (39.0-51.0); HEMOGLOBIN 12.6 GM/DL (13.0-17.0); LYMPH % 5.3 % (9.0-44.0); LYMPHOCYTE # 0.8 TH/MM3 (1.0-4.8); MEAN CELL VOLUME 91.4 FL (80.0-100.0); MEAN CORPUSCULAR HGB CONC 33.9 % (32.0-36.0); MONO % 0.9 % (0.0-8.0); MONOCYTE # 0.1 TH/MM3 (0-0.9); NEUT % 93.4 % (16.0-70.0); PLATELET COUNT 261 TH/MM3 (150-450); RED BLOOD COUNT 4.06 MIL/MM3 (4.50-5.90); RED CELL DISTRIBUTION WIDTH 13.8 % (11.6-17.2); WHITE BLOOD COUNT 15.1 TH/MM3 (4.0-11.0)
[2017-08-08 23:52] LABS: HEMO FLAGS DIFF FINAL
[2017-08-08 23:57] LABS: CHLORIDE 99 MEQ/L (98-107); POTASSIUM 4.3 MEQ/L (3.5-5.1); SODIUM (NA) 135 MEQ/L (136-145)
[2017-08-08] MEDS: SODIUM CHLORIDE 0.9% FLUSH 10 ML FLUSH IVF (23:59)
[2017-08-08] MEDS: MORPHINE SULFATE 4 MG/ML INJ IV PUSH (23:59)
[2017-08-08] MEDS: ONDANSETRON HCL 4 MG/2 ML VIAL IV PUSH (23:59)
[2017-08-09 00:01] LABS: ALBUMIN 3.2 GM/DL (3.4-5.0); ANION GAP 6 MEQ/L (5-15); BICARBONATE 29.8 MEQ/L (21.0-32.0); BLOOD UREA NITROGEN 23 MG/DL (7-18); GLUCOSE,RANDOM 116 MG/DL (74-106)
[2017-08-09 00:04] LABS: ALT (GPT) 59 U/L (12-78); AST (GOT) 26 U/L (15-37); CREATININE 0.77 MG/DL (0.60-1.30); GLOMERULAR FILTRATION RATE 105 ML/MIN (>89)
[2017-08-09 00:05] LABS: TOTAL BILIRUBIN ADULT 0.2 MG/DL (0.2-1.0)
[2017-08-09 00:07] LABS: ALKALINE PHOSPHATASE 99 U/L (45-117); APTT (PATIENT) 25.4 SEC (24.3-30.1); INTERNATIONAL NORMALIZED RATIO 1.1 RATIO; PROTHROMBIN TIME - PATIENT 11.1 SEC (9.8-11.6)
[2017-08-09 00:09] LABS: TROPONIN I LESS THAN 0.02 NG/ML (0.02-0.05)
[2017-08-09] MEDS: IOHEXOL 350 MG/ML 10 ML VIAL (for RAD DIAG) IVCONTRAST (00:43)
== END 2017-08-09 01:50 | disposition home or self-care (01) ==
LOC: PHED 22:29
DX: C25.9 Malignant neoplasm of pancreas, unspecified (principal); R10.84 Generalized abdominal pain; R07.9 Chest pain, unspecified; R94.31 Abnormal electrocardiogram [ECG] [EKG]; J44.9 Chronic obstructive pulmonary disease, unspecified; K21.9 Gastro-esophageal reflux disease without esophagitis; I10 Essential (primary) hypertension; E78.00 Pure hypercholesterolemia, unspecified; Z87.19 Personal history of other diseases of the digestive system
CPT/HCPCS: 71275; 80053; 84484; 85025; 85610; 85730; 93005; 96374; 96375; 99285-25